=== PATIENT | female | born 1940 | race Caucasian/White ===

== ENCOUNTER 2017-06-11 13:11 | Inpatient (IN) | payer MEDICARE, OTHER ==
--- NOTE | 2017-06-11 13:45 | CT ---
CT OF BRAIN WITHOUT CONTRAST: Comparison: 03-24-15 History: Altered mental status and generalized weakness. Productive cough for two days. Technique: Multiple contagious axial images were obtained in a CT of the brain without contrast. FINDINGS: The brain is normal in morphology and attenuation without focal lesion or confluent areas of infarcti on. There is no evidence of hydrocephalus, intracranial hemorrhage, or extraaxial fluid collection. The calvarium and overlying soft tissues are unremarkable. The visualized paranasal sinuses and masto id air cells are well aerated. IMPRESSION: No evidence of acute intracranial abnormality. POS: [facility]
[2017-06-11 13:47] LABS: Hemoglobin 12.1 g/dL (12.0-16.0); Mean Corpuscular HGB CONC 32.4 g/dL (32.0-36.0); Mean Corpuscular Hemoglobin 31.8 pg (27.0-31.0); Mean Corpuscular Volume 98.3 fl (81.0-99.0); Mean Platelet Volume 8.3 fL (7.4-10.4); Platelet Count 219 thou/uL (130-400); RBC Distribution Width 13.1 % (11.5-14.5); Red Blood Cell (RBC) Count 3.81 mill/uL (4.20-5.40); White Blood Cell (WBC) Count 20.1 thou/uL (4.8-10.8)
--- NOTE | 2017-06-11 14:00 | RAD ---
SINGLE VIEW CHEST: Date: 06/11/17 COMPARISON: 05/29/15. HISTORY: Patient has not been eating much for the past 4 days. Generalized weakness and altered mental status. FINDINGS: Single view of the chest shows normal sized cardiomediastinal silhouette with atherosclerotic calcifi cations in the aorta. Increased interstitial lung markings are present. There are two small areas of air space opacity projecting over the mid portion of the right thorax. These could represent focal in filtrates or masses. IMPRESSION: Opacity projecting over the mid portion of the right thorax may represent infiltrates or masses. Tima elate with white blood coco count. A CT of the chest with contrast may be necessary for further andra luation. POS: [facility]
[2017-06-11 14:04] LABS: CKMB 0.5 ng/mL (0-6.6); Troponin I 0.043 ng/mL (< 0.028)
[2017-06-11 14:07] LABS: ALT (SGPT) 21 U/L (8-55); AST (SGOT) 14 U/L (5-34); Albumin 3.4 g/dL (3.4-4.8); Alkaline Phosphatase 84 U/L (40-150); Anion Gap 18 mmol/L (10-20); BUN (Urea Nitrogen) 40 mg/dL (9.8-20.1); Bilirubin, Total 0.7 mg/dL (0.2-1.2); Calc. Creatinine Clearance 0 mL/min (70-130); Calcium 9.1 mg/dL (7.8-10.44); Carbon Dioxide 22 mmol/L (23-31); Chloride 101 mmol/L (98-107); Estimated GFR-MDRD 21; Globulin 4.1 g/dL (2.4-3.5); Glucose 105 mg/dL (83-110); Lipase 19 U/L (8-78); Potassium 3.6 mmol/L (3.5-5.1); Protein, Total 7.5 g/dL (6.0-8.3); Sodium 137 mmol/L (136-145)
[2017-06-11 14:08] LABS: Band 13 % (5-11); Lymphocytes 6 % (21-51); MDiff Complete? YES; Monocytes 1 % (0-10); Neutrophil 80 % (42-75); Ovalocytes SLIGHT = 2-5 cells (100X) (0-1/hpf); PLT Morphology Comment Appears Adequate; Polychromasia SLIGHT = 2-3 cells (100X) (0-2/hpf)
[2017-06-11] MEDS ORDERED: Azithromycin 500 MG in Sodium Chloride 0.9% 250 ML 250 ML IVPB SCH (15:00)
[2017-06-11 15:03] LABS: Bilirubin Small (Negative); Blood, Urine Large (Negative); Clarity TURBID (Clear); Glucose, Urine (Dipstick) Negative (Negative); Leukocyte Large (Negative); Nitrite Negative (Negative); Protein, Urine (Dipstick) 100 mg/dL (Neg-Trace); Specific Gravity, Urine 1.015 (1.002-1.036); Urobilinogen 0.2 mg/dL (0.2-1.0); pH, Urine 6.5 (5.0-9.0)
[2017-06-11 15:04] LABS: Bacteria/HPF 4+ HPF (None Seen); Squamous Epithelial 0-3 HPF (0-3)
[2017-06-11 15:05] LABS: Pathc Cast-AUWi Flag 4.29 (0-2.49); Yeast-AUWi Flag 221.6 (0-25.0)
[2017-06-11] MEDS ORDERED: Bisacodyl 5 MG TAB PO PRN (15:13)
[2017-06-11 15:14] LABS: Hyaline Casts/LPF NONE SEEN LPF (0-3 Hyaline); Manual Microscopic Reviewed? No Path Casts Seen; RBC/HPF GREATER THAN 50-TNTC HPF (0-3); Yeast-All Forms None Seen HPF (None Seen)
[2017-06-11] MEDS ORDERED: cefTRIAXone\\ROCEPHIN 1 GM in Sodium Chloride 0.9% 100 ML IVPB SCH (15:15)
--- NOTE | 2017-06-11 16:49 | HP ---
PRIMARY CARE PHYSICIAN: Dr. Jagdish Byrnes. CHIEF COMPLAINT: Generalized weakness. HISTORY OF PRESENT ILLNESS: Ms. Hernández is a pleasant 76-year-old lady, who was seen at [facility] on 06/11/2017. She reports that over the last week, she has been generally weak. She also reports cough that is pro ductive of greenish sputum. She does not recall having fevers. She reports that she has been mostly bed bound because of generalized weakness. She denies any nausea, vomiting, or diarrhea. Her son w as sick with flu a couple of weeks ago. She denies any chest pain. She denies any shortness of breath. REVIEW OF SYSTEMS: The following complete review of systems was negative, unless otherwise mentioned in the HPI or below: Constitutional: Weight loss or gain, ability to conduct usual activities. Skin : Rash, itching. Eyes: Double vision, pain. ENT/Mouth: Nose bleeding, neck stiffness, pain, tenderness. Cardiovascular: Palpitations, dyspnea on exertion, orthopnea. Respiratory: Shortness of breath, wheezing, cough, hemoptysis, fever or night sweats. Gastrointestinal: Poor appetite, abdominal pain, heartburn, nausea, vomiting, constipation, or diarrhea. Genitourinary: Urgency, frequency, dysuria, nocturia. Musculoskeletal: Pain, swelling. Neurologic/Psychiatric: Anxiety, depression. Allergy/Immunologic: Skin rash, bleeding tendency. PAST MEDICAL HISTORY: Significant for paroxysmal atrial fibrillation, mild coronary artery disease, chronic kidney disease stage 2, and anxiety. PAST SURGICAL HISTORY: Significant for cardiac catheterization, hysterectomy, left breast lumpectomy , ablation for paroxysmal atrial fibrillation. FAMILY HISTORY: Heart disease in multiple family members. CODE STATUS: I discussed her code status. She is FULL CODE. SOCIAL HISTORY: She denies any tobacco use. She drinks one rum and coke daily. She denies any recr eational drug use. ALLERGIES: No known drug allergies. CURRENT MEDICATIONS: Include atorvastatin 20 mg daily, diltiazem 240 mg daily, Eliquis 5 mg daily. PHYSICAL EXAMINATION: GENERAL: Ms. Hernández is awake and alert, not in acute distress. VITAL SIGNS: Blood pressure is 102/71. Pulse is 134. She is breathing at rate of 19 and saturating 98% on 2 liters of oxygen. She is afebrile. EYES: No scleral icterus. No conjunctival pallor. ENT: Dry mucosal membranes, no oropharyngeal erythema or exudates. NECK: Supple, nontender, normal range of movement, trachea is midline. RESPIRATORY: Accessory muscles of breathing are not active. Chest wall movements are symmetric bila terally. LUNGS: Clear to auscultation, without wheeze, rhonchi or crepitations. CARDIOVASCULAR: S1 and S2 are heard, irregular and tachycardic. Peripheral pulses palpable. No car otid bruit, no pericardial rub. ABDOMEN: Soft, nontender, bowel sounds heard, no hepatomegaly, no splenomegaly. NEUROLOGIC: Cranial nerves II through XII are intact. Deep tendon reflexes are 2+. SKIN: No rashes or subcutaneous nodules. LYMPHATIC: No cervical lymphadenopathy. PSYCHIATRIC: Normal mood, normal affect, patient is oriented to person, place, and time. LABORATORY DATA: Ms. Hernández's labs and investigations were reviewed. I reviewed her electrocardiogram, which shows normal sinus rhythm at 1323 hours. Currently, athletic monitor shows atrial fibrillati on with rapid ventricular response. We also reviewed her chest x-ray, which shows a right upper lobe infiltrate. She also had a CT scan of the brain, noncontrast, which did not show any acute intracra nial abnormality. Laboratory investigation showed leukocytosis with 20,100 white cells, of which 80% are neutrophils and 13% are bands. Hemoglobin is normal, as is the platelet count. Sodium and pota ssium are normal. Carbon dioxide is decreased at 22, lactic acid is elevated at 2.8, blood urea nitr ogen is elevated at 40 and creatinine is elevated at 2.32, last known creatinine 1.48 on 08/26/2016. Troponin I is indeterminate at 0.043. Lipase is normal. Urinalysis is positive for protein, blood, and leukocyte esterase, and bacteria. ASSESSMENT AND PLAN: Ms. Hernández is a pleasant 76-year-old lady, who was seen at [facility] on 06/11/2017. Her problem list includes: 1. Community-acquired pneumonia: Ms. Hernández has evidence of community acquired pneumonia, with a signi ficant leukocytosis and bandemia. She will be admitted to the hospital for further management. I wi ll continue her on ceftriaxone and azithromycin, which has already been started. We will provide bro nchodilators as needed. We will also check influenza screen to rule out influenza infection. 2. Urinary tract infection. Suspected, based on urinalysis. Continue ceftriaxone and follow urine cultures. 3. Atrial fibrillation with rapid ventricular response. At this time, her heart rate is actually im proving after she has been started on intravenous fluids. Continue to monitor. We will not initiate Cardizem drip at this time. 4. Acute on chronic renal failure: Likely prerenal, given her history of not eating well and drinki ng enough fluids for the last few days. Hydrate and recheck her creatinine and electrolytes. 5. Indeterminate troponin: She has ST depressions in the lateral leads. Follow troponin levels. C heck 2D echocardiogram to rule out regional wall motion abnormalities. Many thanks for allowing me to participate in your patient's care. Please feel free to contact me wi th any questions or concerns. LEVEL OF RISK: High. LEVEL OF COMPLEXITY: High.
[2017-06-11 17:07] LABS: Troponin I 0.043 ng/mL (< 0.028)
[2017-06-11 17:33] LABS: Lactic Acid 1.7 mmol/L (0.5-2.2)
[2017-06-11] MEDS: cefTRIAXone\\ROCEPHIN 1 GM, Syringe 0.4 ML in Sterile Water 9.6 ML SLOW IVP SCH (18:36)
[2017-06-11] MEDS: Sodium Chloride 0.9% 1,000 ML IV SCH (18:39)
[2017-06-11] MEDS: Apixaban 5 MG TAB PO SCH (21:04)
[2017-06-11] MEDS: Atorvastatin Calcium 20 MG TAB PO SCH (21:04)
[2017-06-12] MEDS: Sodium Chloride 0.9% 1,000 ML IV SCH ×2 (04:11→15:07)
[2017-06-12 05:41] LABS: Anion Gap 13 mmol/L (10-20); BUN (Urea Nitrogen) 36 mg/dL (9.8-20.1); Calc. Creatinine Clearance 21 mL/min (70-130); Calcium 8.2 mg/dL (7.8-10.44); Carbon Dioxide 22 mmol/L (23-31); Chloride 110 mmol/L (98-107); Estimated GFR-MDRD 29; Glucose 88 mg/dL (83-110); Potassium 3.2 mmol/L (3.5-5.1); Sodium 142 mmol/L (136-145)
[2017-06-12 06:34] LABS: Hemoglobin 9.8 g/dL (12.0-16.0); Mean Corpuscular Hemoglobin 33.4 pg (27.0-31.0); Mean Platelet Volume 8.9 fL (7.4-10.4); Platelet Count 181 thou/uL (130-400); RBC Distribution Width 13.1 % (11.5-14.5); Red Blood Cell (RBC) Count 2.95 mill/uL (4.20-5.40)
[2017-06-12 07:17] LABS: Band 18 % (5-11); Lymphocytes 8 % (21-51); MDiff Complete? YES; Monocytes 3 % (0-10); Neutrophil 71 % (42-75); Polychromasia SLIGHT = 2-3 cells (100X) (0-2/hpf)
[2017-06-12] MEDS: Apixaban 5 MG TAB PO SCH (08:18)
[2017-06-12] MEDS ORDERED: Prevnar 13-Val Conj/PF 0.5 ML SYRINGE IM ONE (09:00)
--- NOTE | 2017-06-12 10:26 | CON ---
DATE OF CONSULTATION: 06/12/2017 This is a 76-year-old female who sees Dr. Byrnes. She is in [facility], the reason for consultation. HISTORY: Apparently she came in yesterday with confusion and mental status changes. CT of the head was done which was unremarkable. This morning she tells me that she lives with her son. She is a fo rmer smoker, quit smoking many years ago. She has a diagnosis of asthma, COPD. She is having a coug h which is nonproductive. Unable to give much additional information except she is feeling poorly. An echocardiogram was just done. According to the son on arrival, the patient had not eaten for several days. PAST MEDICAL HISTORY: Pertinent for cardiac arrhythmia, SVT, atrial fibrillation. She has a history of depression. She apparently has history of drinking alcohol on a regular basis, former smoker. P ast medical history otherwise includes depression, cardiac arrhythmias, COPD, chronic asthma. PAST SURGICAL HISTORY: Previous cath, lumpectomy, hysterectomy. MEDICATIONS: From home includes Cardizem 240, Lipitor 20, Eliquis 5, Zoloft 25, potassium, Protonix, and now on Zithromax, Rocephin. REVIEW OF SYSTEMS: Otherwise, difficult to obtain. PHYSICAL EXAMINATION: GENERAL: She is awake, responsive, somewhat encephalopathic. We will try and get additional informa tion when son arrives. VITAL SIGNS: Blood pressure 104/40, sats 100% on 2 liters, respirations 18, temperature 98. CHEST: Chest revealed bilateral rhonchi and wheezing. CARDIAC: Normal S1-S2. ABDOMEN: Soft. No masses. LABORATORY: White count 14,000, H&H 9 and 28, platelet count 81. Electrolytes are normal. Creatini ne 1.74. Urine shows 50 WBCs. X-ray showed a right upper lung infiltrate. IMPRESSION: 1. Chronic obstructive pulmonary disease/asthma exacerbation. 2. Superimposed pneumonia. 3. Renal failure. 4. Supraventricular tachycardia. 5. Encephalopathy, probably metabolic. PLAN: I agree with present antibiotic coverage. I have added steroids, nebulizer treatments. Azotemia may be prerenal. Continue slow hydration. I will follow.
[2017-06-12] MEDS: Pantoprazole 80 MG, Admixture Fee 1 EACH in Sodium Chloride 0.9% 100 ML IVP SCH ×2 (12:21→21:13)
--- NOTE | 2017-06-12 14:35 | PDOC.PN ---
- Subjective Encounter Start Date: 06/12/17 Encounter Start Time: 09:40 Pt seen for followup re: pneumonia. Reports cough, greenish sputum. No fevers. - Objective Resuscitation Status: Resuscitation Status FULL:Full Resuscitation MAR Reviewed: Yes Vital Signs & Weight: Vital Signs (12 hours) Temp Pulse Resp BP Pulse Ox 06/12/17 13:36 97 06/12/17 13:33 98 19 97 06/12/17 12:00 97.6 F 88 20 113/53 L 98 06/12/17 08:18 93 06/12/17 07:38 98.4 F 93 18 105/56 L 100 06/12/17 07:26 97.8 F 87 20 98 06/12/17 04:00 97.8 F 87 20 127/62 96 Weight Admit Weight 104 lb 6.4 oz Weight 104 lb 12.8 oz I&O: 06/11/17 06/12/17 06/13/17 06:59 06:59 06:59 Intake Total 1200 Output Total 780 Balance 420 Result Diagrams: 06/12/17 03:43 06/12/17 03:43 EKG Reviewed by me: Yes (Tele: keenan modi) Phys Exam - Physical Examination Constitutional: NAD HEENT: PERRLA, moist MMs, sclera anicteric, oral pharynx no lesions Neck: no nodes, no JVD, supple, full ROM Respiratory: no wheezing, no rales, no rhonchi, clear to auscultation bilateral Cardiovascular: no rub, irregular Gastrointestinal: soft, non-tender, no distention, positive bowel sounds Neurological: moves all 4 limbs Psychiatric: normal affect Dx/Plan (1) CAP (community acquired pneumonia) Code(s): J18.9 - PNEUMONIA, UNSPECIFIED ORGANISM Status: Acute Qualifiers: Laterality: right Lung location: upper lobe of lung Qualified Code(s): J18.1 - Lobar pneumonia, unspecified organism (2) UTI (urinary tract infection) Status: Acute (3) SIMON (acute kidney injury) Code(s): N17.9 - ACUTE KIDNEY FAILURE, UNSPECIFIED Status: Acute (4) Sepsis Code(s): A41.9 - SEPSIS, UNSPECIFIED ORGANISM Status: Acute (5) Afib Code(s): I48.91 - UNSPECIFIED ATRIAL FIBRILLATION Status: Chronic (6) Moderate protein-calorie malnutrition Code(s): E44.0 - MODERATE PROTEIN-CALORIE MALNUTRITION Status: Chronic - Plan continue antibiotics, PT/OT, out of bed/ambulate * . Continue IV antibiotics as below. Await urine, blood and respiratory cultures. Influenza screen -ve. Monitor vital signs, titrate antihypertensives as needed. Review of Systems - Review of Systems Constitutional: negative: fever, chills, sweats, weakness, malaise Respiratory: Cough, SOB with Excertion, Sputum. negative: Dry, Shortness of Breath, Hemoptysis, Pleuritic Pain, Wheezing Cardiovascular: negative: chest pain, palpitations, orthopnea, paroxysmal nocturnal dyspnea, edema, light headedness Gastrointestinal: negative: Nausea, Vomiting, Abdominal Pain, Diarrhea, Constipation, Melena, Hematochezia Genitourinary: negative: Dysuria, Frequency, Incontinence, Hematuria, Retention Skin: negative: Rash, Lesions, Francis, Bruising - Medications/Allergies Allergies/Adverse Reactions: Allergies Allergy/AdvReac Type Severity Reaction Status Date / Time No Known Allergies Allergy Verified 05/29/15 16:53 Medications: Current Medications Albuterol/Ipratropium (Duoneb) 3 ml NEB [id number] [facility] Last Admin: 06/12/17 13:33 Dose: 3 ml Atorvastatin Calcium (Lipitor) 20 mg PO QPM [facility] Last Admin: 06/11/17 21:04 Dose: 20 mg Bisacodyl (Dulcolax) 10 mg PO DAILYPRN PRN PRN Reason: Constipation Diltiazem HCl (Cardizem Cd) 240 mg PO DAILY [facility] Last Admin: 06/12/17 08:18 Dose: 240 mg Azithromycin 500 mg/ Sodium (Chloride) 250 mls @ 250 mls/hr IVPB 1500 [facility] Ceftriaxone Sodium 1 gm/ (Syringe 0.4 ml/ Sterile Water) 10 mls @ 120 mls/hr SLOW IVP 1700 [facility] Last Admin: 06/11/17 18:36 Dose: Not Given Pantoprazole Sodium 80 mg/Miscellaneous Medication 1 each/ Sodium Chloride 100 mls @ 10 mls/hr IVP INF [facility] Last Admin: 06/12/17 12:21 Dose: 100 mls Potassium Chloride/Sodium Chloride (Ns 0.9% W/ 40 Meq Kcl) 1,000 mls @ 100 mls/ hr IV .Q10H [facility] Prednisone (Prednisone) 20 mg PO BID-WM NAHEED
--- NOTE | 2017-06-12 14:53 | PQF ---
DATE: 06-12-17 ATTN: DR. JAMES MUSA Please exercise your independent, professional judgment in responding to the clarification form. Clinical indicators are provided on the bottom of this form for your review Please check appropriate box(s): [ X ] Sepsis due to: (Pna, UTI, etc.) Pneumonia [ ] Severe sepsis with acute organ dysfunction of: (Examples: encephalopathy, acute kidney failure, other) [ ] Other diagnosis [ ] Unable to determine In addition, please specify: Present on Admission (POA): [ ] Yes [ ] No [ ] Unable to determine For continuity of documentation, please document condition throughout progress notes and discharge summary. Thank You. CLINICAL INDICATORS - SIGNS / SYMPTOMS / LABS CONSULT NOTE DR. MC 06-12-17: HISTORY APPARENTLY WITH CONFUSION AND MENTAL STATUS CHANGES. ER DIAGNOSIS: PNEUMONIA, SIMON, INDETERMINATE TROPONIN, SEPSIS, WEAKNESS H&P: HAS EVIDENCE OF COMMUNITY ACQUIRED PNEUMONIA, WITH A SIGNIFICANT LEUKOCYTOSIS AND BANDEMIA. ER DOCUMENTATION: PULSE: 123, 134, 110 WBC: 06-11-17: 20.1 18: 14.0 BANDS: 06-11-18: 13 06-12-17: 18 LACTIC ACID: 06-11-17: 2.8 RISK FACTORS: H&P: COMMUNITY ACQUIRED PNEUMONIA, UTI ADVANCED AGE TREATMENTS: (MAR) IVF (MAR) ZITHROMAX, ROCEPHIN (This form is maintained as a part of the permanent medical record) 2014 [employer]. All Rights Reserved [email or web address] Office: [phone] DIANNE
--- NOTE | 2017-06-12 15:16 | PQF ---
Date: 06-12-17 ATTN: DR. JAMES MUSA Please exercise your independent, professional judgment in responding to the clarification form. Clinical indicators are provided on the bottom of this form for your review Please check appropriate box(s): [ X ] Protein Calorie Malnutrition: [ ] Mild [ X ] Moderate [ ] Severe [ ] Cachexia [ ] Other diagnosis [ ] Unable to determine In addition, please specify: Present on Admission (POA): [ ] Yes [ ] No [ ] Unable to determine CLINICAL INDICATORS - SIGNS / SYMPTOMS / LABS BMI of 18.0 ER DIAGNOSIS: PNEUMONIA, SIMON, INDETERMINATE TROPONIN, SEPSIS, WEAKNESS [employer]EEP[employer] CONSULT 06-12-17: Patient states she has been very depressed for the last month or so, really is not able to provide much detailed history. 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 She has no desire to eat and often has been skipping dinner. Breakfast tray was observed at bedside untouched. Discussed importance of nutrition and encouraged PO intake during visit. Per documentation, patient has been mostly bedbound this week. She reports UBW at 135-140 lbs but "couldn't even begin to tell" RD when this was, "she just hasn't cared about that kind of thing." Patient does not drink oral supplements, states she has a rum and coke every night. [employer] CONSULT 06-12-17: depression, decreased appetite, patient report of minimal intake x1 month, 22% weight loss in unknown period of time, breakfast tray untouched RISK FACTORS: Patient states she has been very depressed for the last month or so, really is not able to provide much detailed history. 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 She has no desire to eat and often has been skipping dinner. Breakfast tray was observed at bedside untouched. Discussed importance of nutrition and encouraged PO intake during visit. Per documentation, patient has been mostly bedbound this week. She reports UBW at 135-140 lbs but "couldn't even begin to tell" RD when this was, "she just hasn't cared about that kind of thing." Patient does not drink oral supplements, states she has a rum and coke every night. ER DOCUMENTATION: HAS NOT EATEN IN 4 DAYS, DRINKS EVERY DAY TREATMENT: CLE[employer]KEEP[employer] CONSULT 06-12-17: 1. Continue current Heart Healthy diet 2. Recommend Ensure Enlive TID to promote intake, monitoring renal function closely 3. Consider an appetite stimulant (This form is maintained as a part of the permanent medical record) 2014 [employer]. All Rights Reserved [email or web address] Office: [phone] [facility]
[2017-06-12] MEDS: Azithromycin 500 MG in Sodium Chloride 0.9% 250 ML 250 ML IVPB SCH (16:23)
[2017-06-12] MEDS: NS 0.9% w/ 40 MEQ KCL 1,000 ML IV SCH (16:23)
[2017-06-12] MEDS: predniSONE 20 MG TAB PO SCH (16:25)
[2017-06-12] MEDS: cefTRIAXone\\ROCEPHIN 1 GM, Syringe 0.4 ML in Sterile Water 9.6 ML SLOW IVP SCH (17:43)
[2017-06-12] MEDS: Atorvastatin Calcium 20 MG TAB PO SCH (19:50)
[2017-06-12] MEDS ORDERED: Apixaban 5 MG TAB PO SCH (21:00)
--- NOTE | 2017-06-13 01:38 | CON ---
DATE OF CONSULTATION: 06/12/2017 REFERRING PHYSICIAN: Sreekanth Wilkins M.D. REASON FOR CONSULTATION: Black tarry stool. HISTORY OF PRESENT ILLNESS: Ms. Remedios Hernnádez is a very fragile looking, elderly female hospit alized by Dr. Sreekanth Wilkins because of generalized weakness, poor appetite, altered mental status. She also gives a history of cough with productive greenish sputum. Her chest x-ray revealed pneumonia, and she will have broad-spectrum antibiotic therapy. The patient has history of atrial fibrillation and has had ablation x2. The patient will take Eliquis. Apparently, she had been in and out of paro xysmal atrial fibrillation. The patient has had a bowel movement this morning and as per the nurses, she had a very large black tarry stool. She felt dizzy at that time. Also, she became tachycardic. She had a CBC done. The CBC did drop down from admitting hemoglobin of 12.1 to 9.8. The patient h ad only 1 black tarry stool and subsequently, she had no more stool. The patient denies abdominal pa in, nausea, vomiting. No hematemesis, dysphagia or odynophagia. The patient's family tells me that she has not been eating very little over the last several months. She has poor appetite, does not wa nt to eat anything. There is a history of weight loss of 25-30 pounds over the last few months. The patient has no localizing symptoms of anorexia and weight loss. Her bowel movements are fairly regu lar. She says she has a bowel movement everyday. At times when strains and the stools are hard, he does see mild bleeding in the stool. Otherwise, she has had no bleeding. She had a possible peptic ulcer. She does take Eliquis because of atrial fibrillation. She has no other relevant history. ALLERGIES: None. SOCIAL HISTORY: The patient does not smoke. She usually drinks one drink every day. No history of drug use. MEDICAL ILLNESSES: 1. Paroxysmal atrial fibrillation, status post ablation x2. 2. Mild coronary artery disease. 3. Chronic kidney disease, stage 2. 4. Anxiety. SURGERIES: 1. Past history of cardiac catheterization. 2. Hysterectomy. 3. Left breast lumpectomy. 4. Ablation of heart for atrial fibrillation. FAMILY HISTORY: Multiple family members have heart disease. MEDICATIONS: 1. Atorvastatin 20 once a day. 2. Diltiazem 240 once a day. 3. Eliquis 5 once a day. REVIEW OF SYSTEMS: A 10-point system reviewed. Constitutional: History of poor appetite, generaliz ed weakness, weight loss. No history of fever or chills, no night sweats. Respiratory: History of cough with greenish sputum recently. No history of hemoptysis. Cardiovascular: History of atrial fibrillation with ablation. At present, no chest pain, no palpita tion, no dyspnea, orthopnea, or PND. Gastrointestinal: No abdominal pain, no nausea, vomiting, hist ory of black tarry stool this morning. Genitourinary: No dysuria, hematuria, or frequency of urinat ion. Musculoskeletal/Endocrine/Hematological: Not relevant. Neuropsychiatric: History of anxiety. PHYSICAL EXAMINATION: GENERAL: Reveals a fragile-looking, elderly female who appears comfortable. She is actual ly lying flat and she is not short-winded. VITAL SIGNS: Her pulse in the present time 106, blood pressure is 102/71. HEENT: Conjunctivae clear. NECK: Supple. No adenitis or thyromegaly noted. CARDIAC: First and second heart sounds normal. LUNGS: Clear to auscultation. No wheezing or rales heard. ABDOMEN: Soft to palpate. Abdomen is nontender. There is no organomegaly or masses. EXTREMITIES: Reveal no edema. CENTRAL NERVOUS SYSTEM: Grossly within normal limits. LABORATORY DATA: The admitting lab shows leukocytosis with WBC of 20,100 dropping to 14,000 today, h emoglobin 12.1 dropping to 9.8, hematocrit 37.5 down to 29.8, MCV 101, platelet count is 181,000, kelsey ymorphs 71, bands 18, lymphocytes 8. Serum chemistries: Sodium 142, potassium 3.2, chloride 110, bi carbonate 22, BUN is 36, creatinine is 1.74, glucose is 88. Troponin 0.40. Globulin 4.1, albumin 3. 4, lipase 19. She had a chest x-ray on admission, which revealed right middle lobe infiltrate versus mass. CLINICAL IMPRESSION: 1. A 76-year-old female with pneumonia and also has history of atrial fibrillation. She had an episode of melena stool this morning. She was still taking Eliquis until this morning. The evening dose of Eliquis has been withheld. Based on the information, I believe she mostly has up per gastrointestinal bleeding because of black tarry stools. She has no abdominal pain. No nausea o r vomiting. 2. Right-sided pneumonia. 3. Atrial fibrillation. 4. Coronary artery disease. 5. Anxiety. 6. Status post left breast lumpectomy. RECOMMENDATIONS: 1. Full liquid diet today. 2. We will plan an EGD tomorrow. I could not perform EGD tonight because she was taking the Eliquis until this morning; we will order the EGD until tomorrow. If the EGD fails to show any pathology, haritha archer may have to consider a colonoscopy, but which can wait until she recovers from her pulmonary infilt rates.
[2017-06-13] MEDS: NS 0.9% w/ 40 MEQ KCL 1,000 ML IV SCH ×3 (04:27→20:00)
[2017-06-13 04:45] LABS: #Lymphocytes 0.3 thou/uL (1.20-3.40); #Monocytes 0.1 thou/uL (0.11-0.59); #Neutrophils 6.7 thou/uL (1.40-6.50); %Eosinophils 0.2 % (0.0-10.0); %Lymphocytes 4.3 % (21.0-51.0); %Monocytes 1.5 % (0.0-10.0); %Neutrophils 94.1 % (42.0-75.0); Hemoglobin 8.9 g/dL (12.0-16.0); Mean Corpuscular HGB CONC 31.3 g/dL (32.0-36.0); Mean Corpuscular Hemoglobin 31.6 pg (27.0-31.0); Mean Platelet Volume 8.4 fL (7.4-10.4); Platelet Count 197 thou/uL (130-400); RBC Distribution Width 13.1 % (11.5-14.5); Red Blood Cell (RBC) Count 2.82 mill/uL (4.20-5.40); White Blood Cell (WBC) Count 7.1 thou/uL (4.8-10.8)
[2017-06-13 05:12] LABS: Anion Gap 13 mmol/L (10-20); BUN (Urea Nitrogen) 26 mg/dL (9.8-20.1); Calc. Creatinine Clearance 25 mL/min (70-130); Calcium 8.3 mg/dL (7.8-10.44); Carbon Dioxide 20 mmol/L (23-31); Chloride 115 mmol/L (98-107); Estimated GFR-MDRD 35; Glucose 136 mg/dL (83-110); Potassium 3.9 mmol/L (3.5-5.1); Sodium 144 mmol/L (136-145)
[2017-06-13] MEDS ORDERED: Fentanyl 100 MCG/2 ML VIAL ONE (08:08)
--- NOTE | 2017-06-13 08:47 | PRG ---
DATE OF SERVICE: 06/13/2017 She is awake, alert, responsive. She is better, less short of breath. PHYSICAL EXAMINATION: VITAL SIGNS: Blood pressure 102/59, sats 100% on 3 liters, pulse 104, temperature 97. CHEST: Chest reveals decreased breath sounds, no wheezing. CARDIAC: Normal S1, S2. ABDOMEN: Soft, no masses. LABORATORY DATA: White count 10,000, H&H 8 and 28, platelet count normal. Electrolytes are normal. IMPRESSION: 1. Chronic obstructive pulmonary disease exacerbation. 2. Bronchitis. 3. Pneumonia, aspiration. 4. Renal failure. PLAN: Continue antibiotics, nebulizer treatments, steroids. I will follow.
[2017-06-13] MEDS ORDERED: Ondansetron HCl/PF 4 MG/2 ML Vial IVP PRN (09:26)
[2017-06-13] MEDS ORDERED: Promethazine HCl 25 MG/ML VIAL IM PRN (09:26)
[2017-06-13] MEDS ORDERED: Promethazine HCl 25 MG/ML VIAL SLOW IVP PRN (09:26)
[2017-06-13] MEDS: predniSONE 20 MG TAB PO SCH ×2 (10:49→17:25)
--- NOTE | 2017-06-13 12:10 | OP ---
DATE OF PROCEDURE: 06/13/2017 SURGEON: Franki Umaña M.D. OPERATIVE PROCEDURE: Esophagogastroduodenoscopy. PREOPERATIVE DIAGNOSES: Melena, anemia due to blood loss. POSTOPERATIVE DIAGNOSES: Antral gastritis. Otherwise, the exam was normal. There is no pathology t o explain the melena. PROCEDURE IN DETAIL: The patient was placed on her left lateral position and was given sedation by [facility] Anesthesia Department. A Pentax video gastroscope under direct vision was passed down the orophar ynx, past the gastroesophageal junction, into the stomach and subsequently into the descending duoden um. The esophageal mucosa appeared normal. The GE junction, no pathology seen. Retroflexion failed to show any lesions in the fundus or cardia. The gastric body and gastric antrum shows mucosal eryt fartun and edema indicative of gastritis. The duodenal bulb and descending duodenum, no pathology. Th e stomach was decompressed and the scope removed. RECOMMENDATIONS: 1. 4 gram sodium diet. 2. Follow up H&H. 3. Hold off Eliquis. 4. May need a colonoscopy because of the melena and negative EGD. 5. Abdominal CAT scan because of weight loss, anorexia. It was discussed to the patient's son about the plan of treatment.
--- NOTE | 2017-06-13 13:05 | PDOC.PN ---
- Subjective Encounter Start Date: 06/13/17 Encounter Start Time: 13:03 Pt seen for followup re: pneumonia. Denies chest pain, shortness of breath. Cough+. No fevers - Objective Resuscitation Status: Resuscitation Status FULL:Full Resuscitation Vital Signs & Weight: Vital Signs (12 hours) Temp Pulse Resp BP BP BP Pulse Ox 06/13/17 12:00 98.2 F 105 H 18 120/55 L 93 L 06/13/17 11:14 113 H 16 06/13/17 10:49 104 H 117/65 06/13/17 08:00 97.5 F L 104 H 20 98 06/13/17 07:00 97.5 F L 104 H 20 102/59 L 100 06/13/17 04:00 97.8 F 61 20 131/71 99 Weight Admit Weight 104 lb 6.4 oz Weight 104 lb 12.8 oz I&O: 06/12/17 06/13/17 06/14/17 06:59 06:59 06:59 Intake Total 1200 3324 Output Total 780 1000 Balance 420 2324 Result Diagrams: 06/13/17 04:20 06/13/17 04:20 Dx/Plan (1) CAP (community acquired pneumonia) Code(s): J18.9 - PNEUMONIA, UNSPECIFIED ORGANISM Status: Acute Qualifiers: Laterality: right Lung location: upper lobe of lung Qualified Code(s): J18.1 - Lobar pneumonia, unspecified organism (2) UTI (urinary tract infection) Status: Acute (3) SIMON (acute kidney injury) Code(s): N17.9 - ACUTE KIDNEY FAILURE, UNSPECIFIED Status: Acute (4) Sepsis Code(s): A41.9 - SEPSIS, UNSPECIFIED ORGANISM Status: Acute (5) Afib Code(s): I48.91 - UNSPECIFIED ATRIAL FIBRILLATION Status: Chronic (6) Moderate protein-calorie malnutrition Code(s): E44.0 - MODERATE PROTEIN-CALORIE MALNUTRITION Status: Chronic - Plan * .
--- NOTE | 2017-06-13 13:08 | PDOC.PN ---
- Subjective Encounter Start Date: 06/13/17 Encounter Start Time: 13:06 Pt seen for followup re: pneumonia. Denies chest pain, shortness of breath. Cough+. No fevers. - Objective Resuscitation Status: Resuscitation Status FULL:Full Resuscitation MAR Reviewed: Yes Vital Signs & Weight: Vital Signs (12 hours) Temp Pulse Resp BP BP BP Pulse Ox 06/13/17 12:00 98.2 F 105 H 18 120/55 L 93 L 06/13/17 11:14 113 H 16 06/13/17 10:49 104 H 117/65 06/13/17 08:00 97.5 F L 104 H 20 98 06/13/17 07:00 97.5 F L 104 H 20 102/59 L 100 06/13/17 04:00 97.8 F 61 20 131/71 99 Weight Admit Weight 104 lb 6.4 oz Weight 104 lb 12.8 oz I&O: 06/12/17 06/13/17 06/14/17 06:59 06:59 06:59 Intake Total 1200 3324 Output Total 780 1000 Balance 420 2324 Result Diagrams: 06/13/17 04:20 06/13/17 04:20 EKG Reviewed by me: Yes (Tele: a. ly) Phys Exam - Physical Examination Constitutional: NAD HEENT: PERRLA, moist MMs, sclera anicteric, oral pharynx no lesions Neck: no nodes, no JVD, supple, full ROM Respiratory: no wheezing, no rales, no rhonchi, clear to auscultation bilateral Cardiovascular: no rub, irregular Gastrointestinal: soft, non-tender, no distention, positive bowel sounds Musculoskeletal: pulses present Neurological: moves all 4 limbs Psychiatric: normal affect Skin: no rash Dx/Plan (1) CAP (community acquired pneumonia) Code(s): J18.9 - PNEUMONIA, UNSPECIFIED ORGANISM Status: Acute Qualifiers: Laterality: right Lung location: upper lobe of lung Qualified Code(s): J18.1 - Lobar pneumonia, unspecified organism (2) UTI (urinary tract infection) Status: Acute (3) SIMON (acute kidney injury) Code(s): N17.9 - ACUTE KIDNEY FAILURE, UNSPECIFIED Status: Acute (4) Sepsis Code(s): A41.9 - SEPSIS, UNSPECIFIED ORGANISM Status: Acute (5) Melena Code(s): K92.1 - MELENA Status: Acute (6) Afib Code(s): I48.91 - UNSPECIFIED ATRIAL FIBRILLATION Status: Chronic (7) Moderate protein-calorie malnutrition Code(s): E44.0 - MODERATE PROTEIN-CALORIE MALNUTRITION Status: Chronic - Plan continue antibiotics, DVT proph w/SCDs * . s/p EGD, noted. Plan for colonoscopy tomorrow. CT chest/abdo pelvis witgh contrast to be obtained when creatinine improves. IV hydration. IV antibiotics as below. Eliquis on hold Review of Systems - Review of Systems Constitutional: negative: fever, chills, sweats, weakness, malaise Respiratory: Cough, SOB with Excertion. negative: Dry, Shortness of Breath, Hemoptysis, Pleuritic Pain, Sputum, Wheezing Cardiovascular: negative: chest pain, palpitations, orthopnea, paroxysmal nocturnal dyspnea, edema, light headedness Gastrointestinal: Melena. negative: Nausea, Vomiting, Abdominal Pain, Diarrhea , Constipation, Hematochezia Genitourinary: negative: Dysuria, Frequency, Incontinence, Hematuria, Retention - Medications/Allergies Allergies/Adverse Reactions: Allergies Allergy/AdvReac Type Severity Reaction Status Date / Time No Known Allergies Allergy Verified 05/29/15 16:53 Medications: Current Medications Albuterol/Ipratropium (Duoneb) 3 ml NEB [id number] [facility] Last Admin: 06/13/17 11:14 Dose: 3 ml Atorvastatin Calcium (Lipitor) 20 mg PO QPM [facility] Last Admin: 06/12/17 19:50 Dose: 20 mg Bisacodyl (Dulcolax) 10 mg PO DAILYPRN PRN PRN Reason: Constipation Diltiazem HCl (Cardizem Cd) 240 mg PO DAILY [facility] Last Admin: 06/13/17 10:49 Dose: 240 mg Azithromycin 500 mg/ Sodium (Chloride) 250 mls @ 250 mls/hr IVPB 1500 [facility] Last Admin: 06/12/17 16:23 Dose: 250 mls Ceftriaxone Sodium 1 gm/ (Syringe 0.4 ml/ Sterile Water) 10 mls @ 120 mls/hr SLOW IVP 1700 [facility] Last Admin: 06/12/17 17:43 Dose: 10 mls Pantoprazole Sodium 80 mg/Miscellaneous Medication 1 each/ Sodium Chloride 100 mls @ 10 mls/hr IVP INF [facility] Last Admin: 06/12/17 21:13 Dose: 100 mls Potassium Chloride/Sodium Chloride (Ns 0.9% W/ 40 Meq Kcl) 1,000 mls @ 100 mls/ hr IV .Q10H [facility] Last Admin: 06/13/17 04:27 Dose: 1,000 mls Prednisone (Prednisone) 20 mg PO BID-WM [facility] Last Admin: 06/13/17 10:49 Dose: 20 mg Sodium Chloride (Flush - Normal Saline) 10 ml IVF PRN PRN PRN Reason: Saline Flush
[2017-06-13] MEDS ORDERED: Lidocaine 1% PF 5 ML VIAL ONE (13:19)
[2017-06-13] MEDS ORDERED: PROPOFOL 200 MG/20 ML VIAL ONE (13:19)
[2017-06-13] MEDS: cefTRIAXone\\ROCEPHIN 1 GM, Syringe 0.4 ML in Sterile Water 9.6 ML SLOW IVP SCH (16:07)
[2017-06-13] MEDS: Azithromycin 500 MG in Sodium Chloride 0.9% 250 ML 250 ML IVPB SCH (16:07)
[2017-06-13] MEDS: Pantoprazole 80 MG, Admixture Fee 1 EACH in Sodium Chloride 0.9% 100 ML IVP SCH (21:08)
[2017-06-13] MEDS: Atorvastatin Calcium 20 MG TAB PO SCH (21:10)
[2017-06-14] MEDS: NS 0.9% w/ 40 MEQ KCL 1,000 ML IV SCH ×2 (02:29→14:09)
[2017-06-14 04:25] LABS: #Lymphocytes 0.2 thou/uL (1.20-3.40); #Monocytes 0.2 thou/uL (0.11-0.59); #Neutrophils 5.2 thou/uL (1.40-6.50); %Monocytes 2.7 % (0.0-10.0); %Neutrophils 93.2 % (42.0-75.0); Hemoglobin 7.5 g/dL (12.0-16.0); Mean Corpuscular HGB CONC 32.4 g/dL (32.0-36.0); Mean Platelet Volume 8.5 fL (7.4-10.4); Platelet Count 197 thou/uL (130-400); RBC Distribution Width 13.1 % (11.5-14.5); Red Blood Cell (RBC) Count 2.28 mill/uL (4.20-5.40); White Blood Cell (WBC) Count 5.6 thou/uL (4.8-10.8)
[2017-06-14 04:46] LABS: Anion Gap 11 mmol/L (10-20); BUN (Urea Nitrogen) 19 mg/dL (9.8-20.1); Calc. Creatinine Clearance 29 mL/min (70-130); Calcium 7.9 mg/dL (7.8-10.44); Carbon Dioxide 19 mmol/L (23-31); Chloride 118 mmol/L (98-107); Estimated GFR-MDRD 42; Glucose 142 mg/dL (83-110); Potassium 4.7 mmol/L (3.5-5.1); Sodium 143 mmol/L (136-145)
[2017-06-14] MEDS ORDERED: Lorazepam 2 MG/ML VIAL SLOW IVP PRN (05:14)
[2017-06-14] MEDS: Lorazepam 1 MG TAB PO PRN (05:51)
[2017-06-14] MEDS: Pantoprazole 80 MG, Admixture Fee 1 EACH in Sodium Chloride 0.9% 100 ML IVP SCH (06:50)
[2017-06-14] MEDS: predniSONE 20 MG TAB PO SCH ×2 (08:25→18:00)
[2017-06-14] MEDS: Azithromycin 500 MG in Sodium Chloride 0.9% 250 ML 250 ML IVPB SCH (14:09)
--- NOTE | 2017-06-14 17:39 | PRG ---
DATE OF SERVICE: 06/14/2017 SUBJECTIVE: Ms. Hernández remains in IMU. She is without complaints. She states her breathing is a littl e better than it was yesterday. She denies any abdominal pain. She is on prednisone 20 mg p.o. b.i. d., pantoprazole drip, diltiazem, Rocephin, azithromycin and DuoNebs. OBJECTIVE: VITAL SIGNS: Temperature is 97, pulse 76, respirations 20, O2 sat 100% on 2 liters and blood pressur e 123/77. LUNGS: Clear with some rhonchi. HEART: Has regular rate and rhythm. ABDOMEN: Soft and nontender. EXTREMITIES: Reveal no edema. LABORATORY STUDIES: Hemoglobin is 8, recheck hemoglobin at 3:30, 5:48, and 8:22, white count is 5.2 and platelet count 187,000. Sodium is 143, potassium 4.7, bicarbonate 19, chloride 118, BUN and crea tinine are 19 and 1.26. ASSESSMENT: 1. Reported melena while on Eliquis, status post esophagogastroduodenoscopy that was normal. 2. Right-sided pneumonia. 3. Atrial fibrillation, Eliquis on hold. 4. Coronary artery disease. 5. Anxiety. RECOMMENDATIONS: 1. Stop Protonix drip. Give her Protonix 40 mg once a day. 2. With regard to the patient's weight loss, it is unclear this is depression, chronic disease or po ssibly some GI process. Dr. Umaña was inclined to get a CAT scan of her abdomen and pelvis as so on as her BUN and creatinine improves. So, we will continue hydration at this time and we will see w hat her BUN and creatinine tomorrow and maybe get a CAT scan tomorrow. 3. Also, some thought about getting a colonoscopy; however, her present respiratory status is too fr ail for a colonoscopy at this time. When her pneumonia improves, this may be considered probably as an outpatient. We will continue to follow up Dr. Umaña's abscence.
[2017-06-14] MEDS: cefTRIAXone\\ROCEPHIN 1 GM, Syringe 0.4 ML in Sterile Water 9.6 ML SLOW IVP SCH (18:00)
--- NOTE | 2017-06-14 18:03 | PDOC.PN ---
- Subjective Encounter Start Date: 06/14/17 Encounter Start Time: 09:00 Pt seen for followup re: pneumonia. Feels better. No fevers or chills. No nausea or vomiting. - Objective Resuscitation Status: Resuscitation Status FULL:Full Resuscitation MAR Reviewed: Yes Vital Signs & Weight: Vital Signs (12 hours) Temp Pulse Resp BP BP Pulse Ox 06/14/17 15:27 92/60 06/14/17 15:25 97.7 F 98 19 121/59 L 06/14/17 13:38 100 18 06/14/17 11:07 97.7 F 76 20 123/77 100 06/14/17 08:00 97.4 F L 122 H 20 06/14/17 07:40 122 H 20 06/14/17 07:29 96.8 F L 150 H 20 129/69 98 06/14/17 06:21 145 H 121/78 Weight Admit Weight 104 lb 6.4 oz Weight 104 lb 12.8 oz I&O: 06/13/17 06/14/17 06/15/17 06:59 06:59 06:59 Intake Total 3324 3080 Output Total 1000 720 Balance 2324 2360 Result Diagrams: 06/14/17 08:22 06/14/17 03:39 EKG Reviewed by me: Yes (Tele: [email or web address] modi) Phys Exam - Physical Examination Constitutional: NAD HEENT: moist MMs Neck: supple Respiratory: clear to auscultation bilateral Cardiovascular: irregular Gastrointestinal: soft Musculoskeletal: pulses present Neurological: moves all 4 limbs Psychiatric: normal affect Skin: no rash Dx/Plan (1) CAP (community acquired pneumonia) Code(s): J18.9 - PNEUMONIA, UNSPECIFIED ORGANISM Status: Acute Qualifiers: Laterality: right Lung location: upper lobe of lung Qualified Code(s): J18.1 - Lobar pneumonia, unspecified organism (2) UTI (urinary tract infection) Status: Acute (3) SIMON (acute kidney injury) Code(s): N17.9 - ACUTE KIDNEY FAILURE, UNSPECIFIED Status: Acute (4) Sepsis Code(s): A41.9 - SEPSIS, UNSPECIFIED ORGANISM Status: Acute (5) Melena Code(s): K92.1 - MELENA Status: Acute (6) Afib Code(s): I48.91 - UNSPECIFIED ATRIAL FIBRILLATION Status: Chronic (7) Moderate protein-calorie malnutrition Code(s): E44.0 - MODERATE PROTEIN-CALORIE MALNUTRITION Status: Chronic - Plan continue antibiotics, PT/OT, out of bed/ambulate * . Continue antibiotics as below. Creatinine improving, reassess tomorrow and order CT study if possible. Review of Systems - Review of Systems Constitutional: negative: fever, chills, sweats, weakness, malaise Cardiovascular: negative: chest pain, palpitations, orthopnea, paroxysmal nocturnal dyspnea, edema, light headedness - Medications/Allergies Allergies/Adverse Reactions: Allergies Allergy/AdvReac Type Severity Reaction Status Date / Time No Known Allergies Allergy Verified 05/29/15 16:53 Medications: Current Medications Albuterol/Ipratropium (Duoneb) 3 ml NEB [id number] [facility] Last Admin: 06/14/17 13:38 Dose: 3 ml Atorvastatin Calcium (Lipitor) 20 mg PO QPM [facility] Last Admin: 06/13/17 21:10 Dose: 20 mg Bisacodyl (Dulcolax) 10 mg PO DAILYPRN PRN PRN Reason: Constipation Diltiazem HCl (Cardizem Cd) 240 mg PO DAILY [facility] Last Admin: 06/14/17 06:21 Dose: 240 mg Haloperidol Lactate (Haldol) 2 mg IM Q4H PRN PRN Reason: Agitation Azithromycin 500 mg/ Sodium (Chloride) 250 mls @ 250 mls/hr IVPB 1500 [facility] Last Admin: 06/14/17 14:09 Dose: 250 mls Ceftriaxone Sodium 1 gm/ (Syringe 0.4 ml/ Sterile Water) 10 mls @ 120 mls/hr SLOW IVP 1700 [facility] Last Admin: 06/14/17 18:00 Dose: 10 mls Potassium Chloride/Sodium Chloride (Ns 0.9% W/ 40 Meq Kcl) 1,000 mls @ 100 mls/ hr IV .Q10H [facility] Last Admin: 06/14/17 14:09 Dose: 1,000 mls Lorazepam (Ativan) 1 mg PO Q6H PRN PRN Reason: Anxiety/ AGGITATION Last Admin: 06/14/17 05:51 Dose: 1 mg Pantoprazole Sodium (Protonix) 40 mg IVP DAILY [facility] Prednisone (Prednisone) 20 mg PO BID-WM [facility] Last Admin: 06/14/17 18:00 Dose: 20 mg Sodium Chloride (Flush - Normal Saline) 10 ml IVF PRN PRN PRN Reason: Saline Flush
[2017-06-14] MEDS: Haloperidol Lactate 5 MG/ML VIAL IM PRN (20:43)
[2017-06-14] MEDS: Atorvastatin Calcium 20 MG TAB PO SCH (20:43)
--- NOTE | 2017-06-14 21:24 | PRG ---
DATE OF SERVICE: 06/14/2017 SUBJECTIVE: Ms. Remedios Hernández was evaluated. She was a little bit confused today, but was very coherent when I was in the room. The children were tell me that she is intermittently getting delusional. Her daughter was very concerned that she was not eating enough. I spent a great deal of time in the room with them and it appears that Ms. Hernández has not been eating well for many, many months. She lost her of 57-years several years back and has been in a slowdown hill slide ever since her . She has been telling her children that she was ready to go be with him. She was on antidepressants for a while, but she ran out of this. Her family did not really seemed an d noticed a change in her function when she was on Adverse when she was off it. She says she is breathing fine. Her daughter wanted me to put a feeding tube in her, but I have explained to her that she will just p ull it out if she aspirates while she is pulling it out, that will not be a good thing. She does not want a feeding tube. OBJECTIVE: VITAL SIGNS: She is afebrile, heart rate 98, respiratory rate 19, oximetry is 100% on 2 liters, bloo d pressure 121/59. LUNGS: Distant and clear when I examined earlier today. CARDIOVASCULAR: Regular rhythm. ABDOMEN: Soft. LABORATORY DATA: Hemoglobin stable at 8 grams. Sodium 143, potassium 4.7, chloride 118, bicarb 19, BUN 19, creatinine 1.26. IMPRESSION: 1. Chronic obstructive pulmonary disease exacerbation. 2. Normal EGD done for melena, on Eliquis. 3. Pneumonia. 4. Atrial fibrillation. 5. Coronary artery disease. 6. Reactive depression with poor p.o. intake. She said she will drink Ensure milkshakes. I have en couraged her family to be reasonable about their expectations about what she needs. I have also expl ained to them that she will not starve while she is here. We will continue to keep her adequately hy drated. Her blood loss anemia versus anemia of chronic disease appears to be stable. Gastroenterology is fol lowing. Her renal insufficiency appears to be improving and I suspect this was mainly volume related. I answ ered all of her family's questions to their satisfaction.
[2017-06-15] MEDS: NS 0.9% w/ 40 MEQ KCL 1,000 ML IV SCH (03:05)
[2017-06-15 04:05] LABS: Anion Gap 12 mmol/L (10-20); BUN (Urea Nitrogen) 14 mg/dL (9.8-20.1); Calc. Creatinine Clearance 31 mL/min (70-130); Calcium 8.1 mg/dL (7.8-10.44); Carbon Dioxide 16 mmol/L (23-31); Chloride 119 mmol/L (98-107); Estimated GFR-MDRD 43; Glucose 136 mg/dL (83-110); Potassium 5.4 mmol/L (3.5-5.1); Sodium 142 mmol/L (136-145)
[2017-06-15 04:28] LABS: Hemoglobin 8.1 g/dL (12.0-16.0); Lymphocytes 3 % (21-51); MDiff Complete? YES; Mean Corpuscular HGB CONC 31.5 g/dL (32.0-36.0); Mean Corpuscular Hemoglobin 31.9 pg (27.0-31.0); Mean Platelet Volume 8.6 fL (7.4-10.4); Monocytes 3 % (0-10); Neutrophil 94 % (42-75); Platelet Count 233 thou/uL (130-400); RBC Distribution Width 13.2 % (11.5-14.5); Red Blood Cell (RBC) Count 2.53 mill/uL (4.20-5.40)
[2017-06-15] MEDS: Lorazepam 1 MG TAB PO PRN (04:55)
[2017-06-15] MEDS: Haloperidol Lactate 5 MG/ML VIAL IM PRN (06:41)
[2017-06-15] MEDS: predniSONE 20 MG TAB PO SCH ×2 (08:57→17:01)
[2017-06-15] MEDS: Pantoprazole 40 MG VIAL IVP SCH (08:57)
[2017-06-15 09:14] LABS: Actual Bicarbonate (HCO3a) 15.2 mEq/L (22-26); CO2 Tension 31.5 mmHg (35.0-45.0); O2 Tension (PaO2) 63.2 mmHg (80.0-100.0)
[2017-06-15 09:15] LABS: Base Excess (BEa) -10.2 mEq/L (0 (+/-) 2.5); Hematocrit-ABG 20.9 % (36.0-47.0); Hemoglobin (Hb) 7.6 g/dL (12.0-16.0)
[2017-06-15 09:16] LABS: ALV-art Gradient 98.465 (0-20); Analyzer IN Cardio ER; Calcium, Ionized 1.3 mmol/L (1.12-1.30); Puncture Site L.R.
[2017-06-15] MEDS ORDERED: Sodium Chloride 0.9% 1,000 ML IV SCH (09:30)
--- NOTE | 2017-06-15 09:31 | RAD ---
3SINGLE VIEW OF THE CHEST: COMPARISON: 06/15/17. HISTORY: Pneumonia. FINDINGS: A single view of the chest shows a normal-size cardiomediastinal silhouette. There is a small left p leural effusion with adjacent atelectasis. Right basilar atelectasis is also present. Atherosclerot ic calcifications are seen in the aorta. IMPRESSION: 1. Left pleural effusion. 2. Bibasilar atelectasis. POS: [facility]
[2017-06-15 10:05] LABS: ALT (SGPT) 13 U/L (8-55); AST (SGOT) 16 U/L (5-34); Albumin 2.6 g/dL (3.4-4.8); Alkaline Phosphatase 70 U/L (40-150); Bilirubin, Direct 0.1 mg/dL (0.1-0.3); Bilirubin, Total 0.2 mg/dL (0.2-1.2); Protein, Total 5.5 g/dL (6.0-8.3)
--- NOTE | 2017-06-15 11:04 | PRG ---
DATE OF SERVICE: 06/15/2017 SUBJECTIVE: Ms. Hernández looks much worse this morning. She was more encephalopathic. She is less responsive. She will awaken and make eye contact , although she does not make sentences. OBJECTIVE: VITAL SIGNS: Respiratory rate is in the 30s. She is afebrile. Heart rate 111. Blood pressure 118/63. LUNGS: Remarkable for crackles bilaterally with long expiratory phases and diffuse wheezes. HEART: Regular rhythm. ABDOMEN: Soft. LABORATORY DATA: Hemoglobin 8.1 and platelets 233. Sodium 142, potassium 5.4, chloride 119, bicarbonate 16, BUN 14, creatinine 1.21 and albumin is 3.6. IMPRESSION AND PLAN: Impending respiratory failure. Chest radiograph reviewed by me shows pulmonary edema. She also has a metabolic acidosis brought on by mostly her hyperchloremia and in part by renal insufficiency. Her chronic obstructive pulmonary disease is contributing as well as her weakness and deconditioning. She will be transferred to the Critical Care Unit at this time. I have planned to intubate her. She will be a do not resuscitate patient after she is intubated per my discussion with family. Hopefully within 2 or 3 days, she will be weanable from mechanical ventilation. CRITICAL CARE TIME: 30 minutes excluding procedure. MTDD
[2017-06-15] MEDS ORDERED: Midazolam HCl 2 mg/2 ml Vial ONE (12:46)
[2017-06-15] MEDS ORDERED: Sedation Protocol FS ONE (13:29)
[2017-06-15] MEDS ORDERED: Propofol 1,000 MG/100 ML VIAL IV ONE (13:32)
[2017-06-15] MEDS ORDERED: Fentanyl BOLUS 250 ML IVPB PRN (13:33)
[2017-06-15] MEDS ORDERED: DISCONTINUE PREVIOUS NARCOTIC PAIN MEDICATIONS AND BENZODIAZEPINES FS SCH (13:33)
[2017-06-15] MEDS ORDERED: Fentanyl CADD 250 ML IVPB SCH (13:33)
[2017-06-15] MEDS ORDERED: Midazolam HCl 2 mg/2 ml Vial SLOW IVP SCH (14:00)
[2017-06-15] MEDS: Lorazepam 2 MG/ML VIAL SLOW IVP PRN (14:04)
[2017-06-15] MEDS: Morphine 2 MG/ML SYRINGE SLOW IVP PRN (14:04)
--- NOTE | 2017-06-15 16:21 | PRG ---
DATE OF SERVICE: 06/15/2017 1. Ms. Hernández had altered mental status today, was not breathing well, was felt to be in respiratory jenn lure related to COPD. She was intubated by Pulmonary and Critical Care. We are going to try to get her weaned from the ventilator in a few days. 2. With regard to her weight loss and anorexia, this seems to be related to poor intake and depressi on. Her EGD was essentially normal. There were plans to consider a CT scan and colonoscopy with reg nadine to her weight loss and gastrointestinal blood loss of unclear etiology; however, with the present developments, we would hold off on both. 3. Gastrointestinal bleed: There are no signs of ongoing gastrointestinal bleeding. Hemoglobin sta ble at 8.1, white count 17, platelet count 233. I would continue her PPI therapy. 4. With her being on antibiotics, I will put her on probiotics to help prevent Clostridium difficile .
[2017-06-15] MEDS: Sodium Chloride 0.45% 1,000 ML IV SCH (16:31)
[2017-06-15] MEDS: Azithromycin 500 MG in Sodium Chloride 0.9% 250 ML 250 ML IVPB SCH (16:54)
--- NOTE | 2017-06-15 17:23 | OP ---
PROCEDURE IN DETAIL: Ms. Hernández was in the sitting position. We explained to her what we are planning to do and she agreed. Bite block was placed in her mouth. Throat was sprayed with Hurricaine [place]. Bronchoscope was lubricated and the endotracheal tube was lubricated. Bronchoscope was introduced while she was awake into her posterior pharyngeal space and quickly passed through her cords. This w as followed by 7.5 endotracheal tube, which was secured at 24 cm. Copious clear secretions were enco untered with the consistency of saliva. She was then connected to mechanical ventilation and sedated with Versed 2 mg IV push to be followed by sedation protocol. I met with family and answered all their questions. She tolerated the procedure well. Bronchial washings were suctioned for culture.
--- NOTE | 2017-06-15 17:25 | PDOC.PN ---
- Subjective Encounter Start Date: 06/15/17 Encounter Start Time: 09:20 Pt seen for followup re: acute respiratory failure. Lethargic, denies chest pain or shortness of breath. - Objective Resuscitation Status: Resuscitation Status FULL:Full Resuscitation MAR Reviewed: Yes Vital Signs & Weight: Vital Signs (12 hours) Temp Pulse Resp BP BP Pulse Ox 06/15/17 15:00 98.2 F 06/15/17 14:48 102 H 118/67 06/15/17 12:45 110 H 152/96 H 06/15/17 12:33 97.7 F 110 H 28 H 06/15/17 12:24 110 H 28 H 06/15/17 12:00 97.7 F 06/15/17 08:57 111 H 118/63 06/15/17 08:00 97 F L 111 H 22 H 06/15/17 07:28 111 H 28 H 06/15/17 07:12 97.2 F L 115 H 20 126/54 L 90 L Weight Admit Weight 104 lb 6.4 oz Weight 138 lb 3.677 oz Most Recent Monitor Data Heart Rate from ECG 122 NIBP 139/91 NIBP BP-Mean 98 Respiration from ECG 30 SpO2 100 I&O: 06/14/17 06/15/17 06/16/17 06:59 06:59 06:59 Intake Total 3080 1560 0 Output Total 720 780 230 Balance 2360 780 -230 Result Diagrams: 06/15/17 03:38 06/15/17 03:38 EKG Reviewed by me: Yes (Tele: NSR) Phys Exam - Physical Examination Lethargic HEENT: moist MMs Neck: supple Respiratory: clear to auscultation bilateral Cardiovascular: RRR Gastrointestinal: soft Neurological: moves all 4 limbs Psychiatric: normal affect Skin: no rash Dx/Plan (1) Acute respiratory failure Code(s): J96.00 - ACUTE RESPIRATORY FAILURE, UNSP W HYPOXIA OR HYPERCAPNIA Status: Acute (2) Metabolic acidosis Code(s): E87.2 - ACIDOSIS Status: Acute (3) CAP (community acquired pneumonia) Code(s): J18.9 - PNEUMONIA, UNSPECIFIED ORGANISM Status: Acute Qualifiers: Laterality: right Lung location: upper lobe of lung Qualified Code(s): J18.1 - Lobar pneumonia, unspecified organism (4) UTI (urinary tract infection) Status: Acute (5) SIMON (acute kidney injury) Code(s): N17.9 - ACUTE KIDNEY FAILURE, UNSPECIFIED Status: Acute (6) Sepsis Code(s): A41.9 - SEPSIS, UNSPECIFIED ORGANISM Status: Acute (7) Melena Code(s): K92.1 - MELENA Status: Acute (8) Afib Code(s): I48.91 - UNSPECIFIED ATRIAL FIBRILLATION Status: Chronic (9) Moderate protein-calorie malnutrition Code(s): E44.0 - MODERATE PROTEIN-CALORIE MALNUTRITION Status: Chronic - Plan plan discussed w/ family * . Pt declined today. To be intubated. Continue antibiotics. Hemoglobin stable. Review of Systems - Review of Systems Respiratory: Cough. negative: Dry, Shortness of Breath, Hemoptysis, SOB with Excertion, Pleuritic Pain, Sputum, Wheezing Cardiovascular: negative: chest pain, palpitations, orthopnea, paroxysmal nocturnal dyspnea, edema, light headedness - Medications/Allergies Allergies/Adverse Reactions: Allergies Allergy/AdvReac Type Severity Reaction Status Date / Time No Known Allergies Allergy Verified 05/29/15 16:53 Medications: Current Medications Albuterol/Ipratropium (Duoneb) 3 ml NEB [id number] [facility] Last Admin: 06/15/17 12:24 Dose: 3 ml Atorvastatin Calcium (Lipitor) 20 mg PO QPM [facility] Last Admin: 06/14/17 20:43 Dose: 20 mg Bisacodyl (Dulcolax) 10 mg PO DAILYPRN PRN PRN Reason: Constipation Diltiazem HCl (Cardizem Cd) 240 mg PO DAILY [facility] Last Admin: 06/15/17 08:57 Dose: 240 mg Haloperidol Lactate (Haldol) 2 mg IM Q4H PRN PRN Reason: Agitation Last Admin: 06/15/17 06:41 Dose: 2 mg Azithromycin 500 mg/ Sodium (Chloride) 250 mls @ 250 mls/hr IVPB 1500 [facility] Last Admin: 06/15/17 16:54 Dose: 250 mls Ceftriaxone Sodium 1 gm/ (Syringe 0.4 ml/ Sterile Water) 10 mls @ 120 mls/hr SLOW IVP 1700 [facility] Last Admin: 06/14/17 18:00 Dose: 10 mls Fentanyl (Fentanyl Cadd) 250 mls @ 0 mls/hr IVPB INF [facility]; Titrate PRN Reason: Protocol Stop: 07/15/17 13:33 Fentanyl Citrate (Fentanyl Bolus) 250 mls @ 0 mls/hr IVPB PRN PRN; As Directed PRN Reason: Breakthrough pain Stop: 07/15/17 13:33 Sodium Chloride (1/2 Normal Saline) 1,000 mls @ 75 mls/hr IV .[id number] [facility] Last Admin: 06/15/17 16:31 Dose: 1,000 mls Lorazepam (Ativan) 2 mg SLOW IVP Q2H PRN PRN Reason: Anxiety to achieve Cortes 2-3 Stop: 07/15/17 13:33 Last Admin: 06/15/17 14:04 Dose: 2 mg Morphine Sulfate (Morphine) 2 mg SLOW IVP Q2H PRN PRN Reason: Breakthrough pain Stop: 07/15/17 13:33 Last Admin: 06/15/17 14:04 Dose: 2 mg Discontinue Previous Narcotic Pain Medications And Benzodiazepines 1 each FS .ONE [facility] Stop: 07/15/17 13:33 Pantoprazole Sodium (Protonix) 40 mg IVP DAILY [facility] Last Admin: 06/15/17 08:57 Dose: 40 mg Prednisone (Prednisone) 20 mg PO BID-WM [facility] Last Admin: 06/15/17 17:01 Dose: Not Given Propofol (Diprivan) 1,000 mg IV INF PRN; Protocol PRN Reason: TO ACHIEVE CORTES SCORE 2-3 Stop: 07/15/17 13:33 Saccharomyces Boulardii (Florastor) 250 mg PO DAILY [facility] Sodium Chloride (Flush - Normal Saline) 10 ml IVF PRN PRN PRN Reason: Saline Flush Last Admin: 06/15/17 14:05 Dose: 10 ml
[2017-06-15] MEDS: cefTRIAXone\\ROCEPHIN 1 GM, Syringe 0.4 ML in Sterile Water 9.6 ML SLOW IVP SCH (17:48)
[2017-06-15] MEDS: Atorvastatin Calcium 20 MG TAB PO SCH (21:39)
[2017-06-16] MEDS ORDERED: Digoxin 0.5 MG/2 ML AMP SLOW IVP SCH ×2 (02:15→12:00)
[2017-06-16] MEDS: Diltiazem 125 MG in Sodium Chloride 0.9% 100 ML IVPB SCH ×2 (03:03→23:11)
[2017-06-16] MEDS: Sodium Chloride 0.45% 1,000 ML IV SCH ×2 (05:50→18:30)
[2017-06-16] MEDS: predniSONE 20 MG TAB PO SCH (08:00)
[2017-06-16] MEDS ORDERED: Furosemide 20 MG/2 ML VIAL SLOW IVP SCH (10:00)
[2017-06-16 10:05] LABS: Actual Bicarbonate (HCO3a) 15.3 mEq/L (22-26); Base Excess (BEa) -9.1 mEq/L (0 (+/-) 2.5); CO2 Tension 27.5 mmHg (35.0-45.0); O2 Tension (PaO2) 91.2 mmHg (80.0-100.0); pH, Arterial 7.36 (7.35-7.45)
[2017-06-16 10:06] LABS: ALV-art Gradient 159.625 (0-20); Analyzer IN Cardio OR; Calcium, Ionized 1.3 mmol/L (1.12-1.30); Hemoglobin (Hb) 7.9 g/dL (12.0-16.0); Puncture Site RRA
[2017-06-16] MEDS: Pantoprazole 40 MG VIAL IVP SCH (10:06)
[2017-06-16] MEDS: Saccharomyces boulardii 250 MG CAP PO SCH (10:06)
--- NOTE | 2017-06-16 10:29 | PRG ---
Ms. Hernández this morning was intubated for progressive respiratory failure. She is encephalopathic, intu bated and sedated on Diprivan. PHYSICAL EXAMINATION: VITAL SIGNS: Blood pressure 107/70, respirations 28. I's and O's are 1567 in, 780 out. CHEST: Chest reveals bilateral crackles, rhonchi, no wheezing. CARDIAC: Sinus tachycardia. ABDOMEN: Soft. No lab or x-ray were ordered today. IMPRESSION: 1. Respiratory failure. 2. Gastrointestinal bleed requiring emergency endoscopy. is normal upper EGD. 3. Atrial fibrillation. 4. Congestive heart failure. 5. Pneumonia. 6. Encephalopathy. PLAN: Continue ceftriaxone and azithromycin, nutrition, PT, and supportive care. I will follow. One-half hour critical care time.
[2017-06-16] MEDS: Propofol 1,000 MG/100 ML VIAL IV PRN (12:33)
--- NOTE | 2017-06-16 15:52 | PDOC.PN ---
- Subjective Encounter Start Date: 06/16/17 Encounter Start Time: 11:30 -: non-verbal Pt seen for followup re; atrial fibrillation with rvr. Intubated, unable to complete ROS. - Objective Resuscitation Status: Resuscitation Status FULL:Full Resuscitation Vital Signs & Weight: Vital Signs (12 hours) Temp Pulse Resp BP Pulse Ox 06/16/17 14:45 135 H 109/56 L 06/16/17 14:40 114 H 32 H 99 06/16/17 12:30 83 06/16/17 11:56 116 H 127/76 06/16/17 10:06 124 H 106/70 06/16/17 07:23 114 H 107/77 06/16/17 07:20 124 H 32 H 99 06/16/17 06:00 33 H 06/16/17 04:00 98.6 F 34 H Weight Admit Weight 104 lb 6.4 oz Weight 138 lb 14.259 oz Most Recent Monitor Data Heart Rate from ECG 104 NIBP 109/56 NIBP BP-Mean 75 Respiration from ECG 28 SpO2 99 I&O: 06/15/17 06/16/17 06/17/17 06:59 06:59 06:59 Intake Total 1560 1286.8 Output Total 780 542 10 Balance 780 744.8 -10 Result Diagrams: 06/15/17 03:38 06/15/17 03:38 EKG Reviewed by me: Yes (Tele: keenan modi) Phys Exam - Physical Examination Intubated ETT+ Neck: no nodes Catrachito crackles Cardiovascular: RRR Gastrointestinal: soft No spontaneous limb movements Skin: no rash Dx/Plan (1) Atrial fibrillation with RVR Code(s): I48.91 - UNSPECIFIED ATRIAL FIBRILLATION Status: Acute (2) Acute respiratory failure Code(s): J96.00 - ACUTE RESPIRATORY FAILURE, UNSP W HYPOXIA OR HYPERCAPNIA Status: Acute (3) Metabolic acidosis Code(s): E87.2 - ACIDOSIS Status: Acute (4) CAP (community acquired pneumonia) Code(s): J18.9 - PNEUMONIA, UNSPECIFIED ORGANISM Status: Acute Qualifiers: Laterality: right Lung location: upper lobe of lung Qualified Code(s): J18.1 - Lobar pneumonia, unspecified organism (5) UTI (urinary tract infection) Status: Acute (6) SIMON (acute kidney injury) Code(s): N17.9 - ACUTE KIDNEY FAILURE, UNSPECIFIED Status: Acute (7) Sepsis Code(s): A41.9 - SEPSIS, UNSPECIFIED ORGANISM Status: Acute (8) Melena Code(s): K92.1 - MELENA Status: Acute (9) Afib Code(s): I48.91 - UNSPECIFIED ATRIAL FIBRILLATION Status: Chronic (10) Moderate protein-calorie malnutrition Code(s): E44.0 - MODERATE PROTEIN-CALORIE MALNUTRITION Status: Chronic - Plan plan discussed w/ family, continue antibiotics * . Continue cardizem drip (pt has a h/o atrial fibrillation). Continue antibiotics as below. Check labs to look at potassium level. Review of Systems - Medications/Allergies Allergies/Adverse Reactions: Allergies Allergy/AdvReac Type Severity Reaction Status Date / Time No Known Allergies Allergy Verified 05/29/15 16:53 Medications: Current Medications Albuterol/Ipratropium (Duoneb) 3 ml NEB [id number] [facility] Last Admin: 06/16/17 14:40 Dose: 3 ml Atorvastatin Calcium (Lipitor) 20 mg PO QPM [facility] Last Admin: 06/15/17 21:39 Dose: 20 mg Bisacodyl (Dulcolax) 10 mg PO DAILYPRN PRN PRN Reason: Constipation Diltiazem HCl (Cardizem Cd) 240 mg PO DAILY [facility] Last Admin: 06/16/17 10:06 Dose: Not Given Ceftriaxone Sodium 1 gm/ (Syringe 0.4 ml/ Sterile Water) 10 mls @ 120 mls/hr SLOW IVP 1700 [facility] Last Admin: 06/15/17 17:48 Dose: 10 mls Fentanyl (Fentanyl Cadd) 250 mls @ 0 mls/hr IVPB INF [facility]; Titrate PRN Reason: Protocol Stop: 07/15/17 13:33 Fentanyl Citrate (Fentanyl Bolus) 250 mls @ 0 mls/hr IVPB PRN PRN; As Directed PRN Reason: Breakthrough pain Stop: 07/15/17 13:33 Sodium Chloride (1/2 Normal Saline) 1,000 mls @ 75 mls/hr IV .[id number] [facility] Last Admin: 06/16/17 05:50 Dose: 1,000 mls Diltiazem HCl 125 mg/ Sodium (Chloride) 125 mls @ 0 mls/hr IVPB INF [facility]; Titrate PRN Reason: Protocol Last Admin: 06/16/17 03:03 Dose: 125 mls Levofloxacin 750 mg/ Device 150 mls @ 100 mls/hr IVPB Q2D@0900 [facility] Last Admin: 06/16/17 10:07 Dose: 150 mls Ascorbic Acid 1,500 mg/ Sodium (Chloride) 53 mls @ 100 mls/hr IVPB Q6HR [facility] Stop: 06/20/17 06:32 Last Admin: 06/16/17 13:24 Dose: 53 mls Thiamine HCl 200 mg/ Sodium (Chloride) 52 mls @ 100 mls/hr IVPB Q12HR [facility] Stop: 06/19/17 21:32 Last Admin: 06/16/17 10:07 Dose: 52 mls Lorazepam (Ativan) 2 mg SLOW IVP Q2H PRN PRN Reason: Anxiety to achieve Cortes 2-3 Stop: 07/15/17 13:33 Last Admin: 06/15/17 14:04 Dose: 2 mg Methylprednisolone Sodium Succinate (Solu-Medrol) 40 mg IVP Q6HR [facility] Last Admin: 06/16/17 12:33 Dose: 40 mg Morphine Sulfate (Morphine) 2 mg SLOW IVP Q2H PRN PRN Reason: Breakthrough pain Stop: 07/15/17 13:33 Last Admin: 06/15/17 14:04 Dose: 2 mg Discontinue Previous Narcotic Pain Medications And Benzodiazepines 1 each FS .ONE [facility] Stop: 07/15/17 13:33 Pantoprazole Sodium (Protonix) 40 mg IVP DAILY [facility] Last Admin: 06/16/17 10:06 Dose: 40 mg Propofol (Diprivan) 1,000 mg IV INF PRN; Protocol PRN Reason: TO ACHIEVE CORTES SCORE 2-3 Stop: 07/15/17 13:33 Last Admin: 06/16/17 12:33 Dose: 1,000 mg Saccharomyces Boulardii (Florastor) 250 mg PO DAILY [facility] Last Admin: 06/16/17 10:06 Dose: 250 mg Sodium Chloride (Flush - Normal Saline) 10 ml IVF PRN PRN PRN Reason: Saline Flush Last Admin: 06/15/17 14:05 Dose: 10 ml
[2017-06-16 17:26] LABS: Chloride 117 mmol/L (98-107); Potassium 5.6 mmol/L (3.5-5.1); Sodium 141 mmol/L (136-145)
[2017-06-16 17:44] LABS: Band 5 % (5-11); Hemoglobin 8.8 g/dL (12.0-16.0); Lymphocytes 8 % (21-51); MDiff Complete? YES; Macrocytosis SLIGHT = 6-15 cells (100X) (0-5/hpf); Mean Corpuscular HGB CONC 30.7 g/dL (32.0-36.0); Mean Corpuscular Hemoglobin 31.3 pg (27.0-31.0); Mean Platelet Volume 10.8 fL (7.4-10.4); Metamyelocyte 2 % (0-0); Monocytes 6 % (0-10); Myelocyte 3 % (0-0); Neutrophil 76 % (42-75); PLT Morphology Comment Appears Decreased; Platelet Count 123 thou/uL (130-400); Polychromasia SLIGHT = 2-3 cells (100X) (0-2/hpf); RBC Distribution Width 13.5 % (11.5-14.5); Red Blood Cell (RBC) Count 2.82 mill/uL (4.20-5.40); Vacuoles SLIGHT; White Blood Cell (WBC) Count 11.3 thou/uL (4.8-10.8)
[2017-06-16 18:27] LABS: Calcium 8.4 mg/dL (7.8-10.44)
[2017-06-16 18:35] LABS: Glucose 81 mg/dL (83-110)
[2017-06-16] MEDS: cefTRIAXone\\ROCEPHIN 1 GM, Syringe 0.4 ML in Sterile Water 9.6 ML SLOW IVP SCH (18:36)
[2017-06-16 18:37] LABS: Anion Gap 18 mmol/L (10-20); Carbon Dioxide 12 mmol/L (23-31)
[2017-06-16 18:39] LABS: Calc. Creatinine Clearance 29 mL/min (70-130); Estimated GFR-MDRD 29
[2017-06-16 18:40] LABS: BUN (Urea Nitrogen) 22 mg/dL (9.8-20.1)
[2017-06-16] MEDS: Atorvastatin Calcium 20 MG TAB PO SCH (21:01)
[2017-06-17] MEDS: Propofol 1,000 MG/100 ML VIAL IV PRN (05:01)
[2017-06-17 05:50] LABS: #Eosinphils 0.1 thou/uL (0.0-0.7); #Lymphocytes 0.4 thou/uL (1.20-3.40); #Monocytes 0.2 thou/uL (0.11-0.59); #Neutrophils 8.1 thou/uL (1.40-6.50); %Basophils 0.1 % (0.0-1.0); %Eosinophils 0.9 % (0.0-10.0); %Lymphocytes 4.4 % (21.0-51.0); %Monocytes 1.8 % (0.0-10.0); %Neutrophils 92.8 % (42.0-75.0); Hemoglobin 8.4 g/dL (12.0-16.0); Mean Corpuscular HGB CONC 31.3 g/dL (32.0-36.0); Mean Corpuscular Hemoglobin 31.3 pg (27.0-31.0); Mean Platelet Volume 10.2 fL (7.4-10.4); Platelet Count 155 thou/uL (130-400); RBC Distribution Width 13.5 % (11.5-14.5); Red Blood Cell (RBC) Count 2.69 mill/uL (4.20-5.40); White Blood Cell (WBC) Count 8.7 thou/uL (4.8-10.8)
[2017-06-17 06:06] LABS: Anion Gap 17 mmol/L (10-20); BUN (Urea Nitrogen) 28 mg/dL (9.8-20.1); Calc. Creatinine Clearance 24 mL/min (70-130); Calcium 8.1 mg/dL (7.8-10.44); Carbon Dioxide 14 mmol/L (23-31); Chloride 115 mmol/L (98-107); Estimated GFR-MDRD 24; Glucose 127 mg/dL (83-110); Potassium 4.6 mmol/L (3.5-5.1); Sodium 141 mmol/L (136-145)
[2017-06-17 07:24] LABS: Actual Bicarbonate (HCO3a) 14.5 mEq/L (22-26); CO2 Tension 23.6 mmHg (35.0-45.0); Hemoglobin (Hb) 8.3 g/dL (12.0-16.0); O2 Tension (PaO2) 131.1 mmHg (80.0-100.0); pH, Arterial 7.41 (7.35-7.45)
[2017-06-17 07:25] LABS: Calcium, Ionized 1.2 mmol/L (1.12-1.30); Puncture Site RRA
[2017-06-17] MEDS: Morphine 2 MG/ML SYRINGE SLOW IVP PRN ×3 (08:11→18:07)
[2017-06-17] MEDS: Diltiazem 125 MG in Sodium Chloride 0.9% 100 ML IVPB SCH ×2 (08:12→20:38)
--- NOTE | 2017-06-17 08:32 | PRG ---
DATE OF SERVICE: 06/17/2017 This morning she is intubated on the vent on low dose Diprivan. PHYSICAL EXAMINATION: VITAL SIGNS: Pulse 123, atrial flutter, blood pressure 122/75, pulse ox 98%. Switched her from bilevel to IMV mode, she started once again having paradoxical respiratory movemen ts. CHEST: Chest revealed decreased breath sounds, no wheezing. CARDIAC: Normal S1-S2. No gallops. White count 8000, H&H 8 and 26, platelet count 55, pO2 131, pCO2 29.41 on bilevel, 33/8, 40%, 5, crea tinine is 2, BUN 28. IMPRESSION: 1. Respiratory failure. 2. Chronic obstructive pulmonary disease. 3. Atrial fibrillation/flutter. 4. Lower gastrointestinal bleed, negative. 5. Encephalopathy. PLAN: Try to withhold sedation to see whether we can start weaning her slowly. We started nutrition , PT, and supportive care. One-half hour critical care time.
[2017-06-17] MEDS ORDERED: Pancrelipase DR 12000 1 CAP FS PRN (08:48)
[2017-06-17] MEDS ORDERED: Sodium Bicarbonate Tab 325 MG TAB PER TUBE PRN (08:48)
[2017-06-17] MEDS: Saccharomyces boulardii 250 MG CAP PO SCH (09:07)
[2017-06-17] MEDS: Pantoprazole 40 MG VIAL IVP SCH (09:09)
--- NOTE | 2017-06-17 09:40 | RAD ---
PORTABLE CHEST: History: 76-year-old with history of ventilator dependency. Date: 06-17-17 Comparison: 06-15-17 FINDINGS: AP view chest demonstrates interval intubation of the patient. The endotracheal tube has a distal asp ect in the proximal portion of the right mainstem bronchus at the level of the michel. This should be pulled back approximately 5 cm to be in optimum position. Nasogastric tube is in place. There is a s mall right sided pleural effusion present. Pulmonary vascular congestion is seen. IMPRESSION: Endotracheal tube is too distal and should be pulled back. Findings discussed with Dr. Guthrie at 0807 on 06-17-17. Code CR. POS: [facility]
--- NOTE | 2017-06-17 10:22 | CON ---
DATE OF CONSULTATION: 06/16/2017 REASON FOR CONSULTATION: Atrial fibrillation. REFERRING PROVIDER: Dr. De La Garza. HISTORY OF PRESENT ILLNESS: Ms. Hernández is an unfortunate 76-year-old woman who I have seen and evaluate d in the past. Please see below for past medical history. She recently presented with pneumonia. S he required intubation. She is currently sedated. She developed atrial fibrillation with RVR. She has been placed on IV Cardizem. PAST MEDICAL HISTORY: Hyperlipidemia, tobacco abuse, atrial fibrillation, hyperlipidemia, diastolic dysfunction, hypertension, breast biopsy. HOME MEDICATIONS: Cardizem 240 q.a.m., Coumadin 2.5 daily, Lipitor, Multaq, nitroglycerin, propafeno ne and sertraline. REVIEW OF SYSTEMS: Unobtainable. PHYSICAL EXAMINATION: GENERAL: She is currently intubated and sedated. VITAL SIGNS: Blood pressure 108/63, pulse 150, respirations 20. NEUROLOGIC: The patient is alert and oriented times 3 with no focal neurologic deficits. HEENT: Sclerae without icterus. Mouth has moist mucous membranes with normal pallor. NECK: No JVD. Carotid upstroke brisk. No bruits bilaterally. LUNGS: Clear to auscultation with unlabored respirations. BACK: No scoliosis or kyphosis. CARDIAC: Irregular, irregular. ABDOMEN: Soft, nontender, nondistended. No peritoneal signs present. No hepatosplenomegaly. No ab normal striae. EXTREMITIES: 2+ femoral and 2+ dorsalis pedis pulses. No cyanosis, clubbing, or edema. SKIN: No gross abnormalities. PERTINENT LABORATORY DATA: Hemoglobin 8.8 and creatinine 1.71. IMPRESSION: 1. Atrial fibrillation with rapid ventricular response. 2. Community-acquired pneumonia. 3. Respiratory failure. RECOMMENDATIONS: 1. Continue IV Cardizem. 2. Add p.o. Cardizem through NG tube at 60 mg q.6 h. and try and reduce IV Cardizem. 3. Antibiotic therapy. 4. ICU support.
--- NOTE | 2017-06-17 12:56 | PRG ---
DATE OF SERVICE: 06/17/2017 SUBJECTIVE: Ms. Hernández's status is unchanged. She is little bit more awake today but continues to be i n afib with RVR. OBJECTIVE: VITAL SIGNS: Blood pressure is 118/73, pulse is 149, respirations 20-24. LUNGS: Rales. Rhonchi bilaterally. HEART: Irregularly irregular. ABDOMEN: Soft, nontender, nondistended. EXTREMITIES: No edema. PERTINENT LABORATORY DATA: Creatinine 2.0, which is up from 1.71. Hemoglobin 8.4. IMPRESSION: 1. Atrial fibrillation with rapid ventricular response. 2. Respiratory failure. 3. Community-acquired pneumonia. RECOMMENDATIONS: 1. Add p.o. Cardizem 60 q.i.d. 2. ICU support. 3. Vest support. 4. Antibiotic therapy.
[2017-06-17] MEDS: Sodium Chloride 0.45% 1,000 ML IV SCH (14:19)
[2017-06-17] MEDS ORDERED: Digoxin 0.125 MG TAB PO SCH (16:30)
[2017-06-17] MEDS: cefTRIAXone\\ROCEPHIN 1 GM, Syringe 0.4 ML in Sterile Water 9.6 ML SLOW IVP SCH (16:39)
--- NOTE | 2017-06-17 17:56 | PDOC.PN ---
- Subjective Encounter Start Date: 06/17/17 Encounter Start Time: 09:40 Pt seen for followup re: acute respiratory failure. Pt is still intubated, unable to complete ROS. - Objective Resuscitation Status: Resuscitation Status FULL:Full Resuscitation MAR Reviewed: Yes Vital Signs & Weight: Vital Signs (12 hours) Temp Pulse Resp BP Pulse Ox 06/17/17 16:40 103 H 06/17/17 16:00 98.9 F 15 06/17/17 15:01 100 98/43 L 06/17/17 14:00 20 06/17/17 13:06 104 H 134/62 06/17/17 13:05 105 H 35 H 92 L 06/17/17 12:00 20 06/17/17 11:00 98.7 F 96 116/62 06/17/17 10:00 23 H 06/17/17 09:10 99 100/50 L 06/17/17 08:40 23 H 06/17/17 08:00 98.8 F 99 33 H 98 06/17/17 07:00 98.8 F 06/17/17 06:54 99 100/50 L 06/17/17 06:52 84 20 99 06/17/17 06:00 33 H Weight Admit Weight 104 lb 6.4 oz Weight 138 lb 7.205 oz Most Recent Monitor Data Heart Rate from ECG 81 NIBP 108/48 NIBP BP-Mean 56 Respiration from ECG 15 SpO2 100 I&O: 06/16/17 06/17/17 06/18/17 06:59 06:59 06:59 Intake Total 1286.8 2227.3 343 Output Total 542 1513 340 Balance 744.8 714.3 3 Result Diagrams: 06/17/17 05:10 06/17/17 05:10 EKG Reviewed by me: Yes (Tele: keenan modi ) Phys Exam - Physical Examination Intubated, mechanically ventilated HEENT: moist MMs ETT+ Respiratory: clear to auscultation bilateral Cardiovascular: irregular Gastrointestinal: soft Neurological: moves all 4 limbs Skin: no rash Dx/Plan (1) Acute respiratory failure Code(s): J96.00 - ACUTE RESPIRATORY FAILURE, UNSP W HYPOXIA OR HYPERCAPNIA Status: Acute (2) Atrial fibrillation with RVR Code(s): I48.91 - UNSPECIFIED ATRIAL FIBRILLATION Status: Acute (3) Metabolic acidosis Code(s): E87.2 - ACIDOSIS Status: Acute (4) CAP (community acquired pneumonia) Code(s): J18.9 - PNEUMONIA, UNSPECIFIED ORGANISM Status: Acute Qualifiers: Laterality: right Lung location: upper lobe of lung Qualified Code(s): J18.1 - Lobar pneumonia, unspecified organism (5) SIMON (acute kidney injury) Code(s): N17.9 - ACUTE KIDNEY FAILURE, UNSPECIFIED Status: Acute (6) Sepsis Code(s): A41.9 - SEPSIS, UNSPECIFIED ORGANISM Status: Acute (7) Melena Code(s): K92.1 - MELENA Status: Acute (8) Moderate protein-calorie malnutrition Code(s): E44.0 - MODERATE PROTEIN-CALORIE MALNUTRITION Status: Chronic - Plan continue antibiotics * . Continue IV ceftriaxone. Appreciate cardiology consult. SIMON worsening, monitor creatinine and lytes. Family updated. Review of Systems - Medications/Allergies Allergies/Adverse Reactions: Allergies Allergy/AdvReac Type Severity Reaction Status Date / Time No Known Allergies Allergy Verified 05/29/15 16:53 Medications: Current Medications Albuterol/Ipratropium (Duoneb) 3 ml NEB [id number] [facility] Last Admin: 06/17/17 13:05 Dose: 3 ml Lipase/Protease/Amylase (Divya Browning [id number]) 1 cap FS .PER PROTOCOL PRN PRN Reason: TUBE OCCLUSION PROTOCOL Atorvastatin Calcium (Lipitor) 20 mg PO QPM [facility] Last Admin: 06/16/17 21:01 Dose: 20 mg Bisacodyl (Dulcolax) 10 mg PO DAILYPRN PRN PRN Reason: Constipation Digoxin (Lanoxin) 0.125 mg PO DAILY [facility] Digoxin (Lanoxin) 0.125 mg PO NOW [facility] Stop: 06/17/17 18:30 Last Admin: 06/17/17 16:40 Dose: 0.125 mg Diltiazem HCl (Cardizem) 60 mg PER TUBE Q6HR [facility] Last Admin: 06/17/17 11:22 Dose: 60 mg Ceftriaxone Sodium 1 gm/ (Syringe 0.4 ml/ Sterile Water) 10 mls @ 120 mls/hr SLOW IVP 1700 [facility] Last Admin: 06/17/17 16:39 Dose: 10 mls Fentanyl (Fentanyl Cadd) 250 mls @ 0 mls/hr IVPB INF [facility]; Titrate PRN Reason: Protocol Stop: 07/15/17 13:33 Fentanyl Citrate (Fentanyl Bolus) 250 mls @ 0 mls/hr IVPB PRN PRN; As Directed PRN Reason: Breakthrough pain Stop: 07/15/17 13:33 Sodium Chloride (1/2 Normal Saline) 1,000 mls @ 75 mls/hr IV .[id number] [facility] Last Admin: 06/17/17 14:19 Dose: 1,000 mls Diltiazem HCl 125 mg/ Sodium (Chloride) 125 mls @ 0 mls/hr IVPB INF [facility]; Titrate PRN Reason: Protocol Last Admin: 06/17/17 08:12 Dose: 125 mls Levofloxacin 750 mg/ Device 150 mls @ 100 mls/hr IVPB Q2D@0900 [facility] Last Admin: 06/16/17 10:07 Dose: 150 mls Ascorbic Acid 1,500 mg/ Sodium (Chloride) 53 mls @ 100 mls/hr IVPB Q6HR [facility] Stop: 06/20/17 06:32 Last Admin: 06/17/17 11:22 Dose: 53 mls Thiamine HCl 200 mg/ Sodium (Chloride) 52 mls @ 100 mls/hr IVPB Q12HR [facility] Stop: 06/19/17 21:32 Last Admin: 06/17/17 09:06 Dose: 52 mls Lorazepam (Ativan) 2 mg SLOW IVP Q2H PRN PRN Reason: Anxiety to achieve Cortes 2-3 Stop: 07/15/17 13:33 Last Admin: 06/15/17 14:04 Dose: 2 mg Methylprednisolone Sodium Succinate (Solu-Medrol) 40 mg IVP Q6HR [facility] Last Admin: 06/17/17 11:21 Dose: 40 mg Morphine Sulfate (Morphine) 2 mg SLOW IVP Q2H PRN PRN Reason: Breakthrough pain Stop: 07/15/17 13:33 Last Admin: 06/17/17 13:16 Dose: 2 mg Discontinue Previous Narcotic Pain Medications And Benzodiazepines 1 each FS .ONE [facility] Stop: 07/15/17 13:33 Pantoprazole Sodium (Protonix) 40 mg IVP DAILY [facility] Last Admin: 06/17/17 09:09 Dose: 40 mg Propofol (Diprivan) 1,000 mg IV INF PRN; Protocol PRN Reason: TO ACHIEVE CORTES SCORE 2-3 Stop: 07/15/17 13:33 Last Admin: 06/17/17 05:01 Dose: 1,000 mg Saccharomyces Boulardii (Florastor) 250 mg PO DAILY [facility] Last Admin: 06/17/17 09:07 Dose: 250 mg Sodium Bicarbonate (Bicarbonate, Sodium) 650 mg PER TUBE .PER PROTOCOL PRN PRN Reason: ENTERAL TUBE OCCLUSION Sodium Chloride (Flush - Normal Saline) 10 ml IVF PRN PRN PRN Reason: Saline Flush Last Admin: 06/17/17 09:09 Dose: 10 ml
[2017-06-17] MEDS: Atorvastatin Calcium 20 MG TAB PO SCH (20:25)
--- NOTE | 2017-06-17 23:34 | EKG ---
Test Reason : RHYTHM CHANGE Blood Pressure : / mmHG Vent. Rate : 137 BPM Atrial Rate : 046 BPM P-R Int : 000 ms QRS Dur : 088 ms QT Int : 322 ms P-R-T Axes : 000 -52 120 degrees QTc Int : 486 ms Atrial fibrillation with rapid ventricular response Left axis deviation Low voltage QRS Cannot rule out Anteroseptal infarct , age undetermined Abnormal ECG When compared with ECG of 11-JUN-2017 13:23, (Unconfirmed) Significant changes have occurred Confirmed by Ana FLOR ([id number]) on 06/17/2017 11:34:13 PM Referred By: DIMPLE Confirmed By:Ana FLOR
[2017-06-18] MEDS: Lorazepam 2 MG/ML VIAL SLOW IVP PRN (04:44)
[2017-06-18 05:34] LABS: Anion Gap 18 mmol/L (10-20); BUN (Urea Nitrogen) 37 mg/dL (9.8-20.1); Calc. Creatinine Clearance 22 mL/min (70-130); Calcium 8.3 mg/dL (7.8-10.44); Carbon Dioxide 16 mmol/L (23-31); Chloride 112 mmol/L (98-107); Estimated GFR-MDRD 22; Glucose 159 mg/dL (83-110); Potassium 4.6 mmol/L (3.5-5.1); Sodium 141 mmol/L (136-145)
[2017-06-18] MEDS: Sodium Chloride 0.45% 1,000 ML IV SCH ×4 (05:35→20:36)
[2017-06-18 06:58] LABS: Band 4 % (5-11); Hemoglobin 8.4 g/dL (12.0-16.0); Lymphocytes 2 % (21-51); MDiff Complete? YES; Mean Corpuscular HGB CONC 31.2 g/dL (32.0-36.0); Mean Corpuscular Hemoglobin 31.3 pg (27.0-31.0); Mean Platelet Volume 10.3 fL (7.4-10.4); Metamyelocyte 1 % (0-0); Monocytes 6 % (0-10); Neutrophil 87 % (42-75); Platelet Count 230 thou/uL (130-400); RBC Distribution Width 13.6 % (11.5-14.5); Red Blood Cell (RBC) Count 2.69 mill/uL (4.20-5.40); White Blood Cell (WBC) Count 14.3 thou/uL (4.8-10.8)
[2017-06-18 07:46] LABS: Base Excess (BEa) -7.8 mEq/L (0 (+/-) 2.5); CO2 Tension 31.4 mmHg (35.0-45.0); Calcium, Ionized 1.2 mmol/L (1.12-1.30); Hemoglobin (Hb) 7.5 g/dL (12.0-16.0); O2 Tension (PaO2) 81.4 mmHg (80.0-100.0); Puncture Site RRA; pH, Arterial 7.35 (7.35-7.45)
[2017-06-18] MEDS ORDERED: Amiodarone In Dextrose 200 ML IVPB SCH (08:45)
[2017-06-18] MEDS: Pantoprazole 40 MG VIAL IVP SCH (08:47)
--- NOTE | 2017-06-18 08:47 | RAD ---
SINGLE VIEW OF THE CHEST: Comparison: 06-17-17 History: Ventilated patient with respiratory failure. FINDINGS: Single view of the chest shows a normal sized cardiomediastinal silhouette. The endotracheal tube is still low lying and right at the michel and should be withdrawn approximately 2 cm. Increased interst itial markings are present. The NG tube is unchanged in position. There are small bilateral pleural e ffusions. IMPRESSION: 1. Low lying endotracheal tube. This should be withdrawn approximately 2 cm. 2. Small bilateral pleural effusions. Code T POS: OFF
[2017-06-18] MEDS: Saccharomyces boulardii 250 MG CAP PO SCH (08:48)
--- NOTE | 2017-06-18 08:59 | PRG ---
DATE OF SERVICE: 06/18/2017 SUBJECTIVE: Ms. Hernández is back in atrial fibrillation earlier this morning. She was in sinus rhythm. Her heart rate was in the 1-teens. She is currently on Cardizem at 10 mg per hour. She continues to require vent support. PHYSICAL EXAMINATION: VITAL SIGNS: Blood pressure 127/70, pulse 105, temperature afebrile. LUNGS: Rhonchi and rales bilaterally. CARDIAC: Irregular, irregular. ABDOMEN: Soft, nontender, nondistended. EXTREMITIES: 1+ pitting edema. PERTINENT LABORATORY: Hemoglobin 8.4. White blood cell count 14.3, creatinine 2.2, potassium 4.6. IMPRESSION: 1. Atrial fibrillation with rapid ventricular response. 2. Pneumonia. 3. Respiratory failure. RECOMMENDATIONS: 1. Increase p.o. Cardizem to 80 mg q.6h. 2. Titrate down Cardizem as heart rate allows. 3. Restart amiodarone per protocol. 4. Continue antibiotic therapy and vent support.
[2017-06-18] MEDS ORDERED: Digoxin 0.125 MG TAB PO SCH (09:00)
[2017-06-18] MEDS: Amiodarone HCl 450 MG, Admixture Fee 1 EACH in Dextrose 5% in Water 250 ML IVPB SCH ×2 (09:26→16:40)
--- NOTE | 2017-06-18 11:37 | PRG ---
DATE OF SERVICE: 06/18/2017 SUBJECTIVE: This morning, she is intubated on the vent, not sedated, appears to be lethargic, but ar ousable. OBJECTIVE: VITAL SIGNS: Pulse 105, atrial fibrillation, blood pressure 127/70, respirations 20, sats 98%. NEUROLOGICAL: She moves all 4 extremities, but profoundly weak. I's and O's are 2341 in and 1100 ou t. CHEST: Bilateral crackles. CARDIAC: Normal S1, S2. No gallops. ABDOMEN: Soft. No masses. LABORATORY DATA: White count 14,000, H&H is 8 and 26, platelet count is normal. PO2 is 81, pCO2 31, pH 7.35, on bilevel 15/5, at a rate of 10, creatinine is 2, BUN is 37. IMPRESSION: 1. Respiratory failure. 2. Congestive heart failure. 3. Atrial fibrillation. 4. Chronic obstructive pulmonary disease. 5. Renal failure. PLAN: The patient is clearly not weanable at this stage. She was too weak to be weaned off. Continue with sedation, continue nutrition. We will reassess the situation later on in the day. Discussed with her family, her daughter is at the bedside, that the prognosis is poor. Day #6, on the vent. Encephalopathy has pretty much resolved. Continue vent support. One-half hour critical care time.
--- NOTE | 2017-06-18 13:14 | PDOC.PN ---
- Subjective Encounter Start Date: 06/18/17 Encounter Start Time: 10:20 Pt seen for followup re: acute respiratory failure. Intubated, unable to complete ROS. - Objective Resuscitation Status: Resuscitation Status FULL:Full Resuscitation MAR Reviewed: Yes Vital Signs & Weight: Vital Signs (12 hours) Temp Pulse Resp BP Pulse Ox 06/18/17 13:10 93 123/66 06/18/17 13:08 93 27 H 95 06/18/17 12:00 99.0 F 15 06/18/17 10:57 111 H 127/61 06/18/17 10:00 23 H 06/18/17 08:46 108 H 06/18/17 08:00 20 06/18/17 07:25 105 H 127/70 06/18/17 07:23 103 H 23 H 96 06/18/17 07:21 99.3 F 122 H 23 H 96 06/18/17 07:00 99.3 F 06/18/17 06:00 23 H 06/18/17 04:00 98.0 F 21 H 06/18/17 02:26 107 H 06/18/17 02:00 22 H Weight Admit Weight 104 lb 6.4 oz Weight 143 lb 1.28 oz Most Recent Monitor Data Heart Rate from ECG 105 NIBP 129/78 NIBP BP-Mean 96 Respiration from ECG 35 SpO2 94 I&O: 06/17/17 06/18/17 06/19/17 06:59 06:59 06:59 Intake Total 2227.3 2341.2 240 Output Total 1513 1100 280 Balance 714.3 1241.2 -40 Result Diagrams: 06/18/17 04:57 06/18/17 04:57 EKG Reviewed by me: Yes (Tele: keenan modi) Phys Exam - Physical Examination Intubated ETT Neck: no JVD Respiratory: clear to auscultation bilateral Cardiovascular: irregular Gastrointestinal: soft Lymphatic: no nodes Skin: no rash Dx/Plan (1) Acute respiratory failure Code(s): J96.00 - ACUTE RESPIRATORY FAILURE, UNSP W HYPOXIA OR HYPERCAPNIA Status: Acute (2) Atrial fibrillation with RVR Code(s): I48.91 - UNSPECIFIED ATRIAL FIBRILLATION Status: Acute (3) SIMON (acute kidney injury) Code(s): N17.9 - ACUTE KIDNEY FAILURE, UNSPECIFIED Status: Acute (4) Metabolic acidosis Code(s): E87.2 - ACIDOSIS Status: Acute (5) CAP (community acquired pneumonia) Code(s): J18.9 - PNEUMONIA, UNSPECIFIED ORGANISM Status: Acute Qualifiers: Laterality: right Lung location: upper lobe of lung Qualified Code(s): J18.1 - Lobar pneumonia, unspecified organism (6) Sepsis Code(s): A41.9 - SEPSIS, UNSPECIFIED ORGANISM Status: Acute (7) Melena Code(s): K92.1 - MELENA Status: Acute (8) Moderate protein-calorie malnutrition Code(s): E44.0 - MODERATE PROTEIN-CALORIE MALNUTRITION Status: Chronic - Plan plan discussed w/ family * . Continue IV antibiotics as below. Continue IV fluids, follow creatinine and lytes. Continue digoxin, Cardizem. Review of Systems - Medications/Allergies Allergies/Adverse Reactions: Allergies Allergy/AdvReac Type Severity Reaction Status Date / Time No Known Allergies Allergy Verified 05/29/15 16:53 Medications: Current Medications Albuterol/Ipratropium (Duoneb) 3 ml NEB [id number] COUNTS INCLUDE 234 BEDS AT THE [facility] Last Admin: 06/18/17 13:08 Dose: 3 ml Lipase/Protease/Amylase ([place] [id number]) 1 cap FS .PER PROTOCOL PRN PRN Reason: TUBE OCCLUSION PROTOCOL Atorvastatin Calcium (Lipitor) 20 mg PO QPM COUNTS INCLUDE 234 BEDS AT THE [facility] Last Admin: 06/17/17 20:25 Dose: 20 mg Bisacodyl (Dulcolax) 10 mg PO DAILYPRN PRN PRN Reason: Constipation Diltiazem HCl (Cardizem) 90 mg PER TUBE Q6HR COUNTS INCLUDE 234 BEDS AT THE [facility] Last Admin: 06/18/17 11:54 Dose: 90 mg Ceftriaxone Sodium 1 gm/ (Syringe 0.4 ml/ Sterile Water) 10 mls @ 120 mls/hr SLOW IVP 1700 [facility] Last Admin: 06/17/17 16:39 Dose: 10 mls Fentanyl (Fentanyl Cadd) 250 mls @ 0 mls/hr IVPB INF [facility]; Titrate PRN Reason: Protocol Stop: 07/15/17 13:33 Fentanyl Citrate (Fentanyl Bolus) 250 mls @ 0 mls/hr IVPB PRN PRN; As Directed PRN Reason: Breakthrough pain Stop: 07/15/17 13:33 Sodium Chloride (1/2 Normal Saline) 1,000 mls @ 75 mls/hr IV .[id number] COUNTS INCLUDE 234 BEDS AT THE [facility] Last Admin: 06/18/17 08:43 Dose: 1,000 mls Diltiazem HCl 125 mg/ Sodium (Chloride) 125 mls @ 0 mls/hr IVPB INF COUNTS INCLUDE 234 BEDS AT THE [facility]; Titrate PRN Reason: Protocol Last Admin: 06/17/17 20:38 Dose: 125 mls Levofloxacin 750 mg/ Device 150 mls @ 100 mls/hr IVPB Q2D@0900 COUNTS INCLUDE 234 BEDS AT THE [facility] Last Admin: 06/18/17 08:44 Dose: 150 mls Ascorbic Acid 1,500 mg/ Sodium (Chloride) 53 mls @ 100 mls/hr IVPB Q6HR COUNTS INCLUDE 234 BEDS AT THE [facility] Stop: 06/20/17 06:32 Last Admin: 06/18/17 11:54 Dose: 53 mls Thiamine HCl 200 mg/ Sodium (Chloride) 52 mls @ 100 mls/hr IVPB Q12HR COUNTS INCLUDE 234 BEDS AT THE [facility] Stop: 06/19/17 21:32 Last Admin: 06/18/17 08:44 Dose: 52 mls Amiodarone HCl 450 mg/Miscellaneous Medication 1 each/ Dextrose/Water 259 mls @ 0 mls/hr IVPB INF COUNTS INCLUDE 234 BEDS AT THE [facility]; As Directed PRN Reason: Protocol Last Admin: 06/18/17 09:26 Dose: 259 mls Methylprednisolone Sodium Succinate (Solu-Medrol) 40 mg IVP Q6HR COUNTS INCLUDE 234 BEDS AT THE [facility] Last Admin: 06/18/17 11:55 Dose: 40 mg Morphine Sulfate (Morphine) 2 mg SLOW IVP Q2H PRN PRN Reason: Breakthrough pain Stop: 07/15/17 13:33 Last Admin: 06/17/17 18:07 Dose: 2 mg Pantoprazole Sodium (Protonix) 40 mg IVP DAILY COUNTS INCLUDE 234 BEDS AT [facility] Last Admin: 06/18/17 08:47 Dose: 40 mg Propofol (Diprivan) 1,000 mg IV INF PRN; Protocol PRN Reason: TO ACHIEVE CORTES SCORE 2-3 Stop: 07/15/17 13:33 Last Admin: 06/17/17 05:01 Dose: 1,000 mg Saccharomyces Boulardii (Florastor) 250 mg PO DAILY COUNTS INCLUDE 234 BEDS AT THE [facility] Last Admin: 06/18/17 08:48 Dose: 250 mg Sodium Bicarbonate (Bicarbonate, Sodium) 650 mg PER TUBE .PER PROTOCOL PRN PRN Reason: ENTERAL TUBE OCCLUSION Sodium Chloride (Flush - Normal Saline) 10 ml IVF PRN PRN PRN Reason: Saline Flush Last Admin: 06/18/17 08:47 Dose: 10 ml
[2017-06-18] MEDS ORDERED: Benzocaine 20% Spray 60 ML CAN ONE (15:01)
[2017-06-18] MEDS: cefTRIAXone\\ROCEPHIN 1 GM, Syringe 0.4 ML in Sterile Water 9.6 ML SLOW IVP SCH (16:38)
[2017-06-18] MEDS: Atorvastatin Calcium 20 MG TAB PO SCH (20:39)
[2017-06-19] MEDS ORDERED: Metoclopramide HCl 10 MG TAB PO SCH (00:15)
[2017-06-19 06:06] LABS: Anion Gap 13 mmol/L (10-20); BUN (Urea Nitrogen) 39 mg/dL (9.8-20.1); Calc. Creatinine Clearance 25 mL/min (70-130); Carbon Dioxide 19 mmol/L (23-31); Chloride 111 mmol/L (98-107); Estimated GFR-MDRD 24; Glucose 183 mg/dL (83-110); Potassium 4.2 mmol/L (3.5-5.1); Sodium 139 mmol/L (136-145)
[2017-06-19] MEDS: Metoclopramide HCl 10 MG TAB PO SCH ×4 (06:13→23:15)
[2017-06-19 06:58] LABS: Band 3 % (5-11); Hemoglobin 7.8 g/dL (12.0-16.0); Lymphocytes 5 % (21-51); MDiff Complete? YES; Macrocytosis SLIGHT = 6-15 cells (100X) (0-5/hpf); Mean Corpuscular HGB CONC 32.2 g/dL (32.0-36.0); Mean Corpuscular Volume 99.4 fl (81.0-99.0); Mean Platelet Volume 10.2 fL (7.4-10.4); Metamyelocyte 1 % (0-0); Monocytes 2 % (0-10); Neutrophil 89 % (42-75); PLT Morphology Comment Appears Adequate; Platelet Count 229 thou/uL (130-400); RBC Distribution Width 13.8 % (11.5-14.5); Red Blood Cell (RBC) Count 2.44 mill/uL (4.20-5.40)
[2017-06-19 07:46] LABS: CO2 Tension 35.1 mmHg (35.0-45.0); Hemoglobin (Hb) 7.3 g/dL (12.0-16.0); O2 Tension (PaO2) 92.1 mmHg (80.0-100.0); pH, Arterial 7.35 (7.35-7.45)
[2017-06-19 07:47] LABS: ALV-art Gradient 220.525 (0-20); Calcium, Ionized 1.2 mmol/L (1.12-1.30); Puncture Site LRA
--- NOTE | 2017-06-19 08:00 | PRG ---
DATE OF SERVICE: 06/19/2017 SUBJECTIVE: Ms. Hernández today is more responsive. She nods yes and no. She did not move her hands on c ommand, but nurse states she has been following commands. She also appears to be intermittently in atrial fibrillation. Her heart rate is better controlled wi th heart rate in the 90s. PHYSICAL EXAMINATION: VITAL SIGNS: Blood pressure 120/57, pulse 94, temperature 97.7. LUNGS: Rhonchi and rales bilaterally. CARDIAC: Regular rate and rhythm. ABDOMEN: Soft, nontender, nondistended. EXTREMITIES: No edema. PERTINENT LABORATORY DATA: Include a hemoglobin of 7.8. Creatinine 2.02, which is down from 2.2. IMPRESSION: 1. Community-acquired pneumonia. 2. Atrial fibrillation with rapid ventricular response. RECOMMENDATIONS: 1. Add p.o. amiodarone to IV amiodarone. 2. Continue Cardizem. 3. Try to wean down Cardizem as p.o. Cardizem increases. 4. Vent support and antibiotics.
--- NOTE | 2017-06-19 08:32 | PRG ---
DATE OF SERVICE: 06/19/2017 This morning she is slightly more awake. Last night she got 2 of morphine. PHYSICAL EXAMINATION: VITAL SIGNS: Blood pressure 123/48, sats are 99%, respiratory rate 20, temperature 97. I's & O's mancia ve been 3327 in, 1083 ahead. CHEST: Chest revealed decreased breath sounds, minimal crackles. CARDIAC: Normal S1-S2. No gallops. LABORATORY: White count 16,000, H&H 8 and 24. PO2 is 92, pCO2 35, pH 7.35 on 40% FiO2. Creatinine is 2. Chest x-ray shows adequate endotracheal tube, a small right-sided infiltrate. IMPRESSION: 1. Respiratory failure. 2. Encephalopathy. 3. GI bleed. 4. Baseline dementia. 5. Renal failure. PLAN: Continue amiodarone. Continue steroids and antibiotics. We will try and wean and extubate. I will follow. One-half hour critical care time.
--- NOTE | 2017-06-19 08:40 | RAD ---
CHEST 1 VIEW: HISTORY: Dyspnea. Followup. COMPARISON: 06/18/17. FINDINGS: Cardiac silhouette is magnified and upper limits of normal in size. Pulmonary vasculature is also up per limits of normal with widespread reticulonodular interstitial prominence. Lungs are otherwise hy perinflated. Mediastinum is midline. Endotracheal catheter tip now lies just above the level of the michel. Nasogastric tube descends to the abdomen. desk monitor leads overlie the chest. IMPRESSION: Endotracheal catheter is in good radiographic position. Stable radiographic appearance of the chest. POS: BURAK
[2017-06-19] MEDS: Pantoprazole 40 MG VIAL IVP SCH (09:00)
[2017-06-19] MEDS: Saccharomyces boulardii 250 MG CAP PO SCH (09:00)
[2017-06-19] MEDS: Amiodarone 200 MG TAB PO SCH ×2 (09:03→20:57)
[2017-06-19] MEDS: Amiodarone HCl 450 MG, Admixture Fee 1 EACH in Dextrose 5% in Water 250 ML IVPB SCH (10:28)
--- NOTE | 2017-06-19 15:33 | PDOC.PN ---
- Subjective Encounter Start Date: 06/19/17 Encounter Start Time: 15:30 -: non-verbal Subjective: intubated, more responsive - Objective Resuscitation Status: Resuscitation Status FULL:Full Resuscitation MAR Reviewed: Yes Vital Signs & Weight: Vital Signs (12 hours) Temp Pulse Pulse Pulse Resp BP BP 06/19/17 14:47 84 138/57 L 06/19/17 14:45 82 24 H 06/19/17 14:00 28 H 06/19/17 12:00 98.2 F 30 H 06/19/17 11:16 93 139/72 06/19/17 10:00 121 H 90 30 H 141/70 H 06/19/17 08:00 20 06/19/17 07:28 97.7 F 95 26 H 06/19/17 07:11 94 123/57 L 06/19/17 07:07 132 H 25 H 06/19/17 07:00 98.7 F 06/19/17 06:00 25 H 06/19/17 04:00 98.6 F 26 H BP Pulse Ox Pulse Ox Pulse Ox 06/19/17 14:47 06/19/17 14:45 94 L 06/19/17 14:00 06/19/17 12:00 06/19/17 11:16 06/19/17 10:00 107/68 92 L 92 L 06/19/17 08:00 06/19/17 07:28 96 06/19/17 07:11 06/19/17 07:07 98 06/19/17 07:00 06/19/17 06:00 06/19/17 04:00 Weight Admit Weight 104 lb 6.4 oz Weight 149 lb 14.629 oz Most Recent Monitor Data Heart Rate from ECG 90 NIBP 138/57 NIBP BP-Mean 64 Respiration from ECG 28 SpO2 95 I&O: 06/18/17 06/19/17 06/20/17 06:59 06:59 06:59 Intake Total 2341.2 3327 180 Output Total 1100 1083 470 Balance 1241.2 2244 -290 Result Diagrams: 06/19/17 04:30 06/19/17 04:30 Phys Exam - Physical Examination intubated HEENT: moist MMs Respiratory: no wheezing, no rales, no rhonchi Cardiovascular: RRR, no significant murmur Gastrointestinal: soft, positive bowel sounds Neurological: non-focal Deviation from normal: sedated on vent Dx/Plan (1) Acute respiratory failure Code(s): J96.00 - ACUTE RESPIRATORY FAILURE, UNSP W HYPOXIA OR HYPERCAPNIA Status: Acute (2) CAP (community acquired pneumonia) Code(s): J18.9 - PNEUMONIA, UNSPECIFIED ORGANISM Status: Acute Qualifiers: Laterality: right Lung location: upper lobe of lung Qualified Code(s): J18.1 - Lobar pneumonia, unspecified organism Comment: Rocephin since 06/11/17, Levaquin since 06/16/17 (3) SIMON (acute kidney injury) Code(s): N17.9 - ACUTE KIDNEY FAILURE, UNSPECIFIED Status: Acute (4) Atrial fibrillation with RVR Code(s): I48.91 - UNSPECIFIED ATRIAL FIBRILLATION Status: Acute (5) UTI (urinary tract infection) Status: Acute (6) Moderate protein-calorie malnutrition Code(s): E44.0 - MODERATE PROTEIN-CALORIE MALNUTRITION Status: Chronic (7) CKD (chronic kidney disease) stage 3, GFR 30-59 ml/min Status: Chronic - Plan cont current plan of care, continue antibiotics, respiratory therapy * . - Discharge Day Encounter end time: 16:00
[2017-06-19] MEDS: cefTRIAXone\\ROCEPHIN 1 GM, Syringe 0.4 ML in Sterile Water 9.6 ML SLOW IVP SCH (16:34)
[2017-06-19] MEDS: Atorvastatin Calcium 20 MG TAB PO SCH (20:57)
[2017-06-20] MEDS: Sodium Chloride 0.45% 1,000 ML IV SCH ×2 (01:52→21:14)
[2017-06-20 04:54] LABS: #Lymphocytes 0.3 thou/uL (1.20-3.40); #Monocytes 0.3 thou/uL (0.11-0.59); #Neutrophils 12.6 thou/uL (1.40-6.50); %Eosinophils 0.1 % (0.0-10.0); %Lymphocytes 2.3 % (21.0-51.0); %Monocytes 2.1 % (0.0-10.0); %Neutrophils 95.5 % (42.0-75.0); Hemoglobin 7.3 g/dL (12.0-16.0); Mean Corpuscular Hemoglobin 32.6 pg (27.0-31.0); Mean Corpuscular Volume 98.9 fl (81.0-99.0); Mean Platelet Volume 9.7 fL (7.4-10.4); Platelet Count 167 thou/uL (130-400); RBC Distribution Width 13.9 % (11.5-14.5); Red Blood Cell (RBC) Count 2.23 mill/uL (4.20-5.40); White Blood Cell (WBC) Count 13.2 thou/uL (4.8-10.8)
[2017-06-20 05:05] LABS: Anion Gap 15 mmol/L (10-20); BUN (Urea Nitrogen) 36 mg/dL (9.8-20.1); Calc. Creatinine Clearance 26 mL/min (70-130); Calcium 7.6 mg/dL (7.8-10.44); Carbon Dioxide 19 mmol/L (23-31); Chloride 112 mmol/L (98-107); Estimated GFR-MDRD 24; Glucose 174 mg/dL (83-110); Potassium 3.7 mmol/L (3.5-5.1); Sodium 142 mmol/L (136-145)
[2017-06-20] MEDS: Metoclopramide HCl 10 MG TAB PO SCH (05:22)
[2017-06-20 07:27] LABS: Actual Bicarbonate (HCO3a) 20.1 mEq/L (22-26); Base Excess (BEa) -4.5 mEq/L (0 (+/-) 2.5); CO2 Tension 34.5 mmHg (35.0-45.0); Hemoglobin (Hb) 6.8 g/dL (12.0-16.0); O2 Tension (PaO2) 83.9 mmHg (80.0-100.0); pH, Arterial 7.38 (7.35-7.45)
[2017-06-20 07:28] LABS: ALV-art Gradient 158.175 (0-20); Calcium, Ionized 1.1 mmol/L (1.12-1.30); Puncture Site RRA
[2017-06-20] MEDS ORDERED: DC Sedation Protocol FS ONE (08:15)
[2017-06-20] MEDS: Pantoprazole 40 MG GRANULES PACKET PER TUBE SCH (08:26)
[2017-06-20] MEDS: Saccharomyces boulardii 250 MG CAP PO SCH (08:26)
[2017-06-20] MEDS: Amiodarone 200 MG TAB PO SCH ×2 (08:27→21:13)
--- NOTE | 2017-06-20 14:47 | PRG ---
DATE OF SERVICE: 06/20/2017 SUBJECTIVE: Ms. Remedios Hernández, this morning, she is a little bit more arousable, awake. OBJECTIVE: VITAL SIGNS: Pulse is 85, blood pressure 130/80, sats are 97%, CPAP 30%, respirations 21. I's and O 's are 3327 in, 1083 out. CHEST: Decreased breath sounds, no wheezing. CARDIAC: Normal S1, S2. No gallops. ABDOMEN: Soft. No masses. LABORATORY DATA: White count 13,000, H&H is 7 and 22, platelet count is normal. PO2 was 83, pC02 34 , pH 7.38. Electrolytes are normal. Creatinine is 2. IMPRESSION: Respiratory failure, metabolic encephalopathy, gastrointestinal bleed, renal failure, at rial fibrillation, dementia. PLAN: We are going to try and attempt to extubate her today. Avoid all sedation. Probably needs speech to assess her for a swallow study. Continue antibiotics, nebulizer treatments, steroids. We will follow. One-half hour critical care time.
--- NOTE | 2017-06-20 15:01 | PRG ---
DATE OF SERVICE: 06/20/2017 SUBJECTIVE: Ms. Hernández continues to be intubated. She is back in sinus rhythm. She is on IV amiodaron e therapy. She also has been given p.o. OBJECTIVE: VITAL SIGNS: Blood pressure 120/57, pulse 84, respirations 20. LUNGS: Clear to auscultation. CARDIAC: Regular rate and rhythm. ABDOMEN: Soft, nontender, nondistended. EXTREMITIES: No edema. PERTINENT LABORATORY DATA: Hemoglobin 7.3, creatinine 2.0. IMPRESSION: 1. Community-acquired pneumonia. 2. Atrial fibrillation. RECOMMENDATIONS: 1. Discontinue amiodarone therapy IV after the bag is empty. 2. Continue p.o. amiodarone. 3. Continue ICU support and vent support. 4. Continue antibiotic therapy.
[2017-06-20] MEDS: cefTRIAXone\\ROCEPHIN 1 GM, Syringe 0.4 ML in Sterile Water 9.6 ML SLOW IVP SCH (17:22)
--- NOTE | 2017-06-20 19:00 | PDOC.PN ---
- Subjective Encounter Start Date: 06/20/17 Encounter Start Time: 09:40 Pt seen for followup re: acute respiratory failure. Extubated today. Not speaking, unable to complete ROS. - Objective Resuscitation Status: Resuscitation Status FULL:Full Resuscitation MAR Reviewed: Yes Vital Signs & Weight: Vital Signs (12 hours) Temp Pulse Resp BP Pulse Ox 06/20/17 16:00 97.4 F L 06/20/17 14:06 84 21 H 99 06/20/17 12:00 97.5 F L 06/20/17 10:48 99 06/20/17 08:20 97.8 F 78 20 97 06/20/17 08:19 99 06/20/17 08:00 20 06/20/17 07:13 78 130/52 L 06/20/17 07:09 80 17 97 06/20/17 07:00 97.8 F Weight Admit Weight 104 lb 6.4 oz Weight 152 lb 12.485 oz Most Recent Monitor Data Heart Rate from ECG 81 NIBP 132/50 NIBP BP-Mean 67 Respiration from ECG 19 SpO2 92 I&O: 06/19/17 06/20/17 06/21/17 06:59 06:59 06:59 Intake Total 3327 2850 1985 Output Total 1083 1415 800 Balance 2244 1435 1185 Result Diagrams: 06/20/17 04:02 06/20/17 04:02 EKG Reviewed by me: Yes (Tele: NSR) Phys Exam - Physical Examination HEENT: moist MMs Respiratory: clear to auscultation bilateral Cardiovascular: RRR Gastrointestinal: soft Neurological: moves all 4 limbs Psychiatric: normal affect Dx/Plan (1) Acute respiratory failure Code(s): J96.00 - ACUTE RESPIRATORY FAILURE, UNSP W HYPOXIA OR HYPERCAPNIA Status: Acute (2) SIMON (acute kidney injury) Code(s): N17.9 - ACUTE KIDNEY FAILURE, UNSPECIFIED Status: Acute (3) Metabolic acidosis Code(s): E87.2 - ACIDOSIS Status: Acute (4) CAP (community acquired pneumonia) Code(s): J18.9 - PNEUMONIA, UNSPECIFIED ORGANISM Status: Acute Qualifiers: Laterality: right Lung location: upper lobe of lung Qualified Code(s): J18.1 - Lobar pneumonia, unspecified organism (5) Moderate protein-calorie malnutrition Code(s): E44.0 - MODERATE PROTEIN-CALORIE MALNUTRITION Status: Chronic (6) Atrial fibrillation with RVR Code(s): I48.91 - UNSPECIFIED ATRIAL FIBRILLATION Status: Resolved (7) Melena Code(s): K92.1 - MELENA Status: Resolved (8) Sepsis Code(s): A41.9 - SEPSIS, UNSPECIFIED ORGANISM Status: Resolved - Plan plan discussed w/ family, continue antibiotics, respiratory therapy * . Continue antibiotics as below. Continue amiodarone (pt has converted to sinus rhythm) Review of Systems - Medications/Allergies Allergies/Adverse Reactions: Allergies Allergy/AdvReac Type Severity Reaction Status Date / Time No Known Allergies Allergy Verified 05/29/15 16:53 Medications: Current Medications Albuterol/Ipratropium (Duoneb) 3 ml NEB [id number] [facility] Last Admin: 06/20/17 14:06 Dose: 3 ml Amiodarone HCl (Cordarone) 400 mg PO BID [facility] Last Admin: 06/20/17 08:27 Dose: 400 mg Lipase/Protease/Amylase ([place] [id number]) 1 cap FS .PER PROTOCOL PRN PRN Reason: TUBE OCCLUSION PROTOCOL Atorvastatin Calcium (Lipitor) 20 mg PO QPM [facility] Last Admin: 06/19/17 20:57 Dose: 20 mg Bisacodyl (Dulcolax) 10 mg PO DAILYPRN PRN PRN Reason: Constipation Diltiazem HCl (Cardizem) 90 mg PER TUBE Q6HR [facility] Last Admin: 06/20/17 17:20 Dose: 90 mg Ceftriaxone Sodium 1 gm/ (Syringe 0.4 ml/ Sterile Water) 10 mls @ 120 mls/hr SLOW IVP 1700 [facility] Last Admin: 06/20/17 17:22 Dose: 10 mls Sodium Chloride (1/2 Normal Saline) 1,000 mls @ 75 mls/hr IV .[id number] [facility] Last Admin: 06/20/17 01:52 Dose: 1,000 mls Diltiazem HCl 125 mg/ Sodium (Chloride) 125 mls @ 0 mls/hr IVPB INF [facility]; Titrate PRN Reason: Protocol Last Admin: 06/17/17 20:38 Dose: 125 mls Levofloxacin 750 mg/ Device 150 mls @ 100 mls/hr IVPB Q2D@0900 [facility] Last Admin: 06/20/17 08:27 Dose: 150 mls Amiodarone HCl 450 mg/Miscellaneous Medication 1 each/ Dextrose/Water 259 mls @ 0 mls/hr IVPB INF [facility]; As Directed PRN Reason: Protocol Last Admin: 06/19/17 10:28 Dose: 259 mls Methylprednisolone Sodium Succinate (Solu-Medrol) 40 mg IVP Q6HR [facility] Last Admin: 06/20/17 17:21 Dose: 40 mg Pantoprazole Sodium (Protonix) 40 mg PER TUBE DAILY [facility] Last Admin: 06/20/17 08:26 Dose: 40 mg Saccharomyces Boulardii (Florastor) 250 mg PO DAILY [facility] Last Admin: 06/20/17 08:26 Dose: 250 mg Sodium Bicarbonate (Bicarbonate, Sodium) 650 mg PER TUBE .PER PROTOCOL PRN PRN Reason: ENTERAL TUBE OCCLUSION Sodium Chloride (Flush - Normal Saline) 10 ml IVF PRN PRN PRN Reason: Saline Flush Last Admin: 06/19/17 09:00 Dose: 10 ml
[2017-06-20] MEDS: Atorvastatin Calcium 20 MG TAB PO SCH (21:13)
[2017-06-21 05:09] LABS: Anion Gap 11 mmol/L (10-20); BUN (Urea Nitrogen) 33 mg/dL (9.8-20.1); Calc. Creatinine Clearance 33 mL/min (70-130); Calcium 7.8 mg/dL (7.8-10.44); Carbon Dioxide 22 mmol/L (23-31); Chloride 110 mmol/L (98-107); Estimated GFR-MDRD 30; Glucose 197 mg/dL (83-110); Potassium 3.2 mmol/L (3.5-5.1); Sodium 140 mmol/L (136-145)
[2017-06-21 05:47] LABS: Band 14 % (5-11); Hemoglobin 7.6 g/dL (12.0-16.0); Hypochromia SLIGHT = 6-15 cells (100X) (0-5/hpf); Lymphocytes 2 % (21-51); MDiff Complete? YES; Mean Corpuscular HGB CONC 32.5 g/dL (32.0-36.0); Mean Corpuscular Hemoglobin 32.1 pg (27.0-31.0); Mean Corpuscular Volume 98.8 fl (81.0-99.0); Monocytes 3 % (0-10); Neutrophil 81 % (42-75); Nucleated RBC 1 % (0); PLT Morphology Comment Appears Adequate; Platelet Count 166 thou/uL (130-400); RBC Distribution Width 13.8 % (11.5-14.5); Red Blood Cell (RBC) Count 2.35 mill/uL (4.20-5.40); White Blood Cell (WBC) Count 16.7 thou/uL (4.8-10.8)
[2017-06-21] MEDS: Sodium Chloride 0.45% 1,000 ML IV SCH ×2 (07:02→17:27)
[2017-06-21] MEDS: Amiodarone 200 MG TAB PO SCH ×2 (08:40→20:07)
[2017-06-21] MEDS: Pantoprazole 40 MG GRANULES PACKET PER TUBE SCH (08:40)
[2017-06-21] MEDS: Saccharomyces boulardii 250 MG CAP PO SCH (08:40)
--- NOTE | 2017-06-21 10:36 | PRG ---
DATE OF SERVICE: 06/21/2017 SUBJECTIVE: She is awake, alert, doing well. OBJECTIVE: VITAL SIGNS: Temperature 98.3, pulse 105, blood pressure 126/72. HEENT: Unremarkable. NECK: No JVD. CHEST: Clear. CARDIAC: S1 and S2 regular. ABDOMEN: Soft. EXTREMITIES: Trace edema. LABORATORY DATA: White blood cell count 16, hematocrit 23, platelet count 166. ASSESSMENT: 1. Status post respiratory failure with metabolic encephalopathy. 2. Recent gastrointestinal bleed. 3. Improved renal failure. 4. Atrial fibrillation. 5. Dementia. PLAN: Transfer to the floor. Increase activity. Recheck labs tomorrow.
--- NOTE | 2017-06-21 14:23 | PDOC.PN ---
- Subjective Encounter Start Date: 06/21/17 Encounter Start Time: 11:40 Pt seen for followup re; acute respiratory failure. More alert today, answering questions. - Objective Resuscitation Status: Resuscitation Status FULL:Full Resuscitation MAR Reviewed: Yes Vital Signs & Weight: Vital Signs (12 hours) Temp Pulse Resp Pulse Ox 06/21/17 14:02 100 24 H 93 L 06/21/17 11:59 98.1 F 06/21/17 07:49 93 L 06/21/17 07:47 98 23 H 93 L 06/21/17 07:10 98.3 F 79 19 93 L 06/21/17 04:00 98 F Weight Admit Weight 104 lb 6.4 oz Weight 153 lb 14.122 oz Most Recent Monitor Data Heart Rate from ECG 97 NIBP 145/78 NIBP BP-Mean 95 Respiration from ECG 19 SpO2 90 I&O: 06/20/17 06/21/17 06/22/17 06:59 06:59 06:59 Intake Total 2850 2897 Output Total 1415 1630 465 Balance 1435 1267 -465 Result Diagrams: 06/21/17 03:23 06/21/17 03:23 EKG Reviewed by me: Yes (Tele: NSR) Phys Exam - Physical Examination Constitutional: NAD HEENT: moist MMs Respiratory: clear to auscultation bilateral Cardiovascular: RRR Gastrointestinal: soft Musculoskeletal: edema present Neurological: moves all 4 limbs Psychiatric: normal affect Skin: no rash Dx/Plan (1) Acute respiratory failure Code(s): J96.00 - ACUTE RESPIRATORY FAILURE, UNSP W HYPOXIA OR HYPERCAPNIA Status: Acute (2) SIMON (acute kidney injury) Code(s): N17.9 - ACUTE KIDNEY FAILURE, UNSPECIFIED Status: Acute (3) Metabolic acidosis Code(s): E87.2 - ACIDOSIS Status: Acute (4) CAP (community acquired pneumonia) Code(s): J18.9 - PNEUMONIA, UNSPECIFIED ORGANISM Status: Acute Qualifiers: Laterality: right Lung location: upper lobe of lung Qualified Code(s): J18.1 - Lobar pneumonia, unspecified organism (5) Moderate protein-calorie malnutrition Code(s): E44.0 - MODERATE PROTEIN-CALORIE MALNUTRITION Status: Chronic (6) Atrial fibrillation with RVR Code(s): I48.91 - UNSPECIFIED ATRIAL FIBRILLATION Status: Resolved (7) Melena Code(s): K92.1 - MELENA Status: Resolved (8) Sepsis Code(s): A41.9 - SEPSIS, UNSPECIFIED ORGANISM Status: Resolved - Plan plan discussed w/ family, continue antibiotics, PT/OT, out of bed/ambulate * . Creatinine improving. Likely transfer to medical floor. Ambulate patient. Review of Systems - Review of Systems Respiratory: negative: Cough, Dry, Shortness of Breath, Hemoptysis, SOB with Excertion, Pleuritic Pain, Sputum, Wheezing Cardiovascular: negative: chest pain, palpitations, orthopnea, paroxysmal nocturnal dyspnea, edema, light headedness - Medications/Allergies Allergies/Adverse Reactions: Allergies Allergy/AdvReac Type Severity Reaction Status Date / Time No Known Allergies Allergy Verified 05/29/15 16:53 Medications: Current Medications Albuterol/Ipratropium (Duoneb) 3 ml NEB [id number] [facility] Last Admin: 06/21/17 14:02 Dose: 3 ml Amiodarone HCl (Cordarone) 400 mg PO BID [facility] Last Admin: 06/21/17 08:40 Dose: 400 mg Lipase/Protease/Amylase ([place] [id number]) 1 cap FS .PER PROTOCOL PRN PRN Reason: TUBE OCCLUSION PROTOCOL Atorvastatin Calcium (Lipitor) 20 mg PO QPM [facility] Last Admin: 06/20/17 21:13 Dose: 20 mg Bisacodyl (Dulcolax) 10 mg PO DAILYPRN PRN PRN Reason: Constipation Diltiazem HCl (Cardizem) 90 mg PER TUBE Q6HR [facility] Last Admin: 06/21/17 11:48 Dose: 90 mg Ceftriaxone Sodium 1 gm/ (Syringe 0.4 ml/ Sterile Water) 10 mls @ 120 mls/hr SLOW IVP 1700 [facility] Last Admin: 06/20/17 17:22 Dose: 10 mls Sodium Chloride (1/2 Normal Saline) 1,000 mls @ 75 mls/hr IV .[id number] [facility] Last Admin: 06/21/17 07:02 Dose: Not Given Levofloxacin 750 mg/ Device 150 mls @ 100 mls/hr IVPB Q2D@0900 [facility] Last Admin: 06/20/17 08:27 Dose: 150 mls Methylprednisolone Sodium Succinate (Solu-Medrol) 20 mg IVP Q6HR [facility] Last Admin: 06/21/17 11:48 Dose: 20 mg Pantoprazole Sodium (Protonix) 40 mg PER TUBE DAILY [facility] Last Admin: 06/21/17 08:40 Dose: 40 mg Saccharomyces Boulardii (Florastor) 250 mg PO DAILY [facility] Last Admin: 06/21/17 08:40 Dose: 250 mg Sodium Bicarbonate (Bicarbonate, Sodium) 650 mg PER TUBE .PER PROTOCOL PRN PRN Reason: ENTERAL TUBE OCCLUSION Sodium Chloride (Flush - Normal Saline) 10 ml IVF PRN PRN PRN Reason: Saline Flush Last Admin: 06/19/17 09:00 Dose: 10 ml
[2017-06-21] MEDS: cefTRIAXone\\ROCEPHIN 1 GM, Syringe 0.4 ML in Sterile Water 9.6 ML SLOW IVP SCH (17:07)
[2017-06-21] MEDS: Atorvastatin Calcium 20 MG TAB PO SCH (20:07)
--- NOTE | 2017-06-21 21:51 | EKG ---
Test Reason : Blood Pressure : / mmHG Vent. Rate : 099 BPM Atrial Rate : 100 BPM P-R Int : 064 ms QRS Dur : 086 ms QT Int : 530 ms P-R-T Axes : 000 008 082 degrees QTc Int : 680 ms Sinus rhythm with short [place] Abnormal ECG Confirmed by LAUREN ESCUDERO ([id number]), design editor DOREEN MONTEZ ([id number]) on 06/21/2017 9:50:12 PM Referred By: Confirmed By:LAUREN ESCUDERO
--- NOTE | 2017-06-21 22:06 | PDOC.CTH ---
<JaneDiana - Last Filed: 06/21/17 22:04> Cardiology Progress Note - Subjective The pt seen and examined. She denied any Cardiac complaints. However, she is mildly confused at this time - Objective Vital Signs Temp Pulse Resp BP BP Pulse Ox 06/21/17 21:28 97.8 F 80 18 137/60 93 L 06/21/17 20:03 97.8 F 80 18 93 L 06/21/17 19:13 83 29 H 93 L 06/21/17 17:40 82 21 H 135/64 95 06/21/17 14:30 98.3 F 83 23 H 92 L 06/21/17 14:02 100 24 H 93 L 06/21/17 11:59 98.1 F Admit Weight 104 lb 6.4 oz Weight 153 lb 14.122 oz 06/20/17 06/21/17 06/22/17 06:59 06:59 06:59 Intake Total 2850 2897 1300 Output Total 1415 1630 1565 Balance 1435 1267 -265 - Physical Examination General/Neuro: other: (confused to place, situation, and time) Neck: no JVD present Lungs: other: (diminished at bases) Heart: RRR Abdomen: soft Extremities: other: (No edema) - Telemetry Telemetry Rhythm: SR 80s - Labs Result Diagrams: 06/21/17 03:23 06/21/17 03:23 Troponin/CKMB CK-MB (CK-2) 0.5 ng/mL (0-6.6) 06/11/17 13:28 Troponin I 0.040 ng/mL (< 0.028) H 06/11/17 19:17 - Assessment/Plan 1. Afib with RVR - remains in SR with Amiodarone 400mg BID; No OAC due to recent GI bleed 2. Acute Resp. failure with metabolic encephalopathy - improving; managed by manager credit collections 3. SIMON - improving 4. PNA - stable; managed by PCP and manager credit collections 5. Dementia MAR reviewed Review of Systems - Review of Systems Constitutional: reports: no symptoms reported, see HPI EENTM: reports: no symptoms reported, see HPI Respiratory: reports: no symptoms reported, see HPI Cardiac (ROS): reports: no symptoms reported, see HPI ABD/GI: reports: no symptoms reported, see HPI : reports: no symptoms reported, see HPI <Helena Blanchard - Last Filed: 06/22/17 01:17> Cardiology Progress Note - Objective Vital Signs Temp Pulse Resp BP BP Pulse Ox 06/21/17 23:44 82 26 H 93 L 06/21/17 21:28 97.8 F 80 18 137/60 93 L 06/21/17 20:03 97.8 F 80 18 93 L 06/21/17 19:13 83 29 H 93 L 06/21/17 17:40 82 21 H 135/64 95 06/21/17 14:30 98.3 F 83 23 H 92 L 06/21/17 14:02 100 24 H 93 L Admit Weight 104 lb 6.4 oz Weight 153 lb 14.122 oz 06/20/17 06/21/17 06/22/17 06:59 06:59 06:59 Intake Total 2850 2897 1300 Output Total 1415 1630 1565 Balance 1435 1267 -265 - Labs Result Diagrams: 06/21/17 03:23 06/21/17 03:23 Troponin/CKMB CK-MB (CK-2) 0.5 ng/mL (0-6.6) 06/11/17 13:28 Troponin I 0.040 ng/mL (< 0.028) H 06/11/17 19:17 - Assessment/Plan The pt. was seen and eval. by me. I agree with the A/P by the [employer].
[2017-06-22 04:33] LABS: Band 6 % (5-11); Hemoglobin 7.9 g/dL (12.0-16.0); Lymphocytes 1 % (21-51); MDiff Complete? YES; Mean Corpuscular HGB CONC 33.2 g/dL (32.0-36.0); Mean Corpuscular Hemoglobin 32.5 pg (27.0-31.0); Mean Corpuscular Volume 97.9 fl (81.0-99.0); Monocytes 2 % (0-10); Neutrophil 91 % (42-75); PLT Morphology Comment Appears Adequate; Platelet Count 199 thou/uL (130-400); RBC Distribution Width 14.3 % (11.5-14.5); Red Blood Cell (RBC) Count 2.44 mill/uL (4.20-5.40); White Blood Cell (WBC) Count 18.6 thou/uL (4.8-10.8)
[2017-06-22 04:34] LABS: Anion Gap 12 mmol/L (10-20); BUN (Urea Nitrogen) 27 mg/dL (9.8-20.1); Calc. Creatinine Clearance 35 mL/min (70-130); Calcium 7.9 mg/dL (7.8-10.44); Carbon Dioxide 23 mmol/L (23-31); Chloride 109 mmol/L (98-107); Estimated GFR-MDRD 33; Glucose 179 mg/dL (83-110); Sodium 141 mmol/L (136-145)
[2017-06-22 04:42] LABS: Potassium 2.9 mmol/L (3.5-5.1)
[2017-06-22] MEDS ORDERED: Enoxaparin Sodium 80 MG/0.8 ML SYRINGE SC SCH (05:00)
--- NOTE | 2017-06-22 08:40 | PRG ---
DATE OF SERVICE: 06/22/2017 SUBJECTIVE: The patient states that she wants to go home. She had a good night. PHYSICAL EXAMINATION: VITAL SIGNS: Temperature 97.5, pulse 76, respirations 23, O2 sat 94% on 3 liters, blood pressure 139 /62. HEENT: Unremarkable. NECK: No JVD. LUNGS: Clear without wheezing. CARDIAC: S1 and S2 regular. ABDOMEN: Soft and nontender. EXTREMITIES: No edema. LABORATORY DATA: White blood cell count 18.6, hemoglobin 7.9, hematocrit 23.9, platelet count 199. Sodium 141, potassium 2.9, chloride 109, CO2 23, BUN 27, creatinine 1.5, glucose 179. ASSESSMENT: 1. Status post respiratory failure with metabolic encephalopathy - this has improved. 2. Recent gastrointestinal bleed. 3. Improved renal failure. 4. Atrial fibrillation. 5. Dementia. PLAN: She is awaiting assignment of a telemetry bed. I have reviewed her orders. She needs to have her potassium replaced.
[2017-06-22] MEDS: Potassium Chloride 20 MEQ TAB PO SCH ×2 (09:47→17:13)
[2017-06-22] MEDS: Amiodarone 200 MG TAB PO SCH ×2 (09:47→20:37)
[2017-06-22] MEDS: Saccharomyces boulardii 250 MG CAP PO SCH (09:47)
[2017-06-22] MEDS: Pantoprazole 40 MG GRANULES PACKET PER TUBE SCH (09:48)
[2017-06-22] MEDS: Sodium Chloride 0.45% 1,000 ML IV SCH (11:34)
--- NOTE | 2017-06-22 14:26 | PDOC.PN ---
- Subjective Encounter Start Date: 06/22/17 Encounter Start Time: 10:20 Pt seen for followup re; acute respiratory failure. Says she feels better. Confused, says she is going to be picked up by her son to go to [place] later today. - Objective Resuscitation Status: Resuscitation Status FULL:Full Resuscitation MAR Reviewed: Yes Vital Signs & Weight: Vital Signs (12 hours) Temp Pulse Resp BP BP Pulse Ox 06/22/17 13:26 76 20 99 06/22/17 12:16 74 19 129/47 L 100 06/22/17 08:00 97.5 F L 76 23 H 06/22/17 07:27 97.5 F L 76 23 H 139/62 94 L 06/22/17 06:51 96 06/22/17 06:46 77 24 H 96 06/22/17 06:15 80 16 132/77 93 L Weight Admit Weight 104 lb 6.4 oz Weight 155 lb 9.6 oz Most Recent Monitor Data Heart Rate from ECG 82 NIBP 99/57 NIBP BP-Mean 70 Respiration from ECG 21 SpO2 95 I&O: 06/21/17 06/22/17 06/23/17 06:59 06:59 06:59 Intake Total 2897 2420 Output Total 1630 1885 Balance 1267 535 Result Diagrams: 06/22/17 03:40 06/22/17 03:40 EKG Reviewed by me: Yes (Tele: NSR) Phys Exam - Physical Examination Constitutional: NAD HEENT: moist MMs Neck: supple Respiratory: clear to auscultation bilateral Cardiovascular: RRR Gastrointestinal: soft Neurological: moves all 4 limbs Psychiatric: normal affect Deviation from normal: Oriented to person only Dx/Plan (1) Acute respiratory failure Code(s): J96.00 - ACUTE RESPIRATORY FAILURE, UNSP W HYPOXIA OR HYPERCAPNIA Status: Acute (2) Hypokalemia Code(s): E87.6 - HYPOKALEMIA Status: Acute (3) SIMON (acute kidney injury) Code(s): N17.9 - ACUTE KIDNEY FAILURE, UNSPECIFIED Status: Acute (4) CAP (community acquired pneumonia) Code(s): J18.9 - PNEUMONIA, UNSPECIFIED ORGANISM Status: Acute Qualifiers: Laterality: right Lung location: upper lobe of lung Qualified Code(s): J18.1 - Lobar pneumonia, unspecified organism (5) Moderate protein-calorie malnutrition Code(s): E44.0 - MODERATE PROTEIN-CALORIE MALNUTRITION Status: Chronic (6) Atrial fibrillation with RVR Code(s): I48.91 - UNSPECIFIED ATRIAL FIBRILLATION Status: Resolved (7) Melena Code(s): K92.1 - MELENA Status: Resolved (8) Sepsis Code(s): A41.9 - SEPSIS, UNSPECIFIED ORGANISM Status: Resolved (9) Metabolic acidosis Code(s): E87.2 - ACIDOSIS Status: Resolved - Plan continue antibiotics, PT/OT, out of bed/ambulate * . Continue antibiotics. Potassium being replaced. Creatinine improving. Review of Systems - Review of Systems Respiratory: negative: Cough, Dry, Shortness of Breath, Hemoptysis, SOB with Excertion, Pleuritic Pain, Sputum, Wheezing Cardiovascular: negative: chest pain, palpitations, orthopnea, paroxysmal nocturnal dyspnea, edema, light headedness - Medications/Allergies Allergies/Adverse Reactions: Allergies Allergy/AdvReac Type Severity Reaction Status Date / Time No Known Allergies Allergy Verified 05/29/15 16:53 Medications: Current Medications Albuterol/Ipratropium (Duoneb) 3 ml NEB [id number] [facility] Last Admin: 06/22/17 13:26 Dose: 3 ml Amiodarone HCl (Cordarone) 400 mg PO BID [facility] Last Admin: 06/22/17 09:47 Dose: 400 mg Lipase/Protease/Amylase ([place] [id number]) 1 cap FS .PER PROTOCOL PRN PRN Reason: TUBE OCCLUSION PROTOCOL Atorvastatin Calcium (Lipitor) 20 mg PO QPM [facility] Last Admin: 06/21/17 20:07 Dose: 20 mg Bisacodyl (Dulcolax) 10 mg PO DAILYPRN PRN PRN Reason: Constipation Diltiazem HCl (Cardizem) 90 mg PER TUBE Q6HR [facility] Last Admin: 06/22/17 13:54 Dose: 90 mg Sodium Chloride (1/2 Normal Saline) 1,000 mls @ 75 mls/hr IV .[id number] [facility] Last Admin: 06/22/17 11:34 Dose: 1,000 mls Levofloxacin 750 mg/ Device 150 mls @ 100 mls/hr IVPB Q2D@0900 [facility] Last Admin: 06/22/17 09:48 Dose: 150 mls Methylprednisolone Sodium Succinate (Solu-Medrol) 20 mg IVP Q6HR [facility] Last Admin: 06/22/17 13:54 Dose: 20 mg Pantoprazole Sodium (Protonix) 40 mg PER TUBE DAILY [facility] Last Admin: 06/22/17 09:48 Dose: 40 mg Potassium Chloride (K-Dur) 40 meq PO BID[facility] Stop: 06/22/17 17:01 Last Admin: 06/22/17 09:47 Dose: 40 meq Saccharomyces Boulardii (Florastor) 250 mg PO DAILY [facility] Last Admin: 06/22/17 09:47 Dose: 250 mg Sodium Bicarbonate (Bicarbonate, Sodium) 650 mg PER TUBE .PER PROTOCOL PRN PRN Reason: ENTERAL TUBE OCCLUSION Sodium Chloride (Flush - Normal Saline) 10 ml IVF PRN PRN PRN Reason: Saline Flush Last Admin: 06/19/17 09:00 Dose: 10 ml
--- NOTE | 2017-06-22 16:57 | PDOC.CTH ---
Cardiology Progress Note - Subjective Pt. seen and eval. Some improvement from yesterday. No complaints. Some cough.No new events. - Objective Vital Signs Temp Pulse Resp BP BP Pulse Ox 06/22/17 13:26 76 20 99 06/22/17 12:16 74 19 129/47 L 100 06/22/17 08:00 97.5 F L 76 23 H 06/22/17 07:27 97.5 F L 76 23 H 139/62 94 L 06/22/17 06:51 96 06/22/17 06:46 77 24 H 96 06/22/17 06:15 80 16 132/77 93 L Admit Weight 104 lb 6.4 oz Weight 155 lb 9.6 oz 06/21/17 06/22/17 06/23/17 06:59 06:59 06:59 Intake Total 2897 2420 Output Total 1630 1885 Balance 1267 535 - Physical Examination Lungs: other: (bilateral rales.) Heart: RRR Abdomen: soft - Labs Result Diagrams: 06/22/17 03:40 06/22/17 03:40 Troponin/CKMB CK-MB (CK-2) 0.5 ng/mL (0-6.6) 06/11/17 13:28 Troponin I 0.040 ng/mL (< 0.028) H 06/11/17 19:17 - Assessment/Plan 1. Afib with RVR - remains in SR with Amiodarone 400mg BID; No OAC due to recent GI bleed 2. Acute Resp. failure with metabolic encephalopathy - improving; managed by teacher theater arts 3. SIMON - improving 4. PNA - stable; managed by PCP and teacher theater arts 5. Dementia 6. Hypokalemia., being replaced. 7. Anemia.Stable. MAR reviewed
[2017-06-22] MEDS: Atorvastatin Calcium 20 MG TAB PO SCH (20:37)
[2017-06-23] MEDS: Sodium Chloride 0.45% 1,000 ML IV SCH (00:02)
[2017-06-23 05:21] LABS: Anion Gap 10 mmol/L (10-20); BUN (Urea Nitrogen) 27 mg/dL (9.8-20.1); Calc. Creatinine Clearance 37 mL/min (70-130); Calcium 7.8 mg/dL (7.8-10.44); Carbon Dioxide 22 mmol/L (23-31); Chloride 110 mmol/L (98-107); Estimated GFR-MDRD 34; Glucose 162 mg/dL (83-110); Potassium 3.8 mmol/L (3.5-5.1); Sodium 138 mmol/L (136-145)
--- NOTE | 2017-06-23 08:45 | PRG ---
DATE OF SERVICE: 06/23/2017 Ms. Hernández has improved. Over the weekend she has been extubated. She is now on telemetry monitoring. There is some mild confusion noted. PHYSICAL EXAMINATION: VITAL SIGNS: Blood pressure 137/64, pulse 76, temperature 97.3. LUNGS: Rhonchi and rales bilaterally. HEART: Regular rate and rhythm. ABDOMEN: Soft, nontender, nondistended. EXTREMITIES: No edema. IMPRESSION: 1. Pneumonia. 2. Atrial fibrillation with rapid ventricular response. RECOMMENDATIONS: 1. Continue amiodarone at 400 mg 1 p.o. b.i.d. Will decrease to 400 mg 1 p.o. q.a.m. x1 day, then c ontinue for 1 month, then likely stop and/or change to Multaq. 2. Rehab inpatient/versus outpatient.
[2017-06-23] MEDS: Saccharomyces boulardii 250 MG CAP PO SCH (09:16)
[2017-06-23] MEDS: Amiodarone 200 MG TAB PO SCH ×2 (09:16→20:53)
[2017-06-23] MEDS: Pantoprazole 40 MG GRANULES PACKET PER TUBE SCH (09:16)
--- NOTE | 2017-06-23 10:06 | PRG ---
DATE OF SERVICE: 06/23/2017 Encephalopathy, much improved. She is less confused, less agitated. Apparently she had her breakfas t. Her daughter is not at the bedside this morning. PT has been evaluating her. PHYSICAL EXAMINATION: VITAL SIGNS: Blood pressure was 144/67, sats 92 on 3 liter, respirations 20, temperature 97. I's an d O's 1064 in, 1025 out. CHEST: Chest reveals bilateral rhonchi. CARDIAC: Normal S1, S2. Creatinine 1.5, BUN 27. IMPRESSION: 1. Respiratory failure. 2. Dementia. 3. Alcohol abuse. 4. Gastrointestinal bleed. 5. Atrial fibrillation. 6. Azotemia. PLAN: Minimize sedation. Switch her over to oral medication. Eventually placement.
[2017-06-23] MEDS ORDERED: Acetaminophen 325 MG TAB PO PRN (10:41)
--- NOTE | 2017-06-23 15:04 | PDOC.PN ---
- Subjective Encounter Start Date: 06/23/17 Encounter Start Time: 07:00 Pt seen for followup re: acute respiratory failure. Says she feels better. No chest pain. - Objective Resuscitation Status: Resuscitation Status FULL:Full Resuscitation MAR Reviewed: Yes Vital Signs & Weight: Vital Signs (12 hours) Temp Pulse Resp BP Pulse Ox 06/23/17 14:06 78 20 94 L 06/23/17 11:48 97.2 F L 74 22 H 141/64 H 97 06/23/17 08:31 97.6 F 84 18 144/67 H 99 06/23/17 07:50 98.3 F 76 20 06/23/17 07:08 76 20 06/23/17 06:03 97.3 F L 77 29 H 137/64 95 Weight Admit Weight 104 lb 6.4 oz Weight 148 lb 1.6 oz Most Recent Monitor Data Heart Rate from ECG 82 NIBP 99/57 NIBP BP-Mean 70 Respiration from ECG 21 SpO2 95 I&O: 06/22/17 06/23/17 06/24/17 06:59 06:59 06:59 Intake Total 2420 1064 584 Output Total 1885 1025 Balance 535 39 584 Result Diagrams: 06/22/17 03:40 06/23/17 04:48 EKG Reviewed by me: Yes (Tele: NSR) Phys Exam - Physical Examination Constitutional: NAD HEENT: moist MMs Neck: supple Respiratory: clear to auscultation bilateral Cardiovascular: RRR Gastrointestinal: soft Musculoskeletal: no edema Neurological: moves all 4 limbs Psychiatric: normal affect Deviation from normal: Oriented to person and place only Skin: no rash Dx/Plan (1) Acute respiratory failure Code(s): J96.00 - ACUTE RESPIRATORY FAILURE, UNSP W HYPOXIA OR HYPERCAPNIA Status: Acute (2) SIMON (acute kidney injury) Code(s): N17.9 - ACUTE KIDNEY FAILURE, UNSPECIFIED Status: Acute (3) CAP (community acquired pneumonia) Code(s): J18.9 - PNEUMONIA, UNSPECIFIED ORGANISM Status: Acute Qualifiers: Laterality: right Lung location: upper lobe of lung Qualified Code(s): J18.1 - Lobar pneumonia, unspecified organism (4) Moderate protein-calorie malnutrition Code(s): E44.0 - MODERATE PROTEIN-CALORIE MALNUTRITION Status: Chronic (5) Atrial fibrillation with RVR Code(s): I48.91 - UNSPECIFIED ATRIAL FIBRILLATION Status: Resolved (6) Hypokalemia Code(s): E87.6 - HYPOKALEMIA Status: Resolved - Plan plan discussed w/ family, continue antibiotics, PT/OT, out of bed/ambulate * . Continue cefdinir. Mobilize patient. Hypokalemia resolved, creatinine improving. Review of Systems - Review of Systems Respiratory: Cough, Dry. negative: Shortness of Breath, Pleuritic Pain, Sputum , Wheezing Cardiovascular: negative: chest pain, palpitations, orthopnea, paroxysmal nocturnal dyspnea, edema, light headedness - Medications/Allergies Allergies/Adverse Reactions: Allergies Allergy/AdvReac Type Severity Reaction Status Date / Time No Known Allergies Allergy Verified 05/29/15 16:53 Medications: Current Medications Acetaminophen (Tylenol) 650 mg PO Q6H PRN PRN Reason: Headache/Fever or Pain Albuterol/Ipratropium (Duoneb) 3 ml NEB [id number] [facility] Last Admin: 06/23/17 14:06 Dose: 3 ml Amiodarone HCl (Cordarone) 400 mg PO BID [facility] Last Admin: 06/23/17 09:16 Dose: 400 mg Lipase/Protease/Amylase ([place] [id number]) 1 cap FS .PER PROTOCOL PRN PRN Reason: TUBE OCCLUSION PROTOCOL Atorvastatin Calcium (Lipitor) 20 mg PO QPM [facility] Last Admin: 06/22/17 20:37 Dose: 20 mg Bisacodyl (Dulcolax) 10 mg PO DAILYPRN PRN PRN Reason: Constipation Cefdinir (Omnicef) 300 mg PO BID [facility] Stop: 06/26/17 21:01 Diltiazem HCl (Cardizem) 90 mg PER TUBE Q6HR [facility] Last Admin: 06/23/17 13:38 Dose: 90 mg Pantoprazole Sodium (Protonix) 40 mg PER TUBE DAILY [facility] Last Admin: 06/23/17 09:16 Dose: 40 mg Prednisone (Prednisone) 20 mg PO QAM[facility] Saccharomyces Boulardii (Florastor) 250 mg PO DAILY [facility] Last Admin: 06/23/17 09:16 Dose: 250 mg Sodium Bicarbonate (Bicarbonate, Sodium) 650 mg PER TUBE .PER PROTOCOL PRN PRN Reason: ENTERAL TUBE OCCLUSION Sodium Chloride (Flush - Normal Saline) 10 ml IVF PRN PRN PRN Reason: Saline Flush Last Admin: 06/19/17 09:00 Dose: 10 ml
[2017-06-23] MEDS: Atorvastatin Calcium 20 MG TAB PO SCH (20:53)
[2017-06-23] MEDS: Cefdinir 300 MG CAP PO SCH (20:53)
--- NOTE | 2017-06-24 08:49 | PRG ---
DATE OF SERVICE: 06/24/2017 Ms. Hernández appears to be improving. Her mentation is improved. She has no current complaints. PHYSICAL EXAMINATION: VITAL SIGNS: Blood pressure 141/63, pulse 74, temperature 97.5. LUNGS: Clear to auscultation. HEART: Regular rate and rhythm. ABDOMEN: Soft, nontender, nondistended. EXTREMITIES: No edema. IMPRESSION: 1. Atrial fibrillation. 2. Pneumonia. RECOMMENDATIONS: 1. Decrease amiodarone to 400 mg subcu q.a.m. 2. Change short acting calcium channel maryam at 60 mg q.6h. to longacting Cardizem 240 q.a.m. 3. Continue anticoagulation therapy given her previous history of paroxysmal atrial fibrillation.
[2017-06-24] MEDS: predniSONE 20 MG TAB PO SCH (09:36)
[2017-06-24] MEDS: Pantoprazole 40 MG GRANULES PACKET PER TUBE SCH (09:36)
[2017-06-24] MEDS: Saccharomyces boulardii 250 MG CAP PO SCH (09:36)
[2017-06-24] MEDS: Cefdinir 300 MG CAP PO SCH ×2 (09:36→20:59)
[2017-06-24] MEDS: Amiodarone 200 MG TAB PO SCH (09:45)
[2017-06-24] MEDS: Apixaban 5 MG TAB PO SCH ×2 (09:46→20:59)
--- NOTE | 2017-06-24 13:55 | PRG ---
DATE OF SERVICE: 06/24/2017 SUBJECTIVE: Remedios Hernández is a 76-year-old female, who is much more awake, responsive, and still weak. OBJECTIVE: VITAL SIGNS: Blood pressure 130/59, respiratory 18, pulse 72, O2 sat 98% on room air. NEUROLOGIC: She is much more appropriate. CHEST: Decreased breath sounds, no wheezing. CARDIAC: Normal S1, S2, no gallops. ABDOMEN: No masses. IMPRESSION: 1. Respiratory failure. 2. Encephalopathy. 3. Severe deconditioning. PLAN: Continue aggressive PT, eventually placement.
--- NOTE | 2017-06-24 16:00 | PDOC.PN ---
- Subjective Encounter Start Date: 06/24/17 Encounter Start Time: 07:00 Pt seen for followup re: physical deconditioning. Denies chest pain or shortness of breath. Confused, says she is looking for her dad in the hospital. - Objective Resuscitation Status: Resuscitation Status FULL:Full Resuscitation MAR Reviewed: Yes Vital Signs & Weight: Vital Signs (12 hours) Temp Pulse Resp BP Pulse Ox 06/24/17 14:12 75 20 06/24/17 11:48 97.6 F 76 20 136/63 93 L 06/24/17 09:45 73 06/24/17 08:00 97.6 F 76 20 06/24/17 07:49 73 20 91 L 06/24/17 07:45 97.5 F L 74 20 141/63 H 91 L Weight Admit Weight 104 lb 6.4 oz Weight 154 lb 9.6 oz Most Recent Monitor Data Heart Rate from ECG 82 NIBP 99/57 NIBP BP-Mean 70 Respiration from ECG 21 SpO2 95 I&O: 06/23/17 06/24/17 06/25/17 06:59 06:59 06:59 Intake Total 1064 1084 240 Output Total 1025 600 Balance 39 484 240 Result Diagrams: 06/22/17 03:40 06/23/17 04:48 EKG Reviewed by me: Yes (Tele: NSR) Phys Exam - Physical Examination Constitutional: NAD HEENT: moist MMs Neck: supple Respiratory: clear to auscultation bilateral Cardiovascular: RRR Gastrointestinal: soft Neurological: moves all 4 limbs Deviation from normal: Oriented to person only, confused Skin: no rash Dx/Plan (1) Physical deconditioning Code(s): R53.81 - OTHER MALAISE Status: Acute (2) Acute respiratory failure Code(s): J96.00 - ACUTE RESPIRATORY FAILURE, UNSP W HYPOXIA OR HYPERCAPNIA Status: Acute (3) SIMON (acute kidney injury) Code(s): N17.9 - ACUTE KIDNEY FAILURE, UNSPECIFIED Status: Acute (4) CAP (community acquired pneumonia) Code(s): J18.9 - PNEUMONIA, UNSPECIFIED ORGANISM Status: Acute Qualifiers: Laterality: right Lung location: upper lobe of lung Qualified Code(s): J18.1 - Lobar pneumonia, unspecified organism (5) Moderate protein-calorie malnutrition Code(s): E44.0 - MODERATE PROTEIN-CALORIE MALNUTRITION Status: Chronic (6) Atrial fibrillation with RVR Code(s): I48.91 - UNSPECIFIED ATRIAL FIBRILLATION Status: Resolved (7) Hypokalemia Code(s): E87.6 - HYPOKALEMIA Status: Resolved - Plan plan discussed w/ family, continue antibiotics, PT/OT, out of bed/ambulate * . Needs discharge planning. Review of Systems - Review of Systems Respiratory: negative: Cough, Dry, Shortness of Breath, Hemoptysis, SOB with Excertion, Pleuritic Pain, Sputum, Wheezing Cardiovascular: negative: chest pain, palpitations, orthopnea, paroxysmal nocturnal dyspnea, edema, light headedness - Medications/Allergies Allergies/Adverse Reactions: Allergies Allergy/AdvReac Type Severity Reaction Status Date / Time No Known Allergies Allergy Verified 05/29/15 16:53 Medications: Current Medications Acetaminophen (Tylenol) 650 mg PO Q6H PRN PRN Reason: Headache/Fever or Pain Last Admin: 06/24/17 12:09 Dose: 650 mg Albuterol/Ipratropium (Duoneb) 3 ml NEB [id number] [facility] Last Admin: 06/24/17 14:12 Dose: 3 ml Amiodarone HCl (Cordarone) 400 mg PO QAM [facility] Last Admin: 06/24/17 09:45 Dose: 400 mg Lipase/Protease/Amylase ([place] [id number]) 1 cap FS .PER PROTOCOL PRN PRN Reason: TUBE OCCLUSION PROTOCOL Apixaban (Eliquis) 2.5 mg PO BID [facility] Last Admin: 06/24/17 09:46 Dose: 2.5 mg Atorvastatin Calcium (Lipitor) 20 mg PO QPM [facility] Last Admin: 06/23/17 20:53 Dose: 20 mg Bisacodyl (Dulcolax) 10 mg PO DAILYPRN PRN PRN Reason: Constipation Cefdinir (Omnicef) 300 mg PO BID [facility] Stop: 06/26/17 21:01 Last Admin: 06/24/17 09:36 Dose: 300 mg Diltiazem HCl (Cardizem Cd) 240 mg PO DAILY [facility] Last Admin: 06/24/17 09:45 Dose: 240 mg Pantoprazole Sodium (Protonix) 40 mg PER TUBE DAILY [facility] Last Admin: 06/24/17 09:36 Dose: 40 mg Prednisone (Prednisone) 20 mg PO QAM-[facility] Last Admin: 06/24/17 09:36 Dose: 20 mg Saccharomyces Boulardii (Florastor) 250 mg PO DAILY [facility] Last Admin: 06/24/17 09:36 Dose: 250 mg Sodium Bicarbonate (Bicarbonate, Sodium) 650 mg PER TUBE .PER PROTOCOL PRN PRN Reason: ENTERAL TUBE OCCLUSION Sodium Chloride (Flush - Normal Saline) 10 ml IVF PRN PRN PRN Reason: Saline Flush Last Admin: 06/19/17 09:00 Dose: 10 ml
[2017-06-24] MEDS: Atorvastatin Calcium 20 MG TAB PO SCH (20:59)
[2017-06-25] MEDS: Pantoprazole 40 MG GRANULES PACKET PER TUBE SCH (09:46)
[2017-06-25] MEDS: predniSONE 20 MG TAB PO SCH (09:47)
[2017-06-25] MEDS: Saccharomyces boulardii 250 MG CAP PO SCH (09:47)
[2017-06-25] MEDS: Apixaban 5 MG TAB PO SCH (09:47)
[2017-06-25] MEDS: Amiodarone 200 MG TAB PO SCH (09:47)
[2017-06-25] MEDS: Cefdinir 300 MG CAP PO SCH ×2 (09:47→20:33)
[2017-06-25 13:43] VITALS: BMI 26.4
--- NOTE | 2017-06-25 14:28 | PRG ---
DATE OF SERVICE: 06/25/2017 SUBJECTIVE: This morning, she is awake and responsive, still appears to be somewhat encephalopathic. Denies any pain. She is weak. OBJECTIVE: VITAL SIGNS: Blood pressure is 130/80, pulse 80, respiratory rate 18, sats are 93%. CHEST: Decreased breath sounds, no wheezing. CARDIAC: Normal S1 and S2. ABDOMEN: Soft, no masses. IMPRESSION: 1. Encephalopathy. 2. Respiratory failure. 3. Severe deconditioning. PLAN: Continue aggressive PT. She is switched over to oral medication.
--- NOTE | 2017-06-25 15:35 | PDOC.PN ---
- Subjective Encounter Start Date: 06/25/17 Encounter Start Time: 15:34 Pt seen for followup re: physical deconditioning. No complaints today. - Objective Resuscitation Status: Resuscitation Status FULL:Full Resuscitation MAR Reviewed: Yes Vital Signs & Weight: Vital Signs (12 hours) Temp Pulse Pulse Pulse Resp BP BP 06/25/17 14:28 72 72 140/62 149/68 H 06/25/17 12:25 06/25/17 12:00 06/25/17 11:56 98.0 F 79 16 06/25/17 10:53 80 80 131/64 06/25/17 09:47 79 06/25/17 08:25 97.3 F L 79 20 06/25/17 08:00 97.3 F L 79 20 06/25/17 07:25 77 16 06/25/17 04:00 97.3 F L 73 20 BP BP Pulse Ox Pulse Ox Pulse Ox 06/25/17 14:28 96 95 06/25/17 12:25 135/62 06/25/17 12:00 96 06/25/17 11:56 176/79 H 96 06/25/17 10:53 96 95 06/25/17 09:47 06/25/17 08:25 139/63 96 06/25/17 08:00 96 06/25/17 07:25 99 06/25/17 04:00 146/70 H 93 L Weight Admit Weight 104 lb 6.4 oz Weight 154 lb Most Recent Monitor Data Heart Rate from ECG 82 NIBP 99/57 NIBP BP-Mean 70 Respiration from ECG 21 SpO2 95 I&O: 06/24/17 06/25/17 06/26/17 06:59 06:59 06:59 Intake Total 1084 640 Output Total 600 325 Balance 484 315 Result Diagrams: 06/22/17 03:40 06/23/17 04:48 EKG Reviewed by me: Yes (Tele: NSR) Phys Exam - Physical Examination Constitutional: NAD HEENT: moist MMs Neck: supple Respiratory: clear to auscultation bilateral Cardiovascular: RRR Gastrointestinal: soft Neurological: moves all 4 limbs Psychiatric: normal affect Dx/Plan (1) Physical deconditioning Code(s): R53.81 - OTHER MALAISE Status: Acute (2) Hematuria Code(s): R31.9 - HEMATURIA, UNSPECIFIED Status: Acute (3) Acute respiratory failure Code(s): J96.00 - ACUTE RESPIRATORY FAILURE, UNSP W HYPOXIA OR HYPERCAPNIA Status: Acute (4) SIMON (acute kidney injury) Code(s): N17.9 - ACUTE KIDNEY FAILURE, UNSPECIFIED Status: Acute (5) CAP (community acquired pneumonia) Code(s): J18.9 - PNEUMONIA, UNSPECIFIED ORGANISM Status: Acute Qualifiers: Laterality: right Lung location: upper lobe of lung Qualified Code(s): J18.1 - Lobar pneumonia, unspecified organism (6) Moderate protein-calorie malnutrition Code(s): E44.0 - MODERATE PROTEIN-CALORIE MALNUTRITION Status: Chronic (7) Atrial fibrillation with RVR Code(s): I48.91 - UNSPECIFIED ATRIAL FIBRILLATION Status: Resolved (8) Hypokalemia Code(s): E87.6 - HYPOKALEMIA Status: Resolved - Plan PT/OT, out of bed/ambulate * . Discontinue anticoagulation. Ambulate patient.Likely dc to SNU 24-48 h. Review of Systems - Review of Systems Constitutional: weakness Respiratory: negative: Cough, Dry, Shortness of Breath, Hemoptysis, SOB with Excertion, Pleuritic Pain, Sputum, Wheezing Cardiovascular: negative: chest pain, palpitations, orthopnea, paroxysmal nocturnal dyspnea, edema, light headedness - Medications/Allergies Allergies/Adverse Reactions: Allergies Allergy/AdvReac Type Severity Reaction Status Date / Time No Known Allergies Allergy Verified 05/29/15 16:53 Medications: Current Medications Acetaminophen (Tylenol) 650 mg PO Q6H PRN PRN Reason: Headache/Fever or Pain Last Admin: 06/24/17 12:09 Dose: 650 mg Albuterol/Ipratropium (Duoneb) 3 ml NEB [id number] [facility] Last Admin: 06/25/17 14:58 Dose: Not Given Amiodarone HCl (Cordarone) 400 mg PO QAM [facility] Last Admin: 06/25/17 09:47 Dose: 400 mg Lipase/Protease/Amylase ([place] [id number]) 1 cap FS .PER PROTOCOL PRN PRN Reason: TUBE OCCLUSION PROTOCOL Atorvastatin Calcium (Lipitor) 20 mg PO QPM [facility] Last Admin: 06/24/17 20:59 Dose: 20 mg Bisacodyl (Dulcolax) 10 mg PO DAILYPRN PRN PRN Reason: Constipation Cefdinir (Omnicef) 300 mg PO BID [facility] Stop: 06/26/17 21:01 Last Admin: 06/25/17 09:47 Dose: 300 mg Diltiazem HCl (Cardizem Cd) 240 mg PO DAILY [facility] Last Admin: 06/25/17 09:47 Dose: 240 mg Pantoprazole Sodium (Protonix) 40 mg PER TUBE DAILY [facility] Last Admin: 06/25/17 09:46 Dose: 40 mg Prednisone (Prednisone) 20 mg PO QA-[facility] Last Admin: 06/25/17 09:47 Dose: 20 mg Saccharomyces Boulardii (Florastor) 250 mg PO DAILY [facility] Last Admin: 06/25/17 09:47 Dose: 250 mg Sodium Bicarbonate (Bicarbonate, Sodium) 650 mg PER TUBE .PER PROTOCOL PRN PRN Reason: ENTERAL TUBE OCCLUSION Sodium Chloride (Flush - Normal Saline) 10 ml IVF PRN PRN PRN Reason: Saline Flush Last Admin: 06/19/17 09:00 Dose: 10 ml
[2017-06-25 19:03] LABS: #Eosinphils 0.1 thou/uL (0.0-0.7); #Lymphocytes 0.3 thou/uL (1.20-3.40); #Monocytes 0.8 thou/uL (0.11-0.59); #Neutrophils 14.4 thou/uL (1.40-6.50); %Basophils 0.1 % (0.0-1.0); %Eosinophils 0.4 % (0.0-10.0); %Monocytes 5.1 % (0.0-10.0); %Neutrophils 92.3 % (42.0-75.0); Anisocytosis SLIGHT = 6-15 cells (100X) (0-5/hpf); Hemoglobin 8.1 g/dL (12.0-16.0); MDiff Complete? YES; Mean Corpuscular HGB CONC 32.7 g/dL (32.0-36.0); Mean Corpuscular Hemoglobin 32.4 pg (27.0-31.0); Mean Corpuscular Volume 99.1 fl (81.0-99.0); Mean Platelet Volume 10.6 fL (7.4-10.4); PLT Morphology Comment Appears Decreased; Platelet Count 110 thou/uL (130-400); RBC Distribution Width 14.4 % (11.5-14.5); Red Blood Cell (RBC) Count 2.51 mill/uL (4.20-5.40); White Blood Cell (WBC) Count 15.6 thou/uL (4.8-10.8)
[2017-06-25] MEDS: Atorvastatin Calcium 20 MG TAB PO SCH (20:33)
--- NOTE | 2017-06-25 21:36 | PRG ---
DATE OF SERVICE: 06/25/2017 SUBJECTIVE: Ms. Hernández's status is stable. No current complaints. I did start Eliquis yesterday. She has blood-tinged urine. has been discontinued. Hemoglobin has been marginal. OBJECTIVE: VITAL SIGNS: Blood pressure 131/60, pulse 85, temperature 97. LUNGS: Clear to auscultation. HEART: Regular rate and rhythm. ABDOMEN: Soft, nontender, nondistended. EXTREMITIES: No edema. IMPRESSION: 1. Pneumonia. 2. Atrial fibrillation. 3. Anemia. 4. Hematuria. RECOMMENDATIONS: 1. Stop Eliquis. 2. Check CBC. 3. Continue to hold anticoagulation therapy for now. She has received a total of 2 doses. Continue amiodarone therapy for 1 month.
[2017-06-26 05:59] LABS: Platelet Count 107 thou/uL (130-400)
[2017-06-26] MEDS: Cefdinir 300 MG CAP PO SCH (08:27)
[2017-06-26] MEDS: predniSONE 20 MG TAB PO SCH (08:27)
[2017-06-26] MEDS: Pantoprazole 40 MG GRANULES PACKET PER TUBE SCH (08:28)
[2017-06-26] MEDS: Saccharomyces boulardii 250 MG CAP PO SCH (08:28)
[2017-06-26] MEDS: Amiodarone 200 MG TAB PO SCH (08:28)
--- NOTE | 2017-06-26 10:44 | PRG ---
DATE OF SERVICE: 06/26/2017 This morning she is still encephalopathic better, less short of breath. PHYSICAL EXAMINATION: VITAL SIGNS: Sats are 94% on 2 liters, respirations 22, temperature 97, blood pressure 156/68. CHEST: Chest reveals decreased breath sounds, no wheezing. CARDIAC: Normal S1, S2. ABDOMEN: Soft, no masses. H&H 8 and 24, creatinine 1.59. BUN 32. GFR is decreased. IMPRESSION: 1. Encephalopathy. 2. Renal failure. 3. Azotemia. 4. Baseline dementia. 5. Pneumonia. 6. Urinary tract infection. PLAN: Continue PT and supportive care, eventually placement.
[2017-06-26 15:49] VITALS: BP 128/61; TEMP 97.7
--- NOTE | 2017-06-26 16:42 | PDOC.PN ---
- Subjective Encounter Start Date: 06/26/17 Encounter Start Time: 16:38 Pt seen for followup re: physical deconditioning. Denies any complaints. - Objective Resuscitation Status: Resuscitation Status FULL:Full Resuscitation MAR Reviewed: Yes Vital Signs & Weight: Vital Signs (12 hours) Temp Pulse Resp BP BP Pulse Ox 06/26/17 15:12 97.7 F 67 22 H 128/61 95 06/26/17 13:28 56 L 16 92 L 06/26/17 11:54 97.3 F L 69 22 H 156/68 H 94 L 06/26/17 08:28 75 06/26/17 08:00 97.2 F L 75 22 H 06/26/17 07:49 97.2 F L 75 22 H 156/68 H 94 L 06/26/17 07:36 72 16 93 L Weight Admit Weight 104 lb 6.4 oz Weight 149 lb 14.4 oz Most Recent Monitor Data Heart Rate from ECG 82 NIBP 99/57 NIBP BP-Mean 70 Respiration from ECG 21 SpO2 95 I&O: 06/25/17 06/26/17 06/27/17 06:59 06:59 06:59 Intake Total 640 500 250 Output Total 325 1325 10 Balance 315 -825 240 Result Diagrams: 06/26/17 05:22 06/26/17 05:22 Phys Exam - Physical Examination Constitutional: NAD HEENT: moist MMs Neck: supple Respiratory: clear to auscultation bilateral Cardiovascular: RRR Gastrointestinal: soft Neurological: moves all 4 limbs Psychiatric: normal affect Dx/Plan (1) Physical deconditioning Code(s): R53.81 - OTHER MALAISE Status: Acute (2) Hematuria Code(s): R31.9 - HEMATURIA, UNSPECIFIED Status: Acute (3) Acute respiratory failure Code(s): J96.00 - ACUTE RESPIRATORY FAILURE, UNSP W HYPOXIA OR HYPERCAPNIA Status: Resolved (4) SIMON (acute kidney injury) Code(s): N17.9 - ACUTE KIDNEY FAILURE, UNSPECIFIED Status: Resolved (5) CAP (community acquired pneumonia) Code(s): J18.9 - PNEUMONIA, UNSPECIFIED ORGANISM Status: Resolved Qualifiers: Laterality: right Lung location: upper lobe of lung Qualified Code(s): J18.1 - Lobar pneumonia, unspecified organism (6) Moderate protein-calorie malnutrition Code(s): E44.0 - MODERATE PROTEIN-CALORIE MALNUTRITION Status: Chronic (7) Atrial fibrillation with RVR Code(s): I48.91 - UNSPECIFIED ATRIAL FIBRILLATION Status: Resolved (8) Hypokalemia Code(s): E87.6 - HYPOKALEMIA Status: Resolved - Plan continue antibiotics, PT/OT, out of bed/ambulate * . Pt awaiting Rehab bed vs SNU bed. Likely discharge later today. Review of Systems - Review of Systems Respiratory: negative: Cough, Dry, Shortness of Breath, Hemoptysis, SOB with Excertion, Pleuritic Pain, Sputum, Wheezing - Medications/Allergies Allergies/Adverse Reactions: Allergies Allergy/AdvReac Type Severity Reaction Status Date / Time No Known Allergies Allergy Verified 05/29/15 16:53 Medications: Current Medications Acetaminophen (Tylenol) 650 mg PO Q6H PRN PRN Reason: Headache/Fever or Pain Last Admin: 06/24/17 12:09 Dose: 650 mg Albuterol/Ipratropium (Duoneb) 3 ml NEB [id number] [facility] Last Admin: 06/26/17 13:28 Dose: 3 ml Amiodarone HCl (Cordarone) 400 mg PO QAM [facility] Last Admin: 06/26/17 08:28 Dose: 400 mg Lipase/Protease/Amylase ([place] [id number]) 1 cap FS .PER PROTOCOL PRN PRN Reason: TUBE OCCLUSION PROTOCOL Atorvastatin Calcium (Lipitor) 20 mg PO QPM [facility] Last Admin: 06/25/17 20:33 Dose: 20 mg Bisacodyl (Dulcolax) 10 mg PO DAILYPRN PRN PRN Reason: Constipation Cefdinir (Omnicef) 300 mg PO BID [facility] Stop: 06/26/17 21:01 Last Admin: 06/26/17 08:27 Dose: 300 mg Diltiazem HCl (Cardizem Cd) 240 mg PO DAILY [facility] Last Admin: 06/26/17 08:28 Dose: 240 mg Pantoprazole Sodium (Protonix) 40 mg PER TUBE DAILY [facility] Last Admin: 06/26/17 08:28 Dose: 40 mg Prednisone (Prednisone) 20 mg PO QAM-WM [facility] Last Admin: 06/26/17 08:27 Dose: 20 mg Saccharomyces Boulardii (Florastor) 250 mg PO DAILY [facility] Last Admin: 06/26/17 08:28 Dose: 250 mg Sodium Bicarbonate (Bicarbonate, Sodium) 650 mg PER TUBE .PER PROTOCOL PRN PRN Reason: ENTERAL TUBE OCCLUSION Sodium Chloride (Flush - Normal Saline) 10 ml IVF PRN PRN PRN Reason: Saline Flush Last Admin: 06/19/17 09:00 Dose: 10 ml
--- NOTE | 2017-06-26 16:51 | PRG ---
DATE OF SERVICE: 06/26/2017 SUBJECTIVE: Ms. Hernández appears stable. She had her Eliquis discontinued yesterday due to hematuria. H emoglobin is stable at 8.0. She has no current complaints. OBJECTIVE: VITAL SIGNS: Blood pressure 128/61, pulse 67 and temperature 97.7. LUNGS: Clear to auscultation. HEART: Regular rate and rhythm. ABDOMEN: Soft, nontender and nondistended. EXTREMITIES: No edema. IMPRESSION: 1. Pneumonia. 2. Atrial fibrillation. RECOMMENDATIONS: At this point, we will continue amiodarone therapy for 1 month, then discontinue. We will hold off on anticoagulation therapy due to anemia in addition to hematuria. She will need to be transferred to rehabilitation. Otherwise, from my standpoint, I have no further recommendations. Please reconsult if needed.
--- NOTE | 2017-06-27 01:10 | DIS ---
DATE OF ADMISSION: 06/11/2017 DATE OF DISCHARGE: 06/26/2017 PRIMARY CARE PHYSICIAN: Jagdish Byrnes M.D. DISCHARGE DIAGNOSES: 1. Sepsis. 2. Pneumonia. 3. Moderate protein calorie malnutrition. 4. Atrial fibrillation with rapid ventricular response. 5. Physical deconditioning. 6. Hematuria. 7. Melena. CONDITION OF PATIENT AT THE TIME OF DISCHARGE: Stable. I assessed Ms. Hernández on the day of discharge. Please refer to my daily progress note for further information regarding this [id number] encounter . CONSULTATIONS DURING THIS HOSPITALIZATION: Pulmonology, Dr. Guthrie; Gastroenterology, Dr. Umaña; C ardiology, Dr. Melendez. PROCEDURES DURING THIS HOSPITALIZATION: 1. On 06/13/2017, EGD, which showed antral gastritis. 2. On 06/16/2017, endotracheal intubation. 3. Extubation on 06/20/2017. DISCHARGE MEDICATIONS: Amiodarone 400 mg daily, Lipitor 20 mg every evening, cefdinir 300 mg 2 times a day for 7 days, Cardizem-CD 240 mg daily, DuoNebs p.r.n., prednisone taper. HOSPITAL COURSE: Ms. Hernández is a pleasant 76-year-old lady, who was admitted to [facility] on 06/11/2017 for community-acquired pneumonia, urinary tract infection, acute on chronic renal failure, atrial fibrillation with rapid ventricular response. She was seen by pulmonology serv ice. She was treated with antibiotics. She also had an episode of melena and was seen by gastroente rologist. She had EGD on 06/13/2017, but no source of bleeding was found. Her Eliquis was discontin ued at that time. She had stable hemoglobin. She was also seen by the Cardiology Service for atrial fibrillation with rapid ventricular response. She was treated with intravenous Cardizem initially a nd subsequently, Cardizem was changed to oral. She had respiratory decompensation on 06/15/2017. After discussion between Pulmonology Service and h er family, she was intubated and mechanically ventilated. She was subsequently extubated and transfe rred to the medical floor. She became physically deconditioned, and was seen by therapy services. S he is being discharged to [facility] for further management. On the day of discharge, she has a hemoglobin of 8.0. Her creatinine improved to 1.59 on 06/26/2017, down from 2.32 on 06/11/2017. She had hypokalemia during this hospitalization, which resolved with potassium supplementation. Her Eliquis was resumed towards the end of the hospital stay. However, she developed hematuria. Car diology service recommended discontinuing the Eliquis at this time. She will be followed up by the C ardiology Service as outpatient. They also recommended that she be on amiodarone for one month. Blood cultures were negative during this hospitalization. Respiratory culture also did not grow any pathogens. Influenza screen was negative during this hospitalization. Many thanks for allowing me to participate in your patient's care. Please feel free to contact me if any questions or concerns. DISCHARGE DESTINATION: [facility]. TOTAL AMOUNT OF TIME SPENT COORDINATING THIS DISCHARGE: 38 minutes.
== END 2017-06-26 21:16 | DRG 870 ==
LOC: ERS 13:11 → IMCU/EMU 15:04 → CCU 06-15 11:57 → 2SW 06-22 19:28
PROVIDERS: ADMIT Internal Medicine; ATTEND Internal Medicine
PROC: 0DJ08ZZ Inspection of Upper Intestinal Tract, Via Natural or Artificial Opening Endoscopic (ICD-10-PCS; 2017-06-13)
PROC: 0BH17EZ Insertion of Endotracheal Airway into Trachea, Via Natural or Artificial Opening (ICD-10-PCS; principal; 2017-06-15)
PROC: 5A1955Z Respiratory Ventilation, Greater than 96 Consecutive Hours (ICD-10-PCS; 2017-06-15)
DX: A41.9 Sepsis, unspecified organism (principal); J96.01 Acute respiratory failure with hypoxia; G93.41 Metabolic encephalopathy; N17.9 Acute kidney failure, unspecified; J18.1 Lobar pneumonia, unspecified organism; E44.0 Moderate protein-calorie malnutrition; J44.0 Chronic obstructive pulmonary disease with (acute) lower respiratory infection; E87.2 Acidosis; E87.8 Other disorders of electrolyte and fluid balance, not elsewhere classified; I47.1 Supraventricular tachycardia; N39.0 Urinary tract infection, site not specified; K92.1 Melena; J44.1 Chronic obstructive pulmonary disease with (acute) exacerbation; D50.0 Iron deficiency anemia secondary to blood loss (chronic); F10.10 Alcohol abuse, uncomplicated; R65.20 Severe sepsis without septic shock; I48.0 Paroxysmal atrial fibrillation; F03.90 Unspecified dementia, unspecified severity, without behavioral disturbance, psychotic disturbance, mood disturbance, and anxiety; Z74.01 Bed confinement status; I25.10 Atherosclerotic heart disease of native coronary artery without angina pectoris; F41.9 Anxiety disorder, unspecified; Z79.01 Long term (current) use of anticoagulants; K29.70 Gastritis, unspecified, without bleeding; R31.9 Hematuria, unspecified; T45.515A Adverse effect of anticoagulants, initial encounter; F32.9 Major depressive disorder, single episode, unspecified; Z66 Do not resuscitate; Z68.25 Body mass index [BMI] 25.0-25.9, adult; E87.6 Hypokalemia; E78.5 Hyperlipidemia, unspecified; I12.9 Hypertensive chronic kidney disease with stage 1 through stage 4 chronic kidney disease, or unspecified chronic kidney disease; N18.2 Chronic kidney disease, stage 2 (mild); Z87.891 Personal history of nicotine dependence
CPT/HCPCS: 36415; 51701; 70450; 71045; 80048; 80053; 80076; 80162; 81003; 81015; 82140; 82274; 82553; 82565; 82805; 83605; 83690; 83880; 84484; 85007; 85014; 85018; 85025; 85027; 85049; 87040; 87070; 87205; 87804; 93005; 93010; 93306; 94002; 94003; 94640; 96361; 96365; 96375; A4216; A4353; C9113; G8978-GP-CN; G8979-GP-CK; G8987-GO-CM; G8988-GO-CL; J0282; J0456; J0696; J1160; J1650; J1940; J1956; J2001; J2060; J2250; J2270; J2704; J2920; J3010; J3411; J7050; J7070; J7506; J7620

== ENCOUNTER 2017-06-30 17:43 | Inpatient (IN) | payer MEDICARE, OTHER ==
[~2017-06-30 17:43] MED LIST: ISOVUE-370 76%-LOCM 1 ML ONE
[2017-06-30] MEDS ORDERED: Albuterol Sulfate 2.5 mg/3 ml Neb ONE (18:13)
[2017-06-30] MEDS ORDERED: Magnesium Sulfate 2 GM/100 ML BAG ONE (18:14)
[2017-06-30] MEDS ORDERED: Dexamethasone 10 MG/ML VIAL ONE (18:16)
[2017-06-30 18:39] LABS: Hemoglobin 6.9 g/dL (12.0-16.0); Mean Corpuscular HGB CONC 32.2 g/dL (32.0-36.0); Mean Corpuscular Hemoglobin 32.4 pg (27.0-31.0); RBC Distribution Width 14.6 % (11.5-14.5); Red Blood Cell (RBC) Count 2.12 mill/uL (4.20-5.40); White Blood Cell (WBC) Count 15.3 thou/uL (4.8-10.8)
[2017-06-30 18:40] LABS: Actual Bicarbonate (HCO3a) 25.6 mEq/L (22-26); Base Excess (BEa) 1.6 mEq/L (0 (+/-) 2.5); CO2 Tension 36.9 mmHg (35.0-45.0); Hematocrit-ABG 18.5 % (36.0-47.0); Hemoglobin (Hb) 6.3 g/dL (12.0-16.0); O2 Tension (PaO2) 125.1 mmHg (80.0-100.0); pH, Arterial 7.46 (7.35-7.45)
[2017-06-30 18:41] LABS: ALV-art Gradient 27.015 (0-20); Analyzer IN Cardio ER; Calcium, Ionized 1.1 mmol/L (1.12-1.30); Puncture Site RRA
[2017-06-30 18:45] LABS: PTT 24.7 SEC (22.9-36.1); Prothrombin Time 13.3 SEC (12.0-14.7)
[2017-06-30 18:46] LABS: D-Dimer Test 2.16 *mcg/mL (0.27-0.43)
[2017-06-30 18:57] LABS: #Eosinphils 0.1 thou/uL (0.0-0.7); #Lymphocytes 0.4 thou/uL (1.20-3.40); #Monocytes 0.5 thou/uL (0.11-0.59); #Neutrophils 14.4 thou/uL (1.40-6.50); %Basophils 0.1 % (0.0-1.0); %Eosinophils 0.4 % (0.0-10.0); %Lymphocytes 2.5 % (21.0-51.0); %Monocytes 3.1 % (0.0-10.0); %Neutrophils 93.9 % (42.0-75.0); Platelet Count 65 thou/uL (130-400)
[2017-06-30 18:58] LABS: ALT (SGPT) 49 U/L (8-55); AST (SGOT) 34 U/L (5-34); Albumin 2.5 g/dL (3.4-4.8); Alkaline Phosphatase 94 U/L (40-150); Anion Gap 11 mmol/L (10-20); BUN (Urea Nitrogen) 37 mg/dL (9.8-20.1); Bilirubin, Total 0.4 mg/dL (0.2-1.2); CK (CPK) 158 U/L (29-168); Calc. Creatinine Clearance 0 mL/min (70-130); Calcium 7.8 mg/dL (7.8-10.44); Carbon Dioxide 27 mmol/L (23-31); Chloride 108 mmol/L (98-107); Estimated GFR-MDRD 32; Globulin 2.2 g/dL (2.4-3.5); Glucose 229 mg/dL (83-110); Lipase 249 U/L (8-78); Potassium 4.3 mmol/L (3.5-5.1); Protein, Total 4.7 g/dL (6.0-8.3); Sodium 142 mmol/L (136-145)
[2017-06-30 19:01] LABS: CKMB 4.9 ng/mL (0-6.6); Troponin I 0.061 ng/mL (< 0.028)
[2017-06-30 19:41] LABS: Bilirubin Negative (Negative); Blood, Urine Large (Negative); Clarity CLOUDY (Clear); Glucose, Urine (Dipstick) Negative (Negative); Leukocyte Large (Negative); Nitrite Negative (Negative); Protein, Urine (Dipstick) 30 mg/dL (Neg-Trace); Specific Gravity, Urine 1.018 (1.002-1.036); Urobilinogen 0.2 mg/dL (0.2-1.0)
[2017-06-30 19:42] LABS: Squamous Epithelial None Seen HPF (0-3)
[2017-06-30 19:49] LABS: Yeast-AUWi Flag 1518.5 (0-25.0)
[2017-06-30 19:50] LABS: Pathc Cast-AUWi Flag 4.66 (0-2.49)
--- NOTE | 2017-06-30 19:57 | RAD ---
PORTABLE CHEST: History: Sepsis. Comparison: 06-30-17 at 8:37 a.m. FINDINGS: There is cardiomegaly with vascular congestion. There is diffuse interstitial and hazy alveolar infil trates bilaterally. Confluent alveolar infiltrates are seen in both upper lung son. There are bila teral effusions. Findings suggest congestion with diffuse edema with areas of alveolar edema. Superim posed inflammatory infiltrate cannot be excluded. POS: [facility]
[2017-06-30 19:58] LABS: Bacteria/HPF 1+ HPF (None Seen); Hyaline Casts/LPF NONE SEEN LPF (0-3 Hyaline); Manual Microscopic Reviewed? No Path Casts Seen; RBC/HPF GREATER THAN 50-TNTC HPF (0-3); Yeast-All Forms 2+ HPF (None Seen)
[2017-06-30] MEDS ORDERED: Furosemide 40 MG/4 ML VIAL ONE (20:36)
--- NOTE | 2017-06-30 21:48 | CT ---
CT PULMONARY ANGIO CHEST WITH CONTRAST: Technique: Multiple axial tomograms were obtained through the chest following pulmonary angio protoco l with multiplanar reconstruction and 3D post processing. History: Sepsis. Shortness of breath. Current diagnosis, pneumonia. FINDINGS: Moderate sized bilateral pleural effusions. Bibasilar atelectasis. Alveolar opacification involving b oth upper lobes consistent with alveolar infiltrate. Pulmonary arteries are well opacified. There is no evidence of pulmonary embolus. There is evidence o f vascular congestion. IMPRESSION: 1. No evidence of pulmonary embolus. 2. Moderate bilateral pleural effusions with bibasilar atelectasis due to the large effusions. Upper lobe alveolar infiltrates and/or edema. POS: [facility]
[2017-06-30 22:23] LABS: Troponin I 0.058 ng/mL (< 0.028)
[2017-06-30 22:34] LABS: Lactic Acid 3.5 mmol/L (0.5-2.2)
[2017-06-30] MEDS ORDERED: Guaifenesin DM 100-10/5 ML UDCUP PO PRN (23:01)
[2017-06-30] MEDS ORDERED: Acetaminophen 325 MG TAB PO PRN (23:01)
[2017-07-01 01:01] LABS: Troponin I 0.074 ng/mL (< 0.028)
--- NOTE | 2017-07-01 03:18 | HP ---
REASON FOR ADMISSION: Acute respiratory failure with hypoxia, CHF exacerbation , symptomatic anemia, demand ischemia, possible pneumonia, urinary tract infection. HISTORY OF PRESENT ILLNESS: The patient was sent from rehab after she developed shortness of breath. Her saturations were in the 60s when EMS arrived at rehabilitation. She was placed on oxygen and was transferred here. She was discharged on the 1st of this month to rehabilitation. She still cannot ambulate by herself. She can feed herself since the time of discharge. The patient has had chest x-ray done, which showed florid pulmonary edema with possible pneumonia. She was given 40 mg of IV Lasix and has diuresed nearly 800 mL of urine. The patient is not oriented and majority of this history is obtained by my talking to patient's daughter, Ms. Gray, ER records, and prior medical records. PAST MEDICAL AND SURGICAL HISTORY: History of CHF, prolonged hospitalization here with respiratory failure and being intubated, extubated; chronic atrial fibrillation; malnutrition; antral gastritis; prior history of cardiac ablation done in 2014; anxiety disorder, likely underlying dementia; hysterectomy; left breast lumpectomy; mild coronary artery disease. PERSONAL HISTORY: The patient has been recently hospitalized for almost a month and was discharged to rehabilitation and has not had a chance to smoke, drink, or abuse alcohol. Prior to this, the patient was drinking rum and coke daily. She quit smoking in 1989. She is currently in [facility]. FAMILY HISTORY: There is heart disease in multiple family members. The patient's mom when she was 7 years old. Father in his 70s. CURRENT MEDICATIONS: The patient was discharged on amiodarone 400 mg p.o. q.a.m., Lipitor 20 mg p.o. q.p.m., Omnicef 300 mg p.o. twice daily, Cardizem-CD 240 mg daily, DuoNebs 4 times daily p.r.n., prednisone tapering dose starting at 20 mg. ALLERGIES: No known drug allergies. I have discussed code status with her daughter who is also power of ip attorney, Ms. Gray and patient is a FULL CODE. REVIEW OF SYSTEMS: Cannot be obtained as patient is lethargic and not oriented. PHYSICAL EXAMINATION: GENERAL: The patient is a 76-year-old female who is currently not in any acute distress. VITAL SIGNS: Blood pressure 104/40, pulse 86 per minute, respiratory rate 26 per minute, temperature 97.7 degrees Fahrenheit, saturating 96% on 3 liters nasal cannula. NECK: Supple, no elevated JVD. HEENT: Eyes: Extraocular muscles intact. Pupils reacting to light. Oral cavity: Mucous membranes are dry. No exudates or congestion. CARDIOVASCULAR SYSTEM: S1, S2 heard. Irregular rhythm. RESPIRATORY: Air entry 1+ bilateral. Scattered rales plus bilateral. ABDOMEN: Soft, bowel sounds heard. No tenderness, rigidity or guarding. EXTREMITIES: No peripheral edema or calf tenderness. VASCULAR SYSTEM: Peripheral pulses 1+ bilateral. No ischemic ulcerations or gangrene. CENTRAL NERVOUS SYSTEM: No gross focal deficits seen. The patient is not oriented, but is seen moving all 4 extremities. PSYCHIATRIC SYSTEM: Cannot be assessed as patient is not oriented. LABORATORY DATA AND X-RAY FINDINGS: White count of 15, H and H 6.9 and 21, platelet count of 65, MCV is 101 with 93% neutrophils. PT, INR, PTT within normal limits. Blood gas done in the ER shows a pH of 7.46, pCO2 of 36, pO2 of 125, BUN 37, creatinine 1.57, serum bicarbonate is 27. Lactic acid 3.1, glucose is 229. BNP 447, albumin is 2.5, troponin I 0.05, lipase is 249. UA shows large leukocyte esterase with greater than 50 wbc's and 1+ bacteria. CT angio chest done shows no evidence of PE. There are moderate bilateral pleural effusions, upper lobe alveolar infiltrates/edema seen. CLINICAL IMPRESSION AND PLAN: The patient will be admitted to [facility]. She is currently receiving 1 unit of packed cells. The patient has diuresed nearly 800 mL after receiving a dose of Lasix and we will continue her on 40 mg IV q.12 hours. She is currently comfortable on BiPAP and we will continue the same until she diureses well. She will be on DuoNebs q.6 hourly p.r.n., Levaquin 500 mg IV daily. We will continue her aspirin, amiodarone, Lipitor, and Cardizem-CD as before. We will also continue on her oral prednisone as before. Dr. Guthrie, her service counselor and Dr. Melendez, her wallpaper remover steam will be consulted. We will obtain PT, OT, and speech evaluations as well to rule out aspiration. The patient is 76 years old and has had prolonged hospitalization recently. I have discussed code status with her daughter, Ms. Gray and she wants her mom to be a full code for now. Please note I have seen and examined patient on 06/30/2017. DIANNE
[2017-07-01 05:29] LABS: #Lymphocytes 0.2 thou/uL (1.20-3.40); #Monocytes 0.1 thou/uL (0.11-0.59); #Neutrophils 13.7 thou/uL (1.40-6.50); %Eosinophils 0.3 % (0.0-10.0); %Lymphocytes 1.6 % (21.0-51.0); %Monocytes 0.9 % (0.0-10.0); %Neutrophils 97.1 % (42.0-75.0); Hemoglobin 7.9 g/dL (12.0-16.0); Mean Corpuscular HGB CONC 32.6 g/dL (32.0-36.0); Mean Corpuscular Hemoglobin 31.5 pg (27.0-31.0); Mean Corpuscular Volume 96.6 fl (81.0-99.0); Platelet Count 58 thou/uL (130-400); RBC Distribution Width 15.1 % (11.5-14.5); White Blood Cell (WBC) Count 14.1 thou/uL (4.8-10.8)
[2017-07-01 05:52] LABS: Anion Gap 12 mmol/L (10-20); BUN (Urea Nitrogen) 39 mg/dL (9.8-20.1); Calc. Creatinine Clearance 33 mL/min (70-130); Calcium 7.9 mg/dL (7.8-10.44); Carbon Dioxide 29 mmol/L (23-31); Chloride 105 mmol/L (98-107); Estimated GFR-MDRD 33; Glucose 138 mg/dL (83-110); Potassium 4.6 mmol/L (3.5-5.1); Sodium 141 mmol/L (136-145)
[2017-07-01] MEDS: Furosemide 40 MG/4 ML VIAL SLOW IVP SCH ×2 (06:17→14:45)
[2017-07-01] MEDS: predniSONE 20 MG TAB PO SCH (08:40)
[2017-07-01] MEDS: Amiodarone 200 MG TAB PO SCH (08:40)
[2017-07-01] MEDS: Docusate 100 MG CAP PO SCH ×2 (08:41→20:27)
[2017-07-01] MEDS ORDERED: Heparin 5,000 UNITS/ML VIAL SC SCH (09:00)
[2017-07-01] MEDS ORDERED: Prevnar 13-Val Conj/PF 0.5 ML SYRINGE IM ONE (09:00)
[2017-07-01] MEDS ORDERED: FLU VACC TS2017-18 (>65YR) 0.5 ML SYRINGE IM ONE (09:00)
--- NOTE | 2017-07-01 09:20 | CON ---
DATE OF CONSULTATION: 07/01/2017 She was readmitted to the hospital again. This is a 80-year-old female who is well-known to us. She just left the hospital. According to the daughter she was doing well at the rehab and she developed shortness of breath, sats were in the 60s. This morning daughter is at the bedside who states that, she in fact is feeding on her own. There is not any coughing or wheezing. X-ray shows bilateral infiltrates. CAT scan shows right pleural effusion, right greater than left. Her last echo showed that she had a diastolic dysfunction. She was admitted for respiratory failure, atrial fibrillation, malnutrition to which she has had some improvement. She clearly is demented. PAST MEDICAL HISTORY: I extensively reviewed old medical records. Her recent medical records is per tinent for diastolic dysfunction, atrial fibrillation, had recent flu, marked weakness, dementia, res piratory failure requiring intubation. PAST SURGICAL HISTORY: Included cath, lumpectomy, hysterectomy. SOCIAL HISTORY: No tobacco abuse. FAMILY HISTORY: Unremarkable. CURRENT MEDICATIONS: Prednisone, DuoNeb, Cardizem CD 240, Omnicef, Lipitor, amiodarone 400. ALLERGIES: None. REVIEW OF SYSTEMS: Otherwise extensive 10 point negative. PHYSICAL EXAMINATION: GENERAL: She is awake and responsive. VITAL SIGNS: Blood pressure 120/58, sats 96% on 2 liters, pulse 97. CHEST: Chest revealed decreased breath sounds bilaterally. CARDIAC: Normal S1, S2. ABDOMEN: Soft, no masses. LABORATORY: White count 14,000, H&H 7 and 24, platelet count is 58, thrombocytopenic which is appare ntly chronic. Creatinine is 1.52. I reviewed the report on the x-rays at length. I spoke to the family, reviewed old medical records. Influenza titer is negative. IMPRESSION: 1. Respiratory failure. 2. Bilateral pleural effusion, right greater than left. 3. Renal failure. 4. Thrombocytopenia. 5. Dementia. 6. Atrial fibrillation. PLAN: Slow diuresis. Will consider tapping the chest. Continue nutrition and PT. This is a consultation note, 70 minute, which represents direct patient care.
[2017-07-01 10:07] LABS: Fluid, Triglycerides Less than 11 mg/dL (Not Available); Pleural Fluid, Amylase 33 U/L (Not Available); Pleural Fluid, Glucose 183 mg/dL; Pleural Fluid, LDH 118 U/L (Not Available); Pleural Fluid, Protein Less than 1.0 g/dL
--- NOTE | 2017-07-01 10:23 | OP ---
DATE OF PROCEDURE: 07/01/2017 PROCEDURE: Thoracentesis. INDICATIONS: Large right pleural effusion. SURGEON: Dr. Lul Guthrie PROCEDURE IN DETAIL: After informed consent from the daughter the patient sat up in bed, the right p osterior thorax was cleaned with chlorhexidine. 1% Xylocaine infiltrated in the right ninth intercos maria guadalupe space and the pleural cavity was entered and 20 mL of pale yellow fluid was removed. Thereafter, using an 8 Bulgarian catheter, a total of 650 mL was removed without difficulty. Pleural effusion was clearly a transudate. It will be sent for appropriate studies including cultures.
--- NOTE | 2017-07-01 10:53 | PDOC.PN ---
- Subjective Encounter Start Date: 07/01/17 Encounter Start Time: 07:30 -: old records requested/rev pt is comfortable, son bedside, less dyspnea, s/p thoracentesis Patient seen and examined. No new complaints. No overnight events - Objective Resuscitation Status: Resuscitation Status FULL:Full Resuscitation MAR Reviewed: Yes Vital Signs & Weight: Vital Signs (12 hours) Temp Pulse Resp BP BP BP Pulse Ox 07/01/17 08:41 78 104/51 L 07/01/17 07:42 97.6 F 78 18 121/58 L 96 07/01/17 04:00 97.7 F 78 20 126/53 L 99 07/01/17 00:00 100 Weight Weight 144 lb I&O: 06/30/17 07/01/17 07/02/17 06:59 06:59 06:59 Intake Total 240 Output Total 1775 Balance -1535 Result Diagrams: 07/01/17 04:49 07/01/17 04:49 Radiology Reviewed by me: Yes (chest xray, CT chest) EKG Reviewed by me: Yes (afib) Phys Exam - Physical Examination Constitutional: NAD HEENT: PERRLA, moist MMs, sclera anicteric Neck: no JVD, supple Respiratory: no wheezing, no rhonchi reduced air entry at base, rales at base Cardiovascular: irregular SM+ Gastrointestinal: soft, non-tender, no distention, positive bowel sounds Musculoskeletal: no edema, pulses present Neurological: non-focal Lymphatic: no nodes Psychiatric: normal affect Skin: no rash, normal turgor Dx/Plan (1) Acute on chronic diastolic (congestive) heart failure Code(s): I50.33 - ACUTE ON CHRONIC DIASTOLIC (CONGESTIVE) HEART FAILURE Status : Acute Comment: continue gentle diuresis (2) Acute respiratory failure with hypoxia Code(s): J96.01 - ACUTE RESPIRATORY FAILURE WITH HYPOXIA Status: Acute Comment: monitor oxygen level and wean off O2 as needed (3) Demand ischemia Code(s): I24.8 - OTHER FORMS OF ACUTE ISCHEMIC HEART DISEASE Status: Acute (4) Lactic acidosis Code(s): E87.2 - ACIDOSIS Status: Acute (5) Pneumonia Code(s): J18.9 - PNEUMONIA, UNSPECIFIED ORGANISM Status: Acute Comment: continue empiric levaquin (6) Symptomatic anemia Code(s): D64.9 - ANEMIA, UNSPECIFIED Status: Acute Comment: 1 unit PRBC given (7) Thrombocytopenia Code(s): D69.6 - THROMBOCYTOPENIA, UNSPECIFIED Status: Acute (8) UTI (urinary tract infection) Status: Acute Comment: On levaquin, follow culture (9) Atrial fibrillation Code(s): I48.91 - UNSPECIFIED ATRIAL FIBRILLATION Status: Chronic Comment: rate controlled, not a candidate for chronic anticoagulation (10) CKD (chronic kidney disease) stage 3, GFR 30-59 ml/min Status: Chronic (11) Dyslipidemia Code(s): E78.5 - HYPERLIPIDEMIA, UNSPECIFIED Status: Chronic (12) Hypoalbuminemia due to protein-calorie malnutrition Code(s): E46 - UNSPECIFIED PROTEIN-CALORIE MALNUTRITION Status: Chronic (13) Moderate protein-calorie malnutrition Code(s): E44.0 - MODERATE PROTEIN-CALORIE MALNUTRITION Status: Chronic (14) Physical deconditioning Code(s): R53.81 - OTHER MALAISE Status: Chronic - Plan cont current plan of care, plan discussed w/ family, continue antibiotics, PT/OT , social security benefits interviewer * continue diuresis * s/p thoracentesis * continue levaquin * will monitor today and then transfer to tele * expecting dc to rehab in 48 -72 hours * medication reviewed as below * symptomatic treatment. Review of Systems - Review of Systems Constitutional: negative: fever, chills, sweats, weakness, malaise, other Respiratory: Cough, Shortness of Breath, SOB with Excertion. negative: Dry, Hemoptysis, Pleuritic Pain, Sputum, Wheezing Cardiovascular: negative: chest pain, palpitations, orthopnea, paroxysmal nocturnal dyspnea, edema, light headedness, other Gastrointestinal: negative: Nausea, Vomiting, Abdominal Pain, Diarrhea, Constipation, Melena, Hematochezia, Other Genitourinary: negative: Dysuria, Frequency, Incontinence, Hematuria, Retention , Other Musculoskeletal: negative: Neck Pain, Shoulder Pain, Arm Pain, Back Pain, Hand Pain, Leg Pain, Foot Pain, Other Skin: negative: Rash, Lesions, Francis, Bruising, Other - Medications/Allergies Allergies/Adverse Reactions: Allergies Allergy/AdvReac Type Severity Reaction Status Date / Time No Known Allergies Allergy Verified 07/01/17 03:54 Medications: Current Medications Acetaminophen (Tylenol) 650 mg PO Q4H PRN PRN Reason: Headache/Fever or Pain Amiodarone HCl (Cordarone) 400 mg PO QAM [facility] Last Admin: 07/01/17 08:40 Dose: 400 mg Aspirin (Aspirin Chewable) 81 mg PO DAILY [facility] Last Admin: 07/01/17 08:40 Dose: 81 mg Atorvastatin Calcium (Lipitor) 20 mg PO QPM [facility] Diltiazem HCl (Cardizem Cd) 240 mg PO DAILY [facility] Last Admin: 07/01/17 08:41 Dose: 240 mg Docusate Sodium (Colace) 100 mg PO BID [facility] Last Admin: 07/01/17 08:41 Dose: 100 mg Furosemide (Lasix) 40 mg SLOW IVP 0600,1400 [facility] Last Admin: 07/01/17 06:17 Dose: 40 mg Guaifenesin/Dextromethorphan (Robitussin Dm) 15 ml PO Q4H PRN PRN Reason: Cough Heparin Sodium (Porcine) (Heparin Lock Flush 100 Units/Ml) 1,000 units IVF ONE [facility] Stop: 07/01/17 11:00 Levofloxacin 500 mg/ Device 100 mls @ 100 mls/hr IVPB 2100 [facility] Prednisone (Prednisone) 20 mg PO QA-[facility] Stop: 07/05/17 08:01 Last Admin: 07/01/17 08:40 Dose: 20 mg Prednisone (Prednisone) 15 mg PO QA-[facility] Stop: 07/10/17 08:01 Prednisone (Prednisone) 10 mg PO QA-[facility] Stop: 07/15/17 08:01 Prednisone (Prednisone) 5 mg PO [facility] Stop: 07/20/17 08:01 Sodium Chloride (Flush - Normal Saline) 10 ml IVF Q12HR [facility] Last Admin: 07/01/17 08:42 Dose: 10 ml Sodium Chloride (Flush - Normal Saline) 10 ml IVF PRN PRN PRN Reason: Saline Flush
[2017-07-01 11:21] LABS: BF Color Colorless; BF RBC Count - Manual 133 /cumm; BF WBC/Nonhematics Ct. - Manua 100 /cumm; Body Fluid Source THORACENTESIS FLD; Clarity Clear (Clear); RBC Background Count 0.001; Tube # EDTA; WBC Background Count 0.01
[2017-07-01 13:02] LABS: BF Segmented Neutrophils 9 %; Lymphocytes 10 %
[2017-07-01] MEDS: Lorazepam 0.5 MG TAB PO PRN (15:06)
[2017-07-01] MEDS: Atorvastatin Calcium 20 MG TAB PO SCH (20:27)
[2017-07-02] MEDS: Furosemide 40 MG/4 ML VIAL SLOW IVP SCH (05:40)
[2017-07-02] MEDS: predniSONE 20 MG TAB PO SCH (08:28)
[2017-07-02] MEDS: Lorazepam 0.5 MG TAB PO PRN (08:28)
--- NOTE | 2017-07-02 08:55 | RAD ---
PA AND LATERAL CHEST RADIOGRAPH: Date: 07-02-17 History: CHF. Comparison: 06-30-17 FINDINGS: There is bilateral increased interstitial opacities with associated alveolar opacities in the right u pper lobe. There are pleural and parenchymal changes at the left lung base likely related to left ple ural effusion and atelectasis, also seen on the prior exam. The right pleural effusion is also again seen, but is smaller in size than on the left. Cardiac silhouette is magnified by projection but does appear mildly enlarged. Vascular calcifications are seen in the thoracic aorta. IMPRESSION: 1. Bilateral interstitial opacities with associated alveolar opacities in the right upper lobe. Findi ngs may be related to asymmetric pulmonary edema or infectious process. 2. Bilateral pleural effusions. 3. Mild cardiomegaly. POS: [facility]
--- NOTE | 2017-07-02 09:10 | PQF ---
DATE: 07-01-17 ATTN: DR. KEMI ROUSSEAU Please exercise your independent, professional judgment in responding to the clarification form. Clinical indicators are provided on the bottom of this form for your review Please check appropriate box(es): [ ] Sepsis due to: (Pna, UTI, etc.) [ x ] Severe sepsis with acute organ dysfunction of: acute respiratory failure__ (Examples: respiratory failure, acute kidney failure, other) [ ] Other diagnosis [ ] Unable to determine In addition, please specify: Present on Admission (POA): [ x ] Yes [ ] No [ ] Unable to determine For continuity of documentation, please document condition throughout progress notes and discharge summary. Thank You. CLINICAL INDICATORS - SIGNS / SYMPTOMS / LABS ER DOCUMENTATION: AMS, SOB, DYSPNEA ER DIAGNOSIS: SEPSIS, CHF, INDETERMINATE TROPONIN, MODERATE BILATERAL PLEURAL EFFUSION, PNEUMONIA, UTI LACTIC ACID: 06-30-17: 3.1, 3.5 WBC: 06-30-17: 15.3, 07-01-17: 14.1 Hyperglycemia in absence of diabetes mellitus: 06-30-17: 229 07-01-17: 138 RISK FACTORS: PN 07-01-17: LACTIC ACIDOSIS, PNEUMONIA , UTI, ADVANCE AGE TREATMENTS: (MAR ) LEVAQUIN, VANCOMYCIN ( ER) SERIES OF LABS (This form is maintained as a part of the permanent medical record) 2014 [employer]. All Rights Reserved [employer]
[2017-07-02] MEDS: Amiodarone 200 MG TAB PO SCH (09:26)
[2017-07-02] MEDS: Docusate 100 MG CAP PO SCH ×2 (09:27→21:34)
[2017-07-02] MEDS ORDERED: Milk Of Magnesia 30 ML UDCUP PO PRN (09:29)
[2017-07-02] MEDS ORDERED: Ondansetron HCl/PF 4 MG/2 ML Vial IVP PRN (09:29)
[2017-07-02] MEDS ORDERED: Mag-Al 1200 mg/1200 mg/30 ML UDCUP PO PRN (09:29)
[2017-07-02] MEDS ORDERED: Artificial Tears 18 DROP/0.9 ML EA EYE PRN (09:29)
[2017-07-02] MEDS ORDERED: Chloraseptic Spray 180 ml Bottle PO PRN (09:29)
[2017-07-02] MEDS ORDERED: Eucerin (Mineral Oil/Petrolatum,White) 30 gm Jar TOP PRN (09:29)
[2017-07-02] MEDS ORDERED: Sodium Chloride 0.65% Nasal 44 ML BOT EA NARE PRN (09:29)
[2017-07-02] MEDS ORDERED: Diabetic Tussin 200 MG/10 ML UDCUP PO PRN (09:29)
[2017-07-02] MEDS ORDERED: hydrALAZINE 20 MG/ML VIAL SLOW IVP PRN (09:29)
[2017-07-02] MEDS ORDERED: Ondansetron ODT 4 MG TAB PO PRN (09:29)
--- NOTE | 2017-07-02 09:41 | PRG ---
DATE OF SERVICE: 07/02/2017 She is awake, alert, responsive, less short of breath. PHYSICAL EXAMINATION: VITAL SIGNS: Sats are 91-92 on 3 liters, temperature 97, blood pressure 106/72. CHEST: Chest revealed decreased breath sounds, no wheezing. CARDIAC: Normal S1, S2. IMPRESSION: 1. Large pleural effusion, transudate. 2. Severe deconditioning. 3. Respiratory failure. 4. Dementia. PLAN: She is getting Lasix which I would continue. . We will consider switching her over to oral antibiotics, PT, supportive care. We will transfer her out of the ICU. We will follow.
--- NOTE | 2017-07-02 10:35 | CON ---
DATE OF CONSULTATION: 07/01/2017 REASON FOR CONSULTATION: Shortness of breath and pleural effusion. REFERRING PROVIDER: Dr. Griffiths. HISTORY OF PRESENT ILLNESS: Ms. Hernández is a pleasant 76-year-old woman who recently was seen and evalua abdoulaye after having pneumonia. She had a brief episode of atrial fibrillation and converted to sinus rh [facility]. She has been in sinus rhythm on p.o. amiodarone. She was discharged to rehab. She then states she had increased shortness of breath and oxygen demand. She was then transferred ba to [place] for further recommendations. She was found to have a large pleural effusion. The ef fusion was felt to be transudate. PAST MEDICAL HISTORY: Hyperlipidemia, tobacco abuse, atrial fibrillation, hypertension, diastolic dy sfunction. MEDICATIONS: Coumadin, Lipitor, Multaq, Cardizem, nitroglycerin, propafenone, sertraline. REVIEW OF SYSTEMS: A 10-point review of system is reviewed and is above, otherwise negative. PHYSICAL EXAMINATION: GENERAL: Patient is a pleasant female who is in no acute distress. The patient appears her stated a ge. VITAL SIGNS: Blood pressure 104/41, pulse 60, temperature 98.3. NEUROLOGIC: The patient is alert and oriented times 3 with no focal neurologic deficits. HEENT: Sclerae without icterus. Mouth has moist mucous membranes with normal pallor. NECK: No JVD. Carotid upstroke brisk. No bruits bilaterally. LUNGS: Clear to auscultation with unlabored respirations. BACK: No scoliosis or kyphosis. CARDIAC: Regular rate and rhythm with normal S1 and S2. No S3 or S4 noted. No significant rubs, mu rmurs, thrills, or gallops noted throughout the precordium. PMI is not displaced. There is no pamela ternal heave. ABDOMEN: Soft, nontender, nondistended. No peritoneal signs present. No hepatosplenomegaly. No ab normal striae. EXTREMITIES: 2+ femoral and 2+ dorsalis pedis pulses. No cyanosis, clubbing, or edema. SKIN: No gross abnormalities. PERTINENT LABORATORY DATA: Initial hemoglobin of 6.9, creatinine 1.52, BUN 39. IMPRESSION: 1. Pleural effusion. 2. Shortness of breath. 3. Recent pneumonia. 4. Atrial fibrillation. 5. Anemia. RECOMMENDATIONS: Her symptoms can certainly be due to underlying diastolic dysfunction. She did hav e an echo performed in late May with a normal EF. Anticoagulation therapy has been deferred due to anemia. At this time, we will treat this symptomatically. We will continue to assess after recen t thoracentesis. No proven medication benefit with any of the classes for diastolic dysfunction outs erasmo of potentially spironolactone. Her BNP is not very impressive.
--- NOTE | 2017-07-02 10:51 | PDOC.PN ---
- Subjective Encounter Start Date: 07/02/17 Encounter Start Time: 07:40 Patient seen and examined. No new complaints. No overnight events this morning pt is doing overall ok, but weak, no fever - Objective Resuscitation Status: Resuscitation Status FULL:Full Resuscitation MAR Reviewed: Yes Vital Signs & Weight: Vital Signs (12 hours) Temp Pulse Resp BP BP Pulse Ox 07/02/17 09:26 68 115/48 L 07/02/17 08:46 97.9 F 68 18 92 L 07/02/17 04:20 97.5 F L 71 18 106/72 91 L 07/02/17 00:10 97.6 F 71 18 131/48 L 97 Weight Weight 148 lb I&O: 07/01/17 07/02/17 07/03/17 06:59 06:59 06:59 Intake Total 240 270 Output Total 1775 1625 1000 Balance -1535 -1355 -1000 Result Diagrams: 07/01/17 04:49 07/01/17 04:49 Radiology Reviewed by me: Yes (chest xray) EKG Reviewed by me: Yes (nsr) Phys Exam - Physical Examination Constitutional: NAD HEENT: PERRLA, moist MMs, sclera anicteric Neck: no JVD, supple Respiratory: no wheezing, no rhonchi reduced air entry at base Cardiovascular: RRR, no rub Gastrointestinal: soft, non-tender, no distention, positive bowel sounds rivera+ Musculoskeletal: no edema, pulses present Neurological: moves all 4 limbs Lymphatic: no nodes Psychiatric: normal affect Skin: no rash, normal turgor Dx/Plan (1) Acute on chronic diastolic (congestive) heart failure Code(s): I50.33 - ACUTE ON CHRONIC DIASTOLIC (CONGESTIVE) HEART FAILURE Status : Acute Comment: continue gentle diuresis (2) Acute respiratory failure with hypoxia Code(s): J96.01 - ACUTE RESPIRATORY FAILURE WITH HYPOXIA Status: Acute Comment: monitor oxygen level and wean off O2 as needed (3) Demand ischemia Code(s): I24.8 - OTHER FORMS OF ACUTE ISCHEMIC HEART DISEASE Status: Acute (4) Lactic acidosis Code(s): E87.2 - ACIDOSIS Status: Resolved (5) Pneumonia Code(s): J18.9 - PNEUMONIA, UNSPECIFIED ORGANISM Status: Acute Comment: continue empiric levaquin (6) Symptomatic anemia Code(s): D64.9 - ANEMIA, UNSPECIFIED Status: Acute Comment: 1 unit PRBC given (7) Thrombocytopenia Code(s): D69.6 - THROMBOCYTOPENIA, UNSPECIFIED Status: Acute (8) UTI (urinary tract infection) Status: Acute Comment: On levaquin, follow culture (9) Atrial fibrillation Code(s): I48.91 - UNSPECIFIED ATRIAL FIBRILLATION Status: Chronic Comment: rate controlled, not a candidate for chronic anticoagulation (10) CKD (chronic kidney disease) stage 3, GFR 30-59 ml/min Status: Chronic (11) Dyslipidemia Code(s): E78.5 - HYPERLIPIDEMIA, UNSPECIFIED Status: Chronic (12) Hypoalbuminemia due to protein-calorie malnutrition Code(s): E46 - UNSPECIFIED PROTEIN-CALORIE MALNUTRITION Status: Chronic (13) Moderate protein-calorie malnutrition Code(s): E44.0 - MODERATE PROTEIN-CALORIE MALNUTRITION Status: Chronic (14) Physical deconditioning Code(s): R53.81 - OTHER MALAISE Status: Chronic (15) Sepsis with acute organ dysfunction Code(s): A41.9 - SEPSIS, UNSPECIFIED ORGANISM; R65.20 - SEVERE SEPSIS WITHOUT SEPTIC SHOCK Status: Acute - Plan cont current plan of care, plan discussed w/ family, continue antibiotics, 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 Review of Systems - Review of Systems Constitutional: weakness. negative: fever, chills, sweats, malaise, other ENT: negative: Ear Pain, Ear Discharge, Nose Pain, Nose Discharge, Nose Congestion, Mouth Pain, Mouth Swelling, Throat Pain, Throat Swelling, Other Respiratory: Cough, Shortness of Breath, SOB with Excertion. negative: Dry, Hemoptysis, Pleuritic Pain, Sputum, Wheezing Cardiovascular: negative: chest pain, palpitations, orthopnea, paroxysmal nocturnal dyspnea, edema, light headedness, other Gastrointestinal: negative: Nausea, Vomiting, Abdominal Pain, Diarrhea, Constipation, Melena, Hematochezia, Other Genitourinary: negative: Dysuria, Frequency, Incontinence, Hematuria, Retention , Other Musculoskeletal: negative: Neck Pain, Shoulder Pain, Arm Pain, Back Pain, Hand Pain, Leg Pain, Foot Pain, Other - Medications/Allergies Allergies/Adverse Reactions: Allergies Allergy/AdvReac Type Severity Reaction Status Date / Time No Known Allergies Allergy Verified 07/01/17 03:54 Medications: Current Medications Acetaminophen (Tylenol) 650 mg PO Q4H PRN PRN Reason: Headache/Fever or Pain Al Hydroxide/Mg Hydroxide (Maalox) 15 ml PO Q4H PRN PRN Reason: Heartburn or Indigestion Amiodarone HCl (Cordarone) 400 mg PO QAM [facility] Last Admin: 07/02/17 09:26 Dose: 400 mg Artificial Tears (Tears Naturale) 0 drop EA EYE PRN PRN PRN Reason: Dry Eyes Aspirin (Aspirin Chewable) 81 mg PO DAILY [facility] Last Admin: 07/02/17 09:27 Dose: 81 mg Atorvastatin Calcium (Lipitor) 20 mg PO QPM [facility] Last Admin: 07/01/17 20:27 Dose: 20 mg Diltiazem HCl (Cardizem Cd) 240 mg PO DAILY [facility] Last Admin: 07/02/17 09:26 Dose: 240 mg Docusate Sodium (Colace) 100 mg PO BID [facility] Last Admin: 07/02/17 09:27 Dose: 100 mg Famotidine (Pepcid) 20 mg PO BID [facility] Furosemide (Lasix) 20 mg PO 0900,1400 [facility] Guaifenesin (Robitussin Sf) 200 mg PO Q4H PRN PRN Reason: Cough Guaifenesin/Dextromethorphan (Robitussin Dm) 15 ml PO Q4H PRN PRN Reason: Cough Hydralazine HCl (Apresoline) 10 mg SLOW IVP Q4H PRN PRN Reason: Systolic BP > 180 Levofloxacin (Levaquin) 250 mg PO 0600 [facility] Last Admin: 07/02/17 05:41 Dose: 250 mg Lorazepam (Ativan) 0.5 mg PO Q6H PRN PRN Reason: Anxiety Last Admin: 07/02/17 08:28 Dose: 0.5 mg Magnesium Hydroxide (Milk Of Magnesium) 30 ml PO DAILYPRN PRN PRN Reason: Constipation Mineral Oil/White Petrolatum (Eucerin Cream) 0 gm TOP BIDPRN PRN PRN Reason: Dry Skin Ondansetron HCl (Zofran Odt) 4 mg PO Q6H PRN PRN Reason: Nausea/Vomiting Ondansetron HCl (Zofran) 4 mg IVP Q6H PRN PRN Reason: Nausea/Vomiting Phenol (Chloraseptic [place] 180 Ml Bot) 0 ml PO PRN PRN PRN Reason: Sore Throat Prednisone (Prednisone) 20 mg PO QAM-WM [facility] Stop: 07/05/17 08:01 Last Admin: 07/02/17 08:28 Dose: 20 mg Prednisone (Prednisone) 15 mg PO QAM-WM [facility] Stop: 07/10/17 08:01 Prednisone (Prednisone) 10 mg PO QAM-WM [facility] Stop: 07/15/17 08:01 Prednisone (Prednisone) 5 mg PO QAM-WM [facility] Stop: 07/20/17 08:01 Sodium Chloride (Flush - Normal Saline) 10 ml IVF Q12HR [facility] Last Admin: 07/02/17 10:26 Dose: 10 ml Sodium Chloride (Flush - Normal Saline) 10 ml IVF PRN PRN PRN Reason: Saline Flush Last Admin: 07/01/17 14:47 Dose: 10 ml Sodium Chloride (Burr Nasal [place] 0.65%) 0 ml EA NARE QIDPRN PRN PRN Reason: Nasal Congestion
[2017-07-02 11:06] LABS: #Lymphocytes 0.6 thou/uL (1.20-3.40); #Monocytes 0.4 thou/uL (0.11-0.59); #Neutrophils 18.2 thou/uL (1.40-6.50); %Eosinophils 0.1 % (0.0-10.0); %Lymphocytes 2.9 % (21.0-51.0); %Monocytes 2.2 % (0.0-10.0); %Neutrophils 94.8 % (42.0-75.0); Hemoglobin 8.7 g/dL (12.0-16.0); Mean Corpuscular HGB CONC 32.7 g/dL (32.0-36.0); Mean Corpuscular Hemoglobin 31.9 pg (27.0-31.0); Mean Corpuscular Volume 97.6 fl (81.0-99.0); Platelet Count 65 thou/uL (130-400); RBC Distribution Width 15.5 % (11.5-14.5); Red Blood Cell (RBC) Count 2.74 mill/uL (4.20-5.40); White Blood Cell (WBC) Count 19.2 thou/uL (4.8-10.8)
[2017-07-02 11:18] LABS: Lactic Acid 2.5 mmol/L (0.5-2.2)
[2017-07-02 11:22] LABS: Anion Gap 14 mmol/L (10-20); BUN (Urea Nitrogen) 34 mg/dL (9.8-20.1); Calc. Creatinine Clearance 32 mL/min (70-130); Calcium 8.1 mg/dL (7.8-10.44); Carbon Dioxide 31 mmol/L (23-31); Chloride 101 mmol/L (98-107); Estimated GFR-MDRD 31; Glucose 85 mg/dL (83-110); Potassium 3.7 mmol/L (3.5-5.1); Sodium 142 mmol/L (136-145)
[2017-07-02] MEDS: Furosemide 20 MG TAB PO SCH (14:58)
[2017-07-02] MEDS: Famotidine 20 MG TAB PO SCH (21:34)
[2017-07-02] MEDS: Atorvastatin Calcium 20 MG TAB PO SCH (21:34)
[2017-07-03 07:57] LABS: #Lymphocytes 0.4 thou/uL (1.20-3.40); #Monocytes 0.3 thou/uL (0.11-0.59); #Neutrophils 11.3 thou/uL (1.40-6.50); %Eosinophils 0.2 % (0.0-10.0); %Lymphocytes 3.7 % (21.0-51.0); %Monocytes 2.4 % (0.0-10.0); %Neutrophils 93.7 % (42.0-75.0); Hemoglobin 7.8 g/dL (12.0-16.0); Mean Corpuscular HGB CONC 32.8 g/dL (32.0-36.0); Mean Corpuscular Hemoglobin 32.3 pg (27.0-31.0); Mean Corpuscular Volume 98.6 fl (81.0-99.0); Mean Platelet Volume 11.7 fL (7.4-10.4); Platelet Count 49 thou/uL (130-400); RBC Distribution Width 15.2 % (11.5-14.5); Red Blood Cell (RBC) Count 2.42 mill/uL (4.20-5.40)
[2017-07-03 08:11] LABS: Lactic Acid 0.8 mmol/L (0.5-2.2)
[2017-07-03 08:20] LABS: ALT (SGPT) 36 U/L (8-55); AST (SGOT) 32 U/L (5-34); Albumin 2.3 g/dL (3.4-4.8); Alkaline Phosphatase 85 U/L (40-150); Anion Gap 12 mmol/L (10-20); BUN (Urea Nitrogen) 33 mg/dL (9.8-20.1); Bilirubin, Total 0.8 mg/dL (0.2-1.2); Calc. Creatinine Clearance 30 mL/min (70-130); Calcium 7.9 mg/dL (7.8-10.44); Carbon Dioxide 36 mmol/L (23-31); Chloride 101 mmol/L (98-107); Estimated GFR-MDRD 32; Globulin 2.1 g/dL (2.4-3.5); Glucose 88 mg/dL (83-110); Potassium 3.4 mmol/L (3.5-5.1); Protein, Total 4.4 g/dL (6.0-8.3); Sodium 146 mmol/L (136-145)
--- NOTE | 2017-07-03 08:24 | PRG ---
DATE OF SERVICE: 07/03/2017 Ms. Hernández is feeling much better today. She states she has less shortness of breath. She is more awak e and alert and more lucid today than she has been in the past. PHYSICAL EXAMINATION: VITAL SIGNS: Blood pressure 108/56, pulse 65, temperature 97.6. LUNGS: Clear to auscultation. CARDIAC: Regular rate and rhythm. ABDOMEN: Soft, nontender, nondistended. EXTREMITIES: No edema. PERTINENT LABORATORY DATA: Hemoglobin 7.8. Creatinine 1.62. IMPRESSION: 1. Acute on chronic diastolic heart failure. 2. Atrial fibrillation. 3. Recent pneumonia. 4. Pleural effusion. RECOMMENDATIONS: Pleural effusion likely multifactorial. Certainly diastolic dysfunction can play a part. There is no guideline driven medication to help improve diastolic function. At this point, w ill decrease amiodarone to 200 mg q.a.m. Will also continue with atorvastatin, aspirin and Cardizem for rate control. She is on prednisone which has increased her white blood cell count. Will avoid A CE inhibitor therapy and ARB due to renal insufficiency. We will avoid anticoagulation therapy due t o persistent anemia which is being addressed by the primary team. Otherwise, I have no further recom mendations.
[2017-07-03] MEDS: Furosemide 20 MG TAB PO SCH ×2 (10:10→15:17)
[2017-07-03] MEDS: Docusate 100 MG CAP PO SCH ×2 (10:13→20:04)
[2017-07-03] MEDS: predniSONE 20 MG TAB PO SCH (10:13)
[2017-07-03] MEDS: Amiodarone 200 MG TAB PO SCH (10:13)
[2017-07-03] MEDS ORDERED: Potassium Chloride 20 MEQ TAB PO SCH (10:30)
--- NOTE | 2017-07-03 10:40 | PDOC.PN ---
- Subjective Encounter Start Date: 07/03/17 Encounter Start Time: 09:00 pt has very poor po intake, no bleeding from any site, vitals stable, no fever, son bedside - Objective Resuscitation Status: Resuscitation Status FULL:Full Resuscitation MAR Reviewed: Yes Vital Signs & Weight: Vital Signs (12 hours) Temp Pulse Resp BP Pulse Ox 07/03/17 10:10 70 07/03/17 07:54 97.6 F 65 20 108/56 L 98 07/03/17 03:31 97.6 F 66 21 H 99/49 L 94 L 07/03/17 03:21 97.6 F 07/02/17 23:35 97.5 F L 65 20 109/59 L 93 L 07/02/17 23:25 96.6 F L 68 19 93 L 07/02/17 23:00 98.4 F 65 20 118/57 L 96 Weight Weight 135 lb I&O: 07/02/17 07/03/17 07/04/17 06:59 06:59 06:59 Intake Total 270 200 Output Total 1625 1325 Balance -1355 -1125 Result Diagrams: 07/03/17 07:41 07/03/17 07:41 EKG Reviewed by me: Yes Phys Exam - Physical Examination Constitutional: NAD HEENT: PERRLA, moist MMs, sclera anicteric Neck: no JVD, supple Respiratory: no wheezing, no rales, no rhonchi Cardiovascular: RRR, no significant murmur, no rub Gastrointestinal: soft, non-tender, no distention, positive bowel sounds Musculoskeletal: no edema, pulses present Neurological: non-focal, normal sensation Lymphatic: no nodes Psychiatric: normal affect Skin: no rash, normal turgor Dx/Plan (1) Acute on chronic diastolic (congestive) heart failure Code(s): I50.33 - ACUTE ON CHRONIC DIASTOLIC (CONGESTIVE) HEART FAILURE Status : Acute Comment: continue gentle diuresis (2) Acute respiratory failure with hypoxia Code(s): J96.01 - ACUTE RESPIRATORY FAILURE WITH HYPOXIA Status: Acute Comment: monitor oxygen level and wean off O2 as needed (3) Demand ischemia Code(s): I24.8 - OTHER FORMS OF ACUTE ISCHEMIC HEART DISEASE Status: Acute (4) Lactic acidosis Code(s): E87.2 - ACIDOSIS Status: Resolved (5) Pneumonia Code(s): J18.9 - PNEUMONIA, UNSPECIFIED ORGANISM Status: Acute Comment: continue empiric levaquin (6) Symptomatic anemia Code(s): D64.9 - ANEMIA, UNSPECIFIED Status: Acute Comment: 1 unit PRBC given (7) Thrombocytopenia Code(s): D69.6 - THROMBOCYTOPENIA, UNSPECIFIED Status: Acute (8) UTI (urinary tract infection) Status: Acute Comment: On levaquin, follow culture (9) Atrial fibrillation Code(s): I48.91 - UNSPECIFIED ATRIAL FIBRILLATION Status: Chronic Comment: rate controlled, not a candidate for chronic anticoagulation (10) CKD (chronic kidney disease) stage 3, GFR 30-59 ml/min Status: Chronic (11) Dyslipidemia Code(s): E78.5 - HYPERLIPIDEMIA, UNSPECIFIED Status: Chronic (12) Hypoalbuminemia due to protein-calorie malnutrition Code(s): E46 - UNSPECIFIED PROTEIN-CALORIE MALNUTRITION Status: Chronic (13) Moderate protein-calorie malnutrition Code(s): E44.0 - MODERATE PROTEIN-CALORIE MALNUTRITION Status: Chronic (14) Physical deconditioning Code(s): R53.81 - OTHER MALAISE Status: Chronic (15) Sepsis with acute organ dysfunction Code(s): A41.9 - SEPSIS, UNSPECIFIED ORGANISM; R65.20 - SEVERE SEPSIS WITHOUT SEPTIC SHOCK Status: Acute - Plan cont current plan of care, plan discussed w/ family, continue antibiotics, PT/OT , social security 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 negative: fever, chills, sweats, other Respiratory: Shortness of Breath, SOB with Excertion. negative: Cough, Dry, Hemoptysis, Pleuritic Pain, Sputum, Wheezing Cardiovascular: negative: chest pain, palpitations, orthopnea, paroxysmal nocturnal dyspnea, edema, light headedness, other Gastrointestinal: negative: Nausea, Vomiting, Abdominal Pain, Diarrhea, Constipation, Melena, Hematochezia, Other Genitourinary: negative: Dysuria, Frequency, Incontinence, Hematuria, Retention , Other Musculoskeletal: negative: Neck Pain, Shoulder Pain, Arm Pain, Back Pain, Hand Pain, Leg Pain, Foot Pain, Other Skin: negative: Rash, Lesions, Francis, Bruising, Other - Medications/Allergies Allergies/Adverse Reactions: Allergies Allergy/AdvReac Type Severity Reaction Status Date / Time No Known Allergies Allergy Verified 07/01/17 03:54 Medications: Current Medications Acetaminophen (Tylenol) 650 mg PO Q4H PRN PRN Reason: Headache/Fever or Pain Al Hydroxide/Mg Hydroxide (Maalox) 15 ml PO Q4H PRN PRN Reason: Heartburn or Indigestion Amiodarone HCl (Cordarone) 200 mg PO QAM [facility] Last Admin: 07/03/17 10:13 Dose: 200 mg Artificial Tears (Tears Naturale) 0 drop EA EYE PRN PRN PRN Reason: Dry Eyes Aspirin (Aspirin Chewable) 81 mg PO DAILY [facility] Last Admin: 07/02/17 09:27 Dose: 81 mg Atorvastatin Calcium (Lipitor) 20 mg PO QPM [facility] Last Admin: 07/02/17 21:34 Dose: 20 mg Diltiazem HCl (Cardizem Cd) 240 mg PO DAILY [facility] Last Admin: 07/03/17 10:10 Dose: 240 mg Docusate Sodium (Colace) 100 mg PO BID [facility] Last Admin: 07/03/17 10:13 Dose: 100 mg Furosemide (Lasix) 20 mg PO 0900,1400 [facility] Last Admin: 07/03/17 10:10 Dose: 20 mg Guaifenesin (Robitussin Sf) 200 mg PO Q4H PRN PRN Reason: Cough Guaifenesin/Dextromethorphan (Robitussin Dm) 15 ml PO Q4H PRN PRN Reason: Cough Hydralazine HCl (Apresoline) 10 mg SLOW IVP Q4H PRN PRN Reason: Systolic BP > 180 Lorazepam (Ativan) 0.5 mg PO Q6H PRN PRN Reason: Anxiety Last Admin: 07/02/17 08:28 Dose: 0.5 mg Magnesium Hydroxide (Milk Of Magnesium) 30 ml PO DAILYPRN PRN PRN Reason: Constipation Mineral Oil/White Petrolatum (Eucerin Cream) 0 gm TOP BIDPRN PRN PRN Reason: Dry Skin Ondansetron HCl (Zofran Odt) 4 mg PO Q6H PRN PRN Reason: Nausea/Vomiting Ondansetron HCl (Zofran) 4 mg IVP Q6H PRN PRN Reason: Nausea/Vomiting Pantoprazole Sodium (Protonix) 40 mg PO DAILY [facility] Phenol (Chloraseptic [place] 180 Ml Bot) 0 ml PO PRN PRN PRN Reason: Sore Throat Potassium Chloride (K-Dur) 40 meq PO NOW [facility] Stop: 07/03/17 12:00 Prednisone (Prednisone) 20 mg PO QAM-WM [facility] Stop: 07/05/17 08:01 Last Admin: 07/03/17 10:13 Dose: 20 mg Prednisone (Prednisone) 15 mg PO QAM-WM [facility] Stop: 07/10/17 08:01 Prednisone (Prednisone) 10 mg PO QAM-WM [facility] Stop: 07/15/17 08:01 Prednisone (Prednisone) 5 mg PO QAM-WM [facility] Stop: 07/20/17 08:01 Sodium Chloride (Flush - Normal Saline) 10 ml IVF Q12HR [facility] Last Admin: 07/03/17 10:13 Dose: 10 ml Sodium Chloride (Flush - Normal Saline) 10 ml IVF PRN PRN PRN Reason: Saline Flush Last Admin: 07/01/17 14:47 Dose: 10 ml Sodium Chloride ([place] Nasal [place] 0.65%) 0 ml EA NARE QIDPRN PRN PRN Reason: Nasal Congestion
--- NOTE | 2017-07-03 11:49 | PRG ---
DATE OF SERVICE: 07/03/2017 SUBJECTIVE: Ms. Remedios Hernández is seen today. She is weak. Awaiting speech to assess her swallow study. OBJECTIVE: VITAL SIGNS: Sats are 98% on 2 liters, respirations 20, temperature 97.6, blood pressure 108/56. CHEST: Decreased breath sounds, no wheezing. CARDIAC: Normal S1, S2. No gallops. ABDOMEN: Soft. No masses. LABORATORY DATA: White count 12,000, H&H is 7 and 23, platelet count is still low at 49, creatinine 1.57. ASSESSMENT: 1. Pleural effusion and infiltrates, diastolic dysfunction with a transudate. 2. No evidence of any pneumonia. 3. Severe deconditioning. 4. Dysphagia. 5. Dementia. PLAN: Trying to discontinue the medications that could cause thrombocytopenia. She antibiotics. PT and supportive care. We will follow.
[2017-07-03] MEDS: Famotidine 20 MG TAB PO SCH (18:07)
[2017-07-03] MEDS: Atorvastatin Calcium 20 MG TAB PO SCH (20:04)
[2017-07-03 22:12] LABS: Heparin-Induced Ab (HITA) Negative (.)
[2017-07-04] MEDS: Lorazepam 0.5 MG TAB PO PRN (01:17)
[2017-07-04 07:56] LABS: #Lymphocytes 0.5 thou/uL (1.20-3.40); #Monocytes 0.2 thou/uL (0.11-0.59); #Neutrophils 10.7 thou/uL (1.40-6.50); %Basophils 0.1 % (0.0-1.0); %Eosinophils 0.3 % (0.0-10.0); %Lymphocytes 4.2 % (21.0-51.0); %Monocytes 1.5 % (0.0-10.0); Hemoglobin 8.4 g/dL (12.0-16.0); Mean Corpuscular HGB CONC 31.9 g/dL (32.0-36.0); Mean Corpuscular Hemoglobin 31.7 pg (27.0-31.0); Mean Corpuscular Volume 99.4 fl (81.0-99.0); Mean Platelet Volume 11.4 fL (7.4-10.4); Platelet Count 41 thou/uL (130-400); RBC Distribution Width 15.3 % (11.5-14.5); Red Blood Cell (RBC) Count 2.64 mill/uL (4.20-5.40); White Blood Cell (WBC) Count 11.4 thou/uL (4.8-10.8)
--- NOTE | 2017-07-04 08:16 | PRG ---
DATE OF SERVICE: 07/03/2017 SUBJECTIVE: Ms. Hernández seems to be doing better. Her son states she had a good evening. No chest pain or pressure. No shortness of breath noted. PHYSICAL EXAMINATION: VITAL SIGNS: Blood pressure 118/56, pulse 94, temperature afebrile. LUNGS: Clear to auscultation. HEART: Regular rate and rhythm. ABDOMEN: Soft, nontender, and nondistended. EXTREMITIES: No edema. PERTINENT LABORATORY DATA: Hemoglobin 8.4. IMPRESSION: 1. Acute on chronic diastolic heart failure. 2. Pleural effusion. 3. Recent pneumonia. 4. Atrial fibrillation. 5. Anemia. RECOMMENDATIONS: Discussed with the son on not recommending anticoagulation given her hemoglobin. Giovani archer agrees. Will continue current treatment as prescribed. She has lost 9 pounds from admission. Wou ld continue amiodarone at 200 mg p.o. q.a.m. in addition to aspirin and atorvastatin. Would recommen d rehabilitation. Otherwise, I have no further recommendations from my standpoint. It would be okay to transfer to medical floor if she is anticipating same through the weekend.
[2017-07-04 08:19] LABS: Anion Gap 13 mmol/L (10-20); BUN (Urea Nitrogen) 37 mg/dL (9.8-20.1); Calc. Creatinine Clearance 30 mL/min (70-130); Calcium 8.1 mg/dL (7.8-10.44); Carbon Dioxide 34 mmol/L (23-31); Chloride 102 mmol/L (98-107); Estimated GFR-MDRD 32; Glucose 103 mg/dL (83-110); Potassium 3.8 mmol/L (3.5-5.1); Sodium 145 mmol/L (136-145)
--- NOTE | 2017-07-04 09:14 | PDOC.PN ---
- Subjective Encounter Start Date: 07/04/17 Encounter Start Time: 07:40 this morning pt is very weak, no fever, has more cough, did not eat much, subjectively she does not feel good Patient seen and examined. No overnight events - Objective Resuscitation Status: Resuscitation Status FULL:Full Resuscitation MAR Reviewed: Yes Vital Signs & Weight: Vital Signs (12 hours) Temp Pulse Resp BP Pulse Ox 07/04/17 08:41 97 F L 69 20 126/61 93 L 07/04/17 03:58 97.9 F 72 20 118/56 L 94 L 07/04/17 01:23 94 L 07/03/17 23:16 97.6 F 68 19 101/53 L 96 Weight Weight 134 lb I&O: 07/03/17 07/04/17 07/05/17 06:59 06:59 06:59 Intake Total 200 540 340 Output Total 1325 600 850 Balance -1125 -60 -510 Result Diagrams: 07/04/17 07:44 07/04/17 07:44 EKG Reviewed by me: Yes (nsr) Phys Exam - Physical Examination Constitutional: NAD weak, ill appearing HEENT: PERRLA, moist MMs, sclera anicteric Neck: no JVD, supple bilateral coarse breath sound Cardiovascular: RRR, no significant murmur, no rub Gastrointestinal: soft, non-tender, no distention, positive bowel sounds Musculoskeletal: no edema, pulses present Neurological: moves all 4 limbs Lymphatic: no nodes Psychiatric: normal affect Skin: no rash, normal turgor Dx/Plan (1) Acute on chronic diastolic (congestive) heart failure Code(s): I50.33 - ACUTE ON CHRONIC DIASTOLIC (CONGESTIVE) HEART FAILURE Status : Acute Comment: continue gentle diuresis (2) Acute respiratory failure with hypoxia Code(s): J96.01 - ACUTE RESPIRATORY FAILURE WITH HYPOXIA Status: Acute Comment: monitor oxygen level and wean off O2 as needed (3) Demand ischemia Code(s): I24.8 - OTHER FORMS OF ACUTE ISCHEMIC HEART DISEASE Status: Acute (4) Lactic acidosis Code(s): E87.2 - ACIDOSIS Status: Resolved (5) Pneumonia Code(s): J18.9 - PNEUMONIA, UNSPECIFIED ORGANISM Status: Acute Comment: continue empiric levaquin (6) Symptomatic anemia Code(s): D64.9 - ANEMIA, UNSPECIFIED Status: Acute Comment: 1 unit PRBC given (7) Thrombocytopenia Code(s): D69.6 - THROMBOCYTOPENIA, UNSPECIFIED Status: Acute (8) UTI (urinary tract infection) Status: Acute Comment: On levaquin, follow culture (9) Atrial fibrillation Code(s): I48.91 - UNSPECIFIED ATRIAL FIBRILLATION Status: Chronic Comment: rate controlled, not a candidate for chronic anticoagulation (10) CKD (chronic kidney disease) stage 3, GFR 30-59 ml/min Status: Chronic (11) Dyslipidemia Code(s): E78.5 - HYPERLIPIDEMIA, UNSPECIFIED Status: Chronic (12) Hypoalbuminemia due to protein-calorie malnutrition Code(s): E46 - UNSPECIFIED PROTEIN-CALORIE MALNUTRITION Status: Chronic (13) Moderate protein-calorie malnutrition Code(s): E44.0 - MODERATE PROTEIN-CALORIE MALNUTRITION Status: Chronic (14) Physical deconditioning Code(s): R53.81 - OTHER MALAISE Status: Chronic (15) Sepsis with acute organ dysfunction Code(s): A41.9 - SEPSIS, UNSPECIFIED ORGANISM; R65.20 - SEVERE SEPSIS WITHOUT SEPTIC SHOCK Status: Acute - Plan cont current plan of care, plan discussed w/ family, continue antibiotics, PT/OT , social sciences instructor, respiratory therapy * she is at risk for readmission * will monitor in hospital * will consider repeating chest xray * repeat labs CBC today * medication reviewed as below * symptomatic treatment. Review of Systems - Review of Systems Constitutional: weakness, malaise. negative: fever, chills, sweats, other Respiratory: Cough, Shortness of Breath, SOB with Excertion. negative: Dry, Hemoptysis, Pleuritic Pain, Sputum, Wheezing Cardiovascular: negative: chest pain, palpitations, orthopnea, paroxysmal nocturnal dyspnea, edema, light headedness, other Gastrointestinal: negative: Nausea, Vomiting, Abdominal Pain, Diarrhea, Constipation, Melena, Hematochezia, Other Genitourinary: negative: Dysuria, Frequency, Incontinence, Hematuria, Retention , Other Musculoskeletal: negative: Neck Pain, Shoulder Pain, Arm Pain, Back Pain, Hand Pain, Leg Pain, Foot Pain, Other - Medications/Allergies Allergies/Adverse Reactions: Allergies Allergy/AdvReac Type Severity Reaction Status Date / Time No Known Allergies Allergy Verified 07/01/17 03:54 Medications: Current Medications Acetaminophen (Tylenol) 650 mg PO Q4H PRN PRN Reason: Headache/Fever or Pain Al Hydroxide/Mg Hydroxide (Maalox) 15 ml PO Q4H PRN PRN Reason: Heartburn or Indigestion Amiodarone HCl (Cordarone) 200 mg PO QAM [facility] Last Admin: 07/03/17 10:13 Dose: 200 mg Artificial Tears (Tears Naturale) 0 drop EA EYE PRN PRN PRN Reason: Dry Eyes Aspirin (Aspirin Chewable) 81 mg PO DAILY [facility] Last Admin: 07/03/17 11:00 Dose: Not Given Atorvastatin Calcium (Lipitor) 20 mg PO QPM [facility] Last Admin: 07/03/17 20:04 Dose: 20 mg Diltiazem HCl (Cardizem Cd) 240 mg PO DAILY [facility] Last Admin: 07/03/17 10:10 Dose: 240 mg Docusate Sodium (Colace) 100 mg PO BID [facility] Last Admin: 07/03/17 20:04 Dose: 100 mg Furosemide (Lasix) 20 mg PO 0900,1400 [facility] Last Admin: 07/03/17 15:17 Dose: 20 mg Guaifenesin (Robitussin Sf) 200 mg PO Q4H PRN PRN Reason: Cough Guaifenesin/Dextromethorphan (Robitussin Dm) 15 ml PO Q4H PRN PRN Reason: Cough Hydralazine HCl (Apresoline) 10 mg SLOW IVP Q4H PRN PRN Reason: Systolic BP > 180 Lorazepam (Ativan) 0.5 mg PO Q6H PRN PRN Reason: Anxiety Last Admin: 07/04/17 01:17 Dose: 0.5 mg Magnesium Hydroxide (Milk Of Magnesium) 30 ml PO DAILYPRN PRN PRN Reason: Constipation Mineral Oil/White Petrolatum (Eucerin Cream) 0 gm TOP BIDPRN PRN PRN Reason: Dry Skin Ondansetron HCl (Zofran Odt) 4 mg PO Q6H PRN PRN Reason: Nausea/Vomiting Ondansetron HCl (Zofran) 4 mg IVP Q6H PRN PRN Reason: Nausea/Vomiting Pantoprazole Sodium (Protonix) 40 mg PO DAILY [facility] Phenol (Chloraseptic [place] 180 Ml Bot) 0 ml PO PRN PRN PRN Reason: Sore Throat Prednisone (Prednisone) 20 mg PO QA[facility] Stop: 07/05/17 08:01 Last Admin: 07/03/17 10:13 Dose: 20 mg Prednisone (Prednisone) 15 mg PO QAM-WM [facility] Stop: 07/10/17 08:01 Prednisone (Prednisone) 10 mg PO QAM-WM [facility] Stop: 07/15/17 08:01 Prednisone (Prednisone) 5 mg PO QAM-WM [facility] Stop: 07/20/17 08:01 Sodium Chloride (Flush - Normal Saline) 10 ml IVF Q12HR [facility] Last Admin: 07/03/17 20:04 Dose: 10 ml Sodium Chloride (Flush - Normal Saline) 10 ml IVF PRN PRN PRN Reason: Saline Flush Last Admin: 07/01/17 14:47 Dose: 10 ml Sodium Chloride ([place] Nasal [place] 0.65%) 0 ml EA NARE QIDPRN PRN PRN Reason: Nasal Congestion
[2017-07-04] MEDS: Amiodarone 200 MG TAB PO SCH (09:59)
[2017-07-04] MEDS: Docusate 100 MG CAP PO SCH ×2 (09:59→21:07)
[2017-07-04] MEDS: predniSONE 20 MG TAB PO SCH (09:59)
[2017-07-04] MEDS: Furosemide 20 MG TAB PO SCH ×2 (09:59→14:58)
--- NOTE | 2017-07-04 10:05 | PRG ---
DATE OF SERVICE: 07/04/2017 This morning she still appears to be lethargic, but arousable. PHYSICAL EXAMINATION: VITAL SIGNS: Sats are 93% on 2 liters, temperature is 97, blood pressure 120/61, respirations 20. CHEST: Chest reveals bilateral rhonchi. CARDIAC: Normal S1, S2, no gallops. ABDOMEN: Soft. Platelet count remains low at 41. H&H is 8 and 26. IMPRESSION: 1. Severe thrombocytopenia. 2. Respiratory failure. 3. Dementia. 4. Renal failure. PLAN: I stopped all of the antibiotics. Continue supportive care and cardiac care. Prognosis remains guarded. She is a full code. I will follow.
[2017-07-04] MEDS: Atorvastatin Calcium 20 MG TAB PO SCH (21:07)
[2017-07-05] MEDS: Docusate 100 MG CAP PO SCH ×2 (09:24→20:48)
[2017-07-05] MEDS: Amiodarone 200 MG TAB PO SCH (09:24)
[2017-07-05] MEDS: Furosemide 20 MG TAB PO SCH ×2 (09:24→14:01)
[2017-07-05] MEDS: predniSONE 20 MG TAB PO SCH (09:24)
--- NOTE | 2017-07-05 09:47 | RAD ---
PORTABLE AP CHEST: Date: 07/05/17 HISTORY: CHF. COMPARISON: 06/30/17. FINDINGS: There has been interval increase in interstitial and alveolar opacities throughout the right lung, gr eater in the right upper lung zone. Interstitial opacities in the left upper lung zone and perihilar region do appear improved with improvement in left pleural effusion. Right pleural effusion does pers ist. The cardiac silhouette is magnified by projection, but stable in size. No other interval change. IMPRESSION: 1. Increased interstitial and alveolar opacities bilaterally, greater on the right, and findings hav e increased on the right compared to the prior study. The interstitial opacities on the left have imp roved. Findings may be related to infectious or inflammatory process. Continued follow-up is recommen ded. 2. Bilateral pleural effusions, but the pleural effusion on the right has improved. POS: [facility]
[2017-07-05] MEDS ORDERED: Megestrol Acetate 800 MG/20 ML UDCUP PO SCH (13:15)
--- NOTE | 2017-07-05 14:33 | PRG ---
DATE OF SERVICE: 07/05/2017 SUBJECTIVE: Ms. Hernández supposed to be short of breath. OBJECTIVE: VITAL SIGNS: 93% sats on 2 liters, temperature 97, blood pressure 126/58. CHEST: Decreased breath sounds, no wheezing. CARDIAC: Normal S1, S2. No gallops. ABDOMEN: Soft, no masses. IMAGING: She had a chest x-ray taken today following the thoracentesis, which shows that she still h as rather impressive right-sided extensive interstitial infiltrate. ASSESSMENT: Respiratory failure, supraventricular tachycardia, severe deconditioning, and dementia. I am concerned about the extensiveness of her right-sided infiltrate. The question is whether this is all diastolic dysfunction. Congestive heart failure. I will increase the dose of prednisone, continue antibiotics, supportive c are. We will follow.
--- NOTE | 2017-07-05 18:51 | PDOC.PN ---
- Subjective Encounter Start Date: 07/05/17 Encounter Start Time: 12:00 Patient seen and examined. No new complaints. No overnight events - Objective Resuscitation Status: Resuscitation Status FULL:Full Resuscitation MAR Reviewed: Yes Vital Signs & Weight: Vital Signs (12 hours) Temp Pulse Resp BP Pulse Ox 07/05/17 12:00 96.7 F L 71 18 122/58 L 92 L 07/05/17 08:00 97.4 F L 77 19 126/58 L 93 L Weight Weight 132 lb 1.6 oz I&O: 07/04/17 07/05/17 07/06/17 06:59 06:59 06:59 Intake Total 540 1580 Output Total 600 2850 Balance -60 -1270 Result Diagrams: 07/04/17 07:44 07/04/17 07:44 Radiology Reviewed by me: Yes (CXR - worsening) EKG Reviewed by me: Yes (Tele SR) Phys Exam - Physical Examination Constitutional: NAD (Ill appearing. Feels gen weak) Respiratory: no wheezing, no rhonchi Cardiovascular: RRR, no rub Gastrointestinal: soft, non-tender, positive bowel sounds Musculoskeletal: edema present Neurological: moves all 4 limbs Psychiatric: A&O x 3 Dx/Plan - Plan plan discussed w/ family, DVT proph w/SCDs IMPRESSION: 1. Acute hypoxic Resp failure - s/p NIPPV 2. Pleural effusion s/p thoracentesis 3. Anemia s/p 1 unit PRBC/Thrombocytopenia 4. Afib - Anticoag dced last admission 5. Acute on Chronic diastolic heart failure 6. Elevated troponins due to demand ischemia/CKD3/Hypokalemia/ Moderate Protein Calorie Malnutrition/ Depression/ Mild CAD/ Physical deconditioning/Lactic acidosis 7. Recent hospitalization for resp failure/pneumonia/afib - Please see dc summary 2/ PLAN: * Add Doxycycline * Change Prednisone to 20 mg daily * Add Low dose Zoloft HS * DC Robert in AM * Add Vitamins * Change diet to regular due to poor appetite * Check folic acid/Vit B12 in AM * Pulm following * Accepted by Rehab - not stable for dc * AM labs * Megace started by Pulmonary Review of Systems - Review of Systems Constitutional: negative: fever, chills, sweats, weakness, malaise Gastrointestinal: negative: Nausea, Vomiting, Abdominal Pain, Diarrhea, Constipation, Melena, Hematochezia - Medications/Allergies Allergies/Adverse Reactions: Allergies Allergy/AdvReac Type Severity Reaction Status Date / Time No Known Allergies Allergy Verified 07/01/17 03:54 Medications: Current Medications Acetaminophen (Tylenol) 650 mg PO Q4H PRN PRN Reason: Headache/Fever or Pain Al Hydroxide/Mg Hydroxide (Maalox) 15 ml PO Q4H PRN PRN Reason: Heartburn or Indigestion Albuterol/Ipratropium (Duoneb) 3 ml NEB [id number] [facility] Albuterol/Ipratropium (Duoneb) 3 ml NEB Q2H PRN PRN Reason: SOB &/or Wheezing Amiodarone HCl (Cordarone) 200 mg PO QAM [facility] Last Admin: 07/05/17 09:24 Dose: 200 mg Artificial Tears (Tears Naturale) 0 drop EA EYE PRN PRN PRN Reason: Dry Eyes Aspirin (Ecotrin) 81 mg PO DAILY [facility] Atorvastatin Calcium (Lipitor) 20 mg PO QPM [facility] Last Admin: 07/04/17 21:07 Dose: Not Given Calcium/Vitamin D (Caltrate 600 + Vit D) 1 tab PO BID[facility] Cefdinir (Omnicef) 300 mg PO DAILY [facility] Cyanocobalamin (Vitamin B-12) 1,000 mcg PO DAILY [facility] Diltiazem HCl (Cardizem Cd) 240 mg PO DAILY [facility] Last Admin: 07/05/17 09:24 Dose: 240 mg Docusate Sodium (Colace) 100 mg PO BID [facility] Last Admin: 07/05/17 09:24 Dose: 100 mg Doxycycline Hyclate (Vibramycin) 100 mg PO BID [facility] Folic Acid (Folvite) 1 mg PO DAILY [facility] Folic Acid (Folvite) 1 mg PO DAILY [facility] Furosemide (Lasix) 20 mg PO 0900,1400 [facility] Last Admin: 07/05/17 14:01 Dose: 20 mg Guaifenesin (Robitussin Sf) 200 mg PO Q4H PRN PRN Reason: Cough Guaifenesin (Mucinex) 600 mg PO Q12HR [facility] Guaifenesin/Dextromethorphan (Robitussin Dm) 15 ml PO Q4H PRN PRN Reason: Cough Hydralazine HCl (Apresoline) 10 mg SLOW IVP Q4H PRN PRN Reason: Systolic BP > 180 Lorazepam (Ativan) 0.5 mg PO Q6H PRN PRN Reason: Anxiety Last Admin: 07/04/17 01:17 Dose: 0.5 mg Magnesium Hydroxide (Milk Of Magnesium) 30 ml PO DAILYPRN PRN PRN Reason: Constipation Megestrol Acetate (Megace) 800 mg PO DAILY [facility] Mineral Oil/White Petrolatum (Eucerin Cream) 0 gm TOP BIDPRN PRN PRN Reason: Dry Skin Multivitamins (Theragran) 1 tab PO DAILY [facility] Multivitamins (Theragran) 1 tab PO DAILY [facility] Ondansetron HCl (Zofran Odt) 4 mg PO Q6H PRN PRN Reason: Nausea/Vomiting Ondansetron HCl (Zofran) 4 mg IVP Q6H PRN PRN Reason: Nausea/Vomiting Pantoprazole Sodium (Protonix) 40 mg PO DAILY [facility] Last Admin: 07/05/17 09:24 Dose: 40 mg Phenol (Chloraseptic [place] 180 Ml Bot) 0 ml PO PRN PRN PRN Reason: Sore Throat Prednisone (Prednisone) 20 mg PO QAM-[facility] Sertraline HCl (Zoloft) 25 mg PO HS [facility] Sodium Chloride (Flush - Normal Saline) 10 ml IVF Q12HR [facility] Last Admin: 07/05/17 09:25 Dose: 10 ml Sodium Chloride (Flush - Normal Saline) 10 ml IVF PRN PRN PRN Reason: Saline Flush Last Admin: 07/01/17 14:47 Dose: 10 ml Sodium Chloride ([place] Nasal [place] 0.65%) 0 ml EA NARE QIDPRN PRN PRN Reason: Nasal Congestion Thiamine HCl (Thiamine) 100 mg PO DAILY [facility]
[2017-07-05] MEDS: guaiFENesin ER 600 MG TAB PO SCH (20:48)
[2017-07-05] MEDS: Doxycycline 100 MG CAP PO SCH (20:48)
[2017-07-05] MEDS: Atorvastatin Calcium 20 MG TAB PO SCH (20:48)
[2017-07-06 05:39] LABS: Hemoglobin 7.5 g/dL (12.0-16.0); Platelet Count 40 thou/uL (130-400)
[2017-07-06 05:51] LABS: Albumin 2.3 g/dL (3.4-4.8); Anion Gap 10 mmol/L (10-20); BUN (Urea Nitrogen) 37 mg/dL (9.8-20.1); Calc. Creatinine Clearance 25 mL/min (70-130); Calcium 7.9 mg/dL (7.8-10.44); Carbon Dioxide 37 mmol/L (23-31); Chloride 97 mmol/L (98-107); Estimated GFR-MDRD 27; Glucose 97 mg/dL (83-110); Magnesium 1.6 mg/dL (1.6-2.6); Phosphorus 4.5 mg/dL (2.3-4.7); Potassium 3.8 mmol/L (3.5-5.1); Sodium 140 mmol/L (136-145)
[2017-07-06 06:24] LABS: Folate (Folic Acid) 2.8 ng/mL (7.0-31.4)
[2017-07-06] MEDS ORDERED: predniSONE 5 MG TAB PO SCH (08:00)
[2017-07-06] MEDS: Megestrol Acetate 800 MG/20 ML UDCUP PO SCH (08:19)
[2017-07-06] MEDS: Amiodarone 200 MG TAB PO SCH (08:19)
[2017-07-06] MEDS: Cefdinir 300 MG CAP PO SCH (08:20)
[2017-07-06] MEDS: Doxycycline 100 MG CAP PO SCH ×2 (08:20→20:31)
[2017-07-06] MEDS: Furosemide 20 MG TAB PO SCH (08:20)
[2017-07-06] MEDS: Docusate 100 MG CAP PO SCH ×2 (08:20→20:32)
[2017-07-06] MEDS: Cyanocobalamin (Vitamin B-12) 1,000 MCG TAB PO SCH (08:20)
[2017-07-06] MEDS: predniSONE 20 MG TAB PO SCH (08:21)
[2017-07-06] MEDS: Calcium Carbonate + Vit D 1 TAB PO SCH ×2 (08:21→16:47)
[2017-07-06] MEDS: guaiFENesin ER 600 MG TAB PO SCH ×2 (08:21→20:31)
[2017-07-06] MEDS: Multivit, Therapeutic 1 TAB PO SCH (08:22)
[2017-07-06] MEDS ORDERED: Aspirin 81 mg Enteric Coated Tablet PO SCH (09:00)
[2017-07-06] MEDS ORDERED: Folic Acid 1 MG TAB PO SCH ×2 (09:00)
[2017-07-06] MEDS ORDERED: Multivit, Therapeutic 1 TAB PO SCH (09:00)
[2017-07-06] MEDS ORDERED: Magnesium 2 GM/NS 0.9% 100 ML 2 GM in Premix Bag 1 BAG IVPB SCH (13:30)
--- NOTE | 2017-07-06 15:14 | PRG ---
DATE OF SERVICE: 07/06/2017 SUBJECTIVE: This morning, she is somewhat better. OBJECTIVE: VITAL SIGNS: Sats are 98% on 3 liters, respirations 16, temperature 97, blood pressure 119/56. Is a nd Os 1480 in and 2840out. CHEST: Reveals bilateral crackles. CARDIAC: Normal S1, S2. ABDOMEN: Soft, no masses. LABORATORY DATA: White count 10,000, H&H is 7 and 24, platelet count low 40, creatinine 1.8, BUN 37. IMPRESSION: Congestive heart failure, deconditioning, encephalopathy, dementia, possibly superimpose d pneumonia. PLAN: Continue antibiotics, nebulizer treatments, supportive care, steroids. We will follow.
[2017-07-06] MEDS: Atorvastatin Calcium 20 MG TAB PO SCH (20:31)
--- NOTE | 2017-07-06 22:13 | PDOC.PN ---
- Subjective Encounter Start Date: 07/06/17 Encounter Start Time: 12:00 Patient seen and examined. Feels gen weak. No overnight events - Objective Resuscitation Status: Resuscitation Status FULL:Full Resuscitation MAR Reviewed: Yes Vital Signs & Weight: Vital Signs (12 hours) Temp Pulse Resp BP BP Pulse Ox 07/06/17 19:47 97.7 F 75 20 119/58 L 95 07/06/17 19:39 72 14 93 L 07/06/17 19:05 97.7 F 75 20 95 07/06/17 16:00 97.8 F 72 18 97/50 L 93 L 07/06/17 12:00 97.1 F L 77 19 116/53 L 94 L Weight Weight 132 lb 12.8 oz I&O: 07/05/17 07/06/17 07/07/17 06:59 06:59 06:59 Intake Total 1580 860 Output Total 2850 200 200 Balance -1270 -200 660 Result Diagrams: 07/08/17 05:16 07/08/17 05:16 EKG Reviewed by me: Yes (Tele SR) Phys Exam - Physical Examination Constitutional: NAD Respiratory: no wheezing Scat rales/rhonchi - fabienne at bases Cardiovascular: RRR, no rub Gastrointestinal: soft, non-tender, positive bowel sounds Musculoskeletal: no edema Neurological: moves all 4 limbs Dx/Plan - Plan DVT proph w/SCDs (no Lovenox due to low plts) IMPRESSION: 1. Acute hypoxic Resp failure - s/p NIPPV 2. Pleural effusion s/p thoracentesis 3. Anemia s/p 1 unit PRBC/Thrombocytopenia 4. Afib - Anticoag dced last admission 5. Acute on Chronic diastolic heart failure 6. Elevated troponins due to demand ischemia/CKD3/Hypokalemia/ Moderate Protein Calorie Malnutrition/ Depression/ Mild CAD/ Physical deconditioning/Lactic acidosis 7. Recent hospitalization for resp failure/pneumonia/afib - Please see dc summary 2/1 PLAN: * Cont Atbx/Steroids * Pulm following * Accepted by Rehab - not stable for dc * AM lab * Cont therapy * Monitor platelets * Transfer to medical per Cardiology recom. Review of Systems - Review of Systems Respiratory: negative: Cough, Dry, Shortness of Breath, Hemoptysis, SOB with Excertion, Pleuritic Pain, Sputum, Wheezing Cardiovascular: negative: chest pain, palpitations, orthopnea, paroxysmal nocturnal dyspnea, edema, light headedness, other - Medications/Allergies Allergies/Adverse Reactions: Allergies Allergy/AdvReac Type Severity Reaction Status Date / Time No Known Allergies Allergy Verified 07/01/17 03:54 Medications: Current Medications Acetaminophen (Tylenol) 650 mg PO Q4H PRN PRN Reason: Headache/Fever or Pain Al Hydroxide/Mg Hydroxide (Maalox) 15 ml PO Q4H PRN PRN Reason: Heartburn or Indigestion Albuterol/Ipratropium (Duoneb) 3 ml NEB [id number] [facility] Last Admin: 07/06/17 19:39 Dose: 3 ml Albuterol/Ipratropium (Duoneb) 3 ml NEB Q2H PRN PRN Reason: SOB &/or Wheezing Amiodarone HCl (Cordarone) 200 mg PO QAM [facility] Last Admin: 07/06/17 08:19 Dose: 200 mg Artificial Tears (Tears Naturale) 0 drop EA EYE PRN PRN PRN Reason: Dry Eyes Aspirin (Ecotrin) 81 mg PO DAILY [facility] Last Admin: 07/06/17 08:21 Dose: 81 mg Atorvastatin Calcium (Lipitor) 20 mg PO QPM [facility] Last Admin: 07/06/17 20:31 Dose: 20 mg Calcium/Vitamin D (Caltrate 600 + Vit D) 1 tab PO BID-[facility] Last Admin: 07/06/17 16:47 Dose: 1 tab Cefdinir (Omnicef) 300 mg PO DAILY [facility] Last Admin: 07/06/17 08:20 Dose: 300 mg Cyanocobalamin (Vitamin B-12) 1,000 mcg PO DAILY [facility] Last Admin: 07/06/17 08:20 Dose: 1,000 mcg Diltiazem HCl (Cardizem Cd) 240 mg PO DAILY [facility] Last Admin: 07/06/17 08:21 Dose: 240 mg Docusate Sodium (Colace) 100 mg PO BID [facility] Last Admin: 07/06/17 20:32 Dose: Not Given Doxycycline Hyclate (Vibramycin) 100 mg PO BID [facility] Last Admin: 07/06/17 20:31 Dose: 100 mg Folic Acid (Folvite) 1 mg PO DAILY [facility] Last Admin: 07/06/17 08:20 Dose: 1 mg Folic Acid (Folvite) 1 mg PO DAILY [facility] Last Admin: 07/06/17 08:20 Dose: Not Given Furosemide (Lasix) 20 mg PO DAILY [facility] Guaifenesin (Robitussin Sf) 200 mg PO Q4H PRN PRN Reason: Cough Guaifenesin (Mucinex) 600 mg PO Q12HR [facility] Last Admin: 07/06/17 20:31 Dose: 600 mg Guaifenesin/Dextromethorphan (Robitussin Dm) 15 ml PO Q4H PRN PRN Reason: Cough Hydralazine HCl (Apresoline) 10 mg SLOW IVP Q4H PRN PRN Reason: Systolic BP > 180 Magnesium Hydroxide (Milk Of Magnesium) 30 ml PO DAILYPRN PRN PRN Reason: Constipation Megestrol Acetate (Megace) 800 mg PO DAILY [facility] Last Admin: 07/06/17 08:19 Dose: 800 mg Mineral Oil/White Petrolatum (Eucerin Cream) 0 gm TOP BIDPRN PRN PRN Reason: Dry Skin Multivitamins (Theragran) 1 tab PO DAILY [facility] Last Admin: 07/06/17 08:20 Dose: 1 tab Multivitamins (Theragran) 1 tab PO DAILY [facility] Last Admin: 07/06/17 08:22 Dose: Not Given Ondansetron HCl (Zofran Odt) 4 mg PO Q6H PRN PRN Reason: Nausea/Vomiting Ondansetron HCl (Zofran) 4 mg IVP Q6H PRN PRN Reason: Nausea/Vomiting Pantoprazole Sodium (Protonix) 40 mg PO DAILY [facility] Last Admin: 07/06/17 08:21 Dose: 40 mg Phenol (Chloraseptic Wing 180 Ml Bot) 0 ml PO PRN PRN PRN Reason: Sore Throat Prednisone (Prednisone) 20 mg PO QA-[facility] Last Admin: 07/06/17 08:21 Dose: 20 mg Saccharomyces Boulardii (Florastor) 250 mg PO DAILY [facility] Sertraline HCl (Zoloft) 25 mg PO HS [facility] Last Admin: 07/06/17 20:31 Dose: 25 mg Sodium Chloride (Flush - Normal Saline) 10 ml IVF Q12HR [facility] Last Admin: 07/06/17 20:32 Dose: 10 ml Sodium Chloride (Flush - Normal Saline) 10 ml IVF PRN PRN PRN Reason: Saline Flush Last Admin: 07/01/17 14:47 Dose: 10 ml Sodium Chloride ([place] Nasal Wing 0.65%) 0 ml EA NARE QIDPRN PRN PRN Reason: Nasal Congestion Thiamine HCl (Thiamine) 100 mg PO DAILY [facility] Last Admin: 07/06/17 08:22 Dose: 100 mg
[2017-07-07 05:26] LABS: Hemoglobin 7.5 g/dL (12.0-16.0); Platelet Count 23 thou/uL (130-400)
[2017-07-07 05:40] LABS: Anion Gap 12 mmol/L (10-20); BUN (Urea Nitrogen) 37 mg/dL (9.8-20.1); Calc. Creatinine Clearance 29 mL/min (70-130); Calcium 8.2 mg/dL (7.8-10.44); Carbon Dioxide 33 mmol/L (23-31); Chloride 100 mmol/L (98-107); Estimated GFR-MDRD 31; Glucose 97 mg/dL (83-110); Iron 39 ug/dL (50-170); Iron Binding Capacity, Total 199 mcg/dL (265-497); Potassium 3.7 mmol/L (3.5-5.1); Sodium 141 mmol/L (136-145)
[2017-07-07 06:39] LABS: Reticulocyte Count 3.5 % (0.5-1.5)
[2017-07-07 07:24] LABS: Band 2 % (5-11); Bite Cells SLIGHT = 2-5 cells (100X) (0-1/hpf); Eosinophils 2 % (0-10); Hemoglobin 7.5 g/dL (12.0-16.0); Lymphocytes 6 % (21-51); MDiff Complete? YES; Mean Corpuscular HGB CONC 32.6 g/dL (32.0-36.0); Mean Corpuscular Hemoglobin 32.1 pg (27.0-31.0); Mean Corpuscular Volume 98.7 fl (81.0-99.0); Mean Platelet Volume 12.9 fL (7.4-10.4); Monocytes 2 % (0-10); Neutrophil 87 % (42-75); PLT Morphology Comment Appears Decreased; Platelet Count 41 thou/uL (130-400); Polychromasia SLIGHT = 2-3 cells (100X) (0-2/hpf); Red Blood Cell (RBC) Count 2.34 mill/uL (4.20-5.40)
--- NOTE | 2017-07-07 07:42 | RAD ---
CHEST 1 VIEW: Date: 07/07/17 HISTORY: Pneumonia. Follow-up. COMPARISON: 07/05/17. FINDINGS: Cardiac silhouette is magnified. Pulmonary vasculature is upper limits of normal. Widespread patchy a ir space disease involving each lobe is similar in appearance to the previous exam. Mediastinum is mi dline with aortic calcification. No evidence of pneumothorax. bus driver/monitor leads overlie the chest . IMPRESSION: Dense bilateral infiltrates and other findings are stable. POS: [facility]
[2017-07-07] MEDS: predniSONE 20 MG TAB PO SCH (09:54)
[2017-07-07] MEDS: Furosemide 20 MG TAB PO SCH (09:54)
[2017-07-07] MEDS: Folic Acid 1 MG TAB PO SCH ×2 (09:54→21:23)
[2017-07-07] MEDS: Amiodarone 200 MG TAB PO SCH (09:54)
[2017-07-07] MEDS: Saccharomyces boulardii 250 MG CAP PO SCH (09:54)
[2017-07-07] MEDS: Doxycycline 100 MG CAP PO SCH ×2 (09:54→21:23)
[2017-07-07] MEDS: guaiFENesin ER 600 MG TAB PO SCH ×2 (09:54→21:23)
[2017-07-07] MEDS: Calcium Carbonate + Vit D 1 TAB PO SCH ×2 (09:54→16:58)
[2017-07-07] MEDS: Docusate 100 MG CAP PO SCH ×2 (09:55→21:23)
[2017-07-07] MEDS: Cefdinir 300 MG CAP PO SCH (09:55)
[2017-07-07] MEDS: Cyanocobalamin (Vitamin B-12) 1,000 MCG TAB PO SCH (09:55)
[2017-07-07] MEDS: Megestrol Acetate 800 MG/20 ML UDCUP PO SCH (09:55)
[2017-07-07] MEDS: Multivit, Therapeutic 1 TAB PO SCH (09:59)
--- NOTE | 2017-07-07 10:01 | PRG ---
DATE OF SERVICE: 07/07/2017 Remedios Hernández is lying in bed. She has refused to eat breakfast. PHYSICAL EXAMINATION: VITAL SIGNS: Sats 92 on 2 liters, respirations 18, temperature 97, blood pressure is 120/56. CHEST: Chest reveals decreased breath sounds without any wheezing. CARDIAC: Normal S1, S2. Platelet count has decreased to 23,000, H&H is 7 and 25. White count 9000, creatinine 1.64. IMPRESSION: 1. Severe thrombocytopenia, etiology unclear. 2. Congestive heart failure. 3. Supraventricular tachycardia. 4. Extensive right-sided interstitial lung disease. PLAN: Continue present antibiotics, steroids, nebulizer treatments. Input from Hematology regarding thrombocytopenia. I will follow.
--- NOTE | 2017-07-07 11:18 | CON ---
DATE OF CONSULTATION: 07/07/2017 REASON FOR CONSULTATION: Thrombocytopenia. HISTORY OF PRESENT ILLNESS: Ms. Hernández is a 76-year-old female who was admitted from the [facility] for shortness of breath. She was diagnosed with community-acquired pneumonia. She had a prolonged hospitalization in this facility prior to going to rehabilitation. At that time, she was b eing worked up for multiple cardiac issues including atrial fibrillation with RVR, congestive heart f ailure and respiratory failure. She has been on amiodarone for several weeks as well as Lasix and ce phalosporins for pneumonia. During her last hospitalization, her platelet count was 199,000. On s admission, her platelets were 65,000 and have dropped to 23,000. The patient has had no bleeding t his hospitalization. She did have hematuria and questionable melena. In May, she had an EGD [facility] showed antral gastritis. Colonoscopy was not performed secondary to her poor medical condition. Patient is currently sitting in a chair. She is able to answer questions, but she is oriented to per son only. She states she feels poorly overall, but cannot specifically state a complaint. She does deny any blood in her stool or urine. She has not been on anticoagulation for atrial fibrillation si may due to melanoma and hematuria. PAST MEDICAL HISTORY: 1. Congestive heart failure. 2. Prolonged hospitalization with respiratory failure. 3. Chronic atrial fibrillation. 4. Possible dementia. 5. Coronary artery disease. 6. Antral gastritis. PAST SURGICAL HISTORY: 1. Cardiac ablation. 2. Left breast lumpectomy. FAMILY HISTORY: Heart disease. SOCIAL HISTORY: Lives with her son and currently has been hospitalized for almost a month. She is a daily drinker prior to her May admission. ALLERGIES: No known drug allergies. CURRENT MEDICATIONS: 1. Amiodarone 200 mg daily. 2. Ecotrin 81 mg daily. 3. Lipitor 20 mg daily. 4. Caltrate daily. 5. Omnicef 300 mg daily. 6. B12 daily. 7. Cardizem 240 mg daily. 8. Vibramycin 100 mg b.i.d. 9. Folic acid daily. 10. Lasix 20 mg daily. 11. Mucinex daily. 12. Megace 800 mg daily. 13. Theragran multivitamin daily. 14. Protonix 40 mg daily. 15. Prednisone 20 mg daily. 16. Zoloft 25 mg daily. 17. Thiamine daily. REVIEW OF SYSTEMS: A 10 point review of systems is negative except for noted in HPI. PHYSICAL EXAMINATION: VITAL SIGNS: Temperature is 97.2, pulse is 85, respiratory rate 18, BP is 120/56. She is 93% on 2 l iters. GENERAL: Well-developed and well-nourished female in no acute distress. HEENT: Normocephalic, atraumatic. Pupils are equal and reactive to light. NECK: Supple. CARDIOVASCULAR: Regular rate and rhythm. LUNGS: Have crackles on the right upper lobe anterior. ABDOMEN: Soft, nontender, bowel sounds are positive. EXTREMITIES: No clubbing, cyanosis or edema. SKIN: No rash. HEMATOLOGIC: There is no petechia or purpura. NEUROLOGIC: Nonfocal. PSYCHIATRIC: The patient is alert and oriented x1. PERTINENT LABORATORY DATA AND X-RAYS: Current WBCs are 9.0, hemoglobin 7.5, hematocrit 23.1, platele t count is 41,000, 87% neutrophils, 2% bands, 6% lymphocytes, retic count is 3.5. Sodium is 141, pot assium 3.7, chloride 100, CO2 is 33, BUN is 37, creatinine 1.64, and calcium is 8.2. Iron is 39, TIB C is 199. Ferritin is 347, total bilirubin is 0.8, AST is 32, ALT is 36, alkaline phosphatase is 85. Serum total protein is 4.2, albumin 2.3, globulin 2.1. B12 was 663, folate is 2.8. Urine showed 1 + bacteria with large blood and leukocyte esterase. Chest x-ray shows bilateral infiltrates. ASSESSMENT AND PLAN: 1. Thrombocytopenia, likely drug induced. 2. Leukocytosis on steroids, improved. 3. Chronic anemia, multifactorial, likely secondary to chronic disease, history of bleeding and prol onged hospitalization. 4. Atrial fibrillation on amiodarone. 5. Community-acquired pneumonia on cephalosporins. 6. Congestive heart failure, on Lasix. DISCUSSION: The patient's low platelet count is likely secondary to combination of amiodarone, Lasix , and cephalosporin. I would limit the Lasix and change amiodarone and cephalosporin if possible. W e will continue to monitor her CBC and transfuse for hemoglobin less than 7. There is no evidence of iron deficiency nor primary bone marrow disorder. The patient is responding appropriately to her pl atelet count and her peripheral smear is pending, but likely will be unremarkable. We will provide s upportive care and check a daily CBC. Case was discussed with Dr. Forbes. Thank you for the consult.
[2017-07-07] MEDS: Atorvastatin Calcium 20 MG TAB PO SCH (21:23)
--- NOTE | 2017-07-07 21:47 | PDOC.PN ---
- Subjective Encounter Start Date: 07/07/17 Encounter Start Time: 09:00 Patient seen and examined. No new complaints. No overnight events - Objective Resuscitation Status: Resuscitation Status FULL:Full Resuscitation MAR Reviewed: Yes Vital Signs & Weight: Vital Signs (12 hours) Temp Pulse Pulse Pulse Resp BP BP 07/07/17 19:25 98.8 F 81 20 07/07/17 18:58 73 14 07/07/17 16:00 97.1 F L 74 18 07/07/17 14:08 72 16 07/07/17 12:00 97.4 F L 79 18 07/07/17 11:23 79 89 103/51 L 99/49 L 07/07/17 09:54 85 BP BP Pulse Ox Pulse Ox Pulse Ox 07/07/17 19:25 117/68 92 L 07/07/17 18:58 92 L 07/07/17 16:00 114/56 L 95 07/07/17 14:08 93 L 07/07/17 12:00 99/49 L 93 L 07/07/17 11:23 95 93 L 07/07/17 09:54 Weight Admit Weight 144 lb Weight 133 lb 8 oz I&O: 07/06/17 07/07/17 07/08/17 06:59 06:59 06:59 Intake Total 1110 400 Output Total 200 200 575 Balance -200 910 -175 Result Diagrams: 07/07/17 04:38 07/07/17 04:38 EKG Reviewed by me: Yes (Tele SR) Phys Exam - Physical Examination Constitutional: NAD Respiratory: no wheezing Coase BS B/L with scat rales Cardiovascular: RRR, no rub Gastrointestinal: soft, non-tender, positive bowel sounds Musculoskeletal: edema present Neurological: moves all 4 limbs Dx/Plan - Plan DVT proph w/SCDs IMPRESSION: 1. Acute hypoxic Resp failure - s/p NIPPV - on Atbx 2. Pleural effusion s/p thoracentesis - transudate 3. Anemia s/p 1 unit PRBC/Thrombocytopenia - prob drug induced 4. Afib - Anticoag dced last admission, on Amiodarone/Cardizem - Cardio following 5. Acute on Chronic diastolic heart failure 6. Elevated troponins due to demand ischemia/CKD3/Hypokalemia/ Moderate Protein Calorie Malnutrition/ Depression/ Mild CAD/ Physical deconditioning/Lactic acidosis 7. Recent hospitalization for resp failure/pneumonia/afib - Please see dc summary 06/26 PLAN: * Hold Lasix due to poor appetite * Consult Hematology due to low platelets (23 * Replace Folic acid * Cont Atbx/Steroids * Pulm following * Accepted by Rehab - not stable for dc * AM lab * Cont therapy Laboratory Tests 07/06/17 05:08 Folate 2.80 L Review of Systems - Review of Systems Respiratory: SOB with Excertion. negative: Cough, Dry, Shortness of Breath, Hemoptysis, Pleuritic Pain, Sputum, Wheezing Gastrointestinal: negative: Nausea, Vomiting, Abdominal Pain, Diarrhea, Constipation, Melena, Hematochezia - Medications/Allergies Allergies/Adverse Reactions: Allergies Allergy/AdvReac Type Severity Reaction Status Date / Time No Known Allergies Allergy Verified 07/01/17 03:54 Medications: Current Medications Acetaminophen (Tylenol) 650 mg PO Q4H PRN PRN Reason: Headache/Fever or Pain Al Hydroxide/Mg Hydroxide (Maalox) 15 ml PO Q4H PRN PRN Reason: Heartburn or Indigestion Albuterol/Ipratropium (Duoneb) 3 ml NEB [id number] [facility] Last Admin: 07/07/17 18:58 Dose: 3 ml Albuterol/Ipratropium (Duoneb) 3 ml NEB Q2H PRN PRN Reason: SOB &/or Wheezing Amiodarone HCl (Cordarone) 200 mg PO QAM [facility] Last Admin: 07/07/17 09:54 Dose: 200 mg Artificial Tears (Tears Naturale) 0 drop EA EYE PRN PRN PRN Reason: Dry Eyes Aspirin (Ecotrin) 81 mg PO DAILY [facility] Last Admin: 07/06/17 08:21 Dose: 81 mg Atorvastatin Calcium (Lipitor) 20 mg PO QPM [facility] Last Admin: 07/07/17 21:23 Dose: 20 mg Calcium/Vitamin D (Caltrate 600 + Vit D) 1 tab PO BID-[facility] Last Admin: 07/07/17 16:58 Dose: 1 tab Cefdinir (Omnicef) 300 mg PO DAILY [facility] Last Admin: 07/07/17 09:55 Dose: 300 mg Cyanocobalamin (Vitamin B-12) 1,000 mcg PO DAILY [facility] Last Admin: 07/07/17 09:55 Dose: 1,000 mcg Diltiazem HCl (Cardizem Cd) 240 mg PO DAILY [facility] Last Admin: 07/07/17 09:54 Dose: 240 mg Docusate Sodium (Colace) 100 mg PO BID [facility] Last Admin: 07/07/17 21:23 Dose: Not Given Doxycycline Hyclate (Vibramycin) 100 mg PO BID [facility] Last Admin: 07/07/17 21:23 Dose: 100 mg Famotidine (Pepcid) 20 mg PO BID [facility] Folic Acid (Folvite) 1 mg PO BID [facility] Last Admin: 07/07/17 21:23 Dose: 1 mg Furosemide (Lasix) 20 mg PO DAILY [facility] Last Admin: 07/07/17 09:54 Dose: 20 mg Guaifenesin (Robitussin Sf) 200 mg PO Q4H PRN PRN Reason: Cough Guaifenesin (Mucinex) 600 mg PO Q12HR [facility] Last Admin: 07/07/17 21:23 Dose: 600 mg Guaifenesin/Dextromethorphan (Robitussin Dm) 15 ml PO Q4H PRN PRN Reason: Cough Hydralazine HCl (Apresoline) 10 mg SLOW IVP Q4H PRN PRN Reason: Systolic BP > 180 Magnesium Hydroxide (Milk Of Magnesium) 30 ml PO DAILYPRN PRN PRN Reason: Constipation Megestrol Acetate (Megace) 800 mg PO DAILY [facility] Last Admin: 07/07/17 09:55 Dose: 800 mg Mineral Oil/White Petrolatum (Eucerin Cream) 0 gm TOP BIDPRN PRN PRN Reason: Dry Skin Multivitamins (Theragran) 1 tab PO DAILY [facility] Last Admin: 07/07/17 09:59 Dose: 1 tab Ondansetron HCl (Zofran Odt) 4 mg PO Q6H PRN PRN Reason: Nausea/Vomiting Ondansetron HCl (Zofran) 4 mg IVP Q6H PRN PRN Reason: Nausea/Vomiting Phenol (Chloraseptic [place] 180 Ml Bot) 0 ml PO PRN PRN PRN Reason: Sore Throat Prednisone (Prednisone) 20 mg PO QAM-[facility] Last Admin: 07/07/17 09:54 Dose: 20 mg Saccharomyces Boulardii (Florastor) 250 mg PO DAILY [facility] Last Admin: 07/07/17 09:54 Dose: 250 mg Sertraline HCl (Zoloft) 25 mg PO HS [facility] Last Admin: 07/07/17 21:23 Dose: 25 mg Sodium Chloride (Flush - Normal Saline) 10 ml IVF Q12HR [facility] Last Admin: 07/07/17 21:24 Dose: 10 ml Sodium Chloride (Flush - Normal Saline) 10 ml IVF PRN PRN PRN Reason: Saline Flush Last Admin: 07/01/17 14:47 Dose: 10 ml Sodium Chloride ([place] Nasal Fifty Six 0.65%) 0 ml EA NARE QIDPRN PRN PRN Reason: Nasal Congestion Thiamine HCl (Thiamine) 100 mg PO DAILY [facility] Last Admin: 07/07/17 09:54 Dose: 100 mg
[2017-07-08 05:38] LABS: INR-International Normal Ratio 1.1; PTT 26.4 SEC (22.9-36.1)
[2017-07-08 05:44] LABS: Anion Gap 8 mmol/L (10-20); BUN (Urea Nitrogen) 36 mg/dL (9.8-20.1); Calc. Creatinine Clearance 30 mL/min (70-130); Carbon Dioxide 35 mmol/L (23-31); Chloride 104 mmol/L (98-107); Estimated GFR-MDRD 30; Glucose 94 mg/dL (83-110); Potassium 4.1 mmol/L (3.5-5.1); Sodium 143 mmol/L (136-145)
[2017-07-08 06:25] LABS: Anisocytosis SLIGHT = 6-15 cells (100X) (0-5/hpf); Band 3 % (5-11); Hemoglobin 6.4 g/dL (12.0-16.0); Lymphocytes 7 % (21-51); MDiff Complete? YES; Macrocytosis SLIGHT = 6-15 cells (100X) (0-5/hpf); Mean Corpuscular HGB CONC 32.3 g/dL (32.0-36.0); Mean Corpuscular Hemoglobin 32.2 pg (27.0-31.0); Mean Corpuscular Volume 99.6 fl (81.0-99.0); Mean Platelet Volume 11.7 fL (7.4-10.4); Monocytes 5 % (0-10); Neutrophil 85 % (42-75); PLT Morphology Comment Appears Decreased; Platelet Count 37 thou/uL (130-400); RBC Distribution Width 14.9 % (11.5-14.5)
--- NOTE | 2017-07-08 08:00 | RAD ---
PORTABLE CHEST ONE VIEW: Date: 07-08-17 Time: 7:07 a.m. History: Pneumonia. FINDINGS/IMPRESSION: No significant interval change is seen since the previous day's exam. POS: [facility]
[2017-07-08] MEDS: Saccharomyces boulardii 250 MG CAP PO SCH (08:45)
[2017-07-08] MEDS: Cefdinir 300 MG CAP PO SCH (08:46)
[2017-07-08] MEDS: Calcium Carbonate + Vit D 1 TAB PO SCH ×2 (08:46→17:48)
[2017-07-08] MEDS: Docusate 100 MG CAP PO SCH ×2 (08:46→21:28)
[2017-07-08] MEDS: Famotidine 20 MG TAB PO SCH ×2 (08:46→21:27)
[2017-07-08] MEDS: guaiFENesin ER 600 MG TAB PO SCH ×2 (08:46→21:26)
[2017-07-08] MEDS: Folic Acid 1 MG TAB PO SCH ×2 (08:46→21:26)
[2017-07-08] MEDS: Multivit, Therapeutic 1 TAB PO SCH (08:46)
[2017-07-08] MEDS: Cyanocobalamin (Vitamin B-12) 1,000 MCG TAB PO SCH (08:46)
[2017-07-08] MEDS: Doxycycline 100 MG CAP PO SCH ×2 (08:46→21:26)
[2017-07-08] MEDS: Megestrol Acetate 800 MG/20 ML UDCUP PO SCH (08:51)
--- NOTE | 2017-07-08 10:52 | PRG ---
DATE OF SERVICE: 07/08/2017 SUBJECTIVE: This morning, she is awake, responsive, still somewhat demented, confused. OBJECTIVE: VITAL SIGNS: Sats are 94% on 3 liters, respirations 20, temperature 98, blood pressure 104/52. CHEST: Reveals extensive crackles. CARDIAC: Normal S1, S2. No gallops. ABDOMEN: Soft, no masses. LABORATORY DATA AND IMAGING: White count is 6000, H & H is 6 and 19, platelet count is 37. Electrol ytes are normal. Creatinine 1.6, bicarbonate 35. X-ray shows worsening bilateral extensive intersti tial lung disease. IMPRESSION: Interstitial lung disease, congestive heart failure versus drug induced severe thrombocy topenia. PLAN: I am concerned about the worsening diffuse infiltrates. I doubt this is pneumonia, worsening renal failure despite diuretics. Discuss with Cardiology whether they need to stop the amiodarone. Trial medications. Long-term prognosis is grave. I increased her prednisone to 40 a day.
[2017-07-08] MEDS: predniSONE 20 MG TAB PO SCH ×3 (14:17→21:27)
--- NOTE | 2017-07-08 20:05 | PDOC.PN ---
- Subjective Encounter Start Date: 07/08/17 Encounter Start Time: 14:00 Patient seen and examined. Feels gen weak. No overnight events - Objective Resuscitation Status: Resuscitation Status FULL:Full Resuscitation MAR Reviewed: Yes Vital Signs & Weight: Vital Signs (12 hours) Temp Pulse Pulse Resp BP BP Pulse Ox 07/08/17 18:51 86 22 H 94 L 07/08/17 16:00 97.9 F 86 20 120/68 94 L 07/08/17 14:55 97.4 F L 88 20 111/56 L 07/08/17 14:00 77 20 90 L 07/08/17 11:44 97.6 F 85 12 104/55 L 90 L 07/08/17 08:46 76 07/08/17 08:19 98.2 F 76 20 104/53 L 94 L Weight Admit Weight 144 lb Weight 139 lb 8 oz I&O: 07/07/17 07/08/17 07/09/17 06:59 06:59 06:59 Intake Total 1110 810 640 Output Total 200 577 Balance 910 233 640 Result Diagrams: 07/08/17 05:16 07/08/17 05:16 Radiology Reviewed by me: Yes (CXR - same) Phys Exam - Physical Examination Constitutional: NAD Respiratory: no wheezing Coarse BS B/L Cardiovascular: RRR, no rub Gastrointestinal: soft, non-tender, positive bowel sounds Musculoskeletal: no edema Neurological: moves all 4 limbs Dx/Plan - Plan plan discussed w/ family (son), DVT proph w/SCDs IMPRESSION: 1. Acute hypoxic Resp failure - s/p NIPPV - on Atbx 2. Pleural effusion s/p thoracentesis - transudate 3. Anemia s/p 1 unit PRBC/Thrombocytopenia - prob drug induced 4. Afib - Anticoag dced last admission, on Amiodarone/Cardizem - Cardio following 5. Acute on Chronic diastolic heart failure 6. Elevated troponins due to demand ischemia/CKD3/Hypokalemia/ Moderate Protein Calorie Malnutrition/ Depression/ Mild CAD/ Physical deconditioning/Lactic acidosis 7. Recent hospitalization for resp failure/pneumonia/afib - Please see dc summary 2/ PLAN: * Consult GI due to Anemia * Transfuse another unit PRBC * Hematology/Pulm following * Amiodarone dced by Pulm * Cont Atbx/Steroids * Accepted by Rehab - not stable for dc * AM lab * Cont therapy * Steroid dose increased * Poor appetite - initiate nutrition supp protocol * Palliative care following Review of Systems - Review of Systems Cardiovascular: negative: chest pain, palpitations, orthopnea, paroxysmal nocturnal dyspnea, edema, light headedness Gastrointestinal: negative: Nausea, Vomiting, Abdominal Pain, Diarrhea, Constipation, Melena, Hematochezia - Medications/Allergies Allergies/Adverse Reactions: Allergies Allergy/AdvReac Type Severity Reaction Status Date / Time No Known Allergies Allergy Verified 07/01/17 03:54 Medications: Current Medications Acetaminophen (Tylenol) 650 mg PO Q4H PRN PRN Reason: Headache/Fever or Pain Al Hydroxide/Mg Hydroxide (Maalox) 15 ml PO Q4H PRN PRN Reason: Heartburn or Indigestion Albuterol/Ipratropium (Duoneb) 3 ml NEB [id number] [facility] Last Admin: 07/08/17 18:51 Dose: 3 ml Albuterol/Ipratropium (Duoneb) 3 ml NEB Q2H PRN PRN Reason: SOB &/or Wheezing Artificial Tears (Tears Naturale) 0 drop EA EYE PRN PRN PRN Reason: Dry Eyes Aspirin (Ecotrin) 81 mg PO DAILY [facility] Last Admin: 07/06/17 08:21 Dose: 81 mg Atorvastatin Calcium (Lipitor) 20 mg PO QPM [facility] Last Admin: 07/07/17 21:23 Dose: 20 mg Calcium/Vitamin D (Caltrate 600 + Vit D) 1 tab PO BID-[facility] Last Admin: 07/08/17 17:48 Dose: 1 tab Cefdinir (Omnicef) 300 mg PO DAILY [facility] Last Admin: 07/08/17 08:46 Dose: 300 mg Cyanocobalamin (Vitamin B-12) 1,000 mcg PO DAILY [facility] Last Admin: 07/08/17 08:46 Dose: 1,000 mcg Diltiazem HCl (Cardizem Cd) 120 mg PO BID [facility] Docusate Sodium (Colace) 100 mg PO BID [facility] Last Admin: 07/08/17 08:46 Dose: 100 mg Doxycycline Hyclate (Vibramycin) 100 mg PO BID [facility] Last Admin: 07/08/17 08:46 Dose: 100 mg Famotidine (Pepcid) 20 mg PO BID [facility] Last Admin: 07/08/17 08:46 Dose: 20 mg Folic Acid (Folvite) 1 mg PO BID [facility] Last Admin: 07/08/17 08:46 Dose: 1 mg Furosemide (Lasix) 20 mg PO DAILY [facility] Last Admin: 07/07/17 09:54 Dose: 20 mg Guaifenesin (Robitussin Sf) 200 mg PO Q4H PRN PRN Reason: Cough Guaifenesin (Mucinex) 600 mg PO Q12HR [facility] Last Admin: 07/08/17 08:46 Dose: 600 mg Guaifenesin/Dextromethorphan (Robitussin Dm) 15 ml PO Q4H PRN PRN Reason: Cough Hydralazine HCl (Apresoline) 10 mg SLOW IVP Q4H PRN PRN Reason: Systolic BP > 180 Magnesium Hydroxide (Milk Of Magnesium) 30 ml PO DAILYPRN PRN PRN Reason: Constipation Megestrol Acetate (Megace) 800 mg PO DAILY [facility] Last Admin: 07/08/17 08:51 Dose: 800 mg Mineral Oil/White Petrolatum (Eucerin Cream) 0 gm TOP BIDPRN PRN PRN Reason: Dry Skin Multivitamins (Theragran) 1 tab PO DAILY [facility] Last Admin: 07/08/17 08:46 Dose: 1 tab Ondansetron HCl (Zofran Odt) 4 mg PO Q6H PRN PRN Reason: Nausea/Vomiting Ondansetron HCl (Zofran) 4 mg IVP Q6H PRN PRN Reason: Nausea/Vomiting Phenol (Chloraseptic [place] 180 Ml Bot) 0 ml PO PRN PRN PRN Reason: Sore Throat Prednisone (Prednisone) 20 mg PO BID [facility] Last Admin: 07/08/17 14:17 Dose: 20 mg Saccharomyces Boulardii (Florastor) 250 mg PO DAILY [facility] Last Admin: 07/08/17 08:45 Dose: 250 mg Sodium Chloride (Flush - Normal Saline) 10 ml IVF Q12HR [facility] Last Admin: 07/08/17 14:16 Dose: 10 ml Sodium Chloride (Flush - Normal Saline) 10 ml IVF PRN PRN PRN Reason: Saline Flush Last Admin: 07/01/17 14:47 Dose: 10 ml Sodium Chloride ([place] Nasal [place] 0.65%) 0 ml EA NARE QIDPRN PRN PRN Reason: Nasal Congestion Thiamine HCl (Thiamine) 100 mg PO DAILY [facility] Last Admin: 07/08/17 08:46 Dose: 100 mg
[2017-07-08] MEDS: Atorvastatin Calcium 20 MG TAB PO SCH (21:27)
[2017-07-09 05:01] LABS: #Lymphocytes 0.3 thou/uL (1.20-3.40); #Monocytes 0.1 thou/uL (0.11-0.59); #Neutrophils 4.9 thou/uL (1.40-6.50); %Basophils 0.2 % (0.0-1.0); %Eosinophils 0.4 % (0.0-10.0); %Monocytes 2.6 % (0.0-10.0); %Neutrophils 91.8 % (42.0-75.0); Hemoglobin 8.3 g/dL (12.0-16.0); Mean Corpuscular Volume 96.8 fl (81.0-99.0); Mean Platelet Volume 11.3 fL (7.4-10.4); Platelet Count 54 thou/uL (130-400); RBC Distribution Width 15.3 % (11.5-14.5); Red Blood Cell (RBC) Count 2.61 mill/uL (4.20-5.40); White Blood Cell (WBC) Count 5.4 thou/uL (4.8-10.8)
[2017-07-09 05:22] LABS: Anion Gap 14 mmol/L (10-20); BUN (Urea Nitrogen) 34 mg/dL (9.8-20.1); CRP (Inflammatory) 7.71 mg/dL (= or < 0.5); Calc. Creatinine Clearance 33 mL/min (70-130); Calcium 8.1 mg/dL (7.8-10.44); Carbon Dioxide 27 mmol/L (23-31); Chloride 104 mmol/L (98-107); Estimated GFR-MDRD 34; Glucose 119 mg/dL (83-110); Potassium 4.2 mmol/L (3.5-5.1); Sodium 141 mmol/L (136-145)
[2017-07-09] MEDS: Megestrol Acetate 800 MG/20 ML UDCUP PO SCH ×2 (08:07→08:08)
[2017-07-09] MEDS: Saccharomyces boulardii 250 MG CAP PO SCH ×2 (08:07→08:09)
[2017-07-09] MEDS: Famotidine 20 MG TAB PO SCH ×2 (08:09→21:25)
[2017-07-09] MEDS: Calcium Carbonate + Vit D 1 TAB PO SCH ×2 (08:10→16:56)
[2017-07-09] MEDS: Multivit, Therapeutic 1 TAB PO SCH (08:10)
[2017-07-09] MEDS: Folic Acid 1 MG TAB PO SCH ×2 (08:10→21:25)
[2017-07-09] MEDS: Furosemide 20 MG TAB PO SCH (08:10)
[2017-07-09] MEDS: Cyanocobalamin (Vitamin B-12) 1,000 MCG TAB PO SCH (08:10)
[2017-07-09] MEDS: guaiFENesin ER 600 MG TAB PO SCH ×2 (08:11→21:25)
[2017-07-09] MEDS: predniSONE 20 MG TAB PO SCH ×2 (08:11→21:25)
[2017-07-09] MEDS: Docusate 100 MG CAP PO SCH ×2 (08:12→21:25)
--- NOTE | 2017-07-09 08:28 | PRG ---
DATE OF SERVICE: 07/09/2017 She is awake, alert, responsive. PHYSICAL EXAMINATION: VITAL SIGNS: Sats are 90 on 2 liters, respirations 20, temperature 98, blood pressure 120/64. GENERAL: Awake, responsive, weak. CHEST: Chest reveals bilateral crackles. CARDIAC: Normal S1, S2. No gallops. Creatinine is 1.5. White count 5000, H&H 8 and 25, platelet count is 54, slowly improving. IMPRESSION: 1. Diffuse pulmonary infiltrates, question amiodarone toxicity. 2. Thrombocytopenia, possibly amiodarone. PLAN: Amiodarone is discontinued. She is to increase activity. Continue steroids, empiric antibiot ics. I will follow.
[2017-07-09] MEDS: Doxycycline 100 MG CAP PO SCH ×2 (08:52→21:25)
[2017-07-09] MEDS: Cefdinir 300 MG CAP PO SCH (12:08)
--- NOTE | 2017-07-09 13:17 | CT ---
CT CHEST NONCONTRAST: Date: 07/09/17 HISTORY: Dyspnea. Pleural effusions. COMPARISON: 06/30/17. FINDINGS: Moderate amount of right pleural fluid is similar in appearance to the prior study. Left pleural flui d has decreased slightly. In addition to bronchiectasis and interstitial fibrosis of each lung, alveolar opacity of the upper l obes has increased slightly. There is bibasilar atelectasis. No evidence of pneumothorax. Lack of contrast limits evaluation of the mediastinum. No bulky adenopathy is apparent. There is calc ification of the arterial structures. IMPRESSION: 1. Moderate right and small left pleural effusions. Left pleural effusion is less than on the previo us study. Right is stable. 2. Slight interval increase in alveolar edema. 3. Chronic interstitial fibrosis. 4. Atherosclerosis. POS: [facility]
--- NOTE | 2017-07-09 17:07 | PDOC.PN ---
- Subjective Encounter Start Date: 07/09/17 Encounter Start Time: 09:45 Subjective: pt up in bed no complains - Objective Resuscitation Status: Resuscitation Status FULL:Full Resuscitation Vital Signs & Weight: Vital Signs (12 hours) Temp Pulse Resp BP Pulse Ox 07/09/17 14:21 87 20 97 07/09/17 08:11 87 07/09/17 08:00 97.8 F 87 18 95 07/09/17 07:52 90 L 07/09/17 07:50 85 20 90 L 07/09/17 07:35 98.6 F 86 20 110/60 96 Weight Admit Weight 144 lb Weight 135 lb 3.2 oz I&O: 07/08/17 07/09/17 07/10/17 06:59 06:59 06:59 Intake Total 810 640 240 Output Total 577 Balance 233 640 240 Result Diagrams: 07/09/17 04:17 07/09/17 04:17 Phys Exam - Physical Examination HEENT: PERRLA Neck: no nodes Respiratory: no rhonchi Cardiovascular: RRR, no significant murmur Gastrointestinal: soft, non-tender Musculoskeletal: no edema Neurological: non-focal Psychiatric: normal affect Dx/Plan (1) Acute respiratory failure with hypoxia Code(s): J96.01 - ACUTE RESPIRATORY FAILURE WITH HYPOXIA Status: Acute Plan: did order a ct chest for a better view of pt's lungs. chronic fibrosis noted on ct with pleural effusion. pt's amiodarone has been discontinued. pulmonary to follow. Comment: monitor oxygen level and wean off O2 as needed (2) Thrombocytopenia Code(s): D69.6 - THROMBOCYTOPENIA, UNSPECIFIED Status: Acute Plan: stable continue to monitor. abx changed (3) Moderate protein-calorie malnutrition Code(s): E44.0 - MODERATE PROTEIN-CALORIE MALNUTRITION Status: Chronic Plan: will get nutrition involved and add supplements - Plan * .
[2017-07-09] MEDS: Atorvastatin Calcium 20 MG TAB PO SCH (21:25)
--- NOTE | 2017-07-10 06:20 | CON ---
DATE OF CONSULTATION: 07/09/2017 REFERRING PHYSICIAN: Dr. Eric Payne, [facility]. HISTORY OF PRESENT ILLNESS: Ms. Remedios Hernández is a very pleasant 76-year-old female hospitaliz ed with weight loss, anorexia and also melena. The patient had EGD done a month ago, which was negat mic for any gastritis. The patient was due for colonoscopy, but in the meantime, she developed pneum onia, respiratory failure, cardiac arrhythmia. She for several days. The colonoscopy was post poned indefinitely because of her multiple problems. The patient had been seen by Pulmonary, Stiven sherman because of respiratory failure, thrombocytopenia. The patient was found to have drop in blood co unt recently. She was ranging from 7.5 to 8.4. Her stool guaiac is negative. No history of hematoc hezia or melena. The patient still remains short of breath and she is very fragile. She is being se en by Hematology because of thrombocytopenia, which was felt to be drug induced. Her platelet count is ranging around 25,000. However, she has no petechiae or ecchymotic areas. I have asked to see th e patient by Dr. Eric Payne because of the recent drop in blood count, but no evidence of any overt GI bleeding. ALLERGIES: None. MEDICAL ILLNESSES: 1. Congestive heart failure. 2. Pneumonia, respiratory failure on ventilator for few days in the ICU last month. 3. Chronic atrial fibrillation. 4. Mild dementia. 5. Coronary artery disease. 6. Antral gastritis. SURGERIES 1. Status post cardiac ablation. 2. . MEDICATIONS: List reviewed, which include: 1. Amiodarone. 2. Ecotrin. 3. Lipitor. 4. Caltrate. 5. Omnicef. 6. B12. 7. Cardizem. 8. Vibramycin. She is also on Megace, Mucinex, folic acid, Theragran. Other medicines include Zoloft, thiamine, pre dnisone, and Protonix. PHYSICAL EXAMINATION: GENERAL: Reveals a very fragile looking, elderly, white female, appears in mild respiratory distress . She is awake, alert, and communicative. VITAL SIGNS: She is afebrile. Her pulse is 85, blood pressure is 120/60. HEENT: Conjunctivae clear. CARDIOVASCULAR SYSTEM: First and second heart sounds normal. LUNGS: Clear to auscultation. ABDOMEN: Soft to palpate. No organomegaly. No tenderness. No masses. CLINICAL IMPRESSION: 1. Anemia, which has been persistent, but without any overt gastrointestinal bleeding. An EGD was d one, which was negative. Although, a colonoscopy was planned a month ago, it could not be done becau se of the respiratory failure, pneumonia. 2. Thrombocytopenia, mostly drug induced, being seen by Hematology. Overall, recommendation I belie ve she is not a candidate for any invasive procedures at this time. Because of respiratory symptoms and also because of thrombocytopenia, I will defer any endoscopic studies for the time being. I see no reason to repeat EGD at the present time. Colonoscopy can be done, but I think she is too weak an d too fragile to take a bowel prep. I did speak to [place], her daughter, and explained about the infor mation. The family is agreeable to treat conservatively. RECOMMENDATIONS: 1. Follow up H and H. 2. Transfuse p.r.n. 3. If the patient ever gets strong enough to undergo studies, we will plan at that time. In the allison ntime, continue supportive care.
[2017-07-10] MEDS: Megestrol Acetate 800 MG/20 ML UDCUP PO SCH (09:46)
[2017-07-10] MEDS: Saccharomyces boulardii 250 MG CAP PO SCH (09:47)
[2017-07-10] MEDS: Calcium Carbonate + Vit D 1 TAB PO SCH ×2 (09:47→17:31)
[2017-07-10] MEDS: Multivit, Therapeutic 1 TAB PO SCH (09:48)
[2017-07-10] MEDS: Cefdinir 300 MG CAP PO SCH (09:48)
[2017-07-10] MEDS: predniSONE 20 MG TAB PO SCH ×2 (09:48→20:55)
[2017-07-10] MEDS: Famotidine 20 MG TAB PO SCH ×2 (09:48→20:55)
[2017-07-10] MEDS: Furosemide 20 MG TAB PO SCH (09:48)
[2017-07-10] MEDS: Cyanocobalamin (Vitamin B-12) 1,000 MCG TAB PO SCH (09:48)
[2017-07-10] MEDS: Folic Acid 1 MG TAB PO SCH ×2 (09:48→20:55)
[2017-07-10] MEDS: Docusate 100 MG CAP PO SCH ×2 (09:49→20:55)
[2017-07-10] MEDS: Doxycycline 100 MG CAP PO SCH ×2 (09:51→20:54)
[2017-07-10] MEDS: guaiFENesin ER 600 MG TAB PO SCH ×2 (09:52→20:56)
[2017-07-10 09:53] LABS: Hemoglobin 8.4 g/dL (12.0-16.0)
[2017-07-10 10:06] LABS: Iron 28 ug/dL (50-170); Iron Binding Capacity, Total 208 mcg/dL (265-497)
--- NOTE | 2017-07-10 11:07 | PRG ---
DATE OF SERVICE: 07/10/2017 This morning she appears to be slightly more arousable. PHYSICAL EXAMINATION: VITAL SIGNS: Sats are 90%, temperature 97, pulse 80, blood pressure 113/63. CHEST: Chest revealed minimal crackles. CARDIAC: Normal S1, S2. No gallops. H&H 8 and 25. IMPRESSION: 1. Diffuse pulmonary infiltrates. 2. Diastolic dysfunction. 3. Possibly amiodarone toxicity. 4. Severe thrombocytopenia, improving. PLAN: Continue steroids. Continue antibiotics, diuretics. I will follow.
[2017-07-10 12:12] VITALS: BMI 23.0
--- NOTE | 2017-07-10 16:19 | PDOC.PN ---
- Subjective Encounter Start Date: 07/10/17 Encounter Start Time: 11:00 Subjective: pt up in chair feels tired - Objective Resuscitation Status: Resuscitation Status FULL:Full Resuscitation Vital Signs & Weight: Vital Signs (12 hours) Temp Pulse Resp BP BP Pulse Ox 07/10/17 13:50 79 16 96 07/10/17 09:46 88 113/61 07/10/17 08:00 97.5 F L 88 22 H 99 07/10/17 07:21 97.5 F L 88 22 H 113/61 99 07/10/17 07:10 84 16 95 Weight Admit Weight 144 lb Weight 135 lb I&O: 07/09/17 07/10/17 07/11/17 06:59 06:59 06:59 Intake Total 640 980 680 Output Total 3 Balance 640 977 680 Result Diagrams: 07/10/17 09:31 07/09/17 04:17 Phys Exam - Physical Examination pt appear cachetic HEENT: PERRLA Neck: no nodes Respiratory: wheezing present Cardiovascular: RRR, no significant murmur Gastrointestinal: soft, non-tender Musculoskeletal: no edema Neurological: non-focal Dx/Plan (1) Acute respiratory failure with hypoxia Code(s): J96.01 - ACUTE RESPIRATORY FAILURE WITH HYPOXIA Status: Acute Plan: ct chest appears chronic fibrosis. pt on steroids. Comment: monitor oxygen level and wean off O2 as needed will also continue iv abx. apperciate pulmonary help (2) Thrombocytopenia Code(s): D69.6 - THROMBOCYTOPENIA, UNSPECIFIED Status: Acute Plan: will check cbc in am (3) Moderate protein-calorie malnutrition Code(s): E44.0 - MODERATE PROTEIN-CALORIE MALNUTRITION Status: Chronic Plan: ensure added. palliative consulted. will try to call pt's son about pt's overall condition (4) Symptomatic anemia Code(s): D64.9 - ANEMIA, UNSPECIFIED Status: Acute Plan: pt seen by gi, no plans for egd or colonoscopy given pt's fragile condition Comment: 1 unit PRBC given - Plan * .
[2017-07-10] MEDS: Atorvastatin Calcium 20 MG TAB PO SCH (20:55)
[2017-07-11 04:47] LABS: #Lymphocytes 0.2 thou/uL (1.20-3.40); #Monocytes 0.2 thou/uL (0.11-0.59); #Neutrophils 4.9 thou/uL (1.40-6.50); %Eosinophils 0.3 % (0.0-10.0); %Lymphocytes 4.3 % (21.0-51.0); %Monocytes 3.7 % (0.0-10.0); %Neutrophils 91.7 % (42.0-75.0); Hemoglobin 8.3 g/dL (12.0-16.0); Mean Corpuscular HGB CONC 33.1 g/dL (32.0-36.0); Mean Corpuscular Hemoglobin 32.8 pg (27.0-31.0); Platelet Count 95 thou/uL (130-400); Red Blood Cell (RBC) Count 2.53 mill/uL (4.20-5.40); White Blood Cell (WBC) Count 5.4 thou/uL (4.8-10.8)
[2017-07-11 05:00] LABS: Band 4 % (5-11); Lymphocytes 3 % (21-51); MDiff Complete? YES; Mean Corpuscular HGB CONC 32.5 g/dL (32.0-36.0); Mean Corpuscular Hemoglobin 32.1 pg (27.0-31.0); Mean Corpuscular Volume 98.7 fl (81.0-99.0); Mean Platelet Volume 9.8 fL (7.4-10.4); Metamyelocyte 1 % (0-0); Monocytes 3 % (0-10); Myelocyte 4 % (0-0); Neutrophil 85 % (42-75); PLT Morphology Comment Appears Decreased; Platelet Count 93 thou/uL (130-400); RBC Distribution Width 15.2 % (11.5-14.5); Red Blood Cell (RBC) Count 2.48 mill/uL (4.20-5.40); White Blood Cell (WBC) Count 5.4 thou/uL (4.8-10.8)
[2017-07-11 05:02] LABS: Anion Gap 12 mmol/L (10-20); BUN (Urea Nitrogen) 42 mg/dL (9.8-20.1); Calc. Creatinine Clearance 31 mL/min (70-130); Carbon Dioxide 28 mmol/L (23-31); Chloride 105 mmol/L (98-107); Estimated GFR-MDRD 33; Glucose 130 mg/dL (83-110); Potassium 4.4 mmol/L (3.5-5.1); Sodium 141 mmol/L (136-145)
[2017-07-11] MEDS ORDERED: predniSONE 20 MG TAB PO SCH (08:00)
--- NOTE | 2017-07-11 08:05 | RAD ---
ONE VIEW CHEST: COMPARISON: 07/08/17. HISTORY: Pneumonia. FINDINGS/IMPRESSION: Slightly improved aeration of the lung parenchyma. There still is evidence of diffuse interstitial a nd alveolar opacification. Continued surveillance is recommended. POS: [facility]
[2017-07-11] MEDS: Calcium Carbonate + Vit D 1 TAB PO SCH ×2 (09:09→17:56)
[2017-07-11] MEDS: Docusate 100 MG CAP PO SCH ×2 (09:09→20:52)
[2017-07-11] MEDS: Doxycycline 100 MG CAP PO SCH ×2 (09:09→20:53)
[2017-07-11] MEDS: Famotidine 20 MG TAB PO SCH (09:09)
[2017-07-11] MEDS: Saccharomyces boulardii 250 MG CAP PO SCH (09:09)
[2017-07-11] MEDS: Furosemide 20 MG TAB PO SCH (09:10)
[2017-07-11] MEDS: Cyanocobalamin (Vitamin B-12) 1,000 MCG TAB PO SCH (09:10)
[2017-07-11] MEDS: Folic Acid 1 MG TAB PO SCH ×2 (09:10→20:52)
[2017-07-11] MEDS: predniSONE 20 MG TAB PO SCH ×2 (09:10→20:52)
[2017-07-11] MEDS: Multivit, Therapeutic 1 TAB PO SCH (09:10)
--- NOTE | 2017-07-11 09:10 | PRG ---
DATE OF SERVICE: 07/11/2017 This morning to my surprise, she is much better. She is much more awake and responsive. PHYSICAL EXAMINATION: VITAL SIGNS: Blood pressure 114/62, O2 sat 100% on room air, respiration 20, temperature 98. CHEST: Chest revealed bilateral crackles. CARDIAC: Normal S1-S2. No gallops. ABDOMEN: Soft. No masses. LABORATORY: White count 5000, platelet count is improved to 95. H&H 8 and 25. Electrolytes are nor mal. Creatinine 1.5. IMPRESSION: 1. End-stage lung disease, possibly amiodarone toxicity. 2. Thrombocytopenia, much improved. X-ray today still shows rather impressive right-sided interstitial alveolar infiltrate. PLAN: Continue steroids. Continue nebulizer treatments, continue PT. Avoid amiodarone. Mainly sup portive care. She can probably transfer back to the rehab in the next day or two if she remains stab le. I would taper prednisone over 2 weeks minimum. Antibiotics for another week. Low dose Lasix.
[2017-07-11] MEDS: guaiFENesin ER 600 MG TAB PO SCH ×2 (09:11→20:52)
[2017-07-11] MEDS: Megestrol Acetate 800 MG/20 ML UDCUP PO SCH (09:11)
--- NOTE | 2017-07-11 13:57 | PDOC.PN ---
- Subjective Encounter Start Date: 07/11/17 Encounter Start Time: 10:00 Subjective: pt up in bed feels tired. - Objective Resuscitation Status: Resuscitation Status FULL:Full Resuscitation Vital Signs & Weight: Vital Signs (12 hours) Temp Pulse Resp BP BP BP Pulse Ox 07/11/17 13:35 80 16 94 L 07/11/17 10:23 07/11/17 09:10 87 114/62 07/11/17 08:00 98.5 F 87 20 114/62 95 07/11/17 07:43 98.5 F 87 20 114/62 95 07/11/17 07:18 88 16 93 L 07/11/17 04:45 92 L 07/11/17 04:20 97.8 F 87 18 119/57 L 91 L Pulse Ox Pulse Ox 07/11/17 13:35 07/11/17 10:23 95 94 L 07/11/17 09:10 07/11/17 08:00 07/11/17 07:43 07/11/17 07:18 07/11/17 04:45 07/11/17 04:20 Weight Admit Weight 144 lb Weight 135 lb 6.28 oz I&O: 07/10/17 07/11/17 07/12/17 06:59 06:59 06:59 Intake Total 980 1630 240 Output Total 3 Balance 977 1630 240 Result Diagrams: 07/11/17 04:29 07/11/17 04:29 Phys Exam - Physical Examination pt appears cachetic HEENT: PERRLA Neck: no nodes Respiratory: no wheezing, no rhonchi Cardiovascular: RRR, no significant murmur Gastrointestinal: soft, non-tender Musculoskeletal: no edema, pulses present Neurological: non-focal, normal sensation Psychiatric: normal affect Dx/Plan (1) Acute respiratory failure with hypoxia Code(s): J96.01 - ACUTE RESPIRATORY FAILURE WITH HYPOXIA Status: Acute Plan: on steroids on abx amiodarone discontinued cxr mild improvement Comment: most likley multifactoral CHF systolic compensated, chronic interstital fibros, anemia. will monitor oxygen level and wean off O2 as needed will also continue iv abx. apperciate pulmonary help (2) Thrombocytopenia Code(s): D69.6 - THROMBOCYTOPENIA, UNSPECIFIED Status: Acute Plan: stable continue to monitor (3) Moderate protein-calorie malnutrition Code(s): E44.0 - MODERATE PROTEIN-CALORIE MALNUTRITION Status: Chronic Plan: pt has been eating with family and has been drinking ensure (4) Symptomatic anemia Code(s): D64.9 - ANEMIA, UNSPECIFIED Status: Acute Comment: 1 unit PRBC given - Plan * .
[2017-07-11] MEDS: Atorvastatin Calcium 20 MG TAB PO SCH (20:52)
[2017-07-12 05:24] LABS: #Basophils 0.1 thou/uL (0.0-0.2); #Lymphocytes 0.2 thou/uL (1.20-3.40); #Monocytes 0.3 thou/uL (0.11-0.59); %Eosinophils 0.3 % (0.0-10.0); %Lymphocytes 3.4 % (21.0-51.0); %Monocytes 5.6 % (0.0-10.0); %Neutrophils 89.7 % (42.0-75.0); Hemoglobin 7.7 g/dL (12.0-16.0); Mean Corpuscular HGB CONC 32.5 g/dL (32.0-36.0); Mean Corpuscular Hemoglobin 32.1 pg (27.0-31.0); Mean Platelet Volume 9.3 fL (7.4-10.4); Platelet Count 110 thou/uL (130-400); RBC Distribution Width 15.4 % (11.5-14.5); Red Blood Cell (RBC) Count 2.39 mill/uL (4.20-5.40); White Blood Cell (WBC) Count 5.5 thou/uL (4.8-10.8)
[2017-07-12] MEDS: Doxycycline 100 MG CAP PO SCH ×2 (08:04→20:43)
[2017-07-12] MEDS: Calcium Carbonate + Vit D 1 TAB PO SCH ×3 (08:04→18:29)
[2017-07-12] MEDS: Megestrol Acetate 800 MG/20 ML UDCUP PO SCH (08:04)
[2017-07-12] MEDS: predniSONE 20 MG TAB PO SCH ×3 (08:05→20:43)
[2017-07-12] MEDS: Multivit, Therapeutic 1 TAB PO SCH (08:05)
[2017-07-12] MEDS: Docusate 100 MG CAP PO SCH ×2 (08:05→20:42)
[2017-07-12] MEDS: guaiFENesin ER 600 MG TAB PO SCH ×2 (08:05→20:43)
[2017-07-12] MEDS: Cyanocobalamin (Vitamin B-12) 1,000 MCG TAB PO SCH (08:05)
[2017-07-12] MEDS: Folic Acid 1 MG TAB PO SCH ×3 (08:05→20:43)
[2017-07-12] MEDS: Famotidine 20 MG TAB PO SCH (08:06)
[2017-07-12] MEDS: Furosemide 20 MG TAB PO SCH (08:06)
[2017-07-12] MEDS ORDERED: Sodium Ferric Gluconate 125 MG in Sodium Chloride 0.9% 100 ML IVPB SCH (08:45)
[2017-07-12] MEDS: Saccharomyces boulardii 250 MG CAP PO SCH (09:18)
--- NOTE | 2017-07-12 16:39 | PDOC.PN ---
- Subjective Encounter Start Date: 07/12/17 Encounter Start Time: 09:45 Subjective: pt up in bed no complains - Objective Resuscitation Status: Resuscitation Status FULL:Full Resuscitation Vital Signs & Weight: Vital Signs (12 hours) Temp Pulse Resp BP BP Pulse Ox 07/12/17 13:32 80 16 07/12/17 11:51 98.5 F 85 16 116/67 95 07/12/17 08:04 92 108/61 07/12/17 08:00 98.5 F 85 16 108/61 91 L 07/12/17 06:51 92 16 94 L 07/12/17 06:13 97.9 F 92 20 112/56 L 94 L Weight Admit Weight 144 lb Weight 127 lb 12.8 oz I&O: 07/11/17 07/12/17 07/13/17 06:59 06:59 06:59 Intake Total 1630 445 Balance 1630 445 Result Diagrams: 07/12/17 04:50 07/11/17 04:29 Phys Exam - Physical Examination appears cachetic Neck: no nodes Respiratory: no wheezing, no rales Cardiovascular: RRR, no significant murmur Gastrointestinal: soft, non-tender Musculoskeletal: no edema Psychiatric: normal affect Dx/Plan (1) Acute respiratory failure with hypoxia Code(s): J96.01 - ACUTE RESPIRATORY FAILURE WITH HYPOXIA Status: Acute Plan: pt is on oxygen at 1-2L, gets sob on ambulation. continue po steroids and abx. ct scan looks like fibrosis, amiodarone discontinued. Comment: most likley multifactoral CHF systolic compensated, chronic interstital fibros, anemia. will monitor oxygen level and wean off O2 as needed will also continue iv abx. apperciate pulmonary help. discussed in details about code status with pt and daughter, however pt and daughter for now only want to address current medical issues. (2) Thrombocytopenia Code(s): D69.6 - THROMBOCYTOPENIA, UNSPECIFIED Status: Acute Plan: improving slowly (3) Moderate protein-calorie malnutrition Code(s): E44.0 - MODERATE PROTEIN-CALORIE MALNUTRITION Status: Chronic Plan: pt is eating, encouraged to get up more and sit in chair. (4) Symptomatic anemia Code(s): D64.9 - ANEMIA, UNSPECIFIED Status: Acute Plan: pt's stool was positve for blood. gi did see pt no procedure. will give 2untis of blood pt's hh is 7.7 stable Comment: 1 unit PRBC given - Plan * .
[2017-07-12] MEDS ORDERED: Furosemide 20 MG/2 ML VIAL SLOW IVP SCH ×2 (16:45→19:00)
--- NOTE | 2017-07-12 18:25 | PRG ---
DATE OF SERVICE: 07/12/2017 SUBJECTIVE: Ms. Hernández is clinically doing well. She tends to want to stay in bed a lot. OBJECTIVE: VITAL SIGNS: She is afebrile, heart rate 85, respiratory rate 16, oximetry is 95 on 2 liters, and bl ood pressure 116/67. LUNGS: Remarkable for fine crackles at her bases. HEART: Regular rhythm. ABDOMEN: Soft. LABORATORY DATA: White count 5.5, hemoglobin 7.7, platelets 110. Transfusion was ordered today. Sodium 141, potassium 4.4, chloride 105, bicarbonate 28, BUN 42, and creatinine 1.53. IMPRESSION: 1. ? amiodarone hypersensitivity 2. Thrombocytopenia? drug induced. 3. Deconditioning. PLAN: Eventual rehab placement. We will continue with prednisone. I would not start tapering predn isone early.
[2017-07-12] MEDS: Atorvastatin Calcium 20 MG TAB PO SCH (20:42)
[2017-07-13 05:46] LABS: Band 3 % (5-11); Hemoglobin 9.2 g/dL (12.0-16.0); Lymphocytes 2 % (21-51); MDiff Complete? YES; Mean Corpuscular HGB CONC 33.6 g/dL (32.0-36.0); Mean Corpuscular Hemoglobin 32.7 pg (27.0-31.0); Mean Corpuscular Volume 97.4 fl (81.0-99.0); Mean Platelet Volume 9.4 fL (7.4-10.4); Metamyelocyte 1 % (0-0); Monocytes 5 % (0-10); Myelocyte 2 % (0-0); Neutrophil 87 % (42-75); Platelet Count 138 thou/uL (130-400); RBC Distribution Width 14.9 % (11.5-14.5); Red Blood Cell (RBC) Count 2.82 mill/uL (4.20-5.40); White Blood Cell (WBC) Count 7.9 thou/uL (4.8-10.8)
[2017-07-13 07:05] LABS: Anion Gap 14 mmol/L (10-20); BUN (Urea Nitrogen) 40 mg/dL (9.8-20.1); Calc. Creatinine Clearance 29 mL/min (70-130); Calcium 8.3 mg/dL (7.8-10.44); Carbon Dioxide 29 mmol/L (23-31); Chloride 103 mmol/L (98-107); Estimated GFR-MDRD 33; Glucose 102 mg/dL (83-110); Potassium 3.8 mmol/L (3.5-5.1); Sodium 142 mmol/L (136-145)
[2017-07-13] MEDS: Furosemide 20 MG TAB PO SCH (08:49)
[2017-07-13] MEDS: Megestrol Acetate 800 MG/20 ML UDCUP PO SCH (08:49)
[2017-07-13] MEDS: Saccharomyces boulardii 250 MG CAP PO SCH (08:49)
[2017-07-13] MEDS: Multivit, Therapeutic 1 TAB PO SCH (08:49)
[2017-07-13] MEDS: Ferrous Gluconate 324 MG TAB PO SCH (08:49)
[2017-07-13] MEDS: predniSONE 20 MG TAB PO SCH ×2 (08:50→20:51)
[2017-07-13] MEDS: Docusate 100 MG CAP PO SCH ×2 (08:50→20:51)
[2017-07-13] MEDS: guaiFENesin ER 600 MG TAB PO SCH ×2 (08:50→20:51)
[2017-07-13] MEDS: Calcium Carbonate + Vit D 1 TAB PO SCH ×2 (08:50→16:54)
[2017-07-13] MEDS: Folic Acid 1 MG TAB PO SCH ×2 (08:50→20:51)
[2017-07-13] MEDS: Doxycycline 100 MG CAP PO SCH ×2 (08:51→20:53)
[2017-07-13] MEDS: Cyanocobalamin (Vitamin B-12) 1,000 MCG TAB PO SCH (08:51)
[2017-07-13] MEDS: Famotidine 20 MG TAB PO SCH (08:52)
--- NOTE | 2017-07-13 10:39 | PDOC.PN ---
- Subjective Encounter Start Date: 07/13/17 Encounter Start Time: 10:38 Subjective: pt up in bed no complains - Objective Resuscitation Status: Resuscitation Status FULL:Full Resuscitation Vital Signs & Weight: Vital Signs (12 hours) Temp Pulse Pulse Resp BP BP BP 07/13/17 08:50 88 124/70 07/13/17 07:40 98.2 F 88 18 124/70 07/13/17 06:45 87 16 07/12/17 23:05 98.1 F 87 87 18 137/71 Pulse Ox 07/13/17 08:50 07/13/17 07:40 92 L 07/13/17 06:45 07/12/17 23:05 98 Weight Admit Weight 144 lb Weight 125 lb 3.2 oz I&O: 07/12/17 07/13/17 07/14/17 06:59 06:59 06:59 Intake Total 445 1710 Balance 445 1710 Result Diagrams: 07/13/17 04:17 07/13/17 04:17 Phys Exam - Physical Examination HEENT: PERRLA Neck: no nodes Respiratory: no wheezing, no rales Cardiovascular: RRR, no significant murmur Gastrointestinal: soft, non-tender Neurological: non-focal, normal sensation Dx/Plan (1) Acute respiratory failure with hypoxia Code(s): J96.01 - ACUTE RESPIRATORY FAILURE WITH HYPOXIA Status: Acute Plan: stable, multifactoral ( anemia, fluid overload, pneumonia and fibrosis of lung ? amiodarone) continue to monitor. pt's family did not want pt to be discharged yesterday. will discharge on Friday per family request. continue abx for now. pt off amiodarone, pt on steroids and abx. She will follow up with pcp and pulmonary as outpatient. Comment: most likley multifactoral CHF systolic compensated, chronic interstital fibros, anemia. will monitor oxygen level and wean off O2 as needed will also continue iv abx. apperciate pulmonary help. discussed in details about code status with pt and daughter, however pt and daughter for now only want to address current medical issues. (2) Thrombocytopenia Code(s): D69.6 - THROMBOCYTOPENIA, UNSPECIFIED Status: Acute Plan: stable continue to monitor. pt not on any DVT ppx due to anemia and low platelets has scd on pt encouraged to ambulate and up in chair. (3) Moderate protein-calorie malnutrition Code(s): E44.0 - MODERATE PROTEIN-CALORIE MALNUTRITION Status: Chronic Plan: pt is eating well (4) Symptomatic anemia Code(s): D64.9 - ANEMIA, UNSPECIFIED Status: Acute Plan: pt received 2 untis of blood. s/p lasix iv. post blood hh is 9.2 pt did have stool for occult blood which was positive. Comment: 1 unit PRBC given (5) Acute on chronic diastolic (congestive) heart failure Code(s): I50.33 - ACUTE ON CHRONIC DIASTOLIC (CONGESTIVE) HEART FAILURE Status : Acute Plan: stable continue to monitor. Comment: continue gentle diuresis - Plan * .
[2017-07-13] MEDS: Sodium Ferric Gluconate 125 MG, Admixture Fee 1 EACH in Sodium Chloride 0.9% 100 ML IVPB SCH (11:41)
--- NOTE | 2017-07-13 17:51 | PRG ---
DATE OF SERVICE: 07/13/2017 SUBJECTIVE: Remedios Hernández is actually up at the bedside chair, sitting comfortably. She is in no distre ss. OBJECTIVE: VITAL SIGNS: Blood pressure 124/70, heart rate 88, she is afebrile, respiratory rate 16. She is on 2 liters. She does have crackles bilaterally on chest exam. HEART: Regular rhythm. ABDOMEN: Soft. LABORATORY DATA: White count 7.9, hemoglobin 9.2, platelets 138. She received a unit of blood yeste rday. Electrolytes are normal. BUN is 40, creatinine is 1.52. IMPRESSION: 1. ? amiodarone hypersensitivity, on steroids. 2. Thrombocytopenia. 31. Anemia, status post transfusion. PLAN: Continue current care with eventual placement in rehabilitation.
[2017-07-13] MEDS: Atorvastatin Calcium 20 MG TAB PO SCH (20:51)
[2017-07-14 05:06] LABS: Band 11 % (5-11); Hemoglobin 9.8 g/dL (12.0-16.0); Lymphocytes 12 % (21-51); MDiff Complete? YES; Mean Corpuscular HGB CONC 33.4 g/dL (32.0-36.0); Mean Corpuscular Hemoglobin 32.9 pg (27.0-31.0); Mean Corpuscular Volume 98.6 fl (81.0-99.0); Mean Platelet Volume 8.9 fL (7.4-10.4); Monocytes 10 % (0-10); Neutrophil 67 % (42-75); Platelet Count 158 thou/uL (130-400); Red Blood Cell (RBC) Count 2.99 mill/uL (4.20-5.40); White Blood Cell (WBC) Count 9.5 thou/uL (4.8-10.8)
[2017-07-14] MEDS: Saccharomyces boulardii 250 MG CAP PO SCH (09:12)
[2017-07-14] MEDS: Megestrol Acetate 800 MG/20 ML UDCUP PO SCH (09:12)
[2017-07-14] MEDS: Multivit, Therapeutic 1 TAB PO SCH (09:13)
[2017-07-14] MEDS: Cyanocobalamin (Vitamin B-12) 1,000 MCG TAB PO SCH (09:13)
[2017-07-14] MEDS: guaiFENesin ER 600 MG TAB PO SCH (09:13)
[2017-07-14] MEDS: Ferrous Gluconate 324 MG TAB PO SCH (09:13)
[2017-07-14] MEDS: Calcium Carbonate + Vit D 1 TAB PO SCH ×2 (09:13→17:11)
[2017-07-14] MEDS: Famotidine 20 MG TAB PO SCH (09:14)
[2017-07-14] MEDS: Folic Acid 1 MG TAB PO SCH (09:15)
[2017-07-14] MEDS: predniSONE 20 MG TAB PO SCH (09:15)
[2017-07-14] MEDS: Docusate 100 MG CAP PO SCH (09:15)
[2017-07-14] MEDS: Doxycycline 100 MG CAP PO SCH (09:18)
[2017-07-14] MEDS: Furosemide 20 MG TAB PO SCH (09:19)
[2017-07-14] MEDS: Sodium Ferric Gluconate 125 MG, Admixture Fee 1 EACH in Sodium Chloride 0.9% 100 ML IVPB SCH (10:55)
--- NOTE | 2017-07-14 15:12 | PRG ---
DATE OF SERVICE: 07/14/2017 SUBJECTIVE: Remedios Hernández appears to be much improved. OBJECTIVE: VITAL SIGNS: Sats are on 2 L, respirations 19, pulse 80, blood pressure 130/80. GENERAL: Awake, alert, responsive. She is eating. CHEST: Reveals decreased breath sounds, no wheezing. CARDIAC: Normal S1, S2. ABDOMEN: Soft, no masses. LABORATORY DATA: Platelet count has returned to normal. H&H 9 and 28, white count 9000. IMPRESSION: 1. Status post thrombocytopenia, resolved, probably secondary to amiodarone toxicity. 2. History of lung disease, much improved. 3. Anemia. 4. Supraventricular tachycardia. PLAN: She is to avoid amiodarone, taper steroids over 2 weeks. Discontinue antibiotics for several days. Transfer back to the rehabilitation.
[2017-07-14 17:05] VITALS: BP 114/65; TEMP 97.8
--- NOTE | 2017-07-14 18:37 | PDOC.PN ---
- Subjective Encounter Start Date: 07/14/17 Encounter Start Time: 09:45 Subjective: pt up in bed no complains - Objective Resuscitation Status: Resuscitation Status FULL:Full Resuscitation Vital Signs & Weight: Vital Signs (12 hours) Temp Pulse Resp BP BP BP Pulse Ox 07/14/17 17:04 97.8 F 83 16 114/65 93 L 07/14/17 11:25 98.5 F 80 18 120/67 96 07/14/17 09:13 84 112/59 L 07/14/17 08:00 97.3 F L 84 16 07/14/17 06:52 80 16 95 Weight Admit Weight 144 lb Weight 129 lb I&O: 07/13/17 07/14/17 07/15/17 06:59 06:59 06:59 Intake Total 1710 1890 480 Output Total 500 Balance 1710 1390 480 Result Diagrams: 07/14/17 04:21 07/13/17 04:17 Phys Exam - Physical Examination HEENT: PERRLA Neck: no nodes, no JVD Respiratory: no wheezing, no rales Cardiovascular: RRR, no significant murmur Gastrointestinal: soft, non-tender Musculoskeletal: no edema, pulses present Dx/Plan (1) Acute respiratory failure with hypoxia Code(s): J96.01 - ACUTE RESPIRATORY FAILURE WITH HYPOXIA Status: Acute Plan: improving. continue abx and steroids. pt to be discharged to snf Comment: most likley multifactoral CHF systolic compensated, chronic interstital fibros, anemia. will monitor oxygen level and wean off O2 as needed will also continue iv abx. apperciate pulmonary help. discussed in details about code status with pt and daughter, however pt and daughter for now only want to address current medical issues. (2) Thrombocytopenia Code(s): D69.6 - THROMBOCYTOPENIA, UNSPECIFIED Status: Acute Plan: stable continue to monitor (3) Moderate protein-calorie malnutrition Code(s): E44.0 - MODERATE PROTEIN-CALORIE MALNUTRITION Status: Chronic (4) Symptomatic anemia Code(s): D64.9 - ANEMIA, UNSPECIFIED Status: Acute Plan: pt's post hh is 9.0 Comment: 1 unit PRBC given (5) Acute on chronic diastolic (congestive) heart failure Code(s): I50.33 - ACUTE ON CHRONIC DIASTOLIC (CONGESTIVE) HEART FAILURE Status : Acute Comment: continue gentle diuresis - Plan * .
[2017-07-15] MEDS ORDERED: predniSONE 20 MG TAB PO SCH (08:00)
--- NOTE | 2017-07-15 20:43 | DIS ---
DATE OF ADMISSION: 07/01/2017 DATE OF DISCHARGE: 07/14/2017 HOSPITAL COURSE: The patient is a very pleasant 77-year-old female with a significant past medical h istory of CHF exacerbation with hypoxia with UTI with anemia, who was discharged from the hospital on 06/26/2017 for sepsis, pneumonia, atrial fibrillation with RVR; however, the patient at that time wa s intubated on 06/16/2017 and extubated on 06/20/2017. The patient then was sent to rehab facility; however, came back on the with acute hypoxic respiratory failure. The patient was found to have saturations in the 60s, so she was transferred to our hospital for further evaluation. The patient u nderwent an x-ray which indicated pulmonary edema, possible pneumonia. She was also given Lasix, was diuresed, also was put on BiPAP, and was also put on antibiotics. Cardiology and Pulmonology were c onsulted. The patient was found to have a large right-sided pleural effusion and underwent a thorace ntesis on the , 650 mL of fluid was removed. The patient's cytology indicated very atypical cells . The patient continued to improve slowly throughout the hospital stay. The patient for this hospit al stay was found to have significant thrombocytopenia and anemia in which GI and Hematology were con sulted. The patient does have a history of diastolic dysfunction and has a normal EF. The patient w as seen by Cardiology for shortness of breath and atrial fibrillation RVR. Based on patient's chest x-ray, possibility of amiodarone toxicity was thought. At this time, the patient was taken off the a miodarone and was put on steroids with antibiotics. The patient's thrombocytopenia continued to impr ove without any intervention which was attributed most likely due to a couple of antibiotics worsenin g the thrombocytopenia and her underlying pneumonia. The patient did have a positive guaiac stool an d was seen by GI for possible colonoscopy or finding the reason of her anemia. However, she had an E GD done prior to her discharge in June which indicated gastritis, but given her frail condition a nd her respiratory instability, GI decided not to make patient undergo a colonoscopy until the patien t's respiratory symptoms were stable. GI recommended doing a colonoscopy once the patient is much mo re stable. The patient did get 1 unit of blood for anemia. The patient medically continued to impro ve. She was seen by Pulmonology that recommended another additional week of antibiotics and also slo w tapering of her steroids. The patient's code status was discussed with the patient and patient's f radha; however, at that time, they did not want to make any decisions in regards to code status and w anted to continue everything medically that will be possible with goals of taking patient home once s he recovers. The patient towards the end of her hospital stay, was able to eat more and had a good a ppetite since she was also very malnourished. The patient was discharged to a rehab facility and was stable. DISCHARGE DIAGNOSES: 1. Acute hypoxic respiratory failure, pneumonia. 2. Malnutrition. 3. Thrombocytopenia. 4. Anemia. 5. Atrial fibrillation and rapid ventricular response, not on any anticoagulation given her anemia a nd thrombocytopenia. 6. Right pleural effusion status post thoracentesis. The patient had a CT chest on the which i ndicated moderate right and small left pleural effusion, left pleural effusion less than the previous study. She also had a thoracentesis on . 7. Chronic interstitial fibrosis, slight alveolar edema.
[2017-07-16] MEDS ORDERED: predniSONE 5 MG TAB PO SCH (08:00)
== END 2017-07-14 17:15 | DRG 871 ==
LOC: ERS 17:43 → IMCU/EMU 20:12 → 2NO 07-02 23:20 → T4-B 07-07 18:52 → T4-A 07-08 22:31
PROVIDERS: ADMIT Family Medicine; ATTEND Family Medicine
PROC: 30233N1 Transfusion of Nonautologous Red Blood Cells into Peripheral Vein, Percutaneous Approach (ICD-10-PCS; principal; 2017-06-30)
PROC: 0W993ZX Drainage of Right Pleural Cavity, Percutaneous Approach, Diagnostic (ICD-10-PCS; 2017-07-01)
DX: A41.9 Sepsis, unspecified organism (principal); J96.01 Acute respiratory failure with hypoxia; I50.33 Acute on chronic diastolic (congestive) heart failure; G93.41 Metabolic encephalopathy; J84.9 Interstitial pulmonary disease, unspecified; E44.0 Moderate protein-calorie malnutrition; J18.9 Pneumonia, unspecified organism; J91.8 Pleural effusion in other conditions classified elsewhere; D69.59 Other secondary thrombocytopenia; E87.2 Acidosis; I13.0 Hypertensive heart and chronic kidney disease with heart failure and stage 1 through stage 4 chronic kidney disease, or unspecified chronic kidney disease; I24.8 Other forms of acute ischemic heart disease; N39.0 Urinary tract infection, site not specified; I47.1 Supraventricular tachycardia; R65.20 Severe sepsis without septic shock; N18.3 Chronic kidney disease, stage 3 (moderate); I48.2 Chronic atrial fibrillation; D64.9 Anemia, unspecified; Z87.891 Personal history of nicotine dependence; T46.2X5A Adverse effect of other antidysrhythmic drugs, initial encounter; F03.90 Unspecified dementia, unspecified severity, without behavioral disturbance, psychotic disturbance, mood disturbance, and anxiety; E78.5 Hyperlipidemia, unspecified; E87.6 Hypokalemia; I25.10 Atherosclerotic heart disease of native coronary artery without angina pectoris; Z68.22 Body mass index [BMI] 22.0-22.9, adult
CPT/HCPCS: 32554; 36415; 36430; 51702; 71045; 71046; 71250; 71275; 80048; 80053; 80069; 82150; 82274; 82542; 82553; 82607; 82728; 82746; 82805; 82945; 83540; 83550; 83605; 83615; 83690; 83735; 83880; 84157; 84478; 84484; 85007; 85014; 85018; 85025; 85027; 85046; 85049; 85060; 85379; 85610; 85730; 86140; 86850; 86900; 86901; 87070; 87086; 87116; 87205; 87206; 88112; 88305; 89051; 90471; 90670; 90682; 93005; 93306; 93798; 94640; 94644; 94660; 96365; 96368; 96375; A4216; G0008; G0009; G8978-GP-CL; G8978-GP-CN; G8979-GP-CJ; G8979-GP-CK; G8987-GO-CM; G8988-GO-CK; G8996-GN-CI; G8996-GN-CK; G8997-GN-CI; J1100; J1940; J1956; J2916; J3370; J3475; J7050; J7506; J7611; J7620; P9016; Q2036

== ENCOUNTER 2017-11-24 12:28 | Day surgery (SDC) | payer MEDICARE, OTHER ==
[2017-11-21 09:58] VITALS: BMI 24.1
[2017-11-24] MEDS ORDERED: PROPOFOL 200 MG/20 ML VIAL ONE (14:52)
--- NOTE | 2017-11-24 23:38 | OP ---
DATE OF PROCEDURE: 11/24/2017 PREPROCEDURE DIAGNOSES: 1. History of anemia with heme positive stool in the hospital in May. 2. Severe chronic obstructive pulmonary disease in May, she had EGD, which was normal with Dr. Amena hernandez, but could not have a colonoscopy secondary to respiratory failure. 3. Anemia with indices suggestive of anemia of chronic disease with elevated MCV, normal B12 and fol ate, elevated ferritin and low iron and low TIBC. PROCEDURES: Colonoscopy with polypectomy. POSTPROCEDURE DIAGNOSES: 1. Three polyps in the ascending and transverse colon, ranging in size from 3-5 mm, was removed by h ot snare polypectomy. 2. At 50 cm, there was a 2.5 cm pedunculated polyp, was removed by snare polypectomy and post-polype ctomy bleeding ensued from the stalk which was clipped for hemostasis. There was also a 1 cm polyp i n 15 cm from the anorectal verge and was removed by snare polypectomy with good hemostasis. RECOMMENDATIONS: 1. Await histopathology. 2. Follow up in the office in 2 weeks for pathology results. 3. Consider ultrasound of the liver and spleen with macrocytosis and thrombocytopenia to rule out un derlying portal hypertension. If anemia persists, consider evaluation with Hematology. 4. In regard to the question of anticoagulation, the patient should not have any anticoagulants for at least 14 days after significant polyp removal. ANESTHESIA: TIVA. PROCEDURE IN DETAIL: After the patient was informed of the risks, benefits, and possible complicatio ns of endoscopy including perforation, bleeding, reactions to medication and aspiration, informed con sent was obtained. The patient was brought to the endoscopy suite where she was sedated in gradual f ashion. Once she was comfortable, rectal exam was performed. Endoscope was advanced in the anal can al through the colon to the cecum which was identified by the ileocecal valve and appendiceal orifice . The scope was then slowly removed. There was good visualization of the mucosa. There were 2 poly ps in the ascending colon, 3-5 mm in size, removed by cold snare polypectomy. They were sessile. Th ere was good hemostasis noted. There was a polyp at the proximal and transverse colon, removed by sn are polypectomy with good hemostasis. There were 2 polyps in the sigmoid one at 50 cm and one at 15 cm, the one at 50 was 2.5 cm in size, removed by snare polypectomy with subsequent bleeding, which re quired Hemoclip placement, which controlled the bleeding and there was also 1 cm polyp at 15 centimet ers, which was removed by snare polypectomy. This one was ulcerated and the surface was removed and submitted to pathology as well. Retroflexed views in the rectum were normal. The scope was removed. The patient tolerated the procedure well with no complications.
== END 2017-11-24 15:46 | disposition home or self-care (01) ==
LOC: SDC 12:28
PROVIDERS: ATTEND Internal Medicine Gastroenterology
PROC: 0DBK8ZX Excision of Ascending Colon, Via Natural or Artificial Opening Endoscopic, Diagnostic (ICD-10-PCS; principal; 2017-11-24)
PROC: 0DBL8ZX Excision of Transverse Colon, Via Natural or Artificial Opening Endoscopic, Diagnostic (ICD-10-PCS; 2017-11-24)
PROC: 0DBN8ZX Excision of Sigmoid Colon, Via Natural or Artificial Opening Endoscopic, Diagnostic (ICD-10-PCS; 2017-11-24)
DX: K92.2 Gastrointestinal hemorrhage, unspecified (principal); D12.2 Benign neoplasm of ascending colon; D12.3 Benign neoplasm of transverse colon; D12.5 Benign neoplasm of sigmoid colon; J44.9 Chronic obstructive pulmonary disease, unspecified; D50.0 Iron deficiency anemia secondary to blood loss (chronic); E78.00 Pure hypercholesterolemia, unspecified; I48.91 Unspecified atrial fibrillation; I10 Essential (primary) hypertension; Z87.891 Personal history of nicotine dependence; Z79.82 Long term (current) use of aspirin; Z79.899 Other long term (current) drug therapy; Z95.5 Presence of coronary angioplasty implant and graft; Z98.890 Other specified postprocedural states
CPT/HCPCS: 88305; 88321; 88341; 88342; J2704

== ENCOUNTER 2017-12-19 10:51 | Outpatient (CLI) | payer MEDICARE, OTHER ==
--- NOTE | 2017-12-19 14:58 | ULT ---
ULTRASOUND ABDOMEN COMPLETE: DATE: 12-19-17 HISTORY: 77-year-old female with anemia, blood loss: D50.0, thrombocytopenia: D69.6 FINDINGS: Free fluid: None Liver: Normal size and echogenicity. Gallbladder: Mildly distended. Normal mural thickness. No evidence of gallstones, sludge, or perichol ecystic fluid. No sonographic Castro's sign. Common duct: 7 mm, within normal limits for age. Spleen: 10 x 9 x 3 cm Pancreas: Nonspecific sonographic appearance. Kidneys: No hydronephrosis. Shadowing hyperechoic focus at midpole of right, suspicious for calculus. Tiny 1 cm exophytic cyst arising from left midpole cortex. Abdominal aorta: No proximal aneurysm. Mid and distal portions not visualized. Inferior vena cava: Limited visualization. IMPRESSION: 1. No splenomegaly. 2. Probable nephrolithiasis: suspected right renal calculus. ELSY Beckwith POS: [facility]
== END 2017-12-19 10:52 | disposition home or self-care (01) ==
LOC: ULT 10:51
PROVIDERS: ATTEND Internal Medicine Gastroenterology
DX: D50.0 Iron deficiency anemia secondary to blood loss (chronic) (principal); D69.6 Thrombocytopenia, unspecified; Z86.010 Personal history of colon polyps; D51.8 Other vitamin B12 deficiency anemias; D63.8 Anemia in other chronic diseases classified elsewhere
CPT/HCPCS: 36415; 76700; 80053; 82248; 82607; 82728; 82746; 83615; 84100; 84165; 84550; 85046

== ENCOUNTER 2018-02-02 11:37 | Emergency (ER) | payer MEDICARE, OTHER ==
[2018-02-02 13:03] LABS: Bilirubin Negative (Negative); Blood, Urine Large (Negative); Clarity TURBID (Clear); Glucose, Urine (Dipstick) Negative (Negative); Leukocyte Large (Negative); Nitrite Negative (Negative); Protein, Urine (Dipstick) 30 mg/dL (Neg-Trace); Specific Gravity, Urine 1.017 (1.002-1.036); Urobilinogen 0.2 mg/dL (0.2-1.0)
[2018-02-02 13:07] LABS: Bacteria/HPF 2+ HPF (None Seen); RBC/HPF GREATER THAN 50-TNTC HPF (0-3); Squamous Epithelial 0-3 HPF (0-3)
[2018-02-02] MEDS ORDERED: HYDROcodone/Acetaminophen 5/325 mg Tablet ONE (13:09)
[2018-02-02 13:11] LABS: Pathc Cast-AUWi Flag 3.64 (0-2.49); Yeast-AUWi Flag 59.9 (0-25.0)
[2018-02-02 13:22] LABS: Hyaline Casts/LPF 0-3 HYALINE CAST LPF (0-3 Hyaline)
--- NOTE | 2018-02-02 13:22 | RAD ---
3 VIEWS SACRUM: Date: 02/02/18 HISTORY: Pain. COMPARISON: None. FINDINGS: Sacral ala are preserved. No obvious fractures. Visualized bony pelvis is intact. IMPRESSION: Unremarkable 3 views sacrum. POS: [facility]
[2018-02-02 13:23] LABS: Other Casts/LPF None Seen LPF (0-3 Hyaline); Yeast-All Forms None Seen HPF (None Seen)
--- NOTE | 2018-02-02 14:10 | RAD ---
3 VIEWS LUMBAR SPINE: Date: 02/02/18 COMPARISON: 07/15/17. HISTORY: Low back pain. FINDINGS: Redemonstration of five lumbar-type vertebral bodies. Stable vertebral body height. No acute fracture s. Stable end plate changes. No spondylolisthesis. No spondylolysis. Stable staghorn calculus project ing over the right intrarenal collecting system. Atherosclerosis of the aorta is again identified. IMPRESSION: No significant interval change. POS: [facility]
== END 2018-02-02 15:05 | disposition home or self-care (01) ==
LOC: ERS 11:37
DX: M54.5 Low back pain (principal); N39.0 Urinary tract infection, site not specified; I10 Essential (primary) hypertension; I48.91 Unspecified atrial fibrillation; F41.9 Anxiety disorder, unspecified; F32.9 Major depressive disorder, single episode, unspecified
CPT/HCPCS: 72100; 72220; 81003; 81015; 87077; 87086; 87186

== ENCOUNTER 2018-03-04 14:57 | Inpatient (IN) | payer MEDICARE, OTHER ==
--- NOTE | 2018-03-04 15:58 | RAD ---
SINGLE VIEW OF THE CHEST: 03/04/18 COMPARISON: 07/02/17. HISTORY: Lightheadedness and weakness. FINDINGS: Single view of the chest shows a normal sized cardiomediastinal silhouette with atherosclerotic calci fications in the aorta. There is no evidence of consolidation, mass, or pleural effusion. Atelectasis is seen in the left lung base. IMPRESSION: Left basilar atelectasis. POS: [facility]
[2018-03-04 16:06] LABS: Hemoglobin 4.9 g/dL (12.0-16.0); Mean Corpuscular HGB CONC 31.2 g/dL (32.0-36.0); Mean Corpuscular Hemoglobin 33.4 pg (27.0-31.0); Mean Platelet Volume 7.3 fL (7.4-10.4); Platelet Count 491 thou/uL (130-400); Red Blood Cell (RBC) Count 1.46 mill/uL (4.20-5.40); White Blood Cell (WBC) Count 14.8 thou/uL (4.8-10.8)
[2018-03-04 16:14] LABS: ALT (SGPT) Less than 7 U/L (8-55); AST (SGOT) 13 U/L (5-34); Alkaline Phosphatase 98 U/L (40-150); Anion Gap 15 mmol/L (10-20); BUN (Urea Nitrogen) 39 mg/dL (9.8-20.1); Bilirubin, Total 0.3 mg/dL (0.2-1.2); CK (CPK) 24 U/L (29-168); Calc. Creatinine Clearance 0 mL/min (70-130); Calcium 8.1 mg/dL (7.8-10.44); Carbon Dioxide 21 mmol/L (23-31); Chloride 108 mmol/L (98-107); Estimated GFR-MDRD 18; Globulin 2.9 g/dL (2.4-3.5); Glucose 160 mg/dL (83-110); Protein, Total 5.9 g/dL (6.0-8.3); Sodium 140 mmol/L (136-145)
[2018-03-04 16:25] LABS: CKMB 1.8 ng/mL (0-6.6); Troponin I Less than 0.010 ng/mL (< 0.028)
[2018-03-04 16:26] LABS: Anisocytosis SLIGHT = 6-15 cells (100X) (0-5/hpf); Band 9 % (5-11); Lymphocytes 14 % (21-51); MDiff Complete? YES; Macrocytosis SLIGHT = 6-15 cells (100X) (0-5/hpf); Metamyelocyte 2 % (0-0); Monocytes 5 % (0-10); Neutrophil 69 % (42-75); PLT Morphology Comment Appears Increased; Polychromasia SLIGHT = 2-3 cells (100X) (0-2/hpf); Reactive Lymphocytes 1 % (0-10)
[2018-03-04] MEDS ORDERED: Pantoprazole 40 MG VIAL ONE (16:28)
[2018-03-04 17:18] LABS: Bilirubin Negative (Negative); Blood, Urine Moderate (Negative); Clarity TURBID (Clear); Glucose, Urine (Dipstick) Negative (Negative); Leukocyte Large (Negative); Nitrite Negative (Negative); Protein, Urine (Dipstick) Trace mg/dL (Neg-Trace); Specific Gravity, Urine 1.009 (1.002-1.036); Urobilinogen 0.2 mg/dL (0.2-1.0); pH, Urine 6.5 (5.0-9.0)
[2018-03-04 17:21] LABS: Bacteria/HPF 3+ HPF (None Seen); Hyaline Casts/LPF 4-6 HYALINE CAST LPF (0-3 Hyaline); Pathc Cast-AUWi Flag 1.16 (0-2.49)
[2018-03-04 17:46] LABS: INR-International Normal Ratio 2.4; PTT 31.4 SEC (22.9-36.1); Prothrombin Time 26.1 SEC (12.0-14.7)
[2018-03-04] MEDS ORDERED: Acetaminophen 650 MG Suppository PR PRN (17:47)
[2018-03-04] MEDS ORDERED: Ondansetron HCl/PF 4 MG/2 ML Vial IVP PRN ×2 (17:47→22:35)
[2018-03-04] MEDS ORDERED: Acetaminophen 325 MG TAB PO PRN ×2 (17:47→22:35)
--- NOTE | 2018-03-04 18:12 | PDOC.FPRHP ---
- History of Present Illness Chief Complaint: weakness - Allergies/Adverse Reactions Allergies Allergy/AdvReac Type Severity Reaction Status Date / Time No Known Allergies Allergy Verified 11/21/17 09:42 - Home Medications Medication Instructions Recorded Confirmed Type Diltiazem HCl [Cardizem CD] 240 mg PO DAILY 08/19/13 11/21/17 History Aspirin [Ecotrin Low Strength] 81 mg PO DAILY tab 07/14/17 11/21/17 Rx Famotidine [Pepcid] 20 mg PO 0900 tab 07/14/17 11/21/17 Rx Ferrous Gluconate [Fergon] 324 mg PO QAM-WM tab 07/14/17 11/21/17 Rx Folic Acid [Folvite] 1 mg PO BID tab 07/14/17 11/21/17 Rx Furosemide [Lasix] 20 mg PO DAILY tab 07/14/17 11/21/17 Rx Atorvastatin Calcium [Lipitor] 1 tab PO HS 11/21/17 11/21/17 History Budesonide-Formoterol [Symbicort 2 inh PO BID 11/21/17 11/21/17 History 160-4.5] Cholecalciferol (Vitamin D3) 1 tab PO DAILY 11/21/17 11/21/17 History [Vitamin D3] Donepezil HCl [Aricept] 1 tab PO HS 11/21/17 11/21/17 History Megestrol Acetate [Megace] 40 mg PO DAILY 11/21/17 11/21/17 History - History PMHx: PSHx: FHx: Social: - Vital signs BP: [] HR: [] RR: [] Tmax: [] Pox: []% on [] Wt: [] FMR H&P: Results - Labs Result Diagrams: 03/04/18 15:45 03/04/18 15:45 Lab results: WBC 14.8 thou/uL (4.8-10.8) H 03/04/18 15:45 Hgb 4.9 g/dL (12.0-16.0) L* 03/04/18 15:45 Hct 15.6 % (36.0-47.0) L 03/04/18 15:45 MCV 107.0 fL (78.0-98.0) H 03/04/18 15:45 Plt Count 491 thou/uL (130-400) H 03/04/18 15:45 Band Neuts % (Manual) 9 % (5-11) 03/04/18 15:45 Sodium 140 mmol/L (136-145) 03/04/18 15:45 Potassium 4.0 mmol/L (3.5-5.1) 03/04/18 15:45 Chloride 108 mmol/L (98-107) H 03/04/18 15:45 Carbon Dioxide 21 mmol/L (23-31) L 03/04/18 15:45 BUN 39 mg/dL (9.8-20.1) H 03/04/18 15:45 Creatinine 2.56 mg/dL (0.6-1.1) H 03/04/18 15:45 Glucose 160 mg/dL (83-110) H 03/04/18 15:45 Calcium 8.1 mg/dL (7.8-10.44) 03/04/18 15:45 Total Bilirubin 0.3 mg/dL (0.2-1.2) 03/04/18 15:45 AST 13 U/L (5-34) 03/04/18 15:45 ALT Less than 7 U/L (8-55) L 03/04/18 15:45 Alkaline Phosphatase 98 U/L (40-150) 03/04/18 15:45 Creatine Kinase 24 U/L (29-168) L 03/04/18 15:45 CK-MB (CK-2) 1.8 ng/mL (0-6.6) 03/04/18 15:45 B-Natriuretic Peptide 132.2 pg/mL (0-100) H 03/04/18 15:45 Serum Total Protein 5.9 g/dL (6.0-8.3) L 03/04/18 15:45 Albumin 3.0 g/dL (3.4-4.8) L 03/04/18 15:45 Urine Ketones Negative mg/dL (Negative) 03/04/18 17:05 Urine Blood Moderate (Negative) H 03/04/18 17:05 Urine Nitrite Negative (Negative) 03/04/18 17:05 Ur Leukocyte Esterase Large (Negative) H 03/04/18 17:05 Urine RBC 7-10 HPF (0-3) H 03/04/18 17:05 Urine WBC Greater Than 50-TNTC HPF (0-3) H 03/04/18 17:05 Ur Squamous Epith Cells 4-6 HPF (0-3) H 03/04/18 17:05 Urine Bacteria 3+ HPF (None Seen) H 03/04/18 17:05 FMR H&P: Upper Level - Plan Date/Time: 03/04/18 1807 I, [], have evaluated this patient and agree with findings/plan as outlined by machine learning intern resident. Pertinent changes/additions are listed here.
--- NOTE | 2018-03-04 18:22 | PDOC.EVN ---
Event Note - Event Note Event Note: Talked with Dr Lizandro Mary at 18:10 who upon further discussion with patient was revealed as her PCP. He will take over care this evening and is aware she is going to the [facility].
[2018-03-04 19:36] VITALS: BMI 25.3
[2018-03-04] MEDS: Mometasone/Formoterol 120 PUFF INHALER INH SCH (19:59)
[2018-03-04] MEDS ORDERED: Pantoprazole 40 MG VIAL IVP SCH ×2 (20:00→21:00)
[2018-03-04 20:30] LABS: Hemoglobin 6.7 g/dL (12.0-16.0)
[2018-03-04] MEDS: Pantoprazole 80 MG in Sodium Chloride 0.9% 100 ML IVPB SCH (20:46)
[2018-03-04] MEDS ORDERED: Sodium Chloride 0.9% 1,000 ML IV SCH (22:30)
--- NOTE | 2018-03-05 00:57 | CON ---
DATE OF CONSULTATION: 03/04/2018. CHIEF COMPLAINT: Weakness. HISTORY OF PRESENT ILLNESS: Ms. Hernández is a 77-year-old woman who presented to the emergency room with weakness. Her son tried to help her to the bathroom today and she had an episode of loss of continen ce. She had a near syncopal episode. She has been looking pale. She has had some shortness of lópez th since she has had pneumonia earlier in the year. She has no abdominal pain. She has a bowel move ment once every couple of days. She is not able to contribute a whole lot to her history which is mo stly given by her daughter at the bedside currently. She is not aware of any black stools prior to t his. PAST MEDICAL HISTORY: Atrial fibrillation, hypertension. There appears to be some degree of dementi a; however, apparently she has also had some altered mental status along with the anemia. On present ation to the ER, she was found to have hemoglobin of 4.9 down from 10.8 on 01/27/2018. Her INR is 2. 4 on Eliquis twice daily, taking 5 mg 2 times daily, last dose was this morning. She has some underl bennie chronic kidney disease. Current creatinine is 2.56 up from 2.09 in January, congestive heart failure and pneumonia. PAST SURGICAL HISTORY: Cardiac ablation, lumpectomy. She had colonoscopy by Dr. Zazueta on 8. She had 3 polyps in the ascending and transverse colon and a large 2.5 cm pedunculated polyp dale sadie at 50 cm which should be in the descending colon. She also had a 1 cm polyp at 15 cm near the re ctosigmoid. 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 She had upper endoscopy in 05/[address] Umaña, which showed antral g astritis, but was otherwise normal. FAMILY HISTORY: Negative for GI malignancy. SOCIAL HISTORY: She is a former smoker. She did have a few drinks of alcohol per week in the past. No drugs. ALLERGIES: No known drug allergies. MEDICATIONS: Prior to admission, atorvastatin, Eliquis 5 mg twice daily, diltiazem, ferrous gluconat e, donepezil, vitamin D3, famotidine, Uloric, furosemide, vitamin C, folic acid. REVIEW OF SYSTEMS: Negative x10 systems reviewed except as stated in history of present illness. PHYSICAL EXAMINATION: VITAL SIGNS: Temperature 97.4, pulse 95, blood pressure 112/59. GENERAL: She is in no acute distress, alert and oriented. HEENT: Eyes have no scleral icterus. Oropharynx is clear, without lesions. NECK: No cervical or supraclavicular lymphadenopathy. LUNGS: Clear to auscultation bilaterally. HEART: Regular rate and rhythm without murmur. ABDOMEN: Soft, nontender, nondistended. Bowel sounds are present. EXTREMITIES: No lower extremity edema. RECTAL: Reveals black stool in the rectal vault. LABORATORY DATA: White blood cell count 14.8, hemoglobin 4.9 down from 10.8 just on 01/27/2018, plat elets 491. INR 2.6. IMPRESSION: 1. Gastrointestinal bleed, presenting with melena and severe anemia. 2. Anemia of acute blood loss. 3. History of multiple colon polyps removed in November. EGD back in May showed antral gastritis. 4. Congestive heart failure and atrial fibrillation. 5. Eliquis toxicity. Her INR is significantly elevated and this is in the setting of chronic kidney disease. She may need to be on an alternative blood thinner or a lower dose of the Eliquis. RECOMMENDATIONS: 1. Proton pump inhibitor. 2. Eliquis has been held. Her last dose was this morning. 3. We will plan EGD in a couple of days. The Eliquis will take longer to clear with acute on chroni c renal insufficiency. She will possibly be ready for endoscopy on Friday. If she has more signific ant overt bleeding, then this can be done more urgently.
--- NOTE | 2018-03-05 01:54 | HP ---
DATE OF ADMISSION: 03/04/2018 CHIEF COMPLAINT ON ADMISSION: Symptomatic anemia with GI bleed, acute on chronic renal insufficiency. HISTORY OF PRESENT ILLNESS: Patient is a 77-year-old female who was in her usual state of health until developing weakness over the last several days. She was noted to be weak when she was up to have her breakfast and presyncopal. This was around 10 in the morning, at which point, EMS was contacted to transport her. She denied any chest pain or shortness of breath. There was no loss of consciousness or abdominal pain. In fact, they gave her 500 mL of fluid on the way to the ER and she felt somewhat better. On arrival to the ER, she had recently been hospitalized for a urinary tract infection. In the emergency room, hemoglobin and hematocrit were obtained, which showed hemoglobin of 4.9, hematocrit of 15.6. She was typed and crossed and transfusions begun, also noted her BUN 39, creatinine 2.56, glucose running slightly elevated from 160 to 199, but she had just eaten. BNP was 132. Urinalysis showed too numerous to count wbc's, large leukocyte esterase with moderate blood in the urine as well. While in the emergency room, rectal exam revealed black tarry stool, also hemoccult positive. The patient is being placed in the hospital for transfusion and adjustment of medication since she does take Eliquis for atrial fibrillation. It may be necessary to change her medication earlier in the year. She was noted to have a GI bleed and an EGD was done which returned just with some antral gastritis, mild and a colonoscopy performed later that year, came back with several polyps, but no malignant findings earlier in the year. During that hospitalization, she has had respiratory failure for COPD, requiring short-term intubation. PAST MEDICAL HISTORY: As mentioned above, hospitalized several times this year for respiratory failure and outpatient failure to treat urinary tract infection during her hospitalizations. She was noted to have GI bleed and procedures were performed to investigate that. 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 She is also noted to have some malnutrition, cardiac ablation, anxiety disorder, hypertension, and SVT. PAST SURGICAL HISTORY: Included hysterectomy, the aforementioned cardiac ablation, left breast lumpectomy, recent EGD and colonoscopy. PSYCHIATRIC HISTORY: Anxiety and depression and dementia. SOCIAL HISTORY: She has been known to drink Rum and Coke every day until she came into the hospital this year, she is a former smoker, quitting in 1989. ALLERGIES: No known drug allergies. CURRENT MEDICATIONS: Include folic acid 1 mg p.o. daily, atorvastatin 20 mg at bedtime, Eliquis 5 mg b.i.d., diltiazem 240 mg p.o. daily, ferrous sulfate 324 mg daily, Aricept 5 mg at bedtime, vitamin D3 5000 units daily, Pepcid 20 mg daily, Uloric 40 mg daily, Lasix 20 mg q.a.m., and vitamin C 500 mg daily. REVIEW OF SYSTEMS: The patient has dementia, so her reliability is questionable. She has been reported general malaise. HEENT: Did not mention any sores in her mouth, ears, nose, or throat, or drainage or pain. Chest: Without complaints of shortness of breath or cough. Cardiovascular: No reports of palpitations or chest pain. Gastrointestinal: No reports of nausea , vomiting, or diarrhea. Genitourinary: I asked if there was blood noted in her urine or stool, she did not see any. Musculoskeletal: No complaints of pain in her muscles or joints. SKIN: Without any rashes or lesions. Neurologic: She states that she has been dizzy and weak, but denies mental status changes. PHYSICAL EXAMINATION: VITAL SIGNS: At the time of admission, blood pressure 115/50, pulse 104, respirations 23, temperature 97.6. Pain scale at 0, and O2 sat at 97% on room air. GENERAL: This is an elderly female, alert, responsive with no complaints of pain. HEENT: Normocephalic and atraumatic. Pupils with diminished reactivity to light at 1-2 mm each with arcus senilis bilaterally. TMs, nares, and pharynx are clear. Conjunctiva and sclera clear, nonicteric. CHEST: With generally diminished breath sounds, but no acute findings. HEART: Regular rate and rhythm. ABDOMEN: Soft without appreciable organomegaly, nontender. GENITOURINARY: Deferred. EXTREMITIES: Without clubbing, cyanosis, or edema. There is symmetrical wasting in all extremities. No tenderness. SKIN: Without acute rashes or lesions. NEUROLOGIC: Mental status clears at baseline with poverty of speech and mild confusion. Sensory exam is grossly intact. Unable to test gait and cerebellar function at this time. LABORATORY AND X-RAY FINDINGS: The lab work on admission, WBC 14.8, hemoglobin as previously mentioned 4.9, hematocrit 15.6 with platelets at 491,000. Sodium at 140, potassium 4.0, chloride 108, CO2 of 21, BUN 39, creatinine 2.56 with a GFR of 18, glucose 160. Liver functions unremarkable. Cardiac enzymes negative. BNP slightly elevated at 132. Urinalysis shows wbc's too numerous to count, moderate blood with large leukocyte esterase. Her PT is 26.1, INR 22.4 with aPTT at 31.4. ASSESSMENT: 1. Symptomatic anemia due to gastrointestinal bleed and hematuria - patient is on Eliquis. The patient has had recent EGD and colonoscopy and it is presumed that this is probably an arteriovenous malformation bleeding due to her blood thinner. 2. Urinary tract infection. 3. Dementia. 4. History of atrial fibrillation. 5. Hypertension. 6. Coronary artery disease. PLAN: Fluid resuscitation and blood transfusion, serial reevaluation, culture the urine and treat as directed. We will have to reassess even if anticoagulation will be an option with this patient, since she has been found to have GI bleed even earlier this year with just antral gastritis. MTDD
[2018-03-05 04:21] LABS: Band 5 % (5-11); Eosinophils 2 % (0-10); Hemoglobin 7.7 g/dL (12.0-16.0); Lymphocytes 28 % (21-51); MDiff Complete? YES; Mean Corpuscular HGB CONC 33.7 g/dL (32.0-36.0); Mean Corpuscular Hemoglobin 32.5 pg (27.0-31.0); Mean Corpuscular Volume 96.5 fL (78.0-98.0); Mean Platelet Volume 7.1 fL (7.4-10.4); Monocytes 7 % (0-10); Myelocyte 1 % (0-0); Neutrophil 56 % (42-75); Nucleated RBC 1 % (0); PLT Morphology Comment Appears Adequate; Platelet Count 364 thou/uL (130-400); Polychromasia MODERATE = 3-4 cells (100X) (0-2/hpf); RBC Distribution Width 16.6 % (11.5-14.5); Reactive Lymphocytes 1 % (0-10); Red Blood Cell (RBC) Count 2.35 mill/uL (4.20-5.40); White Blood Cell (WBC) Count 13.3 thou/uL (4.8-10.8)
[2018-03-05] MEDS: cefTRIAXone\\ROCEPHIN 1 GM in Sodium Chloride 0.9% 100 ML IVPB SCH (05:25)
[2018-03-05 05:31] LABS: ALT (SGPT) Less than 7 U/L (8-55); AST (SGOT) 16 U/L (5-34); Albumin 2.7 g/dL (3.4-4.8); Alkaline Phosphatase 94 U/L (40-150); Anion Gap 11 mmol/L (10-20); BUN (Urea Nitrogen) 36 mg/dL (9.8-20.1); Calc. Creatinine Clearance 22 mL/min (70-130); Calcium 7.8 mg/dL (7.8-10.44); Carbon Dioxide 23 mmol/L (23-31); Chloride 111 mmol/L (98-107); Estimated GFR-MDRD 21; Globulin 2.7 g/dL (2.4-3.5); Glucose 97 mg/dL (83-110); Potassium 3.6 mmol/L (3.5-5.1); Protein, Total 5.4 g/dL (6.0-8.3); Sodium 141 mmol/L (136-145)
[2018-03-05] MEDS: Pantoprazole 80 MG in Sodium Chloride 0.9% 100 ML IVPB SCH ×2 (07:30→14:54)
[2018-03-05] MEDS: Mometasone/Formoterol 120 PUFF INHALER INH SCH ×2 (07:44→19:12)
[2018-03-05] MEDS ORDERED: Pantoprazole 40 MG VIAL IVP SCH (09:00)
[2018-03-05] MEDS ORDERED: Prevnar 13-Val Conj/PF 0.5 ML SYRINGE IM ONE (09:00)
[2018-03-05] MEDS: Folic Acid 1 MG TAB PO SCH (09:28)
[2018-03-05] MEDS: Ferrous Gluconate 324 MG TAB PO SCH ×2 (09:28→17:24)
[2018-03-05] MEDS: Furosemide 20 MG TAB PO SCH (09:28)
[2018-03-05] MEDS: Febuxostat 40 MG TAB PO SCH (09:28)
[2018-03-05] MEDS: Haloperidol Lactate 5 MG/ML VIAL SLOW IVP PRN ×2 (16:02→22:03)
[2018-03-05] MEDS: Atorvastatin Calcium 20 MG TAB PO SCH (20:55)
[2018-03-05] MEDS: Donepezil HCl 5 MG TAB PO SCH (20:55)
--- NOTE | 2018-03-05 21:11 | PRG ---
DATE OF SERVICE: 03/05/2018 SUBJECTIVE: Ms. Hernández had two black bowel movements today. She has no abdominal pain. She is tolerat ing a solid diet, but not eating much. OBJECTIVE: GENERAL: She is awake and alert. No acute distress. VITAL SIGNS: Pulse is 107, blood pressure 135/65, temperature 98.2. LUNGS: Clear to auscultation bilaterally. CARDIOVASCULAR: Heart S1, S2, without murmur. ABDOMEN: Soft, nontender, nondistended. Bowel sounds are present. EXTREMITIES: No lower extremity edema. LABORATORY DATA: Hemoglobin is 7.7 after 2 units red blood cell transfusion. IMPRESSION: 1. Anemia of acute gastrointestinal blood loss. 2. Toxicity from Eliquis. Her INR was elevated at 2.4 last night. Given the acute on chronic renal insufficiency, it may take longer to clear this medication. [facility] and give additional time for this medicine to metabolize. 3. Atrial fibrillation and hypertension cardiomyopathy. 4. Acute on chronic kidney disease. 5. She did have endoscopy just this past June that showed gastritis without a significant bleedi ng source. She had GI bleed, then on alternative anticoagulant at that time. Colonoscopy in 11/2017 had multiple polyps removed, one of them being large; however, her bleeding source now does not appe ar to be from the colon. RECOMMENDATIONS: 1. Continue regular diet for now. 2. We will tentatively plan for upper endoscopy on 03/07/2018. 3. Proton pump inhibitor drip.
--- NOTE | 2018-03-05 22:11 | CON ---
DATE OF CONSULTATION: 03/05/2018 HISTORY OF PRESENT ILLNESS: Remedios Hernández is a 77-year-old female. She was admitted yesterday afternoon after presenting with complaints of weakness and near syncope as well as looking pale. She lives with her son who apparently brought her to the emergency department. She was found to be severely anemic. She has been transfused and now is becoming progressively more agitated, wanting to go home. All she wanted to talk about was her son. The fact that he left with her pickup truck and had not been back yet and had been gone for 3 hours. PAST MEDICAL HISTORY: 1. Remarkable for atrial fibrillation. 2. Hypertension. 3. History of anticoagulation. 4. History of chronic kidney disease. 5. History of an ablation procedure for atrial fibrillation. 6. History of a lumpectomy. 7. History of polypectomy. 8. History of gastritis. FAMILY HISTORY: Negative for lung disease in early age. SOCIAL HISTORY: She is a former smoker, rarely drinks, but it is unclear how much. ALLERGIES: None. MEDICATIONS: Prior to admission, she was on atorvastatin, Eliquis, Cardizem, iron, donepezil, vitamin D3, famotidine, Uloric, furosemide, vitamin C and folate. REVIEW OF SYSTEMS: Ten points system completed, not obtainable because of her agitation. PHYSICAL EXAMINATION: GENERAL: She is in no distress. She was cooperative but kept asking where her son was. She thought she was in [place]. She did not know the name of the building. VITAL SIGNS: She is afebrile, heart rate is 95, respiratory rate between 16 and 25 today. Oximetry is 95-100 on room air, blood pressure is 120/65. HEENT: Pupils are equal. Sclerae anicteric. NECK: Supple. LUNGS: Clear. HEART: Regular rhythm, no S3. ABDOMEN: Soft and nontender. EXTREMITIES: Without clubbing, cyanosis, or edema. LABORATORY DATA: White count 13.3, hemoglobin 7.7, platelets 364 as it was at 3 :30 this morning. Sodium 141, potassium 3.6, chloride 111, bicarbonate 23, BUN 36, creatinine 2.23. Albumin was 3 on presentation. Urinalysis was only remarkable for trace protein, but too numerous to count white cells. Mean corpuscular volume on her initial CBC prior to transfusion was 107. Anemia with an elevated mean corpuscular volume. I would worry about B12 and folate if these have not been checked in the past. She had iron studies in January that were consistent with iron deficiency, but a normal ferritin. She has had a serum protein electrophoresis and it did not show an M spike. She did have a B12 that was actually elevated in November and a Folate that was actually elevated in November as well. We wonder about perhaps some early myelodysplasia. IMPRESSION: 1. Anemia? blood loss versus a combination of causes. 2. Encephalopathy? decompensation of underlying dementia. PLAN: Continue with transfusions and monitoring of hemoglobin and hematocrit. She has been anticoagulated. She would not give her intramuscular injections, but low doses of IV Haldol may help with her encephalopathy. This is a 50-minute consult with greater than 50% of the time was spent on the unit coordinating care. DIANNE
[2018-03-06] MEDS: Mometasone/Formoterol 120 PUFF INHALER INH SCH ×2 (06:15→19:11)
--- NOTE | 2018-03-06 11:04 | PRG ---
DATE OF SERVICE: 03/06/2018 Ms. Hernández has no new complaints. Her daughter is at the bedside. She is more cooperative today with h er daughter been there. PHYSICAL EXAMINATION: VITAL SIGNS: I am told her vital signs are stable (computer is not working). LUNGS: Lungs are clear. HEART: Regular rhythm. ABDOMEN: Abdomen is soft. Her hemoglobin dropped more this morning, so she is being transfused. I believe she is tentatively o n the schedule for endoscopy tomorrow. She will not keep a monitor on so she can move out to a medical bed. She is not having any rhythm di sturbances anyway. She just needs to have vital signs done fairly frequently at least every 4 hours and the nurses need to look in on her every hour. She probably will need a sitter.
[2018-03-06] MEDS: cefTRIAXone\\ROCEPHIN 1 GM in Sodium Chloride 0.9% 100 ML IVPB SCH (11:25)
[2018-03-06] MEDS: Ferrous Gluconate 324 MG TAB PO SCH (11:25)
[2018-03-06] MEDS: Febuxostat 40 MG TAB PO SCH (11:26)
[2018-03-06] MEDS: Folic Acid 1 MG TAB PO SCH (11:27)
[2018-03-06] MEDS: Furosemide 20 MG TAB PO SCH (11:27)
[2018-03-06] MEDS: Pantoprazole 80 MG in Sodium Chloride 0.9% 100 ML IVPB SCH (12:05)
[2018-03-06 12:40] LABS: INR-International Normal Ratio 1.3; PTT 30.1 SEC (22.9-36.1); Prothrombin Time 16.4 SEC (12.0-14.7)
[2018-03-06 12:44] LABS: Anion Gap 10 mmol/L (10-20); BUN (Urea Nitrogen) 29 mg/dL (9.8-20.1); Calc. Creatinine Clearance 23 mL/min (70-130); Calcium 7.8 mg/dL (7.8-10.44); Carbon Dioxide 22 mmol/L (23-31); Chloride 112 mmol/L (98-107); Estimated GFR-MDRD 23; Glucose 82 mg/dL (83-110); Potassium 3.4 mmol/L (3.5-5.1); Sodium 141 mmol/L (136-145)
[2018-03-06 12:57] LABS: #Basophils 0.1 thou/uL (0.0-0.2); #Eosinphils 0.7 thou/uL (0.0-0.7); #Lymphocytes 2.1 thou/uL (1.20-3.40); #Monocytes 0.9 thou/uL (0.11-0.59); #Neutrophils 5.7 thou/uL (1.40-6.50); %Basophils 0.6 % (0.0-1.0); %Eosinophils 6.9 % (0.0-10.0); %Lymphocytes 22.6 % (21.0-51.0); %Monocytes 9.3 % (0.0-10.0); %Neutrophils 60.6 % (42.0-75.0); Hemoglobin 6.7 g/dL (12.0-16.0); Mean Corpuscular HGB CONC 32.9 g/dL (32.0-36.0); Mean Corpuscular Hemoglobin 32.8 pg (27.0-31.0); Mean Corpuscular Volume 99.5 fL (78.0-98.0); Mean Platelet Volume 7.3 fL (7.4-10.4); Platelet Count 348 thou/uL (130-400); RBC Distribution Width 18.7 % (11.5-14.5); Red Blood Cell (RBC) Count 2.04 mill/uL (4.20-5.40); White Blood Cell (WBC) Count 9.5 thou/uL (4.8-10.8)
--- NOTE | 2018-03-06 13:01 | PQF ---
MONIKA ISRAEL MICHAEL E MD [id number] [facility] [id number] CLINICAL DOCUMENTATION IMPROVEMENT CLARIFICATION FORM: ICD-10 Updated PLEASE DO AN ADDENDUM TO THE PROGRESS NOTE WITH ANY DOCUMENTATION UPDATES OR ADDITIONS AND CARRY THROUGH TO DC SUMMARY. THANK YOU. DATE: 03-06-18 ATTN: DR. JAVAN LUCAS Please exercise your independent, professional judgment in responding to the clarification form. Clinical indicators are provided on the bottom of this form for your review Please check appropriate box(s): [ ] Encephalopathy: Type: [ ] Acute [ ] Subacute [ ] Chronic Etiology: [ ] Metabolic [ ] Unspecified [ ] in the setting of underlying dementia [ ] Other (please specify) [ ] Transient Alteration of Awareness [ x ] Other diagnosis __dementia [ ] Unable to determine In addition, please specify: Present on Admission (POA): [ x ] Yes [ ] No [ ] Unable to determine For continuity of documentation, please document condition throughout progress notes and discharge summary. Thank You. CLINICAL INDICATORS - SIGNS / SYMPTOMS / LABS H&P: HAS SOME AMS W/ ANEMIA; CHF 10-11 (GREGORY) ENCEPHALOPATHY ? DECOMPENSATION OF UNDERLYING DEMENTIA ;LOW DOSES OF IV HALDOL MAY HELP W/ HER ENCEPHALOPATHY RISK FACTORS H&P: RECENT HOSPITALIZATION W/ UTI SYMPTOMATIC ANEMIA W/ GI BLEED MILD DEMENTIA TREATMENTS: CPOE: 10 2 UNITS PRBC MAR: ROCEPHIN IV 03-05 HALDOL IV 03-05 THANK YOU, SHERRI (This form is maintained as a part of the permanent medical record) 2014 [employer]. All Rights Reserved Sherri Ruiz, RN, BS [email or web address]
--- NOTE | 2018-03-06 13:09 | PQF ---
MONIKA ISRAEL MICHAEL E MD [id number] [facility]- B12 [id number] CLINICAL DOCUMENTATION IMPROVEMENT CLARIFICATION FORM: ICD-10 Updated PLEASE DO AN ADDENDUM TO THE PROGRESS NOTE WITH ANY DOCUMENTATION UPDATES OR ADDITIONS AND CARRY THROUGH TO DC SUMMARY. THANK YOU. DATE: 03-06-18 ATTN: DR. JAVAN LUCAS Please exercise your independent, professional judgment in responding to the clarification form. Clinical indicators are provided on the bottom of this form for your review Please check appropriate box(s): HEART FAILURE: A. TYPE: [ ] Systolic / HFrEF [ x] Diastolic / HFpEF [ ] Combined Systolic / Diastolic B. ACUITY [ ] Acute [ ] Acute on Chronic [ x ] Chronic [ ] Other diagnosis [ ] Unable to determine For continuity of documentation, please document condition throughout progress notes and discharge summary. Thank You. CLINICAL INDICATORS - SIGNS / SYMPTOMS / LABS H&P: HX CHF LABS: 10- BNP 132.2 10-10 CXR: NO PLEURAL EFFUSION; ATELECTASIS SEEN IN LEFT LUNG BASE RISKS: H&P: PMH CHF ; CAD; HTN; TREATMENTS: MAR: LASIX PO 10- THANK YOU, SHERRI (This form is maintained as a part of the permanent medical record) 2015 [employer]. All Rights Reserved Sherri Ruiz RN, BS [email or web address] Cell [facility]
--- NOTE | 2018-03-06 18:27 | PRG ---
DATE OF SERVICE: 03/06/2018 SUBJECTIVE: Ms. Hernández had two black stools today. She has had no abdominal pain. She is tolerating a solid diet. OBJECTIVE: VITAL SIGNS: Temperature 98.2, pulse 79, blood pressure 99/51. GENERAL: She is in no acute distress, awake and alert. LUNGS: Clear to auscultation bilaterally. HEART: Regular rate and rhythm without murmur. ABDOMEN: Soft, nontender, nondistended. Bowel sounds are present. EXTREMITIES: No lower extremity edema. IMPRESSION: 1. Gastrointestinal bleed suggestive of upper gastrointestinal bleed with melena. She has been on i charity which may contribute to black stools along with chronic bleeding. 2. Anemia of acute blood loss. Her hemoglobin has drifted down today to 6.7. Given her coronary di sease and ongoing decrease in her hemoglobin indicating possible slow ongoing oozing, I will give her 2 units transfusion today hemoglobin above 8 prior to anesthesia. 3. Coagulopathy secondary to Eliquis toxicity. 4. Acute on chronic renal insufficiency. RECOMMENDATIONS: 1. We will switch to b.i.d. proton pump inhibitor from the proton pump inhibitor drip hence I think that if she is having ongoing bleeding at slow. More likely, she should passing old blood. 2. Transfuse. 3. EGD tomorrow. Of note, she did have endoscopy back in May that only showed gastritis. She h ad colonoscopy this past summer with significant polyps removed; however, there is no evidence of a c olonic bleeding at this point. More likely, her bleeding is related to the coagulopathy than signifi cant bleeding source in the gastrointestinal tract. 4. Dr. Vanessa will cover the weekend.
[2018-03-06] MEDS ORDERED: Thiamine HCl 200 MG/2 ML VIAL IM SCH (19:00)
[2018-03-06] MEDS ORDERED: Lorazepam 2 MG/ML VIAL SLOW IVP PRN (19:02)
[2018-03-06] MEDS ORDERED: chlordiazePOXIDE HCl 25 MG CAP PO SCH (19:15)
[2018-03-06] MEDS ORDERED: Folic Acid 1 MG TAB PO SCH (19:15)
[2018-03-06] MEDS ORDERED: Furosemide 20 MG/2 ML VIAL SLOW IVP SCH (20:00)
[2018-03-06] MEDS: Atorvastatin Calcium 20 MG TAB PO SCH (21:25)
[2018-03-06] MEDS: Donepezil HCl 5 MG TAB PO SCH (21:26)
[2018-03-06] MEDS: Pantoprazole 40 MG VIAL IVP SCH (21:29)
[2018-03-07] MEDS: cefTRIAXone\\ROCEPHIN 1 GM in Sodium Chloride 0.9% 100 ML IVPB SCH (06:42)
[2018-03-07] MEDS: Mometasone/Formoterol 120 PUFF INHALER INH SCH ×2 (07:26→18:13)
[2018-03-07] MEDS: Pantoprazole 40 MG VIAL IVP SCH ×2 (08:49→20:35)
[2018-03-07] MEDS ORDERED: chlordiazePOXIDE HCl 25 MG CAP PO SCH (09:00)
[2018-03-07 10:45] LABS: Hemoglobin 10.7 g/dL (12.0-16.0)
[2018-03-07] MEDS ORDERED: PROPOFOL 200 MG/20 ML VIAL ONE (11:33)
[2018-03-07] MEDS ORDERED: Ketamine 50 MG/ML VIAL ONE (12:07)
--- NOTE | 2018-03-07 13:26 | OP ---
DATE OF PROCEDURE: 03/07/2018 PROCEDURE: Esophagogastroduodenoscopy with biopsy. INDICATION FOR PROCEDURE: Melena, possible upper gastrointestinal bleeding. DESCRIPTION OF PROCEDURE: After the risks and benefits of the procedure were explained to the patien t's surrogate including risk of bleeding, infection, perforation, reactions to anesthesia, aspiration and/or pain, informed consent was obtained. The patient was then taken to the endoscopy suite where deep sedation was administered via propofol and anesthesia support. Once adequate sedation was achi eved, the standard gastroscope was introduced into the mouth with intubation of the esophagus, stomac h and the proximal small intestine with the findings listed below. The patient tolerated the procedu re well with no immediate perioperative complications and was subsequently transferred to PACU in sat isfactory condition. FINDINGS: ESOPHAGUS: Normal appearing mucosa was seen in the proximal and mid esophagus. Within the distal es ophagus at 33 cm past the incisors, a nonobstructive fibrous ring was noted without any evidence of e rosions, ulcerations, or active/recent bleeding. This ring was not intervened upon given the lack of dysphagia type symptoms at the current time. The diaphragmatic pinch was seen at 37 cm while the GE junction was well seen at 34 cm denoting a 3 cm hiatal hernia. There was also mild tortuosity withi n the distal esophagus, but there was no evidence of erosions, ulcerations, mass lesions or active/re cent bleeding. STOMACH: Diffuse mucosal erythema was seen throughout the entire stomach that was moderate in severi ty. With the passage of the scope along the gastric mucosa, it was also very friable with areas show ing oozing of blood after manipulated by the scope. This was intensified in the distal gastric body and gastric antrum with linear patches of mucosal erythema extending into the antrum. Multiple rando m biopsies were taken from the entire stomach for evaluation and placed in a specimen jar. Otherwise , there was no evidence of erosions, ulcerations, mass lesions or active/recent bleeding. DUODENUM: Normal appearing mucosa was seen in both the duodenal bulb and second portion of the duode num. A small duodenal diverticulum was noted within the second portion of the duodenum without an ul ceration within the diverticulum itself. There was no evidence of erosions, ulcerations, mass lesion s or active/recent bleeding. IMPRESSION: 1. Mild tortuosity of the distal esophagus. 2. Nonobstructive fibrous ring seen at 33 cm past the incisors not intervened upon during this exami nation due to lack of dysphagia symptoms. 3. A 3 cm hiatal hernia. 4. Diffuse nonspecific gastropathy seen throughout the entire stomach status post biopsies (this is a more likely explanation for the patient's recent upper GI bleeding considering the friability of th e mucosa). RECOMMENDATIONS: 1. We would continue to trend H&H and transfuse as necessary to maintain an H&H of 7. 2. Continue to monitor clinically for signs of active gastrointestinal bleeding. 3. We would continue pantoprazole 40 mg b.i.d. indefinitely until seen in the GI clinic. 4. We will follow up on the biopsy results with further care dictated from the pathology. 5. We would avoid any NSAIDs as that could potentially cause gastric irritation. 6. Please hold any anticoagulation for the next 48-72 hours prior to reinitiation. We will continue to follow. Please call with any questions.
[2018-03-07] MEDS: Furosemide 20 MG TAB PO SCH (14:56)
[2018-03-07] MEDS: Folic Acid 1 MG TAB PO SCH (14:56)
[2018-03-07] MEDS: Multivit, Therapeutic 1 TAB PO SCH (14:57)
[2018-03-07] MEDS: Febuxostat 40 MG TAB PO SCH (15:01)
--- NOTE | 2018-03-07 15:22 | PRG ---
DATE OF CONSULTATION: 03/07/2018 SERVICE: Pulmonary Medicine. INTERVAL HISTORY: The patient is doing absolutely wonderful. She is immediately postop from her EGD . She is under the influence of a little sedating medication. That being said, I am able to wake he r up comfortably without any issues. She denies any current fevers or chills. She indicates breathi ng comfortably. She has a little bit of a cough, but not bringing up any sputum. She remains on julissa m air. PHYSICAL EXAMINATION: VITAL SIGNS: Afebrile, pulse 98, blood pressure 116/58, respirations 16, saturation 96% on room air. GENERAL: The patient is awake, alert, no apparent distress. LUNGS: Excellent air entry. There is no prolonged expiratory phase or wheezing. HEART: Normal rate, regular. ABDOMEN: Soft, nontender, nondistended. Bowel sounds are positive. MUSCULOSKELETAL: No cyanosis or clubbing. There is no pitting in the bilateral lower extremities. NEUROLOGIC: Grossly nonfocal. LABORATORY DATA: Hemoglobin 10.7 this morning. Creatinine 2.11, re-approaching baseline. Potassium 3.4. Basic metabolic profile is otherwise unremarkable. Anion gap is normal, bicarbonate 22. ASSESSMENT: 1. Acute blood loss anemia secondary to gastritis. 2. Hiatal hernia. DISCUSSION: We will continue PPI. At this point, the patient has no further requirements for inpati ent Pulmonary or Critical Care opinion, and I will sign off. Hemoglobins will be trended through hortencia archer. If she deteriorates clinically, please give me a phone call.
[2018-03-07] MEDS: Atorvastatin Calcium 20 MG TAB PO SCH (20:35)
[2018-03-07] MEDS: Donepezil HCl 5 MG TAB PO SCH (20:35)
[2018-03-08 05:18] LABS: Anion Gap 12 mmol/L (10-20); BUN (Urea Nitrogen) 19 mg/dL (9.8-20.1); Calc. Creatinine Clearance 30 mL/min (70-130); Calcium 8.1 mg/dL (7.8-10.44); Carbon Dioxide 21 mmol/L (23-31); Chloride 110 mmol/L (98-107); Estimated GFR-MDRD 30; Glucose 92 mg/dL (83-110); Sodium 140 mmol/L (136-145)
[2018-03-08 05:24] LABS: Potassium 2.9 mmol/L (3.5-5.1)
[2018-03-08] MEDS: cefTRIAXone\\ROCEPHIN 1 GM in Sodium Chloride 0.9% 100 ML IVPB SCH (05:26)
[2018-03-08 06:01] LABS: Anisocytosis MODERATE=16-30 cells (100X) (0-5/hpf); Band 4 % (5-11); Hemoglobin 10.2 g/dL (12.0-16.0); Lymphocytes 25 % (21-51); MDiff Complete? YES; Mean Corpuscular Hemoglobin 31.6 pg (27.0-31.0); Mean Corpuscular Volume 95.5 fL (78.0-98.0); Mean Platelet Volume 7.2 fL (7.4-10.4); Monocytes 12 % (0-10); Neutrophil 59 % (42-75); Platelet Count 348 thou/uL (130-400); Polychromasia SLIGHT = 2-3 cells (100X) (0-2/hpf); RBC Distribution Width 19.9 % (11.5-14.5); Red Blood Cell (RBC) Count 3.22 mill/uL (4.20-5.40); White Blood Cell (WBC) Count 9.7 thou/uL (4.8-10.8)
[2018-03-08] MEDS: Mometasone/Formoterol 120 PUFF INHALER INH SCH ×2 (08:00→18:44)
[2018-03-08] MEDS: Furosemide 20 MG TAB PO SCH (08:18)
[2018-03-08] MEDS: Pantoprazole 40 MG VIAL IVP SCH (08:18)
[2018-03-08] MEDS: Potassium Chloride 20 MEQ TAB PO SCH ×3 (08:18→16:24)
[2018-03-08] MEDS: Multivit, Therapeutic 1 TAB PO SCH (08:18)
[2018-03-08] MEDS: Folic Acid 1 MG TAB PO SCH (08:18)
[2018-03-08] MEDS: Febuxostat 40 MG TAB PO SCH (11:29)
[2018-03-08] MEDS: Donepezil HCl 5 MG TAB PO SCH (21:03)
[2018-03-08] MEDS: Atorvastatin Calcium 20 MG TAB PO SCH (21:03)
--- NOTE | 2018-03-09 00:39 | PRG ---
DATE OF SERVICE: 03/08/2018 REASON FOR CONSULTATION: Melena, upper gastrointestinal bleeding. SUBJECTIVE: The patient states that she is doing well today with no acute events or problems overnig ht. She currently denies any nausea, vomiting, fevers, chills, abdominal pain, GI bleeding, dysphagi a, or odynphagia. OBJECTIVE: VITAL SIGNS: Temperature 98.3, pulse 92, blood pressure 124/74, respiratory rate 16, satting 100% on room air. GENERAL: Patient is sitting in front of the television in a chair in no acute distress. She is aler t and oriented x4. HEART: Regular rate and rhythm. RESPIRATORY: Clear to auscultation bilaterally. ABDOMEN: Normoactive bowel sounds, soft, nontender, nondistended. EXTREMITIES: No cyanosis, clubbing, or edema. LABORATORY DATA: CBC with a white blood cell count of 9.7, hemoglobin 10.2, hematocrit 30.7, platele ts 348. Chemistry with a sodium of 140, potassium 2.9, chloride 110, CO2 of 21, BUN 19, creatinine 1 .66, glucose 92. IMAGING DATA: The patient underwent upper endoscopy on 03/07/2018 with the findings of a nonobstruct mic fibrous ring at 33 cm past the incisors that was not intervened upon during this examination due to lack in dysphagia symptoms. Also seen was a 3 cm hiatal hernia; however, diffuse nonspecific sveta ropathy was seen throughout the entire stomach that exhibited mild friability due to the passage of t he gastroscope with the active oozing of blood in certain areas upon passage of the scope. ASSESSMENT AND PLAN: The patient is a 77-year-old female with past medical history of hyperlipidemia ; atrial fibrillation, on anticoagulation; thrombocytopenia; acute on chronic diastolic heart failure ; chronic kidney disease, stage 3; and more recently mild dementia presenting with melena. Melena. The patient was initially admitted to the hospital with complaints of weakness and a near sy ncopal episode while at home. She was ultimately transferred to [facility] for evaluation and not ed to have a decreased H and H concerning for gastrointestinal bleeding along with the appearance of dark black stools. She subsequently underwent an EGD on 03/07/2018, which showed the presence of a n onobstructive fibrous ring in the distal esophagus as well as presbyesophagus. A 3 cm hiatal hernia without the appearance of Corey's erosion/lesions, but did also show a mild nonspecific gastropathy throughout the entire stomach that was friable to the passage of the standard gastroscope. At this time, the most likely reason for her melenic-type stools would have been the increased gastritis/fria bility of the gastric mucosa and subsequent oozing of blood at that time. RECOMMENDATIONS: 1. We would continue to trend H and H and transfuse as necessary to maintain an H and H of 7/21. 2. Continue to monitor clinically for signs of active gastrointestinal bleeding. 3. We would continue pantoprazole 40 mg twice daily until seen in GI clinic. 4. We will follow up on the biopsy results from yesterday's upper endoscopy. 5. We would consider placing the patient back on anticoagulation if needed within the next 24-48 mel rs. We will continue to follow. Please call with any questions.
[2018-03-09 05:38] LABS: Anion Gap 12 mmol/L (10-20); BUN (Urea Nitrogen) 18 mg/dL (9.8-20.1); Calc. Creatinine Clearance 27 mL/min (70-130); Calcium 8.2 mg/dL (7.8-10.44); Carbon Dioxide 20 mmol/L (23-31); Chloride 110 mmol/L (98-107); Estimated GFR-MDRD 27; Glucose 94 mg/dL (83-110); Potassium 3.4 mmol/L (3.5-5.1); Sodium 139 mmol/L (136-145)
[2018-03-09 05:49] LABS: Band 2 % (5-11); Eosinophils 3 % (0-10); Hemoglobin 10.5 g/dL (12.0-16.0); Lymphocytes 18 % (21-51); MDiff Complete? YES; Mean Corpuscular Hemoglobin 31.6 pg (27.0-31.0); Mean Corpuscular Volume 95.9 fL (78.0-98.0); Mean Platelet Volume 7.2 fL (7.4-10.4); Monocytes 7 % (0-10); Neutrophil 69 % (42-75); Platelet Count 342 thou/uL (130-400); RBC Distribution Width 18.8 % (11.5-14.5); Reactive Lymphocytes 1 % (0-10); Red Blood Cell (RBC) Count 3.32 mill/uL (4.20-5.40); White Blood Cell (WBC) Count 10.2 thou/uL (4.8-10.8)
[2018-03-09] MEDS: cefTRIAXone\\ROCEPHIN 1 GM in Sodium Chloride 0.9% 100 ML IVPB SCH (06:15)
[2018-03-09] MEDS: Mometasone/Formoterol 120 PUFF INHALER INH SCH (06:59)
[2018-03-09] MEDS: Potassium Chloride 20 MEQ TAB PO SCH ×2 (09:12→12:42)
[2018-03-09] MEDS: Multivit, Therapeutic 1 TAB PO SCH (09:13)
[2018-03-09] MEDS: Furosemide 20 MG TAB PO SCH (09:13)
[2018-03-09] MEDS: Folic Acid 1 MG TAB PO SCH (09:13)
[2018-03-09] MEDS: Febuxostat 40 MG TAB PO SCH (10:55)
[2018-03-09 11:17] VITALS: BP 127/76; TEMP 97.9
== END 2018-03-09 13:20 | disposition home health service (06) | DRG 378 ==
LOC: ERS 14:57 → IMCU/EMU 18:41 → T4-A 03-06 17:19
PROVIDERS: ADMIT Family Medicine; ATTEND Family Medicine
PROC: 30233N1 Transfusion of Nonautologous Red Blood Cells into Peripheral Vein, Percutaneous Approach (ICD-10-PCS; principal; 2018-03-04)
PROC: 0DB78ZX Excision of Stomach, Pylorus, Via Natural or Artificial Opening Endoscopic, Diagnostic (ICD-10-PCS; 2018-03-07)
DX: K92.1 Melena (principal); N39.0 Urinary tract infection, site not specified; I50.32 Chronic diastolic (congestive) heart failure; N17.9 Acute kidney failure, unspecified; D62 Acute posthemorrhagic anemia; I13.0 Hypertensive heart and chronic kidney disease with heart failure and stage 1 through stage 4 chronic kidney disease, or unspecified chronic kidney disease; I43 Cardiomyopathy in diseases classified elsewhere; I48.91 Unspecified atrial fibrillation; J44.9 Chronic obstructive pulmonary disease, unspecified; F03.90 Unspecified dementia, unspecified severity, without behavioral disturbance, psychotic disturbance, mood disturbance, and anxiety; I25.10 Atherosclerotic heart disease of native coronary artery without angina pectoris; F41.9 Anxiety disorder, unspecified; F32.9 Major depressive disorder, single episode, unspecified; K44.9 Diaphragmatic hernia without obstruction or gangrene; K57.10 Diverticulosis of small intestine without perforation or abscess without bleeding; K31.9 Disease of stomach and duodenum, unspecified; E87.6 Hypokalemia; T50.995A Adverse effect of other drugs, medicaments and biological substances, initial encounter; N18.3 Chronic kidney disease, stage 3 (moderate); Z79.01 Long term (current) use of anticoagulants; Z86.010 Personal history of colon polyps; Z87.891 Personal history of nicotine dependence
CPT/HCPCS: 36415; 36416; 36430; 71045; 80048; 80053; 81003; 81015; 82274; 82550; 82553; 83880; 84484; 85007; 85014; 85018; 85025; 85027; 85610; 85730; 86850; 86900; 86901; 88305; 88312; 90471; 90662; 90670; 93005; 96374; C9113; G0008; G0009; J0696; J1630; J1940; J2704; J3411; J7050; P9016

== ENCOUNTER 2018-04-21 20:23 | Inpatient (IN) | payer MEDICARE, OTHER ==
[2018-04-21 21:00] LABS: #Basophils 0.1 thou/uL (0.0-0.2); #Eosinphils 0.2 thou/uL (0.0-0.7); #Lymphocytes 2.3 thou/uL (1.20-3.40); #Monocytes 0.9 thou/uL (0.11-0.59); #Neutrophils 5.8 thou/uL (1.40-6.50); %Basophils 0.7 % (0.0-1.0); %Lymphocytes 24.9 % (21.0-51.0); %Monocytes 9.3 % (0.0-10.0); %Neutrophils 63.1 % (42.0-75.0); Hemoglobin 12.3 g/dL (12.0-16.0); Mean Corpuscular Hemoglobin 33.4 pg (27.0-31.0); Mean Corpuscular Volume 98.1 fL (78.0-98.0); Mean Platelet Volume 7.2 fL (7.4-10.4); Platelet Count 326 thou/uL (130-400); RBC Distribution Width 15.8 % (11.5-14.5); Red Blood Cell (RBC) Count 3.69 mill/uL (4.20-5.40); White Blood Cell (WBC) Count 9.2 thou/uL (4.8-10.8)
[2018-04-21 21:07] LABS: INR-International Normal Ratio 0.9; PTT 26.3 SEC (22.9-36.1); Prothrombin Time 12.4 SEC (12.0-14.7)
[2018-04-21 21:23] LABS: ALT (SGPT) 10 U/L (8-55); AST (SGOT) 17 U/L (5-34); Albumin 3.4 g/dL (3.4-4.8); Alkaline Phosphatase 139 U/L (40-150); Anion Gap 20 mmol/L (10-20); BUN (Urea Nitrogen) 16 mg/dL (9.8-20.1); Bilirubin, Total 0.4 mg/dL (0.2-1.2); Calc. Creatinine Clearance 0 mL/min (70-130); Carbon Dioxide 19 mmol/L (23-31); Chloride 101 mmol/L (98-107); Estimated GFR-MDRD 22; Globulin 3.9 g/dL (2.4-3.5); Glucose 88 mg/dL (83-110); Potassium 3.7 mmol/L (3.5-5.1); Protein, Total 7.3 g/dL (6.0-8.3); Sodium 136 mmol/L (136-145)
--- NOTE | 2018-04-21 21:40 | RAD ---
PORTABLE UPRIGHT FRONTAL CHEST RADIOGRAPH: 04/21/18 COMPARISON: None. HISTORY: 77-year-old female status post fall. FINDINGS: No pneumothorax, pleural fluid, lobar consolidation, or alveolar edema. Atherosclerotic calcification of the aortic arch noted. Heart and mediastinal contours unremarkable. IMPRESSION: Stable appearance of the chest - no acute findings. POS: [facility]
[2018-04-21] MEDS ORDERED: Fentanyl 100 MCG/2 ML VIAL ONE (22:08)
--- NOTE | 2018-04-21 22:25 | CT ---
CT HEAD WITHOUT CONTRAST: 04/21/18 COMPARISON: 06/11/17. HISTORY: Fall, trauma, pain. TECHNIQUE: Axial CT imaging at 5 mm intervals from vertex through skull base without contrast. FINDINGS: The imaged paranasal sinuses/mastoid air cells appear well aerated. There is no displaced calvarial fracture. There is atherosclerotic calcification of the cavernous car otid arteries. There is mild diffuse cerebral volume loss. There is mild periventricular hypodensity suggesting small vessel disease. There is mild soft tissue swelling involving the scalp in the right supraorbital region. IMPRESSION: No intracranial hemorrhage or displaced calvarial fracture. POS: [facility]
[2018-04-21 22:47] LABS: CK (CPK) 79 U/L (29-168); Lipase 62 U/L (8-78)
[2018-04-21 22:51] LABS: CKMB 3.8 ng/mL (0-6.6); Troponin I Less than 0.010 ng/mL (< 0.028)
[2018-04-21 22:57] LABS: Bilirubin Negative (Negative); Blood, Urine Trace (Negative); Clarity CLOUDY (Clear); Glucose, Urine (Dipstick) Negative (Negative); Leukocyte Large (Negative); Nitrite Negative (Negative); Protein, Urine (Dipstick) Negative (Neg-Trace); Specific Gravity, Urine 1.004 (1.002-1.036); Urobilinogen 0.2 mg/dL (0.2-1.0)
[2018-04-21 22:59] LABS: Bacteria/HPF 1+ HPF (None Seen); Hyaline Casts/LPF 0-3 HYALINE CAST LPF (0-3 Hyaline); Pathc Cast-AUWi Flag 0.29 (0-2.49); RBC/HPF None Seen HPF (0-3); Squamous Epithelial None Seen HPF (0-3)
[2018-04-21] MEDS ORDERED: Dextrose 5% in Water 1,000 ML IV PRN (23:05)
[2018-04-21] MEDS ORDERED: Dextrose 50% Abboject 50 ML SYRINGE SLOW IVP PRN (23:05)
[2018-04-21] MEDS ORDERED: traMADol HCl 50 MG TAB PO PRN (23:07)
[2018-04-21] MEDS ORDERED: Ondansetron PF 4 MG/2 ML Vial IVP PRN (23:07)
[2018-04-21] MEDS ORDERED: Ondansetron ODT 4 MG TAB PO PRN (23:07)
[2018-04-21] MEDS ORDERED: Cyclobenzaprine 10 MG TAB PO PRN (23:12)
--- NOTE | 2018-04-21 23:29 | CT ---
CERVICAL SPINE CT WITHOUT CONTRAST: 04/21/18 COMPARISON: None. HISTORY: Fall, trauma, pain. TECHNIQUE: Axial CT imaging at 2.5 mm intervals from the skull base through the lung apices without contrast. Co alfred and sagittal reformatted imaging obtained. FINDINGS: There is mild degenerative change at the atlantoaxial interspace. Craniocervical junction and cervico thoracic junction appear intact. No significant anterolisthesis or retrolisthesis noted. No prevertebral soft tissue swelling. Mild increased linear density and bilateral lung apices with right upper lobe emphysematous change no abdoulaye. Occipital condyles, dens, and C1-2 articulation appear within normal limits. The bones are deminerali zed. No acute fracture or evidence of dislocation. Disc space narrowing and anterior osteophyte formation at C5-6 and C6-7. IMPRESSION: Degenerative change. No acute osseous abnormality. POS: [facility]
[2018-04-21] MEDS ORDERED: Sulfameth/Trimethoprim DS 800-160mg TAB PO SCH (23:30)
--- NOTE | 2018-04-21 23:53 | CT ---
CT OF THE CHEST CT OF ABDOMEN AND PELVIS CT OF THORACIC AND LUMBAR SPINE 04/21/18 COMPARISON: None. HISTORY: Fall, trauma, pain. TECHNIQUE: Axial CT imaging at 5 mm intervals from thoracic inlet through pubic symphysis without contrast. Cor onal and sagittal reformatted imaging obtained. FINDINGS: The lack of contrast media limits assessment of the viscera, the bowel, the vascular structures and f or lymphadenopathy. There is extensive atherosclerotic calcification of the aortic arch and the coron [place] arteries. There is no pleural, pericardial, or mediastinal fluid. There is no pneumothorax noted on either side. Scattered emphysematous changes are noted in bilateral lung apices, right greater emiliano n left. Linear increased density in lingula suggests scar or volume loss. Nonspecific pulmonary nodule noted in lateral aspect of the left lower lobe measuring approximately 5-6 mm on axial image 29. Extraspinal osseous structures of the chest demonstrate degenerative change at the sternoclavicular j oint bilaterally. Anterior/lateral right 3rd and 4th rib fractures are noted, with sclerosis suggesti ng that these fractures are subacute/chronic in nature. Age indeterminate lateral right 8th, 9th and 10th ribs fractures are noted, nondisplaced. There is an acute left sided 12th rib fracture on image 59. Age indeterminate lateral left 8th and [address] rib fractures noted. CT of the abdomen and pelvis demonstrates no free intraperitoneal air or fluid. The liver, gallbladde r, spleen, pancreas, and adrenal glands demonstrate no acute findings. Left kidney appears grossly unremarkable. Nonspecific gas is seen in the urinary bladder. There is also gas seen within the right ureter and th ere is gas in the right renal collecting system including calyces within the right mid pole, upper po le and lower pole. There is a complex lobulated large stone filling the renal pelvis on the right allison suring 3 cm with numerous intrarenal components measuring up to 8-9 mm in the mid pole region and up to 1.6 cm in lower pole region. There is multifocal descending colonic and sigmoid colonic diverticulosis without evidence for divert iculitis. Scattered left sided diverticula noted. No evidence for diverticulitis, bowel obstruction o r appendicitis. Small sliding type hiatal hernia. Scattered atherosclerotic calcification of abdomin al aorta. Extraspinal osseous structures of the abdomen and pelvis demonstrate no evidence for dislocation of e ither hip. The inferior and the superior pubic rami appear intact bilaterally. No widening of the sac roiliac joints or pubic symphysis. There is subtle increased sclerosis involving the sacral ala on the left laterally which has an appea mina most consistent with ill-defined insufficiency fracture. THORACIC SPINE: There is a superior end plate fracture of T12 with mild irregularity of the posterior margin of the T 12 vertebral body suggesting associated fracture. Loss of vertebral body height involving the T12 valerio tebral body centrally is estimated at approximately 30%. LUMBAR SPINE: There is a superior end plate fracture of L1 vertebral body with approximately 20% loss of vertebral body height anteriorly. Of note, the fracture of L1 appears chronic when compared to 07/09/17 CT of [facility] while the T12 vertebral body fracture appears new. IMPRESSION: 1. Bilateral age indeterminate rib fractures as detailed above. 2. Pulmonary nodule in left lower lobe for which followup CT examination of chest in six months is advised. 3. Prominent renal calculi on right with gas within right kidney, right ureter, and urinary blad heather. This could represent gas introduced from recent instrumentation. If not, this may represent gas forming infection on the basis of emphysematous pyelonephritis and emphysematous pyelitis. This was d iscussed with Dr. Jones at 10 p.m., 04/21/18. 4. New T12 compression fracture. 5. Insufficiency fracture of the sacrum on the left. Code CR POS: [facility]
[2018-04-22] MEDS ORDERED: Acetaminophen 325 MG TAB ONE ×2 (00:38→00:42)
[2018-04-22] MEDS ORDERED: traMADol HCl 50 MG TAB ONE ×2 (03:45→14:01)
[2018-04-22] MEDS ORDERED: Triple Antibiotic Oint 1 GM Packet ONE (03:56)
[2018-04-22 04:00] LABS: #Basophils 0.1 thou/uL (0.0-0.2); #Eosinphils 0.1 thou/uL (0.0-0.7); #Lymphocytes 2.2 thou/uL (1.20-3.40); #Neutrophils 6.1 thou/uL (1.40-6.50); %Basophils 0.6 % (0.0-1.0); %Eosinophils 1.6 % (0.0-10.0); %Lymphocytes 23.4 % (21.0-51.0); %Monocytes 10.2 % (0.0-10.0); %Neutrophils 64.3 % (42.0-75.0); Mean Corpuscular HGB CONC 33.5 g/dL (32.0-36.0); Mean Corpuscular Volume 98.7 fL (78.0-98.0); Mean Platelet Volume 7.3 fL (7.4-10.4); Platelet Count 256 thou/uL (130-400); RBC Distribution Width 15.8 % (11.5-14.5); Red Blood Cell (RBC) Count 3.34 mill/uL (4.20-5.40); White Blood Cell (WBC) Count 9.4 thou/uL (4.8-10.8)
[2018-04-22 04:18] LABS: Anion Gap 14 mmol/L (10-20); BUN (Urea Nitrogen) 15 mg/dL (9.8-20.1); Calc. Creatinine Clearance 0 mL/min (70-130); Calcium 8.3 mg/dL (7.8-10.44); Carbon Dioxide 20 mmol/L (23-31); Chloride 107 mmol/L (98-107); Estimated GFR-MDRD 25; Glucose 94 mg/dL (83-110); Magnesium 1.8 mg/dL (1.6-2.6); Phosphorus 2.6 mg/dL (2.3-4.7); Sodium 137 mmol/L (136-145)
--- NOTE | 2018-04-22 05:41 | CON ---
DATE OF CONSULTATION: 04/21/2018 HISTORY OF PRESENT ILLNESS: The patient is a 77-year-old female with past medical history of AFib, hypertension, and dementia, who presented to the emergency department per EMS after what appears to be a mechanical fall. The patient's son reports the patient had an unwitnessed at home and the patient was found unconscious approximately 5 minutes after he heard a thud. The patient's main complaint is low back pain. She was evaluated with trauma scans, which were notable for multiple rib fractures of varying ages, an old L1 compression deformity and a new T12 compression deformity. There is no significant retropulsion of this new compression deformity. The patient denies any leg weakness, numbness, tingling, or bowel or bladder issues. I am visiting the patient at the bedside, she is awake and alert, no acute distress. She has GCS of 15. She has no focal neurologic deficits. PAST MEDICAL HISTORY: Includes AFib, hypertension, GERD, coronary artery disease, depression, and anxiety. PAST SURGICAL HISTORY: Cardiac ablation in 2011. SOCIAL HISTORY: The patient drinks socially. She is a former smoker. She does not use any drugs. ALLERGIES: SHE HAS NO KNOWN DRUG ALLERGIES. CURRENT MEDICATION LIST: 1. Folic acid. 2. Atorvastatin. 3. Diltiazem. 4. Ferrous gluconate. 5. Donepezil. 6. Vitamin D3. 7. Famotidine. 8. Uloric. 9. Furosemide. 10. Vitamin C. 11. Aspirin 81 mg tab. 12. Pantoprazole. 13. Potassium chloride. 14. Symbicort. REVIEW OF SYSTEMS: Per HPI. PHYSICAL EXAMINATION: VITAL SIGNS: BP is 125/55, pulse 91, respirations 18. The patient is 98% on room air. Temperature is 98.8. CONSTITUTIONAL: Awake, alert. No acute distress. GCS 15. HEENT: Head, there is small abrasion to the forehead with surrounding ecchymosis in the right periorbital region. Eyes, PERRLA. Extraocular movements intact. ENT : Oral mucosa is pink, intact, and moist. She has normal voice. NECK: Nontender to palpation. Active range of motion. No meningismus. No nuchal rigidity. RESPIRATIONS: Symmetric. CHEST: No evidence of respiratory distress. CARDIOVASCULAR: Regular rate and rhythm. MUSCULOSKELETAL: She has free active range of motion of all extremities. No focal motor weakness. No reflex asymmetry. She has abrasions over bilateral knees and the right shoulder. NEURO: A and O x3. GCS 15. No focal neurologic deficits are appreciated. ASSESSMENT AND PLAN: This is a 77-year-old female with recent mechanical fall, who was found to have a new T12 compression deformity. There is no significant retropulsion. She is neurologically intact on my exam. We will plan to treat this compression fracture with a TLSO brace which she should wear for any out of bed activities. We will follow up with the patient in approximately 4 weeks outpatient in the Neurosurgical Clinic with repeat x-rays at that time. I have discussed this plan with the Trauma Service who is admitting the patient for additional injuries as well as pain control and localization. Please reach us Neurosurgery for additional questions or concerns. Job ID: [id number] MTDD
--- NOTE | 2018-04-22 05:53 | HP ---
ADDITIONAL ATTENDING SURGEON: Lizandro Simmons MD TRAUMA ACTIVATION: Not applicable. HISTORY OF PRESENT ILLNESS: Remedios Hernández is a 77-year-old female who presented to [facility] Emergency Room status post unwitnessed fall. The patient has a history of dementia, atrial fibrillation and frequent falls at home. Per the patient's son at bedside, he went outside to put some tools away and came back in finding his mother on the ground. The patient does not remember the fall. She is alert and oriented x2, which is her baseline, per son. From my evaluation, she has a chief complaint of 8/10 back pain, which is constant. The patient was evaluated in the emergency room and was found to have a T12 compression fracture, a single rib fracture and multiple age-indeterminate bilateral rib fractures. Neurosurgery was notified and Trauma Service was asked to admit. Incidentally, the patient's CT scan of the abdomen and pelvis also demonstrated emphysematous right kidney, the patient has a urinalysis that is suspicious for urinary tract infection. ALLERGIES: NONE. HOME MEDICATIONS: Include: 1. Folic acid 1 mg. 2. Atorvastatin 20 mg. 3. Diltiazem 240 mg. 4. Iron 325 mg daily. 5. Aricept 5 mg. 6. Vitamin D3 5000 units. 7. Pepcid 20 mg. 8. Uloric 40 mg. 9. Lasix 20 mg. 10. Vitamin C 500 mg. 11. Aspirin 81 mg. 12. Potassium chloride 20 mEq daily. 13. Symbicort inhaler. PAST MEDICAL HISTORY: Significant for: 1. Dementia. 2. Atrial fibrillation. 3. Multiple falls. 4. CKD. 5. CAD. 6. CHF. 7. COPD. PAST SURGICAL HISTORY: Ablation for atrial fibrillation and PTCA. SOCIAL HISTORY: The patient lives with son. Refuses to use walker and ambulates independently. She drinks one Rum and Coke daily. Denies illicit drug use. She is a former smoker. FAMILY HISTORY: Noncontributory. REVIEW OF SYSTEMS: A 10-point review of systems was performed and negative except as indicated in the HPI. PHYSICAL EXAMINATION: VITAL SIGNS: Temperature 98.8, pulse 94, respirations 18, O2 saturation 98% on room air, and blood pressure 120/64. GENERAL: Elderly-appearing female, in no acute distress, resting in bed. HEENT: Head, normocephalic. There is a contusion/abrasion to the right forehead and periorbital ecchymosis. Eyes, PERRLA. Extraocular movements are intact. NECK: Supple. Trachea is midline. There was no midline tenderness to palpation. CHEST: Nontender to palpation. There are scattered areas of ecchymosis. Normal work of breathing. Symmetric rise. LUNGS: Clear to auscultation bilaterally. CARDIOVASCULAR: Regular rate and rhythm. GI: Abdomen is soft, nontender, and nondistended. Bowel sounds are positive. MUSCULOSKELETAL: There is a 4-cm skin tear of the right shoulder. There is scattered ecchymosis on bilateral upper extremities. There are multiple abrasions and areas of ecchymosis on the bilateral lower extremities. NEUROLOGIC: The patient is alert and oriented x2. GCS is 14, which is her baseline, secondary to confusion. LABORATORY FINDINGS: WBC 9.2, hemoglobin 12.3, hematocrit 36.2, platelet count 326. INR is 0.9. Sodium 136, potassium 3.7, chloride 101, carbon dioxide 19, BUN 16, creatinine 2.18. Glucose 88. AST and ALT within normal limits. Troponin is less than 0.010. BNP 34.7. Urinalysis with large amount of leukocyte esterase greater than 50/too [id number] wbc's, 1+ bacteria and trace hematuria. RADIOGRAPHIC FINDINGS: CT of the C-spine was negative for acute fracture or dislocation. CT of the brain was negative for acute intracranial abnormality. Chest x-ray was negative for acute cardiopulmonary process or traumatic injury. CT of the chest, abdomen and pelvis was significant for bilateral age-indeterminate rib fractures. A left lower lobe pulmonary nodule and acute left 12th rib fracture, a new T12 compression fracture, left sacral insufficiency, and right renal calculi with gas within the right kidney, the right ureter, and the urinary bladder. ASSESSMENT: 1. Status post unwitnessed fall. 2. Possible syncopal event. 3. New T12 compression fracture. 4. Left 12th rib fracture. 5. Multiple contusions and abrasions. 6. Acute traumatic pain. 7. History of dementia, oriented to place and self. 8. Chronic kidney disease. Baseline creatinine approximately 1.8. 9. Emphysematous right kidney with urinalysis suspicious for urinary tract infection. Last instrumentation unknown. 10. History of dementia. 11. History of multiple falls. 12. History of atrial fibrillation, status post ablation. 13. History of congestive heart failure. 14. History of coronary artery disease. 15. History of chronic obstructive pulmonary disease. PLAN: Admit to Trauma Services on telemetry floor for closer monitoring. Urology has been contacted in regard to the patient's CT scan. Double coverage for UTI has been initiated. Robert has been recommended by Urology and will be placed. Careful pain management, avoid NSAIDs given CKD. Local wound care for abrasions and contusions. Neurosurgery has seen and evaluated the patient and recommended TLSO bracing. PT and OT to be initiated. We would recommend inpatient rehabilitation once medically stable for discharge. Plan of care was discussed with the patient's son at bedside and all questions were answered at the time of this dictation. Per my discussion with the patient and her son, the patient is a DO NOT RESUSCITATE. This has been ordered in the chart. Admission was discussed from attending. Job ID: [id number]
[2018-04-22] MEDS ORDERED: Sulfameth/Trimethoprim DS 800-160mg TAB PO SCH (09:00)
[2018-04-22 11:07] VITALS: BMI 26.5
[2018-04-22] MEDS: Acetaminophen 500 MG TAB PO SCH ×5 (13:06→23:57)
--- NOTE | 2018-04-22 13:16 | CON ---
DATE OF CONSULTATION: 04/22/2018 HISTORY OF PRESENT ILLNESS: I was consulted for concern with emphysematous pyelonephritis. At the time of consultation, I was not informed of any stone disease, but was informed that she was hemodynamically stable and with a normal white count. When I saw her, she was still in the ER waiting for a bed to open up in the full hospital. Her son was not with her, but I did speak with him afterwards. She reported she had no current pain at this time and does not remember the fall or what happened. By report, her son stepped away and came back to find her down; so she had an unwitnessed fall. She was brought into the emergency room and noted to have a T12 compression fracture and a rib fracture with possible older rib fractures. Normally, she has a frequency every 3 to 4 hours of nocturia times 0 to 1. She denies any leakage. She denies any hesitancy, weak stream, straining, or incomplete emptying. She reports that she has had urinary tract infections before, but they have not been a significant issue. The son reports that in the last six months, urinary tract infection have been an issue. She denies any gross hematuria. She has never had stones before. PAST MEDICAL HISTORY: Dementia, atrial fibrillation, multiple falls, baseline disorientation x2, renal insufficiency, coronary artery disease, CHF, COPD, gastritis but no known ulcers. PAST SURGICAL HISTORY: Ablation for atrial fibrillation. PAST OBSTETRIC HISTORY: Three vaginal deliveries. She is postmenopausal. She still has her uterus and ovaries. MEDICATIONS: Include, 1. Folic acid. 2. Atorvastatin. 3. Diltiazem. 4. Iron. 5. Aricept. 6. Vitamin D. 7. Pepcid. 8. Uloric. 9. Lasix. 10. Vitamin C. 11. Aspirin 81 mg. 12. Potassium. 13. Symbicort. ALLERGIES: NONE. SOCIAL HISTORY: She has a 20-pack year history or so, quitting 10 years ago. She drinks one rum and coke daily. She denies that it is more than one and sometimes not everyday, but "almost." She has no history of other drug use. She lives at home with her son. She is a . REVIEW OF SYSTEMS: She had endoscopy February 2018, which showed gastritis. This was done because she had a GI bleed. She cannot remember when she had a colonoscopy. Her last mammogram was possibly 3 years ago and normal. Her pap smear was remote and normal. She cannot remember she has had any significant back pain recently, but she does know that she came in with back pain, and it was hurting previously, but now is gone. She has no diarrhea, constipation, fever, chills, nausea, vomiting, shortness of breath, or chest pain. PHYSICAL EXAMINATION: GENERAL: She is lying comfortably in the bed. She has an obvious abrasion on her forehead and bruising with ecchymosis around her right eye. She has multiple different bruises all over with different abrasions from different stages and reports that is from her dog jumping up on her. She was alert and oriented to self and place. Her date was not correctly told and she knew that she was in the hospital, but could not give other details. HEENT: She had no obvious JVD or scleral icterus. VITAL SIGNS: Blood pressure 130/68, heart rate 104, sating 97% on room air. She had 750 out overnight for urine. HEART: Regular rate and borderline tachycardia without any obvious murmurs, gallops, or rubs. LUNGS: Clear to auscultation bilaterally. ABDOMEN: Soft, nondistended, nontender with umbilical hernia noted and no surgical incisions found. She had no costovertebral angle tenderness. She had no lower extremity edema. GENITOURINARY: Urinary catheter had yellow urine, but did show significant debris in the tubing. I ensured that it was safe to elevate her bed, and then had her head raised to 45degrees to help her pulmonary status. I also asked for SCDs to be placed. LABORATORY DATA: Laboratory values reveal a white count of 9.4 with normal neutrophils, H and H of 11 and 33.0, which seemed to be down from hydration of 12.3 to 36.2 when she came in. BUN and creatinine of 15 and 1.98. Creatinine when she came in was 2.18 and it was 2.27 on the 14 April, which all these are around her baseline. Her urinalysis from admission shows too numerous to count wbc's, no rbc's, 1+ bacteria, and no squamous cells. Cultures pending. Urinalysis from 03/04/2018 showed too numerous to count wbc's, 7 to 10 rbc's, 3+ bacteria, and 4 to 6 squamous, but there was no culture. Urine and culture from January showed E. Coli and obvious infection. Urine from July showed infection with VRE and 10 to 25 yeast. Urine from June showed significant inflammation in blood, but no bacteria, probably since she was being treated recently from an infection from May that did not have a culture either, but showed obvious infection. CT scan from 04/21/2018 reviewed personally, revealed a 2.6 x 4.2 x 4.7cm right renal staghorn that starts to fill the proximal portion of the ureter as well. There was air behind the stone in the collecting system. There was no significant hydronephrosis or parenchymal edema, nor parenchymal air, nor perinephric stranding. There were no left stones and the bladder appeared normal. I spoke with the patient and then called her son and reviewed all of this with him as well. ASSESSMENT: We have a 77-year-old female admitted after a fall with a compression fracture and rib fracture, which the workup also revealed right staghorn calculus with air behind the stone in the collecting system with a urinary tract infection. I reviewed how this may or may not be related to her falling and clinically appears to be an incidental finding at this time. However, this could become a significant problem both with not being able to clear her urine from infection and ultimately with a possibility for progressing to a systemic infection where the only treatment would be nephrectomy. I reviewed with the patient and her son how nephrectomy would be major operation for her and she may or may not survive such a procedure, but certainly would have significant deconditioning postoperatively. At this time, I see no clinical indication for that procedure. I asked the son to discuss this with the patient and with other family members so that if and when systemic infection arises, they all know whether or not they want to proceed with surgery or not. For now, I recommend double coverage until we know what the culture returns and would treat her with at least 4 to 6 weeks of antibiotics. While she is in house and while there is still significant debris from her inflammatory process, I would keep the Robert draining and push for hydration--although I know this will be tampered based on her CHF. If the fall was possibly related to syncopal episode, then it may be appropriate to consult Cardiology. [facility] ID: [id number] [facility]
[2018-04-22] MEDS: traMADol HCl 50 MG TAB PO SCH ×5 (13:59→23:57)
[2018-04-22] MEDS ORDERED: Acetaminophen 500 MG TAB ONE (14:01)
[2018-04-22] MEDS: Cefepime 1 GM in Sodium Chloride 0.9% 100 ML IVPB SCH ×3 (14:02→18:25)
[2018-04-22] MEDS ORDERED: Cefepime 1 GM VIAL ONE (14:41)
[2018-04-22 18:27] LABS: Bilirubin Negative (Negative); Blood, Urine Small (Negative); Clarity TURBID (Clear); Glucose, Urine (Dipstick) Negative (Negative); Leukocyte Large (Negative); Nitrite Negative (Negative); Protein, Urine (Dipstick) 30 mg/dL (Neg-Trace); Specific Gravity, Urine 1.015 (1.002-1.036); Urobilinogen 0.2 mg/dL (0.2-1.0)
[2018-04-22 18:30] LABS: Bacteria/HPF None Seen HPF (None Seen); Hyaline Casts/LPF 0-3 HYALINE CAST LPF (0-3 Hyaline); Pathc Cast-AUWi Flag 0.72 (0-2.49); Squamous Epithelial None Seen HPF (0-3)
[2018-04-22 18:33] LABS: Yeast-AUWi Flag 37.5 (0-25.0)
[2018-04-22 18:51] LABS: Yeast-All Forms None Seen HPF (None Seen)
[2018-04-23] MEDS: Cefepime 1 GM in Sodium Chloride 0.9% 100 ML IVPB SCH ×2 (03:04→17:54)
[2018-04-23] MEDS: Acetaminophen 500 MG TAB PO SCH ×4 (05:56→23:27)
[2018-04-23] MEDS: traMADol HCl 50 MG TAB PO SCH ×4 (05:56→23:27)
[2018-04-23] MEDS ORDERED: Ondansetron ODT 4 MG TAB PO PRN (09:12)
--- NOTE | 2018-04-23 10:31 | PRG ---
DATE OF SERVICE: 04/23/2018 SUBJECTIVE: The patient has done well overnight. Has no complaints. Has no pain. She is not sure if she is gotten up, but there is a brace by the bedside. OBJECTIVE: VITAL SIGNS: Stable with T-max 98.5, current 97.5, heart rate in the 90s to around 100, blood pressure somewhat elevated previously and now 152/69, and saturating 97% on room air with 400 listed as output in Robert. GENERAL: She has still has the bracing from the falls. She looks comfortable in the bed. She is alert and appropriate. ABDOMEN: Soft, nondistended, and nontender. She has no CVA tenderness. The catheter still has debris-filled urine coming out, but is overall yellow without hematuria. LABORATORY DATA: No new labs for today, but the urine culture has come back as E coli with preliminary sensitive to everything. We reviewed how she is clinically doing well from my standpoint, but would need at least 4 weeks of antibiotics and based on the fact that the tubing is still significantly cloudy, I would want to switch this over to a 3-way and establish irrigation to help with the debris in the bladder. The goal would be to get the catheter out before discharge though. While she is in-house, I would continue IV antibiotics and I will taper this to just cefepime, and discontinue the Cipro. ASSESSMENT: We have a 77-year-old female, status post fall with resulting injuries and seemingly incidental large staghorn with air behind the stone in the collecting system and a significant urinary tract infection, with persistent debris noted in the urine tubing. Change to 22- Thai 3-way and began bladder irrigation. Stop Cipro, but continue cefepime. Ambulation, PT and disposition per the Trauma Team. Job ID: [id number] [facility]
--- NOTE | 2018-04-23 11:09 | PRG ---
DATE OF SERVICE: 04/22/2018 ADDENDUM: I have personally reviewed all radiographic images on this admission including an unremarkable brain CT scan. CT scan of the cervical spine revealed no fractures or dislocation. CT scan of the chest is only remarkable for T12 compression fracture, but no acute intrathoracic pathology noted. CT scan of the abdomen and pelvis revealed no acute traumatic injuries. There is an incident on the patient of right nephrolithiasis and gas around the renal pelvis. LABORATORY DATA: Laboratory findings also include CBC with 9400 white blood cells, hemoglobin and hematocrit of 11.0 and 33.0 respectively, and platelet count 256,000. Metabolic profile; sodium 137, potassium 4.0, chloride is 107, bicarb is 20, BUN 15, creatinine is 1.98, glucose 94, magnesium 1.8, and phosphorus 2.6. Urine analysis obtained on this admission is remarkable for greater than 100,000 E. coli. IMPRESSION: 1. Status post ground level fall. 2. T12 compression fracture. 3. Escherichia coli urinary tract infection with emphysematous right pyelonephritis. PLAN: 1. Appropriate antibiotics therapy for the E. coli urinary tract infection. 2. Urology consultation regarding the right nephrolithiasis and emphysematous right kidney. 3. The patient has been customized to a TLSO brace. 4. We will initiate physical and occupational therapy with the brace in place. 5. We will initiate chemical VTE prophylaxis. 6. We will obtain 2D echocardiogram to rule out cardiac etiology of the near syncopal fall. Job ID: [id number]
--- NOTE | 2018-04-23 12:09 | PRG ---
DATE OF SERVICE: 04/23/2018 SUBJECTIVE: This is a 77-year-old female admitted after unwitnessed fall, who suffered a T12 compression fracture, being treated with TLSO brace as well as a left 12th rib fracture and she was also found to have an emphysematous kidney secondary to staghorn calculi. Urology has been consulted and is seeing the patient. The patient reports feeling well this morning with good rest overnight and good pain control. The patient had no complaints at this time. Family was at bedside. OBJECTIVE: VITAL SIGNS: Blood pressure 134/75, pulse 97, respirations 15, O2 of 96% on room air, temperature 97.8. GENERAL: No acute distress. Alert and awake. HEENT: Normocephalic. EOMI. NECK: Supple. Trachea midline. LUNGS: Clear to auscultation bilaterally. CARDIOVASCULAR: Regular rate and rhythm. ABDOMEN: Soft, nontender. Normal bowel sounds. NEUROLOGIC: No acute neurological deficit. LABORATORY FINDINGS: No new laboratory findings today. IMPRESSION: 1. Status post unwitnessed fall. 2. Possible syncopal event. 3. T12 compression fracture. 4. Left rib fracture. 5. Multiple contusions and abrasions. 6. History of dementia. 7. Emphysematous kidney secondary to staghorn calculi with pyelonephritis. 8. History of atrial fibrillation status post ablation. 9. History of congestive heart failure. 10. History of coronary artery disease. 11. History of chronic obstructive pulmonary disease. PLAN: We will continue double coverage for pyelonephritis secondary to staghorn calculi per Urology recommendations. We will also follow up on further recommendations per Urology. Continue use of physical therapy and occupational therapy. Continue use of TLSO brace. We will get echocardiography for evaluation of possible syncopal episode. This patient was seen and evaluated by Dr. Diehl on morning rounds. The patient and family, daughter, verbalized understanding and agreement with plan. Job ID: [id number]
--- NOTE | 2018-04-23 16:48 | CON ---
DATE OF CONSULTATION: SUBJECTIVE: The patient was seen and examined. I agree with Yana Orellana's evaluation. The patient is a 77-year-old woman with syncope, who had a fall and sustained multiple rib fractures and a T12 compression fracture. She does have back and thoracic pain, but has no neurologic deficit. Her CT scan reveals an L1 compression fracture, which apparently is old because it was present on a scan in June. She has a new T12 compression fracture presumably related to this accident. IMPRESSION AND PLAN: We will treat with TLSO brace, immobilization for a period of 6 to 8 weeks. She can be mobilized in a brace and I will arrange follow up in 4 weeks. Job ID: [id number]
[2018-04-24] MEDS: Cefepime 1 GM in Sodium Chloride 0.9% 100 ML IVPB SCH ×2 (02:41→14:28)
[2018-04-24] MEDS: Acetaminophen 500 MG TAB PO SCH ×3 (05:03→14:27)
[2018-04-24] MEDS: traMADol HCl 50 MG TAB PO SCH ×2 (05:03→12:25)
[2018-04-24] MEDS ORDERED: Milk Of Magnesia 30 ML UDCUP PO ONE (13:45)
[2018-04-24 16:09] VITALS: BP 126/65; TEMP 98.2
--- NOTE | 2018-04-24 16:36 | PRG ---
DATE OF SERVICE: 04/24/2018 SUBJECTIVE: The patient has done well overnight. She has no complaints. Catheter was draining fine and has cleared. She did not get up and ambulate yet. OBJECTIVE: VITAL SIGNS: Her vitals have been stable. Her T-max is 98.5, last checked 97.5. She has had some hypertension. Her last blood pressure was 146/ 65, heart rate in the 90s, sating 97% on room air. Urine output difficult to measure with CBI. ABDOMEN: Her abdomen is soft. She has no CVA tenderness and her catheter is rinsed through to be clear without any significant debris. ASSESSMENT: We have a 77-year-old female with what seems to be an incidental finding of air in the collecting system with staghorn without any parenchymal involvement for infection, but significant urinary tract infection. Her bladder debris has now cleared. I would remove the catheter. I would continue IV antibiotics while she is in-house, and then send her out on 4 weeks of antibiotics to follow up in the office. I reviewed this with her 2 daughters today as well. I saw her again in the afternoon after the catheter has been removed, and she was voiding fine, and had no complaints and sitting in the chair with her brace. I reviewed the case with Dr. Guerra who is home restoration service cleaner over the weekend. I am okay with her being discharged with the outpatient antibiotics for long-term treatment, but we discussed how she clinically does become concerned for worsening infection or flank pain, then a percutaneous nephrostomy tube would be in order. For now, if she clinically remains asymptomatic from this urinary tract infection and stone, then she is safe to discharge with followup with me in the office. Job ID: [id number] [facility]
--- NOTE | 2018-04-24 16:58 | PRG ---
DATE OF SERVICE: 04/24/2018 SUBJECTIVE: The patient remains on 2-North. She states that she is not having any pain currently. She had her Robert discontinued today with reported recommendations from Urology for her to stay on p.o. antibiotics. The patient has her TLSO brace that she must wear when out of bed. Yesterday, she was unable to work with Physical Therapy due to her Robert irrigation and some other issues that impeded their session, but there is planned work today with Physical and Occupational Therapy. PHYSICAL EXAMINATION: VITAL SIGNS: Temperature is 98.3, heart rate 99, blood pressure 163/79, respirations 15, and oxygen saturation is 96% on room air. GENERAL: The patient is resting comfortably in bed. She is awake, alert, and conversant. HEENT: Unremarkable. LUNGS: Clear to auscultation with good inspiratory and expiratory effort. HEART: Regular rate and rhythm. ABDOMEN: Soft, flat, and nontender with active bowel sounds. EXTREMITIES: Neurovascularly intact x4. DIAGNOSTIC STUDIES: There are no labs or radiographs to view this morning. The patient did have echocardiogram done yesterday that shows an ejection fraction of 50% to 55%, her known atrial fibrillation, and some valvular regurgitation. ASSESSMENT: 1. Status post fall. 2. T12 compression fracture, being treated with a TLSO brace. 3. Left rib fracture. 4. Multiple contusions and abrasions. 5. Staghorn calculi with pyelonephritis, under treatment. PLAN: Plan will be to continue supportive care, Physical and Occupational Therapy, pain control, ambulation, and await final placement decision. The patient is adamant that she would like to go home, though would entertain the idea of an inpatient rehab or swing bed, but she will have this discussion with her son when he comes in today. We have let the patient and her nurse know that when the son arrives to ensure that case management talks with him on her placement. The evaluation and examination will be discussed with Dr. Iraheta after this dictation. Job ID: [id number]
== END 2018-04-24 18:45 | disposition home or self-care (01) | DRG 552 ==
LOC: ERS 20:23 → ERHOLD 22:00 → 2NO 04-22 15:39
PROVIDERS: ADMIT Surgery; ATTEND Surgery
DX: S22.080A Wedge compression fracture of T11-T12 vertebra, initial encounter for closed fracture (principal); S22.32XA Fracture of one rib, left side, initial encounter for closed fracture; N10 Acute pyelonephritis; B96.20 Unspecified Escherichia coli [E. coli] as the cause of diseases classified elsewhere; F03.90 Unspecified dementia, unspecified severity, without behavioral disturbance, psychotic disturbance, mood disturbance, and anxiety; I48.91 Unspecified atrial fibrillation; I25.10 Atherosclerotic heart disease of native coronary artery without angina pectoris; Z91.81 History of falling; I50.9 Heart failure, unspecified; J44.9 Chronic obstructive pulmonary disease, unspecified; N20.0 Calculus of kidney; W18.30XA Fall on same level, unspecified, initial encounter; Z79.899 Other long term (current) drug therapy; Z79.82 Long term (current) use of aspirin; Z87.891 Personal history of nicotine dependence; N18.9 Chronic kidney disease, unspecified; R55 Syncope and collapse; Z66 Do not resuscitate
CPT/HCPCS: 36415; 36416; 51701; 70450; 71045; 71250; 72125; 74177; 80048; 80053; 81001; 81003; 81015; 82553; 83690; 83735; 83880; 84100; 84484; 85025; 85610; 85730; 87077; 87086; 87186; 93005; 93306; 96365; 96366; 96368; G8978-GP-CM; G8979-GP-CK; G8987-GO-CL; G8988-GO-CJ; J0692; J0744; J1956; J3010; J7050; Q0162

== ENCOUNTER 2018-05-02 15:00 | Emergency (ER) | payer MEDICARE, OTHER ==
[2018-05-02 15:44] LABS: #Eosinphils 0.1 thou/uL (0.0-0.7); #Lymphocytes 2.7 thou/uL (1.20-3.40); #Monocytes 0.9 thou/uL (0.11-0.59); #Neutrophils 7.4 thou/uL (1.40-6.50); %Basophils 0.2 % (0.0-1.0); %Eosinophils 0.8 % (0.0-10.0); %Lymphocytes 24.1 % (21.0-51.0); %Monocytes 7.9 % (0.0-10.0); Hemoglobin 11.7 g/dL (12.0-16.0); Mean Corpuscular Hemoglobin 32.8 pg (27.0-31.0); Mean Corpuscular Volume 99.5 fL (78.0-98.0); Mean Platelet Volume 7.4 fL (7.4-10.4); Platelet Count 288 thou/uL (130-400); RBC Distribution Width 15.3 % (11.5-14.5); Red Blood Cell (RBC) Count 3.56 mill/uL (4.20-5.40)
[2018-05-02 15:48] LABS: Bilirubin Negative (Negative); Blood, Urine Negative (Negative); Clarity CLOUDY (Clear); Glucose, Urine (Dipstick) Negative (Negative); Leukocyte Large (Negative); Nitrite Negative (Negative); Protein, Urine (Dipstick) Negative (Neg-Trace); Specific Gravity, Urine 1.004 (1.002-1.036); Urobilinogen 0.2 mg/dL (0.2-1.0); pH, Urine 6.5 (5.0-9.0)
[2018-05-02 15:50] LABS: Bacteria/HPF None Seen HPF (None Seen); Hyaline Casts/LPF 0-3 HYALINE CAST LPF (0-3 Hyaline); Pathc Cast-AUWi Flag 0.14 (0-2.49); WBC/HPF 21-50 HPF (0-3)
[2018-05-02 15:58] LABS: Transitional Epithelial NONE SEEN HPF (0-3); Yeast-All Forms 1+ HPF (None Seen)
[2018-05-02 16:02] LABS: ALT (SGPT) 9 U/L (8-55); AST (SGOT) 17 U/L (5-34); Albumin 3.2 g/dL (3.4-4.8); Alkaline Phosphatase 121 U/L (40-150); Anion Gap 19 mmol/L (10-20); BUN (Urea Nitrogen) 21 mg/dL (9.8-20.1); Bilirubin, Total 0.3 mg/dL (0.2-1.2); CK (CPK) 31 U/L (29-168); Calc. Creatinine Clearance 0 mL/min (70-130); Carbon Dioxide 18 mmol/L (23-31); Chloride 101 mmol/L (98-107); Estimated GFR-MDRD 23; Globulin 3.6 g/dL (2.4-3.5); Glucose 94 mg/dL (83-110); Potassium 3.5 mmol/L (3.5-5.1); Protein, Total 6.8 g/dL (6.0-8.3); Sodium 134 mmol/L (136-145)
--- NOTE | 2018-05-02 16:16 | CT ---
NONCONTRAST CT HEAD: 05/02/18 HISTORY: Trauma. Patient is post fall with abrasions. COMPARISON: 04/21/18. FINDINGS: Again are chronic small vessel ischemic changes and cerebral as well as cerebellar volume loss. Ventr icular system is normal in size, shape and position for the degree of sulcal atrophy. No acute corti ang infarction, hemorrhage, mass effect or midline shift is identified. Again, no calvarial fracture is seen. There has been no interval change from the prior exam. IMPRESSION: 1. No acute intracranial abnormality demonstrated. 2. Stable chronic small vessel ischemic changes and cerebral volume loss. POS: [facility]
--- NOTE | 2018-05-06 14:43 | EKG ---
Test Reason : SYNCOPE Blood Pressure : / mmHG Vent. Rate : 095 BPM Atrial Rate : 095 BPM P-R Int : 142 ms QRS Dur : 086 ms QT Int : 390 ms P-R-T Axes : 025 -26 041 degrees QTc Int : 490 ms Normal sinus rhythm Left ventricular hypertrophy with repolarization abnormality Prolonged QT - Borderline Left axis deviation Left ventricular hypertrophy Abnormal ECG Confirmed by LAITH AZUL, SEBASTIAN Arita ([id number]), editorial manager DOREEN MONTEZ ([id number]) on 05/06/2018 2:42:29 PM Referred By: Confirmed By:SEBASTIAN OZUNA MD
== END 2018-05-02 17:47 | disposition home or self-care (01) ==
LOC: ERS 15:00
DX: R55 Syncope and collapse (principal); I10 Essential (primary) hypertension; I48.91 Unspecified atrial fibrillation; I47.1 Supraventricular tachycardia; Z79.82 Long term (current) use of aspirin; Z79.899 Other long term (current) drug therapy; Z87.891 Personal history of nicotine dependence
CPT/HCPCS: 36415; 70450; 80053; 81003; 81015; 82550; 84484; 85025; 93005

== ENCOUNTER 2018-05-05 13:18 | Outpatient (CLI) | payer MEDICARE, OTHER ==
[2018-05-05 14:49] LABS: Mean Corpuscular HGB CONC 33.4 g/dL (32.0-36.0); Mean Corpuscular Hemoglobin 33.2 pg (27.0-31.0); Mean Corpuscular Volume 99.3 fL (78.0-98.0); Mean Platelet Volume 7.2 fL (7.4-10.4); Platelet Count 357 thou/uL (130-400); RBC Distribution Width 15.4 % (11.5-14.5); Red Blood Cell (RBC) Count 3.63 mill/uL (4.20-5.40); White Blood Cell (WBC) Count 12.4 thou/uL (4.8-10.8)
[2018-05-05 14:56] LABS: PTT 26.1 SEC (22.9-36.1); Prothrombin Time 13.4 SEC (12.0-14.7)
[2018-05-05 15:17] LABS: Anion Gap 12 mmol/L (10-20); BUN (Urea Nitrogen) 24 mg/dL (9.8-20.1); Calc. Creatinine Clearance 0 mL/min (70-130); Carbon Dioxide 24 mmol/L (23-31); Chloride 104 mmol/L (98-107); Estimated GFR-MDRD 25; Glucose 90 mg/dL (83-110); Potassium 3.8 mmol/L (3.5-5.1); Sodium 136 mmol/L (136-145)
== END 2018-05-05 13:19 | disposition home or self-care (01) ==
LOC: LABBT 13:18
PROVIDERS: ATTEND Urology
DX: Z01.812 Encounter for preprocedural laboratory examination (principal)
CPT/HCPCS: 80048; 81001; 85027; 85610; 85730; 86850; 86900; 86901; 87086

== ENCOUNTER 2018-05-05 14:00 | Inpatient (IN) | payer MEDICARE, OTHER ==
[2018-05-12] MEDS ORDERED: cefTRIAXone\\ROCEPHIN 2 GM in Sodium Chloride 0.9% 100 ML IVPB SCH (06:30)
[2018-05-12] MEDS ORDERED: Fentanyl 250 MCG/5 ML VIAL ONE (06:48)
[2018-05-12] MEDS ORDERED: Ioversol 68 % 50 ML VIAL ONE (07:03)
[2018-05-12] MEDS ORDERED: Bupivacaine HCl 0.5%/Epinephrine 1:200,000/PF 30 ml Vial ONE (07:03)
[2018-05-12] MEDS ORDERED: Lidocaine 2% PF 5 ML VIAL ONE (07:03)
[2018-05-12] MEDS ORDERED: SUGAMMADEX SODIUM 500 MG/5 ML VIAL ONE (10:17)
[2018-05-12] MEDS ORDERED: SUGAMMADEX SODIUM 200 MG/2 ML VIAL ONE (10:17)
[2018-05-12] MEDS ORDERED: Morphine Sulfate 2 MG/ML SYRINGE SLOW IVP PRN (10:34)
[2018-05-12] MEDS ORDERED: Ondansetron HCl/PF 4 MG/2 ML Vial IVP PRN (10:34)
[2018-05-12] MEDS ORDERED: Fentanyl 100 MCG/2 ML VIAL ONE ×2 (10:57→11:30)
[2018-05-12] MEDS ORDERED: diphenhydrAMINE 50 MG in Sodium Chloride 0.9% 50 ML IVPB PRN (11:03)
[2018-05-12] MEDS ORDERED: Ondansetron PF 4 MG/2 ML Vial IVP PRN (11:03)
[2018-05-12] MEDS ORDERED: Morphine 4 MG/ML VIAL SLOW IVP PRN (11:03)
[2018-05-12] MEDS ORDERED: Morphine 4 MG/ML VIAL ONE (11:47)
[2018-05-12] MEDS ORDERED: Morphine 2 MG/ML SYRINGE ONE ×3 (12:09→13:03)
[2018-05-12] MEDS ORDERED: Morphine 2 MG/ML SYRINGE SLOW IVP PRN (12:41)
[2018-05-12 13:46] VITALS: BMI 24.1
[2018-05-12] MEDS: Acetaminophen 500 MG TAB PO SCH ×3 (14:02→23:20)
[2018-05-12] MEDS: Lactated Ringer's 1,000 ML IV SCH ×2 (14:02→16:33)
[2018-05-12 14:30] LABS: Potassium 3.6 mmol/L (3.5-5.1)
[2018-05-12] MEDS: Budesonide 0.5 MG/2 ML NEB INH SCH (18:50)
[2018-05-12] MEDS: Heparin 5,000 UNITS/ML VIAL SC SCH (20:07)
[2018-05-12] MEDS: Docusate 100 MG CAP PO SCH (20:08)
[2018-05-12] MEDS: Donepezil HCl 5 MG TAB PO SCH (20:08)
--- NOTE | 2018-05-12 21:20 | OP ---
DATE OF PROCEDURE: 05/12/2018 PREOPERATIVE DIAGNOSES: Right renal staghorn with infection and gross hematuria. POSTOPERATIVE DIAGNOSES: Right renal staghorn with infection and gross hematuria. PROCEDURES PERFORMED: Right hand-assisted laparoscopic nephrectomy and flexible cystoscopy. ANESTHESIA: General with ET tube. FINDINGS: Adequate removal of right kidney. COMPLICATIONS: None. DRAIN REMAINING: Robert catheter. ESTIMATED BLOOD LOSS: 50 mL. URINE OUTPUT: 100 mL. INPUT: Crystalloid 1500. INDICATIONS FOR PROCEDURE: The patient is a 77-year-old female who was seen in the hospital after a fall and being admitted by the Trauma Service and noted to have significant staghorn with air behind the collecting system. She seems to be relatively asymptomatic from this and this was an incidental finding; however, due to now her symptoms and complaints, she has had chronic right-sided pain and persistent urinary tract infections for the past six months, we discussed all the possible options for intervention in detail and planned to proceed with nephrectomy. DESCRIPTION OF PROCEDURE: The patient was brought into the room by Anesthesia and left on table in supine position. After achieving general anesthetic, she was frog-legged and prepped, so that flexible cystoscopy could be performed. With the patient frog-legged, flexible cystoscope was used to inspect the bladder. There was just significant debris, but no lesions noted and then the debris was extracted. The scope was removed in its entirety and then, a 16-Nepalese Robert catheter was placed to gravity under sterile conditions. Then, she was repositioned on modified lateral with all position points padded and taped securely to the table, and prepped and draped in a sterile fashion. A hand-port incision was made in the right lower quadrant and taken down to the fascia and then into the abdomen itself. A HandPort was placed on this and then the abdomen insufflated. Then, two 12 mm ports were placed in the midline superior to the umbilicus, one just above it and then another about 4 cm above that, and then, the HandPort was used as a hand port in order to palpate that the ports had been placed without difficulty and then, a 5 mm port was placed in the right upper quadrant for the liver retractor. Then, the colon was mobilized by taking down the line of Toldt and the attachments at the liver, abdominal wall, and gallbladder. The colon was finally pushed out of the way and attention was turned to the duodenum , where it was significantly floppy and puffy for lack of a more technical term, but carefully dissected off the IVC, so it was kocherized and out of the way, and attention was turned to the inferior portion of the kidney, where it was bluntly dissected to the psoas muscle and then dissection occurred medially until the ureter was identified and then ligated with 10 mm clips and the Harmonic was used to go across it fully. Then, dissection occurred toward the medial inferior portion of the kidney up toward the hilum. The renal vein had been identified at this point coming from the IVC as was the gonadal, so care was taken to not disturb these areas and then the extra fat lymph and tissue was carefully dissected to isolate the inferior portion of the hilum and then care was taken with a flat tip or smooth tip suction to dissect the inferior portion of the renal vein, and then I was able to get my hand securely around all of the hilum. Once this was done, the vascular stapler was used to go across it for both the renal vein and artery, and this showed a small amount of oozing at the bed, but not specifically at the staple line, so pressure was held that the seal was made and then this was re-examined, there was no obvious bleeding, so dissection continued on the superior portion of the kidney, where blunt dissection was used for the superior and lateral portions, and any fascia still remaining was drawn across with Harmonic, and then the vascular stapler was used to go across the medial superior portion in case there were any crossing adrenal vessels. The adrenal remained with the patient. At this point, the kidney was free. A bag was placed through the 15 mm port that was placed into the HandPort and then, the kidney was placed into the bag and then removed by removing the top portion of the HandPort. There was significant amount of fat surrounding the kidneys, so I could not actually dissect out to palpate the stone further and I did not want to further dissect through the fat at this point, so then it was sent off for specimen and then returned back to the abdomen, where hemostasis was ensured and FloSeal was used at both the staple line and the base of the renal bed superiorly towards the adrenal. At this point, the laps and ports were removed and watched carefully. No bleeding was noted. I then still with the HandPort in and the hand helping to close the fascia for the 12 mm port at the midline using 2-0 Vicryl. The 5 mm fascial port was not closed. Then, the fascia for the abdominal wall was closed at the HandPort using 0 PDS in a running fashion both from the ends and meeting in the middle. Monocryl was used to reapproximate the Anh's. At this point, 30mL marcaine was placed divinding htat up among the incision. Copious amounts of irrigation and powder was used to minimize concern for infection postoperatively , and then the skin was reapproximated with 4-0 Monocryl in a running fashion and Dermabond. The patient tolerated the procedure well and by the end, she was returned to supine position. She had color in all limbs and dorsalis pedis pulses bilaterally. Job ID: [id number] [facility]
[2018-05-12] MEDS ORDERED: PROPOFOL 200 MG/20 ML VIAL ONE (21:41)
[2018-05-12] MEDS ORDERED: Lidocaine 1% PF 5 ML VIAL ONE (21:41)
[2018-05-13] MEDS: Lactated Ringer's 1,000 ML IV SCH ×2 (04:52→08:22)
[2018-05-13] MEDS: Acetaminophen 500 MG TAB PO SCH ×4 (05:13→22:56)
[2018-05-13] MEDS: cefTRIAXone\\ROCEPHIN 2 GM in Sodium Chloride 0.9% 100 ML IVPB SCH (05:14)
[2018-05-13 05:49] LABS: #Lymphocytes 1.3 thou/uL (1.20-3.40); #Monocytes 0.7 thou/uL (0.11-0.59); #Neutrophils 7.3 thou/uL (1.40-6.50); %Basophils 0.1 % (0.0-1.0); %Eosinophils 0.5 % (0.0-10.0); %Lymphocytes 13.9 % (21.0-51.0); %Monocytes 7.5 % (0.0-10.0); Hemoglobin 9.6 g/dL (12.0-16.0); Mean Corpuscular HGB CONC 32.2 g/dL (32.0-36.0); Mean Corpuscular Hemoglobin 32.6 pg (27.0-31.0); Mean Platelet Volume 7.3 fL (7.4-10.4); Platelet Count 231 thou/uL (130-400); RBC Distribution Width 15.2 % (11.5-14.5); Red Blood Cell (RBC) Count 2.93 mill/uL (4.20-5.40); White Blood Cell (WBC) Count 9.3 thou/uL (4.8-10.8)
[2018-05-13 06:00] LABS: Anion Gap 9 mmol/L (10-20); BUN (Urea Nitrogen) 17 mg/dL (9.8-20.1); Calc. Creatinine Clearance 26 mL/min (70-130); Calcium 8.4 mg/dL (7.8-10.44); Carbon Dioxide 27 mmol/L (23-31); Chloride 105 mmol/L (98-107); Estimated GFR-MDRD 25; Glucose 91 mg/dL (83-110); Potassium 3.9 mmol/L (3.5-5.1); Sodium 137 mmol/L (136-145)
[2018-05-13] MEDS: Budesonide 0.5 MG/2 ML NEB INH SCH ×2 (07:23→21:18)
[2018-05-13] MEDS: Heparin 5,000 UNITS/ML VIAL SC SCH ×2 (08:14→19:45)
[2018-05-13] MEDS: Famotidine/PF 20 mg/2ml Vial SLOW IVP SCH (08:14)
[2018-05-13] MEDS: Docusate 100 MG CAP PO SCH ×2 (08:15→19:46)
[2018-05-13] MEDS: Furosemide 20 MG TAB PO SCH (08:17)
--- NOTE | 2018-05-13 10:00 | PRG ---
DATE OF SERVICE: 05/13/2018 SUBJECTIVE: The patient did well overnight, has no complaints. She actually has passed gas already. She is not nauseous. She is not burping. Her pain is controlled. She is thirsty. She has not gotten out of bed yet. PHYSICAL EXAMINATION: VITAL SIGNS: Stable with T-max 99.1, current 98.4; saturating 93% to 94% on room air; heart rate now down to the 86; and blood pressure 122/70. GENERAL: She is comfortable in the bed, unable to scoot herself upward. HEART: Regular rate and rhythm. No murmurs, gallops, or rubs. LUNGS: Clear to auscultation bilaterally. ABDOMEN: Softly distended with some bowel sounds. Incisions clean, dry, and intact with bruising appropriate to recent procedure. EXTREMITIES: No lower extremity edema. LABORATORY VALUES: Reveal a hemoglobin and hematocrit that is most likely diluted at 9.6 and 29.7 given the minimal blood loss from the procedure and the adequate hydration during that, and her BUN and creatinine are 17 and 1.93, which are also both lower than her prior. ASSESSMENT: In assessment, we have a 77-year-old female, postop day #1 from a right hand-assisted laparoscopic nephrectomy, doing well, with a lower hemoglobin and hematocrit, which is likely related to dilution. I would restart her daily Lasix that she was already on prior to admission, get out of her Robert, have physical therapy to get her up and moving around and do pulmonary toilet and monitor. Job ID: [id number]
[2018-05-13] MEDS ORDERED: Morphine 4 MG/ML VIAL ONE (13:20)
[2018-05-13] MEDS: D5 1/2 NS w/10 mEq KCl 1,000 ML/1,000 ML BAG IV SCH (17:00)
[2018-05-13] MEDS: Donepezil HCl 5 MG TAB PO SCH (19:46)
[2018-05-14] MEDS: D5 1/2 NS w/10 mEq KCl 1,000 ML/1,000 ML BAG IV SCH (01:38)
[2018-05-14] MEDS: Acetaminophen 500 MG TAB PO SCH (05:30)
[2018-05-14] MEDS: Budesonide 0.5 MG/2 ML NEB INH SCH ×2 (07:28→18:40)
[2018-05-14 08:12] LABS: #Eosinphils 0.1 thou/uL (0.0-0.7); #Lymphocytes 1.3 thou/uL (1.20-3.40); #Monocytes 0.5 thou/uL (0.11-0.59); %Basophils 0.1 % (0.0-1.0); %Eosinophils 0.5 % (0.0-10.0); %Lymphocytes 11.8 % (21.0-51.0); %Monocytes 4.7 % (0.0-10.0); %Neutrophils 82.9 % (42.0-75.0); Hemoglobin 9.7 g/dL (12.0-16.0); Mean Corpuscular HGB CONC 32.5 g/dL (32.0-36.0); Mean Corpuscular Hemoglobin 32.8 pg (27.0-31.0); Mean Platelet Volume 7.5 fL (7.4-10.4); Platelet Count 228 thou/uL (130-400); RBC Distribution Width 15.3 % (11.5-14.5); Red Blood Cell (RBC) Count 2.97 mill/uL (4.20-5.40); White Blood Cell (WBC) Count 10.8 thou/uL (4.8-10.8)
[2018-05-14 08:25] LABS: Anion Gap 13 mmol/L (10-20); BUN (Urea Nitrogen) 17 mg/dL (9.8-20.1); Calc. Creatinine Clearance 24 mL/min (70-130); Carbon Dioxide 25 mmol/L (23-31); Chloride 102 mmol/L (98-107); Estimated GFR-MDRD 23; Glucose 75 mg/dL (83-110); Potassium 3.2 mmol/L (3.5-5.1); Sodium 137 mmol/L (136-145)
[2018-05-14] MEDS: Famotidine/PF 20 mg/2ml Vial SLOW IVP SCH (08:56)
[2018-05-14] MEDS: Heparin 5,000 UNITS/ML VIAL SC SCH ×2 (08:56→23:04)
[2018-05-14] MEDS: Docusate 100 MG CAP PO SCH ×2 (08:56→23:04)
[2018-05-14] MEDS: Furosemide 20 MG TAB PO SCH (08:56)
[2018-05-14] MEDS: cefTRIAXone\\ROCEPHIN 2 GM in Sodium Chloride 0.9% 100 ML IVPB SCH (09:47)
[2018-05-14] MEDS ORDERED: Potassium Chloride 20 MEQ TAB PO SCH (10:00)
[2018-05-14] MEDS ORDERED: Acetaminophen/Codeine 30-300mg Tablet PO PRN (10:23)
[2018-05-14] MEDS: Acetaminophen/Codeine 30-300mg Tablet PO PRN ×2 (10:47→16:55)
[2018-05-14] MEDS: Donepezil HCl 5 MG TAB PO SCH (23:04)
[2018-05-15] MEDS: cefTRIAXone\\ROCEPHIN 2 GM in Sodium Chloride 0.9% 100 ML IVPB SCH (07:06)
[2018-05-15] MEDS: Budesonide 0.5 MG/2 ML NEB INH SCH ×2 (07:18→19:17)
[2018-05-15] MEDS ORDERED: Furosemide 20 MG TAB PO SCH (08:45)
[2018-05-15] MEDS: D5 1/2 NS w/10 mEq KCl 1,000 ML/1,000 ML BAG IV SCH (09:54)
[2018-05-15] MEDS: Docusate 100 MG CAP PO SCH ×2 (09:54→20:21)
[2018-05-15] MEDS: Famotidine/PF 20 mg/2ml Vial SLOW IVP SCH (09:55)
[2018-05-15] MEDS: Heparin 5,000 UNITS/ML VIAL SC SCH ×2 (09:55→20:21)
--- NOTE | 2018-05-15 10:16 | PRG ---
DATE OF SERVICE: 05/14/2018 SUBJECTIVE: The patient has no complaints. She has been passing gas. She has been ambulating. She denies any dyspepsia nor nausea. She is hungry. OBJECTIVE: VITAL SIGNS: Vitals have been stable. T-max 98.3, current 97.9; blood pressure ranging from 1302-140s systolic; heart rate ranging from 80s to 100, even; saturating 95% on room air. LUNGS: On exam, her lungs are clear to auscultation bilaterally. HEART: Regular rate and borderline tachycardia. ABDOMEN: Softly distended with significant bowel sounds. EXTREMITIES: She had no lower extremity edema. LABORATORY DATA: Her labs are good with a stable H and H, and a creatinine of 2.08. Appreciate Physical Therapy input regarding the brace. The patient cannot remember whether this is discussed with her previously, but reportedly will not wear it anyway. I did encourage her to use a cane and/or walker, but she said she would not use it at home anyway. ASSESSMENT: We have a 77-year-old female, postop day 2, right hand-assisted laparoscopic nephrectomy with the pathology showing emphysematous pyelonephritic changes. She is doing well. We will continue clears only since I am concerned about her distension being slightly increased from the day prior, but I will go ahead and change her over to oral medicines and monitor. Job ID: [id number] [facility]
--- NOTE | 2018-05-15 16:14 | PRG ---
DATE OF SERVICE: 05/15/2018 SUBJECTIVE: The patient did well overnight. She denies any nausea or vomiting. She still reports passing gas in the morning, but I saw her in the afternoon and she had not passed anymore since overnight, and she has not been walking much in the morning, but in the afternoon she did get up more as I had a significant talk with her and called her son to try to help with this as well, so by the afternoon she had walked with Physical Therapy as well. OBJECTIVE: VITAL SIGNS: Vitals have been stable. 98.3 is T-max, blood pressure 130s/70s, heart rate ranging from 67 to 103, and saturating 94% to 96% on room air. She put out approximately 1200. HEART: Regular rate and rhythm on exam. LUNGS: Clear to auscultation bilaterally. ABDOMEN: Softly distended, more so than yesterday, as well as with less bowel sounds. Incision clean, dry, intact without tenderness, does have mild tenderness at the superior epigastric incision, but no induration, no erythema, no peritoneal signs and positive tympany upon percussion. EXTREMITIES: No lower extremity edema and she can flex and point her toes without pain in the calf area. LABORATORY DATA: No labs were obtained today. ASSESSMENT: A 77-year-old female, postop day #3, status post right hand-assisted laparoscopic nephrectomy for emphysematous pyelonephritis, subclinical presentation and now has an ileus. I have held her clear liquid diet and added fluids again. We will check labs in the morning and hopefully wait out this ileus. Job ID: [id number]
[2018-05-15] MEDS: Donepezil HCl 5 MG TAB PO SCH (20:21)
[2018-05-16] MEDS: D5 1/2 NS w/10 mEq KCl 1,000 ML/1,000 ML BAG IV SCH (04:08)
[2018-05-16] MEDS: cefTRIAXone\\ROCEPHIN 2 GM in Sodium Chloride 0.9% 100 ML IVPB SCH (05:31)
[2018-05-16 07:22] LABS: #Eosinphils 0.1 thou/uL (0.0-0.7); #Lymphocytes 1.5 thou/uL (1.20-3.40); #Monocytes 0.6 thou/uL (0.11-0.59); #Neutrophils 4.6 thou/uL (1.40-6.50); %Basophils 0.2 % (0.0-1.0); %Eosinophils 0.8 % (0.0-10.0); %Lymphocytes 21.6 % (21.0-51.0); %Monocytes 9.3 % (0.0-10.0); %Neutrophils 68.1 % (42.0-75.0); Hemoglobin 10.7 g/dL (12.0-16.0); Mean Corpuscular HGB CONC 32.1 g/dL (32.0-36.0); Mean Corpuscular Hemoglobin 32.8 pg (27.0-31.0); Mean Platelet Volume 6.9 fL (7.4-10.4); Platelet Count 211 thou/uL (130-400); RBC Distribution Width 15.2 % (11.5-14.5); Red Blood Cell (RBC) Count 3.25 mill/uL (4.20-5.40); White Blood Cell (WBC) Count 6.7 thou/uL (4.8-10.8)
[2018-05-16 07:43] LABS: Anion Gap 14 mmol/L (10-20); BUN (Urea Nitrogen) 18 mg/dL (9.8-20.1); Calc. Creatinine Clearance 23 mL/min (70-130); Calcium 8.4 mg/dL (7.8-10.44); Carbon Dioxide 27 mmol/L (23-31); Chloride 104 mmol/L (98-107); Estimated GFR-MDRD 21; Glucose 92 mg/dL (83-110); Magnesium 1.7 mg/dL (1.6-2.6); Phosphorus 3.3 mg/dL (2.3-4.7); Potassium 3.6 mmol/L (3.5-5.1); Sodium 141 mmol/L (136-145)
[2018-05-16] MEDS: Budesonide 0.5 MG/2 ML NEB INH SCH (08:21)
[2018-05-16] MEDS: Famotidine/PF 20 mg/2ml Vial SLOW IVP SCH (09:01)
[2018-05-16] MEDS: Heparin 5,000 UNITS/ML VIAL SC SCH (09:02)
[2018-05-16] MEDS: Docusate 100 MG CAP PO SCH (09:02)
--- NOTE | 2018-05-16 11:40 | PRG ---
DATE OF SERVICE: 05/16/2018 SUBJECTIVE: The patient is tired after having a sponge bath and getting moved to the bed, but otherwise has no complaints. However, she said she does not want to move around because of the pain or discomfort, but she has not taken pain medicine since yesterday at 4 p.m., so we reviewed this. She reports a small amount of burping, but less burping and more passing gas, and her daughter confirms this. She seems to be having some own episodes. OBJECTIVE: VITAL SIGNS: She has been afebrile with vital signs stable. T-max 98, systolic blood pressure in the 140s, heart rate in the 90s, saturating 93% on room air with approximately 800 out urine. GENERAL: On exam, she is lying in the bed. ABDOMEN: Definitely decreased in distention from the day prior with good bowel sounds and softly distended with appropriate tenderness at incision sites. LABORATORY DATA: Laboratory values reveal a white count comedown to 6.7, H and H that are up to 10.7 and 33.3. Creatinine that is up to 2.24, however, a previous one has been as high as 2.37, and her BUN is stable at 18 with a potassium at 3.6. ASSESSMENT AND PLAN: We have a 77-year-old female, status post right hand- assisted laparoscopic nephrectomy for emphysematous pyelonephritis with staghorn, who had postop ileus, now improving. She can have a cracker only with her pills, and we will advance her to clears, and if she does well with that, then I anticipate that she would be ready for discharge as there would be nothing else that would be supplying for her that she could not get at home--fabienne familiar surroundings. Job ID: [id number] [facility]
[2018-05-16 12:24] VITALS: BP 139/79; TEMP 97.9
== END 2018-05-16 14:57 | disposition home or self-care (01) | DRG 660 ==
LOC: SURG A 05-12 06:02
PROVIDERS: ADMIT Urology; ATTEND Urology
PROC: 0TT04ZZ Resection of Right Kidney, Percutaneous Endoscopic Approach (ICD-10-PCS; principal; 2018-05-12)
PROC: 0TCB8ZZ Extirpation of Matter from Bladder, Via Natural or Artificial Opening Endoscopic (ICD-10-PCS; 2018-05-12)
DX: N12 Tubulo-interstitial nephritis, not specified as acute or chronic (principal); K56.7 Ileus, unspecified; N20.0 Calculus of kidney; R31.0 Gross hematuria; E78.00 Pure hypercholesterolemia, unspecified; I12.9 Hypertensive chronic kidney disease with stage 1 through stage 4 chronic kidney disease, or unspecified chronic kidney disease; N18.9 Chronic kidney disease, unspecified; N39.0 Urinary tract infection, site not specified; Z87.891 Personal history of nicotine dependence
CPT/HCPCS: 36415; 80048; 83735; 84100; 84132; 85025; 88307; 94640; G8978-GP-CK; G8979-GP-CI; J0670; J0696; J1644; J2001; J2270; J2704; J3010; J7050; J7626; Q9967; S0028

== ENCOUNTER 2018-05-28 21:16 | Observation (INO) | payer MEDICARE, OTHER ==
[2018-05-28 21:57] LABS: #Basophils 0.1 thou/uL (0.0-0.2); #Eosinphils 0.5 thou/uL (0.0-0.7); #Lymphocytes 3.2 thou/uL (1.20-3.40); #Monocytes 1.2 thou/uL (0.11-0.59); #Neutrophils 7.9 thou/uL (1.40-6.50); %Basophils 0.7 % (0.0-1.0); %Eosinophils 3.5 % (0.0-10.0); %Neutrophils 61.8 % (42.0-75.0); Hemoglobin 10.8 g/dL (12.0-16.0); Mean Corpuscular HGB CONC 34.2 g/dL (32.0-36.0); Mean Corpuscular Hemoglobin 33.9 pg (27.0-31.0); Mean Corpuscular Volume 99.1 fL (78.0-98.0); Mean Platelet Volume 7.2 fL (7.4-10.4); Platelet Count 509 thou/uL (130-400); RBC Distribution Width 14.4 % (11.5-14.5); Red Blood Cell (RBC) Count 3.17 mill/uL (4.20-5.40); White Blood Cell (WBC) Count 12.8 thou/uL (4.8-10.8)
[2018-05-28 22:38] LABS: ALT (SGPT) 9 U/L (8-55); AST (SGOT) 17 U/L (5-34); Alkaline Phosphatase 108 U/L (40-150); Anion Gap 19 mmol/L (10-20); BUN (Urea Nitrogen) 25 mg/dL (9.8-20.1); Bilirubin, Total 0.3 mg/dL (0.2-1.2); Calc. Creatinine Clearance 0 mL/min (70-130); Calcium 8.4 mg/dL (7.8-10.44); Carbon Dioxide 22 mmol/L (23-31); Chloride 99 mmol/L (98-107); Estimated GFR-MDRD 15; Globulin 3.7 g/dL (2.4-3.5); Glucose 83 mg/dL (83-110); Potassium 3.9 mmol/L (3.5-5.1); Protein, Total 6.7 g/dL (6.0-8.3); Sodium 136 mmol/L (136-145)
--- NOTE | 2018-05-28 23:10 | RAD ---
UPRIGHT PORTABLE CHEST ONE VIEW: 05/28/18 HISTORY: 77-year-old female with history of syncope. COMPARISON: 04/21/18. Linear and interstitial parenchymal changes are noted bilaterally. Heart size is within normal limits . No confluent pneumonia, overt edema or pleural effusion. IMPRESSION: Overall stable bilateral linear and interstitial chronic lung changes. No cardiomegaly, confluent pne umonia, or other acute process. Atherosclerosis of the aorta with ectasia. Stable from prior study. POS: [facility]
[2018-05-28 23:42] LABS: Bilirubin Negative (Negative); Blood, Urine Negative (Negative); Clarity CLEAR (Clear); Glucose, Urine (Dipstick) Negative (Negative); Leukocyte Negative (Negative); Nitrite Negative (Negative); Protein, Urine (Dipstick) Negative (Neg-Trace); Specific Gravity, Urine 1.004 (1.002-1.036); Urobilinogen 0.2 mg/dL (0.2-1.0); pH, Urine 6.5 (5.0-9.0)
[2018-05-29 01:06] VITALS: BMI 24.5
[2018-05-29 01:07] LABS: Troponin I Less than 0.010 ng/mL (< 0.028)
[2018-05-29 04:28] LABS: Anion Gap 16 mmol/L (10-20); BUN (Urea Nitrogen) 24 mg/dL (9.8-20.1); Calc. Creatinine Clearance 19 mL/min (70-130); Calcium 7.8 mg/dL (7.8-10.44); Carbon Dioxide 23 mmol/L (23-31); Chloride 104 mmol/L (98-107); Estimated GFR-MDRD 17; Glucose 91 mg/dL (83-110); Sodium 139 mmol/L (136-145)
[2018-05-29 04:34] LABS: Troponin I Less than 0.010 ng/mL (< 0.028)
[2018-05-29] MEDS: Sodium Chloride 0.45% 1,000 ML IV SCH (09:08)
[2018-05-29 09:09] LABS: Iron 33 ug/dL (50-170); Iron Binding Capacity, Total 174 mcg/dL (265-497)
--- NOTE | 2018-05-29 10:39 | CT ---
HEAD CT WITHOUT CONTRAST: Date: 05/29/18 COMPARISON: 05/02/18. HISTORY: Syncope. FINDINGS: No parenchymal hemorrhage. No extra-axial hematoma. No midline shift. Basilar cisterns are patent. Ag e-appropriate atrophy. Cortical wang-white matter differentiation preserved. There are chronic small vessel ischemic changes of the white matter. There is sinus disease involving the sphenoid sinuses with air fluid levels. Adequate mastoid air sandeep l aeration. Intact calvarium. IMPRESSION: 1. Sphenoid sinus disease. 2. No acute intracranial process. 3. Stable atrophy and chronic small vessel ischemic changes of the white matter. POS: [facility]
--- NOTE | 2018-05-29 12:07 | HP ---
CHIEF COMPLAINT: Syncope. HISTORY OF PRESENT ILLNESS: The patient is a 77-year-old female in her usual state of health when walking to the bathroom. On the day coming to the hospital, she suddenly passed out in front of her son. She did not strike her head. She was brought to the emergency room for further evaluation. There in the ER, findings were fairly unremarkable including a normal chest x-ray. EKG, no acute findings. Her renal functions were somewhat elevated with a BUN of 25, creatinine 2.96 with a GFR of about 15. This is worse than her baseline. CBC has a slight elevation at 12.8 as well, platelets 509. The patient is put in observation for further evaluation. PAST MEDICAL HISTORY: Significant for hypertension, dementia, atrial fibrillation, multiple falls, chronic kidney disease, coronary artery disease, CHF, and COPD. PAST SURGICAL HISTORY: Includes ablation for atrial fibrillation and PTCA. ALLERGIES: SHE HAS NO KNOWN DRUG ALLERGIES. MEDICATIONS: Her medications on admission include; 1. Folic acid 1 mg daily. 2. Atorvastatin 20 mg at bedtime. 3. Diltiazem 240 mg daily. 4. Ferrous gluconate 324 mg daily. 5. Donepezil 5 mg daily. 6. Vitamin D3 of 5000 units daily. 7. Pepcid 20 mg daily. 8. Uloric 40 mg daily. 9. Furosemide 20 mg daily. 10. Vitamin C. 11. Aspirin 81 mg daily. 12. Pantoprazole 40 mg daily. 13. Symbicort 160/4.5 two puffs b.i.d. REVIEW OF SYSTEMS: GENERAL: The patient has not had any fever, chills, or evidence of fatigue. HEENT: No sores or lesions in eyes, nose, or pharynx. No drainage noted. CHEST: No complaints of dyspnea or cough. CARDIOVASCULAR: No chest pain or palpitations mentioned. Gastrointestinal: No nausea, vomiting, or diarrhea. GENITOURINARY: No dysuria. No blood in urine or stool. MUSCULOSKELETAL: No significant complaints in any joints or muscles. SKIN: No new rashes or lesions. NEUROLOGICAL: Significant for the aforementioned syncope as reason for coming to the emergency room, but denies any headaches, paresthesias, anesthesias. HEMOLYTIC/LYMPH: No areas of new bruising, ecchymosis, or edema. PHYSICAL EXAMINATION: VITAL SIGNS: Blood pressure 108/55, pulse 101, respirations 20, temperature 98, pain scale 0, and O2 saturation 97% on room air. GENERAL: This is an elderly female, alert. She is completely disoriented to time except to herself. HEENT: Normocephalic, atraumatic. Pupils are equal, round, and reactive to light at 2 mm each. Arcus senilis bilaterally. TMs, nares, and pharynx are clear. NECK: Supple. Trachea midline. Nontender, range of motion. CHEST: Clear to auscultation. HEART: Regular rate and rhythm. BREASTS: Deferred. ABDOMEN: Soft, nontender without hepatosplenomegaly. GENITOURINARY: Deferred. EXTREMITIES: Without clubbing, cyanosis, or edema. Normal range of motion demonstrated. SKIN: Without acute rashes or lesions. NEUROLOGICALLY: Cranial nerves are intact. Unable to test gait and cerebellar function at this time. Sensory exam is grossly intact. Mental status is abnormal with baseline dementia. IMAGING DATA: The chest x-ray returned unremarkable. LABORATORY WORK: Sodium 136, potassium 3.9, chloride 99, CO2 of 22, BUN 25, creatinine 2.96 with a GFR 15, and calcium 8.4. Liver functions normal. Troponin is negative. Albumin is low. Urinalysis is completely normal. WBCs 12.8, hemoglobin 10.8, hematocrit 31.5 with platelets at 509. ASSESSMENT: 1. Syncope, probably vasovagal, combined with anemia. 2. Anemia of undetermined etiology. 3. Dementia. 4. Renal insufficiency, improving slowly with hydration. 5. History of atrial fibrillation. PLAN: CT of the head with and without contrast. I guess we will not have to hold the contrast if her renal functions are out of whack. We will Hemoccult her stools. We will do iron studies on her lab. Get a swallow evaluation and serially re-evaluate her. We will also do orthostatic vital signs every shift. Job ID: [id number]
[2018-05-30 05:27] LABS: Lactic Acid 0.8 mmol/L (0.5-2.2)
[2018-05-30 05:29] LABS: Anion Gap 11 mmol/L (10-20); BUN (Urea Nitrogen) 23 mg/dL (9.8-20.1); Calc. Creatinine Clearance 20 mL/min (70-130); Calcium 8.2 mg/dL (7.8-10.44); Carbon Dioxide 25 mmol/L (23-31); Cardiac Risk 2.6 (Less than 4.5); Chloride 108 mmol/L (98-107); Cholesterol 111 mg/dl (< 200 Desired); Estimated GFR-MDRD 18; Glucose 89 mg/dL (83-110); HDL Cholesterol 43 mg/dL (>60 Neg Risk); LDL Cholesterol, Calculated 50 mg/dL; Potassium 3.5 mmol/L (3.5-5.1); Sodium 140 mmol/L (136-145); Triglycerides 92 mg/dL (Less than 150)
[2018-05-30] MEDS: Sodium Chloride 0.45% 1,000 ML IV SCH (05:53)
[2018-05-30] MEDS: Cefdinir 300 MG CAP PO SCH ×2 (08:24→20:53)
[2018-05-30] MEDS: Mometasone/Formoterol 120 PUFF INHALER INH SCH (19:03)
[2018-05-30] MEDS ORDERED: Atorvastatin Calcium 20 MG TAB PO SCH (21:00)
[2018-05-31] MEDS: Sodium Chloride 0.45% 1,000 ML IV SCH (02:24)
[2018-05-31 06:52] LABS: #Eosinphils 0.4 thou/uL (0.0-0.7); #Lymphocytes 2.7 thou/uL (1.20-3.40); #Monocytes 0.8 thou/uL (0.11-0.59); #Neutrophils 3.9 thou/uL (1.40-6.50); %Basophils 0.5 % (0.0-1.0); %Eosinophils 5.5 % (0.0-10.0); %Monocytes 10.5 % (0.0-10.0); %Neutrophils 49.5 % (42.0-75.0); Hemoglobin 9.7 g/dL (12.0-16.0); Mean Corpuscular HGB CONC 33.4 g/dL (32.0-36.0); Mean Corpuscular Hemoglobin 33.2 pg (27.0-31.0); Mean Corpuscular Volume 99.5 fL (78.0-98.0); Mean Platelet Volume 7.3 fL (7.4-10.4); Platelet Count 402 thou/uL (130-400); RBC Distribution Width 14.1 % (11.5-14.5); Red Blood Cell (RBC) Count 2.93 mill/uL (4.20-5.40); White Blood Cell (WBC) Count 7.8 thou/uL (4.8-10.8)
[2018-05-31 07:11] LABS: Anion Gap 12 mmol/L (10-20); BUN (Urea Nitrogen) 21 mg/dL (9.8-20.1); Calc. Creatinine Clearance 20 mL/min (70-130); Calcium 8.2 mg/dL (7.8-10.44); Carbon Dioxide 22 mmol/L (23-31); Chloride 109 mmol/L (98-107); Estimated GFR-MDRD 18; Glucose 85 mg/dL (83-110); Potassium 3.6 mmol/L (3.5-5.1); Sodium 139 mmol/L (136-145)
[2018-05-31] MEDS: Mometasone/Formoterol 120 PUFF INHALER INH SCH (08:21)
[2018-05-31] MEDS ORDERED: Multivit, Therapeutic 1 TAB PO SCH (09:00)
[2018-05-31] MEDS ORDERED: Aspirin 81 mg Enteric Coated Tablet PO SCH (09:00)
[2018-05-31] MEDS: Cefdinir 300 MG CAP PO SCH (09:07)
[2018-05-31 12:22] VITALS: BP 136/63; TEMP 97.6
== END 2018-05-31 12:14 | disposition home or self-care (01) ==
LOC: ERS 21:16 → 2SW 23:00
PROVIDERS: ADMIT Specialist; ATTEND Specialist
DX: R55 Syncope and collapse (principal); I13.0 Hypertensive heart and chronic kidney disease with heart failure and stage 1 through stage 4 chronic kidney disease, or unspecified chronic kidney disease; N18.9 Chronic kidney disease, unspecified; I50.9 Heart failure, unspecified; I48.91 Unspecified atrial fibrillation; I25.10 Atherosclerotic heart disease of native coronary artery without angina pectoris; J44.9 Chronic obstructive pulmonary disease, unspecified; F03.90 Unspecified dementia, unspecified severity, without behavioral disturbance, psychotic disturbance, mood disturbance, and anxiety; D64.9 Anemia, unspecified; Z95.5 Presence of coronary angioplasty implant and graft; Z79.82 Long term (current) use of aspirin; Z79.2 Long term (current) use of antibiotics; Z79.899 Other long term (current) drug therapy; Z98.890 Other specified postprocedural states
CPT/HCPCS: 70450; 71045; 80048 ×3; 80053; 80061; 81003; 82274; 82607; 82728; 83540; 83550; 83605; 83880; 84484 ×3; 85025 ×2; 93005; 94640 ×2; 96360; 96361 ×3; 99285; G0378 ×2; 36415

== ENCOUNTER 2018-07-09 19:48 | Observation (INO) | payer MEDICARE, OTHER ==
[2018-07-09 20:58] LABS: #Eosinphils 0.1 thou/uL (0.0-0.7); #Lymphocytes 1.5 thou/uL (1.20-3.40); #Monocytes 1.5 thou/uL (0.11-0.59); #Neutrophils 15.2 thou/uL (1.40-6.50); %Basophils 0.2 % (0.0-1.0); %Eosinophils 0.3 % (0.0-10.0); %Lymphocytes 8.3 % (21.0-51.0); %Monocytes 8.1 % (0.0-10.0); Hemoglobin 9.5 g/dL (12.0-16.0); Mean Corpuscular HGB CONC 32.7 g/dL (32.0-36.0); Mean Corpuscular Hemoglobin 33.2 pg (27.0-31.0); Platelet Count 331 thou/uL (130-400); RBC Distribution Width 13.4 % (11.5-14.5); Red Blood Cell (RBC) Count 2.85 mill/uL (4.20-5.40); White Blood Cell (WBC) Count 18.3 thou/uL (4.8-10.8)
[2018-07-09 21:05] LABS: ALT (SGPT) Less than 7 U/L (8-55); AST (SGOT) 11 U/L (5-34); Albumin 3.3 g/dL (3.4-4.8); Alkaline Phosphatase 179 U/L (40-150); Anion Gap 18 mmol/L (10-20); BUN (Urea Nitrogen) 23 mg/dL (9.8-20.1); Bilirubin, Total 0.5 mg/dL (0.2-1.2); CK (CPK) 23 U/L (29-168); Calc. Creatinine Clearance 0 mL/min (70-130); Calcium 8.9 mg/dL (7.8-10.44); Carbon Dioxide 18 mmol/L (23-31); Chloride 94 mmol/L (98-107); Estimated GFR-MDRD 20; Globulin 3.7 g/dL (2.4-3.5); Glucose 112 mg/dL (83-110); Sodium 126 mmol/L (136-145)
--- NOTE | 2018-07-09 22:41 | RAD ---
PORTABLE CHEST: Date: 07/09/18 COMPARISON: 05/28/18 study. HISTORY: Difficulty breathing. FINDINGS: Heart size is within normal limits for portable technique. There are atherosclerotic changes of the a vicente. The lungs are clear of infiltrates. IMPRESSION: No active intrathoracic disease. POS: [facility]
--- NOTE | 2018-07-09 23:03 | CT ---
CT OF ABDOMEN AND PELVIS PERFORMED WITHOUT CONTRAST ENHANCEMENT: Date: 07/09/18 HISTORY: Abdominal pain. Recent removal of right kidney. COMPARISON: 04/21/18. FINDINGS: The lung bases are clear of any infiltrative process. Small hiatal hernia is present. The liver, spleen, pancreas, and gallbladder regions appear unremarkable. Right and left adrenal glands are normal. Right kidney has been removed. Left kidney is normal in siz e. There is no evidence of obstruction. No renal calculi seen. No significant periaortic or mesenteric adenopathy. Some minimal colonic diverticulosis incidentally seen. The appendix is normal. CT of pelvis was performed without contrast enhancement. Minimal diverticulosis of the sigmoid colon is seen. No adenopathy, mass, or free fluid. Some edema change within the subcutaneous fat along the right anterior abdominal wall. This is probably on the basis of some type of injection. IMPRESSION: 1. Post right nephrectomy change. 2. Colonic diverticulosis. POS: [facility]
[2018-07-09 23:18] LABS: Bilirubin Negative (Negative); Blood, Urine Negative (Negative); Clarity CLOUDY (Clear); Glucose, Urine (Dipstick) Negative (Negative); Leukocyte Moderate (Negative); Nitrite Negative (Negative); Protein, Urine (Dipstick) Negative (Neg-Trace); Specific Gravity, Urine 1.009 (1.002-1.036); Urobilinogen 0.2 mg/dL (0.2-1.0); pH, Urine 5.5 (5.0-9.0)
[2018-07-09 23:19] LABS: Bacteria/HPF 1+ HPF (None Seen); Hyaline Casts/LPF 4-6 HYALINE CAST LPF (0-3 Hyaline); Pathc Cast-AUWi Flag 1.16 (0-2.49); RBC/HPF 0-3 HPF (0-3)
[2018-07-09 23:25] LABS: Yeast-All Forms None Seen HPF (None Seen)
[2018-07-09 23:26] LABS: Crystals/HPF None Seen HPF (Negative)
[2018-07-09] MEDS ORDERED: cefTRIAXone\\ROCEPHIN 1 GM VIAL ONE (23:54)
[2018-07-10 00:26] LABS: Lactic Acid 0.9 mmol/L (0.5-2.2)
[2018-07-10] MEDS ORDERED: Acetaminophen 325 MG TAB PO PRN (01:29)
[2018-07-10] MEDS ORDERED: Ondansetron ODT 4 MG TAB SL PRN (01:29)
[2018-07-10] MEDS ORDERED: Ondansetron PF 4 MG/2 ML Vial IVP PRN (01:29)
[2018-07-10 01:39] VITALS: BMI 25.4
[2018-07-10] MEDS ORDERED: Sodium Chloride 0.9% 1,000 ML IV SCH (03:00)
[2018-07-10] MEDS ORDERED: Lorazepam 1 MG TAB PO PRN (08:14)
[2018-07-10] MEDS: Folic Acid 1 MG TAB PO SCH (10:05)
[2018-07-10] MEDS: Multivit, Therapeutic 1 TAB PO SCH (10:05)
[2018-07-10] MEDS: Thiamine HCl 200 MG/2 ML VIAL IM SCH (11:00)
[2018-07-10] MEDS: chlordiazePOXIDE HCl 25 MG CAP PO SCH ×4 (12:18→21:10)
--- NOTE | 2018-07-10 15:21 | HP ---
CHIEF COMPLAINT: On admission, was dyspnea. HISTORY OF PRESENT ILLNESS: The patient is a 77-year-old female who was brought to the emergency room for shortness of breath. She had been seen in Dr. Mary' office just 2-3 days earlier without any signs of illness, anxiety, or problems, but the daughter states that she has been tired and weak and short of breath now, needing oxygen for several days and when she was unable to breathe, they called the ambulance. She has a history of atrial fibrillation. Daughter also says she has been having leg and back pain for 3 weeks and could barely walk, but she made in and out of Dr. Mary' office without any difficulty. She has been taking a new cholesterol medication and it was told to her at her appointment that that may be causing some muscle aches and pains. She regularly drinks rum and coke in excess on a daily basis. Daughter states she has been having swelling in her ankles. In April of 2018, she had a right kidney removed. The patient was evaluated in the emergency room, found to have low sodium and an elevated white count, possibly related to a urinary tract infection. For those reasons, she was put in the hospital for further evaluation. PAST MEDICAL HISTORY: Significant for the aforementioned alcoholism, hypertension, early dementia, atrial fibrillation, chronic kidney disease, coronary artery disease, CHF, and COPD. She has also had a problem with GERD and hyperuricemia and dyslipidemia. PAST SURGICAL HISTORY: Includes ablation for atrial fibrillation, PTCA, and right nephrectomy. PSYCHIATRIC HISTORY: Significant for advancing dementia, history of anxiety, and history of depression. ALLERGIES: SHE HAS NO KNOWN DRUG ALLERGIES. SOCIAL HISTORY: Regular rum and coke daily. She brings that is one but it is a very big one. She is a former tobacco smoker and reports quitting back in the year 1989. MEDICATIONS: On admission include: 1. Folic acid 1 mg daily. 2. Atorvastatin 20 mg at bedtime. 3. Diltiazem 240 mg daily. 4. Ferrous gluconate 324 mg daily. 5. Donepezil 5 mg daily. 6. Vitamin D 5000 units a day. 7. Pepcid 20 mg a day. 8. Uloric 40 mg a day. 9. Lasix 20 mg a day. 10. Aspirin 81 mg a day. 11. Protonix 40 mg a day. 12. Potassium 20 mEq once a day. 13. Symbicort 160/4.5 two puffs b.i.d. REVIEW OF SYSTEMS: CONSTITUTIONAL: Denies fever, chills, or malaise. EYES: No drainage or pain or blurred vision. ENT: No sores, drainage, or pain. CARDIOVASCULAR: Denies palpitations or chest pain. RESPIRATORY: Reports shortness of breath, but denies cough. GI: Denies nausea, vomiting, or diarrhea. : Denies dysuria or blood in the urine. EXTREMITIES: She is reporting arthralgias in her low back and in her joints of the lower extremity with general muscle pain as well. SKIN: No new rashes or lesions. HEMOLYTIC/LYMPH: No new areas of edema, bruising, or swelling. PHYSICAL EXAMINATION: At the time of admission, VITAL SIGNS: Blood pressure 145/62, pulse 105, respirations 22, temperature 98.3 with a pain scale of 0/10, O2 saturation 94% on room air. GENERAL: This is a well-developed, well-nourished, female, alert, oriented, and cooperative. HEENT: Normocephalic, atraumatic. Pupils are equal, round, and reactive to light. Extraocular muscles are intact. Arcus senilis bilaterally. TMs, nares, and pharynx are clear. NECK: Supple. Trachea midline. CHEST: With diminished breath sounds throughout. BREASTS: Deferred. HEART: Regular rate and rhythm without murmur. ABDOMEN: Soft, nontender without hepatosplenomegaly. : Deferred. EXTREMITIES: Without clubbing, cyanosis, or edema. There is muscular wasting in all extremities. SKIN: Loose with poor turgor, but no acute rashes or lesions. NEUROLOGIC: Obvious deficits in short-term memory. Sensory exam is intact. Gait and cerebral function are intact. LABORATORY WORK: On admission showed WBCs 18.3, hemoglobin 9.5, hematocrit 29.0 , platelets are 331. Sodium 126, potassium 4.0, chloride 94, CO2 of 18, BUN 23, creatinine 2.35. The sugar was probably in 112. The UA showed 11-20 WBCs, 11- [address] of the pelvis unremarkable. CT of the chest unremarkable except for COPD. ASSESSMENT: 1. Hyponatremia. 2. Leukocytosis secondary to bladder infection 3. UTI 4. dementia, 5. mild anemia, 6. renal insufficiency-old. PLAN: IV antibiotics, hydration, serial re-evaluation and discharge on oral medication once we regain a downtrending leukocyte count. Job ID: [id number] [facility]
[2018-07-10] MEDS ORDERED: cefTRIAXone\\ROCEPHIN 2 GM in Sodium Chloride 0.9% 100 ML IVPB SCH (21:00)
[2018-07-11 04:35] LABS: #Basophils 0.1 thou/uL (0.0-0.2); #Eosinphils 0.1 thou/uL (0.0-0.7); #Monocytes 0.9 thou/uL (0.11-0.59); #Neutrophils 7.8 thou/uL (1.40-6.50); %Basophils 0.5 % (0.0-1.0); %Eosinophils 0.8 % (0.0-10.0); %Lymphocytes 18.6 % (21.0-51.0); %Monocytes 8.5 % (0.0-10.0); %Neutrophils 71.6 % (42.0-75.0); Mean Corpuscular HGB CONC 32.2 g/dL (32.0-36.0); Mean Corpuscular Hemoglobin 33.1 pg (27.0-31.0); Mean Platelet Volume 6.7 fL (7.4-10.4); Platelet Count 339 thou/uL (130-400); RBC Distribution Width 13.5 % (11.5-14.5); Red Blood Cell (RBC) Count 2.73 mill/uL (4.20-5.40); White Blood Cell (WBC) Count 10.8 thou/uL (4.8-10.8)
[2018-07-11 05:00] LABS: Anion Gap 14 mmol/L (10-20); BUN (Urea Nitrogen) 20 mg/dL (9.8-20.1); Calc. Creatinine Clearance 25 mL/min (70-130); Calcium 8.6 mg/dL (7.8-10.44); Carbon Dioxide 22 mmol/L (23-31); Cardiac Risk 2.7 (Less than 4.5); Chloride 104 mmol/L (98-107); Cholesterol 159 mg/dl (< 200 Desired); Estimated GFR-MDRD 25; Glucose 92 mg/dL (83-110); HDL Cholesterol 58 mg/dL (>60 Neg Risk); LDL Cholesterol, Calculated 83 mg/dL; Potassium 3.4 mmol/L (3.5-5.1); Sodium 137 mmol/L (136-145); Triglycerides 90 mg/dL (Less than 150)
[2018-07-11] MEDS: Thiamine HCl 200 MG/2 ML VIAL IM SCH (10:52)
[2018-07-11] MEDS: Multivit, Therapeutic 1 TAB PO SCH (10:52)
[2018-07-11] MEDS: Folic Acid 1 MG TAB PO SCH (10:52)
[2018-07-11] MEDS: chlordiazePOXIDE HCl 25 MG CAP PO SCH ×2 (11:32→11:52)
[2018-07-11 13:30] VITALS: BP 112/56; TEMP 97.4
== END 2018-07-11 15:15 | disposition home health service (06) ==
LOC: ERS 19:48 → ONC 07-10
PROVIDERS: ADMIT Specialist; ATTEND Specialist
DX: E87.1 Hypo-osmolality and hyponatremia (principal); N39.0 Urinary tract infection, site not specified; I48.91 Unspecified atrial fibrillation; I13.0 Hypertensive heart and chronic kidney disease with heart failure and stage 1 through stage 4 chronic kidney disease, or unspecified chronic kidney disease; N18.9 Chronic kidney disease, unspecified; I50.9 Heart failure, unspecified; I25.10 Atherosclerotic heart disease of native coronary artery without angina pectoris; F03.90 Unspecified dementia, unspecified severity, without behavioral disturbance, psychotic disturbance, mood disturbance, and anxiety; F41.9 Anxiety disorder, unspecified; F32.9 Major depressive disorder, single episode, unspecified; D64.9 Anemia, unspecified; E78.5 Hyperlipidemia, unspecified; J44.9 Chronic obstructive pulmonary disease, unspecified; K21.9 Gastro-esophageal reflux disease without esophagitis; Z90.5 Acquired absence of kidney; Z95.5 Presence of coronary angioplasty implant and graft; Z87.891 Personal history of nicotine dependence; Z79.82 Long term (current) use of aspirin; Z79.2 Long term (current) use of antibiotics; Z79.52 Long term (current) use of systemic steroids; Z79.899 Other long term (current) drug therapy
CPT/HCPCS: 71045; 74176; 80048; 80053; 80061; 81001; 82550; 83605; 83880; 84443; 84484; 85025 ×2; 87086; 90662; 93005; 96365; 96366; 96372; 97110; 97116; 97139; 97530; 99285; G0008; G0378 ×2; 36415; 90471; J0696; J3411; J7050

== ENCOUNTER 2018-07-19 19:47 | Inpatient (IN) | payer MEDICARE, OTHER ==
[2018-07-19] MEDS ORDERED: Adacel (T-DAP) 0.5 ML SYRINGE ONE (20:30)
[2018-07-19] MEDS ORDERED: Morphine 4 MG/ML VIAL ONE ×2 (20:30→22:35)
--- NOTE | 2018-07-19 21:12 | RAD ---
RIGHT HUMERUS TWO VIEWS: History: Fall, pain. FINDINGS: No fracture. No cortical irregularity of periosteal reaction. IMPRESSION: No fracture. POS: [facility]
[2018-07-19 21:14] LABS: #Eosinphils 0.2 thou/uL (0.0-0.7); #Lymphocytes 1.4 thou/uL (1.20-3.40); #Monocytes 0.8 thou/uL (0.11-0.59); #Neutrophils 10.9 thou/uL (1.40-6.50); %Basophils 0.3 % (0.0-1.0); %Eosinophils 1.2 % (0.0-10.0); %Lymphocytes 10.5 % (21.0-51.0); %Monocytes 5.8 % (0.0-10.0); %Neutrophils 82.2 % (42.0-75.0); Hemoglobin 8.4 g/dL (12.0-16.0); Mean Corpuscular HGB CONC 33.2 g/dL (32.0-36.0); Mean Corpuscular Hemoglobin 33.4 pg (27.0-31.0); Mean Platelet Volume 6.3 fL (7.4-10.4); Platelet Count 267 thou/uL (130-400); RBC Distribution Width 13.6 % (11.5-14.5); Red Blood Cell (RBC) Count 2.51 mill/uL (4.20-5.40); White Blood Cell (WBC) Count 13.2 thou/uL (4.8-10.8)
[2018-07-19 21:20] LABS: INR-International Normal Ratio 1.1; PTT 31.3 SEC (22.9-36.1); Prothrombin Time 14.2 SEC (12.0-14.7)
--- NOTE | 2018-07-19 21:30 | CT ---
CT BRAIN WITHOUT CONTRAST: History: Fall. Comparison: CT brain, 05-29-17 FINDINGS: Moderate atrophy. Moderate microvascular ischemic changes. No acute hemorrhage or infarct. No midline shift of mass effect. Calvarium is intact. Paranasal sinuses and mastoids are clear. IMPRESSION: No acute post-traumatic intracranial sequellae. POS: [facility]
[2018-07-19 21:38] LABS: ALT (SGPT) 10 U/L (8-55); AST (SGOT) 12 U/L (5-34); Albumin 2.9 g/dL (3.4-4.8); Alkaline Phosphatase 127 U/L (40-150); Anion Gap 17 mmol/L (10-20); BUN (Urea Nitrogen) 22 mg/dL (9.8-20.1); Bilirubin, Total 0.4 mg/dL (0.2-1.2); Calc. Creatinine Clearance 0 mL/min (70-130); Calcium 8.1 mg/dL (7.8-10.44); Carbon Dioxide 20 mmol/L (23-31); Chloride 94 mmol/L (98-107); Estimated GFR-MDRD 14; Globulin 3.1 g/dL (2.4-3.5); Glucose 97 mg/dL (83-110); Potassium 4.1 mmol/L (3.5-5.1); Sodium 127 mmol/L (136-145)
--- NOTE | 2018-07-19 21:42 | CT ---
CT CERVICAL SPINE WITHOUT CONTRAST: History: Fall. Comparison: None. FINDINGS: Occipital condyles are intact. The odontoid process is intact. No facet joint widening. Moderate degenerative disease at C5-6 and C6-7. No prevertebral hematoma. No transverse process fracture. There is scarring within the lung apices. Visualized ribs are unremarkable. IMPRESSION: No acute fracture or malalignment of the cervical spine. POS: [facility]
--- NOTE | 2018-07-19 21:45 | CT ---
CT ABDOMEN WITHOUT CONTRAST CT PELVIS WITHOUT CONTRAST LIMITED CT LUMBOSACRAL SPINE WITHOUT CONTRAST: History: Fall, trauma. Comparison: 07-09-18 FINDINGS: Lung bases are clear. No pericardial effusion. Small sliding hiatal hernia. Liver, spleen, and pancreas unremarkable. Prior right nephrectomy. No hydronephrosis. No free intraperitoneal gas or fluid. No dilated loops of large or small bowel. No mesenteric hematom a. Scar over the right anterior abdominal wall likely from nephrectomy. There is a mid cervical right femoral neck fracture with foreshortening and varus angulation. Proxima l left humerus intact. Obturator rings are intact. No SI joint widening. T12 compression fracture appears similar to the comparison examination, therefo re likely not acute. No lumbar spine transverse process fracture. Multiple healing bilateral rib fractures. Aortic contour is non-aneurysmal. No retroperitoneal adenopathy. IMPRESSION: 1. Right midcervical femoral neck fracture with foreshortening and varus angulation. 2. Old T12 compression fracture. 3. Healing bilateral subacute to early chronic rib fractures. 4. No solid organ injury within the abdomen or pelvis. POS: [facility]
--- NOTE | 2018-07-19 21:46 | RAD ---
CHEST ONE VIEW: History: Injury. Fall. Hip fracture. Comparison: 07-09-18 FINDINGS: Atherosclerosis of the aorta. Normal cardiac silhouette. The pulmonary vessels and hilum are normal. Chronic changes in the left lung base. No pneumothorax or osseous abnormalities. IMPRESSION: 1. No acute cardiopulmonary process. 2. Chronic changes left lung base. 3. Atherosclerosis. POS: [facility]
--- NOTE | 2018-07-19 21:48 | RAD ---
TWO VIEWS RIGHT HIP: History: Fall, injury. Comparison: None. FINDINGS: Angulated fracture involving the right hip at the level of the femoral neck. Possible fracture involv ing the right superior pubic ramus and inferior pubic ramus near the symphysis pubis. IMPRESSION: 1. Angulated femoral neck fracture. 2. Possible right obturator ring fracture. POS: [facility]
--- NOTE | 2018-07-19 23:26 | HP ---
CONSULTATIONS: Orthopedics, Dr. Awan. HISTORY OF PRESENT ILLNESS: The patient is a 78-year-old woman, who was found on the floor in her house by her family. The patient is unsure if she had loss of consciousness or why exactly she fell. The family members believe that she had gotten up and attempted to ambulate without her walker and fell on the carpeted floor. She was brought to the emergency department, where she underwent evaluation and examination and was noted to have a right hip fracture, at which time we were asked to evaluate the patient for admission and obtain Orthopedic consultation. ALLERGIES: NONE. CURRENT MEDICATIONS: 1. Folic acid. 2. Atorvastatin. 3. Diltiazem. 4. Iron. 5. Donepezil. 6. Vitamin D. 7. Amantadine. 8. Uloric. 9. Furosemide. 10. Vitamin C. 11. Aspirin. 12. Pantoprazole. 13. Potassium. 14. Symbicort. PAST MEDICAL HISTORY: Gout, hypertension, anemia, chronic kidney disease, atrial fibrillation, SVT, COPD, and anxiety. PAST SURGICAL HISTORY: Right nephrectomy, and cardiac ablation. SOCIAL HISTORY: The patient reports having 1 rum and coke a day. Smoked cigarettes greater than 20 years ago. Denies drug use. Currently resides with her son. REVIEW OF SYSTEMS: A 10-point review of systems is negative as otherwise stated. PHYSICAL EXAMINATION: VITAL SIGNS: Blood pressure 146/80, heart rate 108, respirations 18, oxygen saturation 97% on room air, and temperature is 98.1. GENERAL: The patient is resting comfortably in bed. She is alert, and oriented x2. [place] Coma Scale is 14, -1 for eye opening. HEENT. Head is normocephalic, and atraumatic. Eyes, extraocular motions intact. PERRLA bilaterally. Ears are atraumatic without discharge. Nose, atraumatic without discharge. Oropharynx is clear. NECK: Nontender. Trachea is midline. No JVD. CHEST: Has scant subtle bilateral wheezing. HEART: Regular rate and rhythm. ABDOMEN: Soft, flat, and nontender. PELVIS: Stable with tenderness to palpation to the right groin and hip area consistent with her fracture. EXTREMITIES: Neurovascularly intact x4. Lower extremities have 1+ pitting edema. An abrasion noted on the right knee. BACK: By report is atraumatic and nontender. LABORATORY FINDINGS: White blood cell count 13.2, hemoglobin 8.4, hematocrit 25.2, platelets 267. Sodium 127, potassium 4.1, chloride 94, CO2 20, BUN 22, creatinine 3.18, glucose 97. LFTs are unremarkable. PT 14, INR 1.1, PTT 31. RADIOGRAPHIC REPORTS: AP chest x-ray shows no acute cardiopulmonary process. CT of the brain without contrast shows no acute posttraumatic intracranial sequela. CT of the C-spine without contrast shows no acute fracture or malalignment of the cervical spine. CT of the abdomen and pelvis without contrast shows a right mid cervical femoral neck fracture with foreshortening and varus angulation and old T12 compression fracture, healing bilateral subacute to early chronic right rib fractures. There is no solid organ injury within the abdomen or pelvis. Radiographs of the right hip show an angulated femoral neck fracture and possible right obturator ring fracture. Radiographs of the right humerus show no fracture. ASSESSMENT: 1. Status post ground level fall. 2. Probable concussion. 3. Right femoral neck fracture. 4. Acute on chronic kidney injury. 5. Hyponatremia. 6. Acute pain secondary to trauma. 7. History of hypertension. 8. History of atrial fibrillation, status post ablation. PLAN: Plan will be to admit the patient to the surgical floor, fluid hydration. We will give her 1 unit of packed red blood cells tonight and recheck her labs in the morning. Pain control, pulmonary toilet, gastritis, mechanical VTE prophylaxis. Currently the plan per Dr. Awan will be to take the patient to the operating room tomorrow afternoon. The evaluation, examination, laboratory, and radiographic findings will be discussed with Dr. Dunn after this dictation. Job ID: [id number]
[2018-07-19] MEDS ORDERED: Ondansetron PF 4 MG/2 ML Vial IVP PRN (23:33)
[2018-07-19] MEDS ORDERED: Dextrose 50% Abboject 50 ML SYRINGE SLOW IVP PRN (23:33)
[2018-07-19] MEDS ORDERED: Ondansetron ODT 4 MG TAB PO PRN (23:33)
[2018-07-19] MEDS ORDERED: hydrALAZINE 20 MG/ML VIAL SLOW IVP PRN (23:33)
[2018-07-19] MEDS ORDERED: Dextrose 5% in Water 1,000 ML IV PRN (23:33)
[2018-07-19] MEDS ORDERED: Cyclobenzaprine 10 MG TAB PO PRN (23:45)
[2018-07-20 00:01] VITALS: BMI 24.6
[2018-07-20] MEDS: Acetaminophen 1,000 MG in Premix Bag 1 BAG IVPB SCH ×5 (00:19→22:49)
[2018-07-20] MEDS: Sodium Chloride 0.9% 1,000 ML IV SCH ×3 (00:19→19:49)
[2018-07-20 04:38] LABS: Bilirubin Negative (Negative); Blood, Urine Negative (Negative); Clarity CLEAR (Clear); Glucose, Urine (Dipstick) Negative (Negative); Leukocyte Negative (Negative); Nitrite Negative (Negative); Protein, Urine (Dipstick) Negative (Neg-Trace); Specific Gravity, Urine 1.009 (1.002-1.036); Urobilinogen 0.2 mg/dL (0.2-1.0)
[2018-07-20 04:41] LABS: Bacteria/HPF None Seen HPF (None Seen); Hyaline Casts/LPF 0-3 HYALINE CAST LPF (0-3 Hyaline); RBC/HPF 0-3 HPF (0-3); Squamous Epithelial 0-3 HPF (0-3); WBC/HPF None Seen HPF (0-3)
[2018-07-20] MEDS: Morphine 4 MG/ML VIAL SLOW IVP PRN ×3 (05:08→11:30)
[2018-07-20 07:49] LABS: #Eosinphils 0.3 thou/uL (0.0-0.7); #Lymphocytes 2.4 thou/uL (1.20-3.40); #Monocytes 0.8 thou/uL (0.11-0.59); #Neutrophils 7.4 thou/uL (1.40-6.50); %Basophils 0.2 % (0.0-1.0); %Eosinophils 2.4 % (0.0-10.0); %Lymphocytes 22.2 % (21.0-51.0); %Monocytes 7.7 % (0.0-10.0); %Neutrophils 67.6 % (42.0-75.0); Hemoglobin 10.6 g/dL (12.0-16.0); Mean Corpuscular HGB CONC 32.9 g/dL (32.0-36.0); Mean Corpuscular Hemoglobin 32.8 pg (27.0-31.0); Mean Corpuscular Volume 99.8 fL (78.0-98.0); Mean Platelet Volume 6.5 fL (7.4-10.4); Platelet Count 254 thou/uL (130-400); RBC Distribution Width 13.6 % (11.5-14.5); Red Blood Cell (RBC) Count 3.23 mill/uL (4.20-5.40); White Blood Cell (WBC) Count 10.9 thou/uL (4.8-10.8)
[2018-07-20 08:14] LABS: Anion Gap 15 mmol/L (10-20); BUN (Urea Nitrogen) 23 mg/dL (9.8-20.1); Calc. Creatinine Clearance 17 mL/min (70-130); Calcium 8.4 mg/dL (7.8-10.44); Carbon Dioxide 20 mmol/L (23-31); Chloride 98 mmol/L (98-107); Estimated GFR-MDRD 16; Glucose 75 mg/dL (83-110); Potassium 4.7 mmol/L (3.5-5.1); Sodium 128 mmol/L (136-145)
[2018-07-20] MEDS ORDERED: Furosemide 20 MG TAB PO SCH (09:00)
[2018-07-20] MEDS ORDERED: Famotidine 20 MG TAB PO SCH (09:00)
[2018-07-20] MEDS ORDERED: Aspirin Chewable 81 MG TAB PO SCH (09:00)
[2018-07-20] MEDS ORDERED: BUDESONIDE FORMOTEROL PO SCH (09:00)
[2018-07-20] MEDS ORDERED: Sodium Chloride 0.9% 1,000 ML IV SCH (10:23)
[2018-07-20] MEDS ORDERED: Rocuronium Bromide 10 MG/ML (10ML VIAL) ONE (11:57)
[2018-07-20] MEDS ORDERED: Ondansetron PF 4 MG/2 ML Vial ONE (11:57)
[2018-07-20] MEDS ORDERED: ePHEDrine 50 MG/ML VIAL ONE (11:57)
[2018-07-20] MEDS ORDERED: Glycopyrrolate 0.2 MG/ML 5 ML SYRINGE ONE (11:57)
[2018-07-20] MEDS ORDERED: Lidocaine 1% PF 5 ML VIAL ONE (11:57)
[2018-07-20] MEDS ORDERED: Dexamethasone 20 MG/5 ML VIAL ONE (11:57)
[2018-07-20] MEDS ORDERED: PROPOFOL 200 MG/20 ML VIAL ONE (11:57)
[2018-07-20] MEDS ORDERED: Fentanyl 100 MCG/2 ML VIAL ONE (12:41)
[2018-07-20] MEDS ORDERED: Neomycin-Polymyxin 1 ML AMP ONE (12:41)
--- NOTE | 2018-07-20 13:22 | PRG ---
DATE OF SERVICE: 07/20/2018 SUBJECTIVE: The patient is hospital day 2, status post ground-level fall, in which she sustained a right femoral neck fracture and a probable concussion. The patient also was admitted with hyponatremia and anemia, acute on chronic kidney disease, and is currently n.p.o. with plan for surgical intervention by Orthopedics this afternoon. The patient had no issues overnight. OBJECTIVE: VITAL SIGNS: Temperature is 97.4, heart rate 85, blood pressure 132/79, respirations 16, and oxygen saturation 97% on room air. GENERAL: The patient is resting comfortably in bed. She is awake and appropriate. HEENT: Unremarkable. LUNGS: Clear to auscultation with good inspiratory and expiratory effort. HEART: Regular rate and rhythm. ABDOMEN: Soft, flat, and nontender with hyperactive bowel sounds. EXTREMITIES: Neurovascularly intact x4. LABORATORY FINDINGS: White blood cell count 10.9, hemoglobin 10.6, hematocrit 32.2, and platelets 254. Sodium 128, potassium 4.7, chloride 98, CO2 of 20, BUN 23, creatinine 2.93, and glucose 75. IMAGING STUDIES: There are no radiographs to review this morning. ASSESSMENT AND PLAN: 1. Status post ground-level fall. 2. Probable concussion, improved. 3. Right femoral neck fracture, awaiting orthopedic surgery. 4. Acute on chronic kidney injury, improved slightly. 5. Hyponatremia, improved minimally. 6. Acute pain secondary to trauma, improved. Plan will be to continue n.p.o. status and pain control. Postoperatively, we will have Physical and Occupational Therapy, restrict her free water to 1500 mL per 24 hours. We will hydrate with normal saline and the patient may have Gatorade. Postoperatively, we will also discuss placement for the patient. The evaluation and examination were done this morning with Dr. Valle on rounds. Job ID: [id number]
[2018-07-20] MEDS ORDERED: Promethazine HCl 25 MG/ML VIAL IM PRN (13:46)
[2018-07-20] MEDS ORDERED: Ondansetron HCl/PF 4 MG/2 ML Vial IVP PRN (13:46)
[2018-07-20] MEDS ORDERED: Promethazine HCl 25 MG/ML VIAL SLOW IVP PRN (13:46)
[2018-07-20] MEDS ORDERED: Bupivacaine HCl 0.5%/Epinephrine 1:200,000/PF 30 ml Vial ONE (13:57)
[2018-07-20] MEDS ORDERED: HYDROcodone/Acetaminophen 10/325 mg Tablet PO PRN ×2 (14:17)
[2018-07-20] MEDS ORDERED: Fentanyl 100 MCG/2 ML VIAL SLOW IVP PRN (14:17)
--- NOTE | 2018-07-20 15:11 | RAD ---
2 VIEWS RIGHT HIP: Date: 07/20/18 INDICATION: History of bipolar prosthesis placement. FINDINGS: Since the comparison examination, there has been interval placement of a bipolar endoprosthesis. Pros thetic component projects in the expected position. No definite complication is grossly evident. IMPRESSION: Postoperative right hip. POS: ANALILIA
--- NOTE | 2018-07-20 17:09 | OP ---
DATE OF PROCEDURE: 07/20/2018 PREOPERATIVE DIAGNOSIS: Comminuted neck fracture of the proximal femur of the right hip. POSTOPERATIVE DIAGNOSIS: Comminuted neck fracture of the proximal femur of the right hip. PROCEDURE PERFORMED: Proximal femoral replacement utilizing bipolar prosthesis of the right hip. ANESTHESIA: General. DESCRIPTION OF PROCEDURE: The patient was given preoperative IV antibiotics, taken to the operating room, placed in supine position. Satisfactory general anesthesia was performed. The patient was then placed in the left lateral decubitus position. All bony prominences were well padded. The right hip and lower extremity was sterilely prepped and draped in usual fashion. A longitudinal incision was made centered over the greater trochanter approximately 6 inches in length, and the anterior lateral approach was made to the hip joint. Anterior capsule was excised. The femur was removed. It was measured as a size 45 articular cartilage still look good over the femur and the acetabulum. There was fragments of bone from the fracture that was still in the acetabulum, which were removed. The acetabulum was copiously irrigated with antibiotic solution using the high-speed marketing professor. The fracture was brought down using the oscillating saw and the proximal femur was prepared for the prosthesis initially using a box osteotome, then a hand Charnley reamer. It was then reamed up to size 6 and then sequentially rasped up to a size 6. The calcar reamer was inserted. Different trials were placed and the +5 neck with a 28 mm head and 45 mm bipolar cup restored leg length and had good stability with good range of motion. The prosthesis was removed and the hip joint again was copiously irrigated with the high-speed marketing professor using antibiotic irrigation. It was thoroughly dried and then and the basic press-fit size 6, 150 mm [place] from [employer] femoral stem was inserted, the +5 neck with a 28 mm head and then the 45 mm bipolar head, again, it was reduced, placed through range of motion, very stable. The wound was then closed using #2 Vicryl for the anterior muscle of the abductors, #2 Vicryl for the iliotibial band, 0 Vicryl for the fat and subcutaneous tissue, and the skin was closed with skin oumar. Sterile dressing was applied. The patient was then placed back in the supine position. She was awakened, extubated, and transferred to recovery room in stable condition. ESTIMATED BLOOD LOSS: 200 mL. COMPLICATION: None. Job ID: [id number]
--- NOTE | 2018-07-20 17:47 | CON ---
DATE OF CONSULTATION: 07/20/2018 HISTORY OF PRESENT ILLNESS: Ms. Hernández is a 78-year-old female, who was found on the floor in her house after a fall. The patient is unsure exactly the details. She had immediate pain in the right hip and shortening of the right lower extremity and inability to ambulate after the fall. The patient was brought to the emergency room, where x-rays revealed displaced femoral neck fracture of the right hip. PAST MEDICAL HISTORY: Chronic kidney disease, history of atrial fibrillation, supraventricular tachycardia, COPD, anxiety, anemia, hypertension, and gout. ALLERGIES: NONE. PAST SURGICAL HISTORY: Right nephrectomy and cardiac ablation. SOCIAL HISTORY: The patient states she has one rum and Coke a day. She has smoked cigarettes greater than 20 years. PHYSICAL EXAMINATION: GENERAL: The patient is a pleasant female, alert, and oriented x3, cooperative with the examination. VITAL SIGNS: Stable. The patient is afebrile. Blood pressure 136/78, respiratory rate 16, heart rate 104. HEENT: Unremarkable for age. Cranial nerves 2 through 12 are grossly intact. NECK: Good range of motion without pain. Thoracic and lumbar spine are nontender to palpation. LUNGS: Clear bilaterally. HEART: Regular rate and rhythm. ABDOMEN: Soft and nontender. Bowel sounds positive. : Not done. EXTREMITIES: The patient is able move her upper extremity and left lower extremity without pain. The right lower extremity is shortened and externally rotated. Any attempted movement of the right hip causes pain. Right lower extremity is neurovascularly intact. DIAGNOSTIC DATA: X-ray of the right hip shows a displaced femoral neck fracture of the right hip with no significant arthritic changes in the hip joint. IMPRESSION: Displaced comminuted fracture of the neck of the right proximal femur. PLAN: The patient will require a proximal femoral replacement using the bipolar prosthesis. Potential risks with the condition of surgery include, but are not limited to infection, bleeding, pain, damage to blood vessels or nerves, loosening or instability of the prosthesis. The patient may require additional surgery, DVT, and PE formation. The patient's and her family's questions were answered and agreed to the procedure. Job ID: [id number]
[2018-07-20] MEDS: Potassium Chloride 20 MEQ TAB PO SCH (18:00)
[2018-07-20] MEDS: Febuxostat 40 MG TAB PO SCH (18:01)
[2018-07-20] MEDS: Estradiol 0.01% Vaginal Cream 42.5 gm Tube VAG SCH (18:01)
[2018-07-20] MEDS: Folic Acid 1 MG TAB PO SCH ×2 (18:01→20:36)
[2018-07-20] MEDS: Ferrous Gluconate 324 MG TAB PO SCH (18:02)
[2018-07-20] MEDS ORDERED: HYDROcodone/Acetaminophen 5/325 mg Tablet PO PRN (18:26)
[2018-07-20] MEDS ORDERED: Albuterol Sulfate 2.5 mg/3 ml Neb NEB PRN (18:26)
[2018-07-20] MEDS ORDERED: Zoledronic Acid/Mannitol&Water 5 MG in Premix Bag 1 BAG IVPB SCH (18:30)
[2018-07-20] MEDS ORDERED: Budesonide 0.5 MG/2 ML NEB NEB SCH (18:30)
[2018-07-20] MEDS ORDERED: Mometasone/Formoterol 120 PUFF INHALER INH SCH (18:30)
[2018-07-20] MEDS: Atorvastatin Calcium 20 MG TAB PO SCH (20:36)
[2018-07-20] MEDS: Donepezil HCl 10 MG TAB PO SCH (20:36)
[2018-07-20] MEDS: Thiamine HCl 200 MG/2 ML VIAL IM SCH (20:37)
[2018-07-20 20:53] LABS: Hemoglobin 9.4 g/dL (12.0-16.0)
[2018-07-20] MEDS: CEFAZOLIN 2 GM in Premix Bag 1 BAG IVPB SCH (22:49)
--- NOTE | 2018-07-21 01:27 | CON ---
DATE OF CONSULTATION: 07/20/2018 CHIEF COMPLAINT: Fracture of her right femoral neck. HISTORY OF PRESENT ILLNESS: The patient is a 78-year-old female who had gotten up at her home while her son had gone outside to do some yard work. When he came back in, she had fallen on the floor and complained of right hip pain. He called EMS and they came to retrieve the patient, took her to the emergency room. The patient cannot recall any details about her fall. It was unwitnessed. She has significant dementia and has felt that due to her compressed vertebra of multiple rib fractures and other issues that this is probably an osteoporotic fracture and that she stood up and the femoral neck simply broke. The family has noticed that she has been more tremulous than usual, but she regularly consumes a significant amount of rum and Coke daily and the tremors could be from some mild withdrawal. PAST MEDICAL HISTORY: Includes atrial fibrillation, COPD, hypertension, chronic anemia. She also has dyslipidemia, significant senile dementia, history of vitamin D deficiency, history of gout with hyperuricemia, history of GERD, and history of low potassium. She also has chronic kidney disease at the previous hospitalization with hydration at the time her kidneys almost completely normalized indicating that she stays in a state of mild dehydration. PAST SURGICAL HISTORY: Includes right nephrectomy done in April of this last year and cardiac ablation for atrial fibrillation. She is not a candidate for anticoagulation. PSYCHIATRIC HISTORY: Significant for anxiety, depression, and now senile dementia. SOCIAL HISTORY: She drinks one rum and Coke a day. The problem is the amount of rum is probably almost a pint, smokes cigarettes greater than 20 years. Resides with her son and [id number]. There is no significant illegal drug use. REVIEW OF SYSTEMS: Unobtainable from the patient, but from her caregivers, there has been no recent fever, weakness, or weight loss or chills. HEENT: No drainage from her eyes, pain with vision, blurred vision, or drainage from the ears, nose, or throat. CARDIOVASCULAR: There has been no complaints of chest pain or palpitations. RESPIRATORY: There has been no complaints of cough or dyspnea or wheezing. GI: No nausea, vomiting, or diarrhea. : No painful urination, frequency, blood in urine or stool. MUSCULOSKELETAL: She has chronic low back pain and now of course pain in her right hip. SKIN: There is diffuse bruising noted all over her habitus, probably from multiple falls. NEUROLOGIC: She denies headaches, trouble with mentation, garbled speech. HEMOLYTIC/LYMPH: There is no significant areas of edema, swelling, or erythema, but there is diffuse bruising as mentioned above in the skin exam. PSYCHIATRIC: Significant for anxiety and concern that she get her daily rum and coke. ALLERGIES: NONE. MEDICATIONS ON ADMISSION: Include, 1. Folic acid 1 mg daily. 2. Atorvastatin 20 mg at bedtime. 3. Diltiazem 180 mg extended release daily. 4. Iron b.i.d. 5. Donepezil 5 mg daily. 6. Vitamin D daily. 7. Uloric 40 mg daily. 8. Lasix 20 mg p.r.n. edema. 9. Aspirin 81 mg daily. 10. Pantoprazole 40 mg b.i.d. 11. Potassium 20 mEq daily. 12. Symbicort 160/4.5 two puffs b.i.d. PHYSICAL EXAMINATION: At the time of admission, VITAL SIGNS: Blood pressure 146/80, heart rate 108, respirations 18, O2 saturation 97% on room air with a temperature 98.1. GENERAL: This is a well developed, well nourished, elderly, alert, and cooperative female. HEENT: Normocephalic, atraumatic. Pupils with diminished reactivity to light bilaterally with arcus senilis bilaterally. TMs, nares, and pharynx are clear. NECK: Supple. Trachea midline. CHEST: Clear to auscultation with diminished breath sounds in all lobes. No wheezing. No rhonchi. BREAST: Deferred. HEART: Regular rate and rhythm without murmur. ABDOMEN: Soft without organomegaly. : Deferred. EXTREMITIES: Neurovascular intact. The right lower extremity is postop. The left lower extremity and upper extremities are without clubbing, cyanosis, or edema. LABORATORY DATA: A CT of the brain obtained at admission showed no acute findings. Lab work was generally unremarkable except for a sodium of 127, which has been a recurrent problem. Her BUN is slightly elevated and her creatinine is very elevated greater than 3 and this has chronically been a recurring problem on admission in the past, usually correcting with hydration. ASSESSMENT: At the time of admission, 1. Right femoral neck fracture. 2. Acute on chronic renal injury. 3. Hyponatremia. 4. Hypertension. 5. Dementia. 6. Chronic anemia. PLAN: Plan will be to correct electrolyte imbalances. Plan will be to maintain blood pressure control, supplement her iron to prevent DTs. Continue her on her regular medicines, hydrate her to improve her renal functions, and ultimately she will probably need alf transfer at discharge. Job ID: [id number]
[2018-07-21] MEDS: CEFAZOLIN 2 GM in Premix Bag 1 BAG IVPB SCH (05:40)
[2018-07-21 07:00] LABS: #Lymphocytes 0.8 thou/uL (1.20-3.40); #Monocytes 0.3 thou/uL (0.11-0.59); #Neutrophils 9.9 thou/uL (1.40-6.50); %Eosinophils 0.3 % (0.0-10.0); %Lymphocytes 7.3 % (21.0-51.0); %Monocytes 2.4 % (0.0-10.0); Mean Corpuscular HGB CONC 32.8 g/dL (32.0-36.0); Mean Platelet Volume 6.5 fL (7.4-10.4); Platelet Count 224 thou/uL (130-400); RBC Distribution Width 13.8 % (11.5-14.5); Red Blood Cell (RBC) Count 2.42 mill/uL (4.20-5.40)
[2018-07-21 07:09] LABS: Anion Gap 14 mmol/L (10-20); BUN (Urea Nitrogen) 25 mg/dL (9.8-20.1); Calc. Creatinine Clearance 18 mL/min (70-130); Calcium 7.8 mg/dL (7.8-10.44); Carbon Dioxide 19 mmol/L (23-31); Chloride 101 mmol/L (98-107); Estimated GFR-MDRD 16; Glucose 117 mg/dL (83-110); Magnesium 1.6 mg/dL (1.6-2.6); Phosphorus 5.7 mg/dL (2.3-4.7); Potassium 4.6 mmol/L (3.5-5.1); Sodium 129 mmol/L (136-145)
[2018-07-21] MEDS ORDERED: Magnesium Sulfate 2 GM in Sodium Chloride 0.9% 250 ML 250 ML IVPB SCH (07:30)
[2018-07-21] MEDS: Budesonide 0.5 MG/2 ML NEB NEB SCH ×2 (07:35→18:49)
[2018-07-21] MEDS ORDERED: Magnesium 2 GM/50 ML 2 GM in Premix Bag 1 BAG IVPB SCH (07:45)
[2018-07-21] MEDS: Febuxostat 40 MG TAB PO SCH (09:08)
[2018-07-21] MEDS: Ferrous Gluconate 324 MG TAB PO SCH (09:08)
[2018-07-21] MEDS: Folic Acid 1 MG TAB PO SCH ×2 (09:08→20:12)
[2018-07-21] MEDS: Acetaminophen 325 MG TAB PO PRN ×2 (09:08→18:20)
[2018-07-21] MEDS: Potassium Chloride 20 MEQ TAB PO SCH (09:08)
[2018-07-21] MEDS: traMADol HCl 50 MG TAB PO PRN ×2 (09:08→21:07)
[2018-07-21] MEDS: Aspirin Chewable 81 MG TAB PO SCH ×2 (09:09→20:12)
[2018-07-21] MEDS: Estradiol 0.01% Vaginal Cream 42.5 gm Tube VAG SCH (13:17)
--- NOTE | 2018-07-21 17:09 | PRG ---
DATE OF SERVICE: 07/21/2018 SUBJECTIVE: This is a 78-year-old female, status post ground level fall where she sustained a right femoral neck fracture and a probable concussion. The patient is postop day #1 for her right hip. The patient received proximal femoral replacement utilizing bipolar prosthesis of the right hip. The patient had no overnight events. The patient continues to be on a free water restriction due to her hyponatremia. The patient reports that her pain is well controlled. The patient voices no complaints at this time. The patient was able to walk 5 feet with physical therapy today. OBJECTIVE: VITAL SIGNS: Temperature 97.9, pulse 96, respirations 14, SpO2 of 100% on room air, and blood pressure 124/76. GENERAL: The patient is resting comfortably in bed. She is awake, alert, and in no distress. HEENT: Unremarkable. LUNGS: With good inspiratory and expiratory effort. No respiratory distress. HEART: Regular rate and rhythm. ABDOMEN: Soft, flat, nontender, and nondistended. EXTREMITIES: Neurovascularly intact x4. LABORATORY DATA: WBC 11.0, RBC 2.42, hemoglobin 8.0, hematocrit 24.4, MCV 101, platelet count 224. Sodium 129, potassium 4.6, chloride 101, CO2 of 19, anion gap 14, BUN 25, creatinine 2.89, estimated GFR 16, glucose 117, calcium 7.8, phosphorus 5.7, and mag 1.6. DIAGNOSTIC DATA: There are no diagnostics to review today. ASSESSMENT: 1. Right femoral neck fracture postop day #1. 2. Acute on chronic renal failure. 3. Hyponatremia. 4. Hypertension. 5. Dementia. 6. Chronic anemia. PLAN: We will continue to correct electrolytes. We will continue free water restriction to 1500. [address] will [address] the patient on Serax. She is a daily drinker and was reported that she had tremors. The patient is pending retirement facility placement, although the patient insists that she wants to go home. We will continue physical therapy and occupational therapy to ensure the patient is safe to go home, but we will encourage the patient that she does need more physical therapy and she would benefit from retirement facility. The patient was examined with Dr. Valle this morning. Job ID: [id number]
[2018-07-21] MEDS: Sodium Chloride 0.9% 1,000 ML IV SCH ×2 (18:20→22:08)
[2018-07-21] MEDS: Atorvastatin Calcium 20 MG TAB PO SCH (20:12)
[2018-07-21] MEDS: Oxazepam 10 MG CAP PO SCH (20:12)
[2018-07-21] MEDS: Donepezil HCl 10 MG TAB PO SCH (20:12)
[2018-07-21] MEDS: Thiamine HCl 200 MG/2 ML VIAL IM SCH (20:31)
[2018-07-22 04:57] LABS: #Eosinphils 0.1 thou/uL (0.0-0.7); #Lymphocytes 1.2 thou/uL (1.20-3.40); #Monocytes 0.6 thou/uL (0.11-0.59); #Neutrophils 10.7 thou/uL (1.40-6.50); %Basophils 0.1 % (0.0-1.0); %Eosinophils 0.7 % (0.0-10.0); %Lymphocytes 9.7 % (21.0-51.0); %Monocytes 4.7 % (0.0-10.0); %Neutrophils 84.8 % (42.0-75.0); Mean Corpuscular HGB CONC 32.6 g/dL (32.0-36.0); Mean Corpuscular Hemoglobin 33.4 pg (27.0-31.0); Mean Platelet Volume 6.6 fL (7.4-10.4); Platelet Count 192 thou/uL (130-400); RBC Distribution Width 14.1 % (11.5-14.5); White Blood Cell (WBC) Count 12.6 thou/uL (4.8-10.8)
[2018-07-22 05:14] LABS: Anion Gap 11 mmol/L (10-20); BUN (Urea Nitrogen) 31 mg/dL (9.8-20.1); Calc. Creatinine Clearance 19 mL/min (70-130); Calcium 7.5 mg/dL (7.8-10.44); Carbon Dioxide 20 mmol/L (23-31); Chloride 107 mmol/L (98-107); Estimated GFR-MDRD 17; Glucose 90 mg/dL (83-110); Potassium 4.7 mmol/L (3.5-5.1); Sodium 133 mmol/L (136-145)
[2018-07-22] MEDS: Budesonide 0.5 MG/2 ML NEB NEB SCH ×2 (08:11→18:35)
[2018-07-22] MEDS: Oxazepam 10 MG CAP PO SCH ×2 (09:15→21:15)
[2018-07-22] MEDS: Potassium Chloride 20 MEQ TAB PO SCH (09:15)
[2018-07-22] MEDS: Aspirin Chewable 81 MG TAB PO SCH ×2 (09:16→21:15)
[2018-07-22] MEDS: Ferrous Gluconate 324 MG TAB PO SCH (09:17)
[2018-07-22] MEDS: Folic Acid 1 MG TAB PO SCH ×2 (09:17→21:14)
[2018-07-22] MEDS: Sodium Chloride 0.9% 1,000 ML IV SCH (09:17)
[2018-07-22] MEDS: Estradiol 0.01% Vaginal Cream 42.5 gm Tube VAG SCH (09:18)
[2018-07-22] MEDS: Febuxostat 40 MG TAB PO SCH (09:22)
[2018-07-22 13:03] LABS: Iron 79 ug/dL (50-170); Iron Binding Capacity, Total 155 mcg/dL (265-497)
--- NOTE | 2018-07-22 18:03 | PRG ---
DATE OF SERVICE: 07/22/2018 SUBJECTIVE: This is a 78-year-old female, status post ground level fall, where she sustained a right femoral neck fracture with a probable concussion. The patient is postop day #2 with right hip repair. The patient received a proximal femoral replacement utilizing bipolar prosthesis of the right hip. The patient had no overnight events. The patient reports that her pain is well controlled. She continues to participate with physical therapy. The patient voices no complaints at this time. OBJECTIVE: VITAL SIGNS: Temperature 97.3, pulse 88, respirations 14, SpO2 of 95% on room air, and blood pressure 129/69. GENERAL: The patient is resting comfortably in bed. The patient is awake and alert, in no distress. HEENT: Unremarkable. LUNGS: With good inspiratory and expiratory effort. No respiratory distress. CARDIAC: Regular rate and rhythm. No pedal edema. ABDOMEN: Soft, nontender, and nondistended. EXTREMITIES: Neurovascularly intact x4. LABORATORY DATA: WBC 12.6, RBC 2.10, hemoglobin 7.0, hematocrit 21.5, MCV 103. Sodium 133, potassium 4.7, chloride 107, carbon dioxide 20, BUN 31, creatinine 2.73, estimated GFR 17, glucose 90, calcium 7.5. ASSESSMENT: 1. Right femoral neck fracture postop day #2. 2. Acute on chronic renal failure. 3. Hyponatremia, resolving. 4. Hypertension history. 5. History of dementia. 6. Chronic anemia. PLAN: We will continue to correct the patient's electrolytes. We will transfuse 1 unit of blood today. We will continue to trend her hemoglobin and hematocrit. Continue free water restriction to 1500. We will continue the patient's pain regimen. The patient is pending longterm facility. The patient was examined with Dr. Valle this morning. Job ID: [id number]
[2018-07-22] MEDS: Acetaminophen 325 MG TAB PO PRN (18:35)
[2018-07-22] MEDS: Atorvastatin Calcium 20 MG TAB PO SCH (21:14)
[2018-07-22] MEDS: Donepezil HCl 10 MG TAB PO SCH (21:15)
[2018-07-22] MEDS: Thiamine HCl 200 MG/2 ML VIAL IM SCH (21:33)
[2018-07-23] MEDS: Sodium Chloride 0.9% 1,000 ML IV SCH (02:11)
--- NOTE | 2018-07-23 04:28 | TCOM ---
DATE OF STUDY: 07/22/2018 HISTORY OF PRESENT ILLNESS: Ms. Hernández is 2 days status post bipolar prosthesis for proximal femoral neck fracture of the right hip. The patient is making slow progress with physical therapy and the patient just received a unit of blood for hemoglobin of 7 this morning and she has water restriction because of hyponatremia. The patient only did exercises in bed with physical therapy. PHYSICAL EXAMINATION: VITAL SIGNS: The patient is afebrile, respiratory rate 16, blood pressure 112/57, pulse 88, O2 saturation 95% on room air. LABORATORY DATA: CBC shows white count 12.6, hemoglobin 7, hematocrit 21.5, and this was before the 1 unit of packed red blood cells was given. Chemistry show improved sodium of 133, it was 128 two days ago. Her creatinine 2.73, which is also improvement, and BUN is 31. The right lower extremity is neurovascularly intact. PLAN: As stated above, the patient has received 1 unit of packed red blood cells. She will continue to work with physical therapy to improve her gait, balance, etc. Recommend to the patient and her son that she go to detention facility for continued improvement in strength and balance and gait. The medical doctors will continue to work with the patient on improving her chemistry values. Job ID: [id number]
[2018-07-23 06:26] LABS: #Eosinphils 0.3 thou/uL (0.0-0.7); #Lymphocytes 1.8 thou/uL (1.20-3.40); #Monocytes 0.8 thou/uL (0.11-0.59); #Neutrophils 7.9 thou/uL (1.40-6.50); %Basophils 0.1 % (0.0-1.0); %Eosinophils 2.7 % (0.0-10.0); %Lymphocytes 16.3 % (21.0-51.0); %Monocytes 7.4 % (0.0-10.0); %Neutrophils 73.6 % (42.0-75.0); Hemoglobin 8.6 g/dL (12.0-16.0); Mean Corpuscular HGB CONC 32.7 g/dL (32.0-36.0); Mean Corpuscular Hemoglobin 32.9 pg (27.0-31.0); Mean Platelet Volume 6.5 fL (7.4-10.4); Platelet Count 182 thou/uL (130-400); RBC Distribution Width 15.2 % (11.5-14.5); White Blood Cell (WBC) Count 10.7 thou/uL (4.8-10.8)
[2018-07-23 06:49] LABS: Anion Gap 10 mmol/L (10-20); BUN (Urea Nitrogen) 32 mg/dL (9.8-20.1); Calc. Creatinine Clearance 21 mL/min (70-130); Calcium 7.4 mg/dL (7.8-10.44); Carbon Dioxide 18 mmol/L (23-31); Chloride 113 mmol/L (98-107); Estimated GFR-MDRD 20; Glucose 80 mg/dL (83-110); Magnesium 1.9 mg/dL (1.6-2.6); Phosphorus 2.9 mg/dL (2.3-4.7); Potassium 4.6 mmol/L (3.5-5.1); Sodium 136 mmol/L (136-145)
[2018-07-23] MEDS: Budesonide 0.5 MG/2 ML NEB NEB SCH ×2 (07:54→18:39)
[2018-07-23] MEDS: Ferrous Gluconate 324 MG TAB PO SCH (08:32)
[2018-07-23] MEDS: Aspirin Chewable 81 MG TAB PO SCH ×2 (08:33→21:13)
[2018-07-23] MEDS: Febuxostat 40 MG TAB PO SCH (08:34)
[2018-07-23] MEDS: Potassium Chloride 20 MEQ TAB PO SCH (08:34)
[2018-07-23] MEDS: Oxazepam 10 MG CAP PO SCH ×2 (08:34→21:28)
[2018-07-23] MEDS: Folic Acid 1 MG TAB PO SCH ×2 (08:34→21:14)
[2018-07-23] MEDS: Acetaminophen 325 MG TAB PO PRN ×3 (08:36→21:15)
[2018-07-23] MEDS: Estradiol 0.01% Vaginal Cream 42.5 gm Tube VAG SCH (09:42)
[2018-07-23] MEDS ORDERED: Zoledronic Acid 4 MG in Sodium Chloride 0.9% 100 ML IVPB SCH (09:45)
--- NOTE | 2018-07-23 18:30 | PRG ---
DATE OF SERVICE: 07/23/2018 SUBJECTIVE: This is a 78-year-old female, status post ground level fall, where she sustained a right femoral neck fracture with a probable concussion. The patient is postop day #3 with right hip repair. The patient had no overnight events. Continues to have good pain control. The patient continues to participate with physical therapy. The patient with good appetite. The patient did receive 1 unit of packed red blood cells yesterday, in which her hemoglobin did improve today. The patient voices no complaints at this time. OBJECTIVE: VITAL SIGNS: Temperature 97.8, pulse 95, respirations 16, SpO2 of 97% on room air, and blood pressure 119/65. GENERAL: The patient is awake, alert, in no distress. LUNGS: Good inspiratory and expiratory effort. No respiratory distress. ABDOMEN: Soft, nontender, and nondistended. EXTREMITIES: Neurovascularly intact x4. LABORATORY DATA: WBC 10.7, RBC 2.60, hemoglobin 8.6, hematocrit 26.2, MCV 101, and platelets 182. Sodium 136, potassium 4.6, chloride 113, carbon dioxide 18, BUN 32, creatinine 2.39, estimated GFR 20, glucose 80, calcium 7.4, phosphorus 2.9, and magnesium 1.9. DIAGNOSTIC DATA: There are no diagnostics to review today. IMPRESSION: 1. Right femoral neck fracture, postop day #3. 2. Proximal femoral replacement utilizing bipolar prosthesis of the right hip. 3. Acute on chronic renal failure. 4. Hyponatremia, resolving. 5. Hypertension history. 6. Dementia history. 7. Chronic anemia. PLAN: We will stop the patient's maintenance IV fluids. We will continue to replace electrolytes as needed. We will continue free water restriction to 1500 daily. We will continue the patient's pain regimen. The patient continues to await placement to [facility] facility. The patient was examined with Dr. Valle during morning rounds. Job ID: [id number]
[2018-07-23] MEDS: Atorvastatin Calcium 20 MG TAB PO SCH (21:14)
[2018-07-23] MEDS: Donepezil HCl 10 MG TAB PO SCH (21:14)
[2018-07-24] MEDS: Budesonide 0.5 MG/2 ML NEB NEB SCH ×2 (08:42→18:42)
[2018-07-24] MEDS: Magnesium Oxide 250 MG TAB PO SCH (08:46)
[2018-07-24] MEDS: traMADol HCl 50 MG TAB PO PRN ×2 (08:46→16:12)
[2018-07-24] MEDS: Oxazepam 10 MG CAP PO SCH ×2 (08:47→21:12)
[2018-07-24] MEDS: Febuxostat 40 MG TAB PO SCH (08:47)
[2018-07-24] MEDS: Folic Acid 1 MG TAB PO SCH ×2 (08:47→21:12)
[2018-07-24] MEDS: Ferrous Gluconate 324 MG TAB PO SCH (08:47)
[2018-07-24] MEDS: Potassium Chloride 20 MEQ TAB PO SCH (08:48)
[2018-07-24] MEDS: Aspirin Chewable 81 MG TAB PO SCH ×2 (08:48→21:12)
[2018-07-24] MEDS: Acetaminophen 325 MG TAB PO PRN ×2 (08:50→16:13)
[2018-07-24 09:43] LABS: #Basophils 0.1 thou/uL (0.0-0.2); #Eosinphils 0.2 thou/uL (0.0-0.7); #Monocytes 0.8 thou/uL (0.11-0.59); #Neutrophils 8.2 thou/uL (1.40-6.50); %Basophils 0.5 % (0.0-1.0); %Eosinophils 1.8 % (0.0-10.0); %Lymphocytes 17.4 % (21.0-51.0); %Monocytes 7.5 % (0.0-10.0); %Neutrophils 72.7 % (42.0-75.0); Hemoglobin 9.1 g/dL (12.0-16.0); Mean Corpuscular HGB CONC 32.1 g/dL (32.0-36.0); Mean Corpuscular Hemoglobin 32.7 pg (27.0-31.0); Mean Platelet Volume 6.3 fL (7.4-10.4); Platelet Count 204 thou/uL (130-400); RBC Distribution Width 15.1 % (11.5-14.5); Red Blood Cell (RBC) Count 2.76 mill/uL (4.20-5.40); White Blood Cell (WBC) Count 11.2 thou/uL (4.8-10.8)
[2018-07-24 09:59] LABS: Anion Gap 11 mmol/L (10-20); BUN (Urea Nitrogen) 28 mg/dL (9.8-20.1); Calc. Creatinine Clearance 25 mL/min (70-130); Carbon Dioxide 20 mmol/L (23-31); Chloride 114 mmol/L (98-107); Estimated GFR-MDRD 24; Glucose 82 mg/dL (83-110); Magnesium 1.5 mg/dL (1.6-2.6); Phosphorus 2.8 mg/dL (2.3-4.7); Potassium 4.6 mmol/L (3.5-5.1); Sodium 140 mmol/L (136-145)
--- NOTE | 2018-07-24 12:11 | PDOC.PN ---
- Subjective Encounter Start Date: 07/24/18 Encounter Start Time: 08:15 -: old records requested/rev Patient seen and examined. No new complaints. No overnight events - Objective MAR Reviewed: Yes Vital Signs & Weight: Vital Signs (12 hours) Temp Pulse Resp BP Pulse Ox 07/24/18 08:42 104 H 20 07/24/18 07:10 97.7 F 99 17 138/80 95 Weight Weight 148 lb I&O: 07/23/18 07/24/18 07/25/18 06:59 06:59 06:59 Intake Total 3090 775 360 Output Total 200 Balance 3090 775 160 Result Diagrams: 07/24/18 09:32 07/24/18 09:32 Phys Exam - Physical Examination Constitutional: NAD HEENT: PERRLA, moist MMs, sclera anicteric Neck: no JVD, supple Respiratory: no wheezing, no rales, no rhonchi Cardiovascular: RRR, no significant murmur, no rub Gastrointestinal: soft, non-tender, no distention Musculoskeletal: no edema, pulses present Neurological: non-focal, normal sensation Lymphatic: no nodes Psychiatric: normal affect, A&O x 3 Skin: no rash, normal turgor Dx/Plan (1) Anemia of renal disease Code(s): N18.9 - CHRONIC KIDNEY DISEASE, UNSPECIFIED; D63.1 - ANEMIA IN CHRONIC KIDNEY DISEASE Status: Chronic (2) Atrial fibrillation Code(s): I48.91 - UNSPECIFIED ATRIAL FIBRILLATION Status: Chronic Comment: (3) CKD (chronic kidney disease) stage 4, GFR 15-29 ml/min Code(s): N18.4 - CHRONIC KIDNEY DISEASE, STAGE 4 (SEVERE) Status: Chronic (4) Dementia Code(s): F03.90 - UNSPECIFIED DEMENTIA WITHOUT BEHAVIORAL DISTURBANCE Status: Chronic (5) Dyslipidemia Code(s): E78.5 - HYPERLIPIDEMIA, UNSPECIFIED Status: Chronic (6) Physical deconditioning Code(s): R53.81 - OTHER MALAISE Status: Chronic (7) Femoral neck fracture Code(s): S72.009A - FRACTURE OF UNSP PART OF NECK OF UNSP FEMUR, INIT Status: Acute Comment: s/p surgical repair - Plan cont current plan of care, PT/OT, adoption social worker * medication reviewed as below * symptomatic treatment * pain controlled * medically stable * discharge per primary team when arranged. Review of Systems - Review of Systems ENT: negative: Ear Pain, Ear Discharge, Nose Pain, Nose Discharge, Nose Congestion, Mouth Pain, Mouth Swelling, Throat Pain, Throat Swelling, Other Respiratory: negative: Cough, Dry, Shortness of Breath, Hemoptysis, SOB with Excertion, Pleuritic Pain, Sputum, Wheezing Cardiovascular: negative: chest pain, palpitations, orthopnea, paroxysmal nocturnal dyspnea, edema, light headedness, other Gastrointestinal: negative: Nausea, Vomiting, Abdominal Pain, Diarrhea, Constipation, Melena, Hematochezia, Other Genitourinary: negative: Dysuria, Frequency, Incontinence, Hematuria, Retention , Other Musculoskeletal: negative: Neck Pain, Shoulder Pain, Arm Pain, Back Pain, Hand Pain, Leg Pain, Foot Pain, Other - Medications/Allergies Allergies/Adverse Reactions: Allergies Allergy/AdvReac Type Severity Reaction Status Date / Time No Known Allergies Allergy Verified 05/29/18 01:03 Medications: Current Medications Acetaminophen (Tylenol) 650 mg PO Q4H PRN PRN Reason: NATHAN/T > 101F/Mild Pain (1-3) Last Admin: 07/24/18 08:50 Dose: 650 mg Albuterol Sulfate (Ventolin) 2.5 mg NEB Q4H PRN PRN Reason: Dyspnea Albuterol/Ipratropium (Duoneb) 3 ml NEB Q4H PRN PRN Reason: Wheezing Last Admin: 07/23/18 18:38 Dose: 3 ml Aspirin (Aspirin Chewable) 81 mg PO BID [facility] Last Admin: 07/24/18 08:48 Dose: 81 mg Atorvastatin Calcium (Lipitor) 20 mg PO HS [facility] Last Admin: 07/23/18 21:14 Dose: 20 mg Budesonide (Pulmicort Neb Solution) 0.5 mg NEB BID-RT [facility] Last Admin: 07/24/18 08:42 Dose: 0.5 mg Cyclobenzaprine HCl (Flexeril) 10 mg PO 0900,1500,2100 PRN PRN Reason: Muscle Spasm Dextrose/Water (Dextrose 50%) 25 gm SLOW IVP PRN PRN PRN Reason: Hypoglycemia Diltiazem HCl (Cardizem Cd) 240 mg PO DAILY [facility] Last Admin: 07/24/18 08:46 Dose: 240 mg Donepezil HCl (Aricept) 10 mg PO [facility] Last Admin: 07/23/18 21:14 Dose: 10 mg Estradiol (Estrace 0.01% Vaginal Cream) 0.5 gm VAG DAILY [facility] Last Admin: 07/23/18 09:42 Dose: 0.5 gm Febuxostat (Uloric) 40 mg PO DAILY [facility] Last Admin: 07/24/18 08:47 Dose: 40 mg Ferrous Gluconate (Fergon) 324 mg PO QAM-WM [facility] Last Admin: 07/24/18 08:47 Dose: 324 mg Folic Acid (Folvite) 1 mg PO BID [facility] Last Admin: 07/24/18 08:47 Dose: 1 mg Glucagon (Glucagon) 1 mg IM PRN PRN PRN Reason: Hypoglycemia Hydralazine HCl (Apresoline) 10 mg SLOW IVP Q4H PRN PRN Reason: SBP > 170 or DBP > 100 Dextrose/Water (D5w) 1,000 mls @ 0 mls/hr IV .Q0M PRN PRN Reason: Hypoglycemia Magnesium Oxide (Magnesium Oxide) 250 mg PO DAILY [facility] Last Admin: 07/24/18 08:46 Dose: 250 mg Miscellaneous Medication (Phos-Nak) 1 pkt PO BID [facility] Last Admin: 07/24/18 08:46 Dose: 1 pkt Ondansetron HCl (Zofran Odt) 4 mg PO Q6H PRN PRN Reason: Nausea/Vomiting Ondansetron HCl (Zofran) 4 mg IVP Q6H PRN PRN Reason: Nausea Oxazepam (Serax) 10 mg PO BID [facility] Last Admin: 07/24/18 08:47 Dose: 10 mg Pantoprazole Sodium (Protonix) 40 mg PO BID [facility] Last Admin: 07/24/18 08:47 Dose: 40 mg Potassium Chloride (K-Dur) 20 meq PO DAILY [facility] Last Admin: 07/24/18 08:48 Dose: 20 meq Sodium Chloride (Flush - Normal Saline) 10 ml IVF PRN PRN PRN Reason: Saline Flush Sodium Chloride (Flush - Normal Saline) 10 ml IVF PRN PRN PRN Reason: Saline Flush Tramadol HCl (Ultram) 100 mg PO Q6H PRN PRN Reason: Moderate Pain (4-6) Last Admin: 07/24/18 08:46 Dose: 100 mg
[2018-07-24] MEDS ORDERED: Magnesium 2 GM/50 ML 2 GM in Premix Bag 1 BAG IVPB SCH (13:30)
--- NOTE | 2018-07-24 13:41 | PRG ---
DATE OF SERVICE: 07/24/2018 SUBJECTIVE: Ms. Hernández is status post fall at home with a right femoral neck fracture, status post fixation on the . She had no acute overnight events. She was seen this morning lying in bed and preparing to work with Physical Therapy. She has not been able to ambulate as of yet. PT reported that she was able to sit up at the edge of the bed in pivot, but had not yet been able to ambulate. Family yesterday was requesting patient be discharged home; however, did speak today with the patient again, who agreed that rehab would be more appropriate. Rn Bone Mar[facility] Trans[facility] to work with family to find appropriate placement at rehab. The patient is tolerating a diet, pain is well controlled, voiding without difficulty, had a bowel movement as well. No other complaints. OBJECTIVE: VITAL SIGNS: Temperature 97.7, pulse 99, respirations 17, oxygen saturation 95% on room air, blood pressure 138/80. GENERAL: Elderly female, lying in bed, with no signs of acute distress. PULMONARY: Equal breath sounds bilaterally. Equal chest rise and fall. No signs of acute distress. CARDIAC: Regular rate and rhythm. No murmurs, gallops, or rubs. ABDOMEN: Soft, nontender, nondistended. EXTREMITIES: Neurovascularly intact in all 4 extremities. Slight tenderness to right anterior thigh. Moves all extremities spontaneously. 2+ pulses in all extremities present. LABORATORY FINDINGS: White count 11.2, hemoglobin 9.1, hematocrit 28.2, platelets 204. Sodium 104, potassium 4.6, chloride 114, carbon dioxide 20, BUN 28, creatinine 2.03, phos 2.8, magnesium 1.5. DIAGNOSTIC FINDINGS: There are no diagnostic findings to report. IMPRESSION: 1. Status post ground level fall. 2. Right femoral neck fracture. 3. Concussion. 4. Ayiuc-si-[id number] kidney injury. 5. Hypomagnesemia. 6. History of gout, chronic anemia, chronic kidney disease, hypertension, atrial fibrillation, supraventricular tachycardia, chronic obstructive pulmonary disease, and anxiety. PLAN: We will continue current pain regimen and diet as previously prescribed. The patient to continue to work with Physical and Occupational Therapy. We will replace magnesium today. Rn Bone Marrow Transplant to discuss placement at a rehab facility with family and patient. We will continue all home medications as previous. The patient is ready for discharge at this time. The patient was discussed with Dr. Valle this morning after rounds. Job ID: [id number]
[2018-07-24] MEDS: Estradiol 0.01% Vaginal Cream 42.5 gm Tube VAG SCH (16:13)
[2018-07-24] MEDS: Donepezil HCl 10 MG TAB PO SCH (21:12)
[2018-07-24] MEDS: Atorvastatin Calcium 20 MG TAB PO SCH (21:12)
[2018-07-25] MEDS: Aspirin Chewable 81 MG TAB PO SCH (08:40)
[2018-07-25] MEDS: Folic Acid 1 MG TAB PO SCH (08:41)
[2018-07-25] MEDS: Ferrous Gluconate 324 MG TAB PO SCH (08:41)
[2018-07-25] MEDS: Potassium Chloride 20 MEQ TAB PO SCH (08:41)
[2018-07-25] MEDS: Magnesium Oxide 250 MG TAB PO SCH (08:41)
[2018-07-25] MEDS: Febuxostat 40 MG TAB PO SCH (08:41)
[2018-07-25] MEDS: Oxazepam 10 MG CAP PO SCH (08:41)
[2018-07-25] MEDS: Estradiol 0.01% Vaginal Cream 42.5 gm Tube VAG SCH (08:42)
--- NOTE | 2018-07-25 09:44 | PDOC.PN ---
- Subjective Encounter Start Date: 07/25/18 Encounter Start Time: 08:00 Patient seen and examined. No new complaints. No overnight events - Objective MAR Reviewed: Yes Vital Signs & Weight: Vital Signs (12 hours) Temp Pulse Resp BP Pulse Ox 07/25/18 07:10 97.6 F 95 16 147/74 H 95 07/25/18 04:22 97.4 F L 96 20 136/69 96 07/25/18 00:44 97.9 F 96 20 126/65 97 Weight Weight 148 lb I&O: 07/24/18 07/25/18 07/26/18 06:59 06:59 06:59 Intake Total 775 1080 Output Total 200 Balance 775 880 Result Diagrams: 07/24/18 09:32 07/24/18 09:32 Phys Exam - Physical Examination Constitutional: NAD HEENT: PERRLA, moist MMs, sclera anicteric Neck: no JVD, supple Respiratory: no wheezing, no rales, no rhonchi Cardiovascular: RRR, no significant murmur, no rub Gastrointestinal: soft, non-tender, no distention, positive bowel sounds Musculoskeletal: no edema, pulses present Neurological: non-focal, normal sensation Dx/Plan (1) Anemia of renal disease Code(s): N18.9 - CHRONIC KIDNEY DISEASE, UNSPECIFIED; D63.1 - ANEMIA IN CHRONIC KIDNEY DISEASE Status: Chronic (2) Atrial fibrillation Code(s): I48.91 - UNSPECIFIED ATRIAL FIBRILLATION Status: Chronic Comment: (3) CKD (chronic kidney disease) stage 4, GFR 15-29 ml/min Code(s): N18.4 - CHRONIC KIDNEY DISEASE, STAGE 4 (SEVERE) Status: Chronic (4) Dementia Code(s): F03.90 - UNSPECIFIED DEMENTIA WITHOUT BEHAVIORAL DISTURBANCE Status: Chronic (5) Dyslipidemia Code(s): E78.5 - HYPERLIPIDEMIA, UNSPECIFIED Status: Chronic (6) Physical deconditioning Code(s): R53.81 - OTHER MALAISE Status: Chronic - Plan cont current plan of care, PT/OT, criminal justice social worker * medication reviewed as below * symptomatic treatment * stable for discharge * see discharge summery. Review of Systems - Review of Systems ENT: negative: Ear Pain, Ear Discharge, Nose Pain, Nose Discharge, Nose Congestion, Mouth Pain, Mouth Swelling, Throat Pain, Throat Swelling, Other Respiratory: negative: Cough, Dry, Shortness of Breath, Hemoptysis, SOB with Excertion, Pleuritic Pain, Sputum, Wheezing Cardiovascular: negative: chest pain, palpitations, orthopnea, paroxysmal nocturnal dyspnea, edema, light headedness, other Gastrointestinal: negative: Nausea, Vomiting, Abdominal Pain, Diarrhea, Constipation, Melena, Hematochezia, Other Genitourinary: negative: Dysuria, Frequency, Incontinence, Hematuria, Retention , Other Musculoskeletal: negative: Neck Pain, Shoulder Pain, Arm Pain, Back Pain, Hand Pain, Leg Pain, Foot Pain, Other - Medications/Allergies Allergies/Adverse Reactions: Allergies Allergy/AdvReac Type Severity Reaction Status Date / Time No Known Allergies Allergy Verified 05/29/18 01:03 Medications: Current Medications Acetaminophen (Tylenol) 650 mg PO Q4H PRN PRN Reason: NATHAN/T > 101F/Mild Pain (1-3) Last Admin: 07/24/18 16:13 Dose: 650 mg Albuterol Sulfate (Ventolin) 2.5 mg NEB Q4H PRN PRN Reason: Dyspnea Albuterol/Ipratropium (Duoneb) 3 ml NEB Q4H PRN PRN Reason: Wheezing Last Admin: 07/24/18 18:41 Dose: 3 ml Aspirin (Aspirin Chewable) 81 mg PO BID [facility] Last Admin: 07/25/18 08:40 Dose: 81 mg Atorvastatin Calcium (Lipitor) 20 mg PO HS [facility] Last Admin: 07/24/18 21:12 Dose: 20 mg Budesonide (Pulmicort Neb Solution) 0.5 mg NEB BID-RT [facility] Last Admin: 07/24/18 18:42 Dose: 0.5 mg Cyclobenzaprine HCl (Flexeril) 10 mg PO 0900,1500,2100 PRN PRN Reason: Muscle Spasm Dextrose/Water (Dextrose 50%) 25 gm SLOW IVP PRN PRN PRN Reason: Hypoglycemia Diltiazem HCl (Cardizem Cd) 240 mg PO DAILY [facility] Last Admin: 07/25/18 08:41 Dose: 240 mg Donepezil HCl (Aricept) 10 mg PO HS [facility] Last Admin: 07/24/18 21:12 Dose: 10 mg Estradiol (Estrace 0.01% Vaginal Cream) 0.5 gm VAG DAILY [facility] Last Admin: 07/25/18 08:42 Dose: Not Given Febuxostat (Uloric) 40 mg PO DAILY [facility] Last Admin: 07/25/18 08:41 Dose: 40 mg Ferrous Gluconate (Fergon) 324 mg PO QAM-WM [facility] Last Admin: 07/25/18 08:41 Dose: 324 mg Folic Acid (Folvite) 1 mg PO BID [facility] Last Admin: 07/25/18 08:41 Dose: 1 mg Glucagon (Glucagon) 1 mg IM PRN PRN PRN Reason: Hypoglycemia Hydralazine HCl (Apresoline) 10 mg SLOW IVP Q4H PRN PRN Reason: SBP > 170 or DBP > 100 Dextrose/Water (D5w) 1,000 mls @ 0 mls/hr IV .Q0M PRN PRN Reason: Hypoglycemia Magnesium Oxide (Magnesium Oxide) 250 mg PO DAILY [facility] Last Admin: 07/25/18 08:41 Dose: 250 mg Miscellaneous Medication (Phos-Nak) 1 pkt PO BID [facility] Last Admin: 07/25/18 08:40 Dose: 1 pkt Ondansetron HCl (Zofran Odt) 4 mg PO Q6H PRN PRN Reason: Nausea/Vomiting Ondansetron HCl (Zofran) 4 mg IVP Q6H PRN PRN Reason: Nausea Oxazepam (Serax) 10 mg PO BID [facility] Last Admin: 07/25/18 08:41 Dose: 10 mg Pantoprazole Sodium (Protonix) 40 mg PO BID [facility] Last Admin: 07/25/18 08:41 Dose: 40 mg Potassium Chloride (K-Dur) 20 meq PO DAILY [facility] Last Admin: 07/25/18 08:41 Dose: 20 meq Sodium Chloride (Flush - Normal Saline) 10 ml IVF PRN PRN PRN Reason: Saline Flush Sodium Chloride (Flush - Normal Saline) 10 ml IVF PRN PRN PRN Reason: Saline Flush Tramadol HCl (Ultram) 100 mg PO Q6H PRN PRN Reason: Moderate Pain (4-6) Last Admin: 07/24/18 16:12 Dose: 100 mg
--- NOTE | 2018-07-25 10:02 | DIS ---
DATE OF ADMISSION: 07/19/2018 DATE OF DISCHARGE: 07/25/2018 PRIMARY CARE PHYSICIAN: Lizandro Mary MD DISCHARGE DISPOSITION: [facility] Unit. PRIMARY DISCHARGE DIAGNOSIS: Femoral neck fracture status post surgical repair. SECONDARY DISCHARGE DIAGNOSES: Physical deconditioning, dyslipidemia, dementia, chronic kidney disease stage 4, atrial fibrillation, and anemia of renal disease. PRIMARY PROCEDURE/OPERATION: Surgical repair for femoral neck fracture. RADIOLOGICAL INVESTIGATION: CT brain, hip x-ray, humerus x-ray, and abdomen and pelvis CT scan. SIGNIFICANT LABORATORY DATA: Hemoglobin 9.1. INR 1.1. Creatinine 2.03. DISCHARGE MEDICATIONS: 1. Aspirin 81 mg p.o. daily. 2. Symbicort 2 puff inhalation b.i.d. 3. Cardizem CD 180 mg daily. 4. Estrace vaginal cream as directed. 5. Uloric 40 mg p.o. daily. 6. Protonix 40 mg p.o. daily. 7. Potassium chloride 20 mEq p.o. daily. 8. Ventolin nebulization q.4 hourly p.r.n. 9. Lipitor 20 mg p.o. at bedtime. 10. Pulmicort nebulization b.i.d. 11. Flexeril 10 mg p.o. daily. 12. Aricept 10 mg p.o. at bedtime. 13. Ferrous gluconate 1 tablet daily. 14. Folic acid 1 mg p.o. b.i.d. 15. Lasix 20 mg daily. 16. Oxazepam 10 mg p.o. b.i.d. 17. Tramadol 50 mg q.6 hourly p.r.n. CONTRAINDICATION: None. CODE STATUS: Full code. INPATIENT CONSULTANTS: Dr. Awan was primary while in hospital. [facility]ks[facility]r Team was consulted for medical management. Initially, Dr. Mary was following, but Dr. Mary was on vacation and that is why Aleksandr Team was following. HOSPITAL COURSE: A 78-year-old female, who was admitted for left femoral neck fracture, which was repaired by Dr. Awan. After surgery, Medical Team was following. Initially, Dr. Mary was following and subsequently Aleksandr was taken over. This patient was planned for discharge to rehab. The patient is doing very well. The patient is seen and examined at bedside today. REVIEW OF SYSTEMS: All review of system reviewed with her and negative. PHYSICAL EXAMINATION: VITAL SIGNS: Today vital signs; temperature 97.6, pulse 95, respiratory rate 16, saturation 95% on room air, and blood pressure 147/74. Weight 148 pounds. GENERAL: The patient is currently alert and oriented x3. No obvious acute distress. HEENT: Head, normocephalic and atraumatic. Eyes; pupils are round and reactive to light. Extraocular muscle intact. ENT, oropharynx within normal limits. Moist mucous membranes. No oral lesion. No pharyngeal erythema. No exudate. NECK: Supple. No JVD. No thyromegaly. No carotid bruit. No jugular venous distention. LUNGS: Clear without any rhonchi or rales. CARDIAC: S1 and S2. Regular without any murmur. ABDOMEN: Soft and benign. EXTREMITIES: No edema. NEUROLOGIC: Nonfocal examination. SKIN: Surgical site at right hip is within normal limit. We will sign off. Job ID: [id number]
[2018-07-25] MEDS: Budesonide 0.5 MG/2 ML NEB NEB SCH (10:19)
[2018-07-25 12:32] VITALS: TEMP 98.1
--- NOTE | 2018-07-25 12:36 | PRG ---
DATE OF SERVICE: 07/25/2018 SUBJECTIVE: The patient was seen this morning sitting up in bed. Reported she slept well overnight and pain was well controlled. She has been working with physical therapy and she has no complaints at this time. She denies nausea, vomiting, and diarrhea. She is set to be discharged to her rehab facility this afternoon. OBJECTIVE: VITAL SIGNS: Temperature 97.6, pulse 95, respirations 16, oxygen saturation 95% on room air, and blood pressure 147/74. GENERAL: Well-appearing elderly female, sitting up in bed with no signs of acute distress. PULMONARY: Equal breath sounds bilaterally. Equal chest rise and fall. No signs of acute distress. CARDIAC: Regular rate and rhythm. No murmurs, gallops, or rubs. ABDOMEN: Soft, nontender, nondistended. EXTREMITIES: Neurologically intact in all 4 extremities. Slightly tender to right anterior thigh. Moves all extremities spontaneously. 2+ pulses in all extremities. LABORATORY FINDINGS: There are no laboratory findings to discuss. DIAGNOSTIC FINDINGS: There are no diagnostic findings to report. IMPRESSION: 1. Status post ground level fall. 2. Right femoral neck fracture. 3. Concussion. 4. Acute on chronic kidney injury, resolved. 5. History of gout, chronic anemia, chronic kidney disease, hypertension, atrial fibrillation, supraventricular tachycardia, chronic obstructive pulmonary disease and anxiety. PLAN: We will continue to provide supportive care today. The patient will be discharged to acute rehab, where she will continue her physical and occupational therapy. She will also follow up with Dr. Awan at that time. The patient is ready for discharge at this time. The patient was discussed with Dr. Valle this morning after rounds. Job ID: [id number]
[2018-07-25 15:50] VITALS: BP 144/74
== END 2018-07-25 17:43 | DRG 470 ==
LOC: ERS 19:47 → SURG B 23:13
PROVIDERS: ADMIT Orthopaedic Surgery; ATTEND Orthopaedic Surgery
PROC: 0SRR0JA Replacement of Right Hip Joint, Femoral Surface with Synthetic Substitute, Uncemented, Open Approach (ICD-10-PCS; principal; 2018-07-20)
PROC: 30233N1 Transfusion of Nonautologous Red Blood Cells into Peripheral Vein, Percutaneous Approach (ICD-10-PCS; 2018-07-20)
PROC: 30233N1 Transfusion of Nonautologous Red Blood Cells into Peripheral Vein, Percutaneous Approach (ICD-10-PCS; 2018-07-22)
DX: S72.031A Displaced midcervical fracture of right femur, initial encounter for closed fracture (principal); S06.0X9A Concussion with loss of consciousness of unspecified duration, initial encounter; N17.9 Acute kidney failure, unspecified; N18.4 Chronic kidney disease, stage 4 (severe); I47.1 Supraventricular tachycardia; E87.1 Hypo-osmolality and hyponatremia; W18.30XA Fall on same level, unspecified, initial encounter; I12.9 Hypertensive chronic kidney disease with stage 1 through stage 4 chronic kidney disease, or unspecified chronic kidney disease; D63.1 Anemia in chronic kidney disease; Z23 Encounter for immunization; I48.2 Chronic atrial fibrillation; J44.9 Chronic obstructive pulmonary disease, unspecified; E83.42 Hypomagnesemia; F41.9 Anxiety disorder, unspecified; E55.9 Vitamin D deficiency, unspecified; K21.9 Gastro-esophageal reflux disease without esophagitis; F32.9 Major depressive disorder, single episode, unspecified; F03.90 Unspecified dementia, unspecified severity, without behavioral disturbance, psychotic disturbance, mood disturbance, and anxiety; M10.9 Gout, unspecified; Z90.5 Acquired absence of kidney; Z79.82 Long term (current) use of aspirin; Z79.899 Other long term (current) drug therapy; Z87.891 Personal history of nicotine dependence
CPT/HCPCS: 36415; 36416; 36430; 70450; 71045; 72125; 74176; 80048; 80053; 81001; 83540; 83550; 83735; 84100; 85025; 85610; 85730; 86850; 86900; 86901; 87086; 90471; 90715; 93005; 94640; 96361; 96374; 96376; G0390; J0131; J0670; J1100; J2001; J2270; J2405; J2704; J3010; J3411; J3475; J3489; J3490; J7050; J7620; J7626; P9016

== ENCOUNTER 2018-09-18 10:48 | Outpatient (CLI) | payer MEDICARE, OTHER ==
--- NOTE | 2018-09-18 11:32 | RAD ---
RIGHT FOOT 3 VIEWS: DATE: 09/18/2018. HISTORY: Direct infection to foot and ankle. FINDINGS: The bones are demineralized. There is prominent dorsal and plantar soft tissue swelling overlying th e mid foot. There is enthesophyte formation at the origin of the plantar aponeurosis and insertion o f the Achilles tendon. There is vascular calcification at the level of the ankle anteriorly and post eriorly. No displaced fracture or dislocation. No radiopaque foreign body or subcutaneous gas. IMPRESSION: Prominent soft tissue swelling with no displaced fracture or evidence of dislocation. No obvious bon e destruction. If there is high clinical concern for underling osteomyelitis, an MRI is suggested. POS: ANALILIA
== END 2018-09-18 10:49 | disposition home or self-care (01) ==
LOC: BICRAD 10:48
PROVIDERS: ATTEND Specialist
DX: M01.X71 Direct infection of right ankle and foot in infectious and parasitic diseases classified elsewhere (principal); M79.89 Other specified soft tissue disorders; N17.9 Acute kidney failure, unspecified; I12.9 Hypertensive chronic kidney disease with stage 1 through stage 4 chronic kidney disease, or unspecified chronic kidney disease; N18.9 Chronic kidney disease, unspecified; D63.1 Anemia in chronic kidney disease; J44.9 Chronic obstructive pulmonary disease, unspecified; I48.91 Unspecified atrial fibrillation; E87.8 Other disorders of electrolyte and fluid balance, not elsewhere classified; N93.9 Abnormal uterine and vaginal bleeding, unspecified

== ENCOUNTER 2018-09-21 13:28 | Inpatient (IN) | payer MEDICARE, OTHER ==
--- NOTE | 2018-09-21 14:25 | RAD ---
XR Chest 1 View Portable History: [Syncope] Comparison: Radiograph July 19, 2018 Findings: Chronic blunting left lateral costophrenic sulcus. No confluent airspace consolidation or p neumothorax. Dense calcifications of the aorta. No acute osseous abnormality Impression: Chronic findings. No acute intrathoracic abnormality.
[2018-09-21 14:38] LABS: Hemoglobin 9.2 g/dL (12.0-16.0); Mean Corpuscular HGB CONC 30.5 g/dL (32.0-36.0); Mean Corpuscular Hemoglobin 30.4 pg (27.0-31.0); Mean Corpuscular Volume 99.9 fL (78.0-98.0); Mean Platelet Volume 7.2 fL (7.4-10.4); Platelet Count 424 thou/uL (130-400); RBC Distribution Width 14.7 % (11.5-14.5); Red Blood Cell (RBC) Count 3.03 mill/uL (4.20-5.40)
[2018-09-21 14:46] LABS: ALT (SGPT) 7 U/L (8-55); AST (SGOT) 11 U/L (5-34); Albumin 3.1 g/dL (3.4-4.8); Alkaline Phosphatase 90 U/L (40-150); Anion Gap 18 mmol/L (10-20); BUN (Urea Nitrogen) 39 mg/dL (9.8-20.1); Bilirubin, Total 0.4 mg/dL (0.2-1.2); Calc. Creatinine Clearance 0 mL/min (70-130); Calcium 9.6 mg/dL (7.8-10.44); Carbon Dioxide 20 mmol/L (23-31); Chloride 99 mmol/L (98-107); Estimated GFR-MDRD 21; Globulin 4.5 g/dL (2.4-3.5); Glucose 111 mg/dL (83-110); Potassium 4.4 mmol/L (3.5-5.1); Protein, Total 7.6 g/dL (6.0-8.3); Sodium 133 mmol/L (136-145)
[2018-09-21 15:10] LABS: Anisocytosis SLIGHT = 6-15 cells (100X) (0-5/hpf); Band 38 % (5-11); Hypochromia SLIGHT = 6-15 cells (100X) (0-5/hpf); Lymphocytes 7 % (21-51); MDiff Complete? YES; Monocytes 3 % (0-10); Neutrophil 52 % (42-75); Toxic Granulation SLIGHT
[2018-09-21] MEDS ORDERED: Lidocaine 1% w/Epinephrine 1:100K 20 ML VIAL ONE (17:05)
[2018-09-21 17:27] LABS: Bilirubin Negative (Negative); Blood, Urine Negative (Negative); Clarity CLEAR (Clear); Glucose, Urine (Dipstick) Negative (Negative); Leukocyte Negative (Negative); Nitrite Negative (Negative); Protein, Urine (Dipstick) Negative (Neg-Trace); Specific Gravity, Urine 1.008 (1.002-1.036); Urobilinogen 0.2 mg/dL (0.2-1.0)
[2018-09-21 18:11] LABS: Lactic Acid 2.4 mmol/L (0.5-2.2)
--- NOTE | 2018-09-21 18:26 | CT ---
CT abdomen noncontrast CT pelvis noncontrast: (Urolithiasis protocol) DATE: 09/21/2018 HISTORY: 78-year-old female with abscess in the buttock. COMPARISON: 07/19/2018 TECHNIQUE: IV injection of iodinated contrast media: None Oral contrast media: None FINDINGS: Other than for urolithiasis, the lack of IV and oral contrast limits the evaluation. The previously demonstrated right femoral neck fracture has been treated with right hip replacement a rthroplasty, with metallic hardware causing streak artifact, partially obscuring part of the intrapelvic contents. No abscess is visible within the pelvic cavity or abdominal cavity. No abscess is visualized in the subcutaneous fat of the left buttock. Lateral portion of right buttock is outside of the field of view. There is a collection of fluid and gas in the left para anal and the le ft pararectal region, close to the perineum. The lower portion measures approximately 5 x 3.5 cm. The craniocaudal dimension is difficult to obtain because the lower portion of this abscess was exclu ded from the [id number] on the coronal reconstructions, although the entire abscess was covered on the axial images. Craniocaudal dimension is greater than 6.5 cm. Right kidney is absent. The appendix is normal. Small, approximately 0.7 cm focal round hypodensity i n the right lobe of the liver is unchanged compared to a CT angiogram of the chest of 06/30/2017. No abdominal aortic aneurysm. Left kidney is unremarkable. Within the limitations of a noncontrast scan, no gross abnormality identified involving pancreas, spleen, and adrenals. No small bowel dilation. No colonic diverticulitis. No abnormality of the urinary bladder identified. IMPRESSION: 1. Left paraanal, pararectal abscess. 2. Right total hip replacement arthroplasty. 3. Status post right nephrectomy.
[2018-09-21] MEDS ORDERED: Piperacillin/Tazobactam 4.5 GM VIAL ONE ×2 (19:00→19:09)
[2018-09-21] MEDS ORDERED: Sodium Chloride 0.9% 1,000 ML IV SCH (22:00)
[2018-09-22] MEDS ORDERED: Vancomycin HCl 250 MG in Sodium Chloride 0.9% 100 ML IVPB SCH (08:30)
[2018-09-22] MEDS ORDERED: Vancomycin Sliding Scale 1 EACH FS SCH (08:30)
[2018-09-22] MEDS ORDERED: Vancomycin HCl 750 MG in Sodium Chloride 0.9% 250 ML 250 ML IVPB SCH (08:30)
[2018-09-22] MEDS ORDERED: Vancomycin HCl 500 MG in Sodium Chloride 0.9% 100 ML IVPB SCH (08:30)
[2018-09-22] MEDS ORDERED: Vancomycin HCl 1 GM in Premix Bag 1 BAG IVPB SCH (08:30)
[2018-09-22] MEDS ORDERED: HOLD VANCOMYCIN FOR LEVEL >20 FS SCH (08:30)
[2018-09-22] MEDS: Ferrous Sulfate 325 MG TAB PO SCH (10:00)
[2018-09-22] MEDS: Dextrose 5 % And 0.9 % NaCl 1,000 ML IV SCH ×2 (10:33→17:47)
[2018-09-22] MEDS: Thiamine HCl 200 MG/2 ML VIAL IM SCH (10:45)
[2018-09-22] MEDS: Aspirin Chewable 81 MG TAB PO SCH (10:46)
[2018-09-22] MEDS: Folic Acid 1 MG TAB PO SCH (10:46)
[2018-09-22] MEDS: Multivit, Therapeutic 1 TAB PO SCH (10:46)
[2018-09-22] MEDS: Piperacillin/Tazobactam 4.5 GM in Sodium Chloride 0.9% 100 ML IVPB SCH ×3 (12:24→22:02)
--- NOTE | 2018-09-22 15:04 | HP ---
CHIEF COMPLAINT ON ADMISSION: Left buttock abscess with sepsis and syncopal episodes. HISTORY OF PRESENT ILLNESS: The patient is a 78-year-old female. Her son, the historian, has been stating she has fallen several times over the last several weeks. He brings her into the office at my office initially last week on 2018 stating that she had left foot pain. The foot was swollen and tender. The remainder of her exam was unremarkable except for bruising, and x-rays of the foot failed to show any abnormality. She continued to have falls and syncopal episodes over the next several days; such that, we took her to outpatient [facility]. There at the urgent care, they did a chest x-ray, which again failed to show any significant disease and she was dismissed home. Finally, he brings her to the [facility] ER for syncopal episodes and there she was noted to have a very large 12 cm x 12 cm left buttock perineal abscess as well as a white count that is over 20,000. Her lactate is elevated as well. She is also somewhat dry. At this point, she was brought in because the family states that her confusion was worse than usual, even though she has a very dense dementia. Dr. Mary was contacted about admission at this point. PAST MEDICAL HISTORY: Significant for gout, hypertension, anemia, chronic kidney disease, atrial fibrillation, supraventricular tachycardia, COPD, anxiety, medical noncompliance, and alcoholism. PAST SURGICAL HISTORY: Significant for right nephrectomy and cardiac ablation. SOCIAL HISTORY: Reports having rum and Coke every day. Smokes cigarettes, greater than 20 years. Denies illicit drug use. Resides with her son. ALLERGIES: NO KNOWN DRUG ALLERGIES. CURRENT MEDICATIONS: On admission: 1. Folic acid 1 mg p.o. daily. 2. Diltiazem 240 mg daily. 3. Ferrous gluconate 324 mg daily. 4. Aspirin 81 mg daily. 5. Albuterol neb 2.5 mg q.4 p.r.n. 6. Symbicort 160 mg two puffs b.i.d. for maintenance. 7. Mirtazepine 30 mg one p.o. at bedtime for appetite, depression, and insomnia. 8. Estrace vaginal 0.1% for irritation at bedtime. REVIEW OF SYSTEMS: At the time of history and physical are unobtainable due the patient's dense dementia and no family members are present at that time. PHYSICAL EXAMINATION: VITAL SIGNS: At the time of admission; blood pressure 123/59, temperature 97.8, pulse 61, respirations 19, and O2 saturation 100% on room air, weight 136 pounds and 8 ounces. GENERAL: This is an elderly female, who is arousable and alert, but very confused, does not recognize the examiner who she saw in his office just 5 days earlier. HEENT: Normocephalic and atraumatic. Pupils with reactivity of 1 to 2 mm. Arcus senilis bilaterally. TMs, nares, pharynx are clear. NECK: Supple. CHEST: Clear to auscultation. BREAST: Deferred. HEART: Regular rate and rhythm. No murmur. ABDOMEN: Soft and nontender. : Deferred. ER history of large left buttock abscess without necrotic tissue. EXTREMITIES: With diffuse bruising. No clubbing, cyanosis, or edema. SKIN: Diffuse bruising noted in upper and lower extremities with evidence of multiple falls and the aforementioned abscess per ER evaluation. NEURO: Cranial nerves are grossly intact. Sensory is grossly intact. Unable to test gait and cerebral function at this time. Mental status significant for deep dementia with confusion and recent and long-term memory loss. LABORATORY DATA: On admission showed WBCs 23,000, hemoglobin 9.2, hematocrit 30.3 with platelets of 424. Sodium 133, potassium 4.4, chloride 99, CO2 of 20, BUN 39, creatinine 2.26 with a GFR of 21, and glucose 111. Lactic acid elevated at 2.8 with a repeat one hour later down to 2.4. Liver functions are unremarkable. Troponin I is unremarkable. Urinalysis unremarkable. IMAGING STUDIES: Chest x-ray from 09/21/2018; chronic findings noted, nothing acute. An x-ray of her left foot, no findings. ASSESSMENT: 1. Left buttock abscess with sepsis. 2. Multiple syncopal episodes. 3. Alcoholism with dementia. 4. Renal insufficiency with mild dehydration. PLAN: Plan is to prevent DTs. Continue vancomycin. Consult Wound Care and serially re-evaluate the patient. Job ID: [id number] [facility]
[2018-09-22 16:51] LABS: INR-International Normal Ratio 1.2; PTT 30.6 SEC (22.9-36.1); Prothrombin Time 15.1 SEC (12.0-14.7)
[2018-09-22] MEDS: Mometasone/Formoterol 120 PUFF INHALER INH SCH (18:28)
[2018-09-22 20:21] LABS: Vancomycin, Trough 12.3 ug/mL
[2018-09-23] MEDS: Lorazepam 2 MG/ML VIAL SLOW IVP PRN (00:25)
[2018-09-23] MEDS: Dextrose 5 % And 0.9 % NaCl 1,000 ML IV SCH ×3 (03:17→18:07)
[2018-09-23] MEDS: Piperacillin/Tazobactam 4.5 GM in Sodium Chloride 0.9% 100 ML IVPB SCH ×4 (04:59→21:29)
[2018-09-23] MEDS: Aspirin Chewable 81 MG TAB PO SCH (08:27)
[2018-09-23] MEDS: Folic Acid 1 MG TAB PO SCH (08:28)
[2018-09-23] MEDS: Multivit, Therapeutic 1 TAB PO SCH (08:28)
[2018-09-23] MEDS: Ferrous Sulfate 325 MG TAB PO SCH (08:28)
[2018-09-23] MEDS: Thiamine HCl 200 MG/2 ML VIAL IM SCH (08:47)
[2018-09-23 09:07] LABS: Hemoglobin 7.6 g/dL (12.0-16.0); Mean Corpuscular HGB CONC 32.1 g/dL (32.0-36.0); Mean Corpuscular Hemoglobin 32.4 pg (27.0-31.0); RBC Distribution Width 14.8 % (11.5-14.5); Red Blood Cell (RBC) Count 2.36 mill/uL (4.20-5.40); White Blood Cell (WBC) Count 19.9 thou/uL (4.8-10.8)
[2018-09-23 09:23] LABS: Anion Gap 13 mmol/L (10-20); BUN (Urea Nitrogen) 26 mg/dL (9.8-20.1); Calc. Creatinine Clearance 24 mL/min (70-130); Calcium 8.5 mg/dL (7.8-10.44); Carbon Dioxide 20 mmol/L (23-31); Chloride 112 mmol/L (98-107); Estimated GFR-MDRD 25; Glucose 122 mg/dL (83-110); Potassium 3.8 mmol/L (3.5-5.1); Sodium 141 mmol/L (136-145)
[2018-09-23 09:50] LABS: Band 10 % (5-11); Eosinophils 1 % (0-10); Lymphocytes 10 % (21-51); MDiff Complete? YES; Macrocytosis SLIGHT = 6-15 cells (100X) (0-5/hpf); Mean Platelet Volume 7.4 fL (7.4-10.4); Monocytes 8 % (0-10); Neutrophil 71 % (42-75); Platelet Count 353 thou/uL (130-400); Platelet Morphology Comment Appears Adequate; Polychromasia SLIGHT = 2-3 cells (100X) (0-2/hpf)
[2018-09-23] MEDS ORDERED: Fentanyl 100 MCG/2 ML VIAL ONE (10:04)
[2018-09-23] MEDS ORDERED: Lidocaine 2% Jelly 5 ML TUBE ONE (10:04)
[2018-09-23] MEDS ORDERED: Promethazine HCl 25 MG/ML VIAL SLOW IVP PRN (11:55)
[2018-09-23] MEDS ORDERED: Ondansetron HCl/PF 4 MG/2 ML Vial IVP PRN (11:55)
[2018-09-23] MEDS ORDERED: Promethazine HCl 25 MG/ML VIAL IM PRN (11:55)
--- NOTE | 2018-09-23 12:55 | OP ---
DATE OF PROCEDURE: 09/23/2018 PREOPERATIVE DIAGNOSIS: Large left perirectal abscess. POSTOPERATIVE DIAGNOSIS: Bilateral left greater than Right perirectal abscesses. PROCEDURE PERFORMED: Incision and drainage of bilateral perirectal abscesses, left greater than right. ANESTHESIA: General endotracheal. ESTIMATED BLOOD LOSS: Less than 10 mL. COUNTS: Sponge and instrument counts were verified as correct x2. COMPLICATIONS: None apparent at the time of operation. INDICATIONS FOR OPERATION: A 78-year-old woman, who was admitted to the hospital since 09/21/2018. CT scan of the pelvis was remarkable for large left perirectal abscess. The patient was brought to the operating room today for incision and drainage. Findings are consistent with large bilateral left greater than right perirectal abscesses. DESCRIPTION OF PROCEDURE: Informed consent was obtained from the patient, who was brought to the operating room and placed in supine position. Following general anesthesia, the patient was placed in a prone position, se-knife. Bilateral gluteal areas were widely, sterilely prepped and draped in usual fashion. The large left perirectal abscess was palpated. Crucifix incision was made in the dome of the abscess, evacuating a large amount of foul-smelling purulent pus. The cavity was entered and irrigated clear of debris. There was also punctate opening in the left perirectal area in the medial gluteal fold. Small crucifix incision was made here, evacuating purulent pus as well. Both abscess cavities were copiously irrigated, cleared with saline. The left large perirectal abscess cavity was packed using sterile saline saturated Kerlix gauze. The small right abscess cavity is loosely packed with one piece of 6 x 6 inch sterile gauze. ABD pad and mesh pants were then applied. The patient tolerated the procedure without any apparent complication and was returned to recovery room in satisfactory condition. Job ID: [id number] [facility]
[2018-09-23] MEDS ORDERED: Ondansetron PF 4 MG/2 ML Vial ONE (13:04)
[2018-09-23] MEDS ORDERED: Glycopyrrolate 0.2 MG/ML 5 ML SYRINGE ONE (13:04)
[2018-09-23] MEDS ORDERED: PROPOFOL 200 MG/20 ML VIAL ONE (13:04)
[2018-09-23] MEDS ORDERED: Rocuronium Bromide 10 MG/ML (10ML VIAL) ONE (13:04)
[2018-09-23] MEDS ORDERED: Lidocaine 1% PF 5 ML VIAL ONE (13:04)
[2018-09-23] MEDS ORDERED: Acetaminophen 500 MG TAB PO PRN (15:00)
[2018-09-23] MEDS ORDERED: traMADol HCl 50 MG TAB PO PRN (15:00)
[2018-09-23] MEDS: Vancomycin HCl 750 MG in Sodium Chloride 0.9% 250 ML 250 ML IVPB SCH (18:08)
[2018-09-23] MEDS: traMADol HCl 50 MG TAB PO SCH ×2 (18:08→21:29)
[2018-09-23] MEDS: Budesonide 0.5 MG/2 ML NEB NEB SCH (18:38)
[2018-09-24] MEDS: Dextrose 5 % And 0.9 % NaCl 1,000 ML IV SCH ×3 (03:30→20:37)
[2018-09-24] MEDS: traMADol HCl 50 MG TAB PO SCH ×4 (04:53→20:37)
[2018-09-24] MEDS: Piperacillin/Tazobactam 4.5 GM in Sodium Chloride 0.9% 100 ML IVPB SCH ×3 (04:54→17:31)
[2018-09-24 06:11] LABS: Anion Gap 13 mmol/L (10-20); BUN (Urea Nitrogen) 19 mg/dL (9.8-20.1); Calc. Creatinine Clearance 27 mL/min (70-130); Calcium 8.5 mg/dL (7.8-10.44); Carbon Dioxide 19 mmol/L (23-31); Chloride 113 mmol/L (98-107); Estimated GFR-MDRD 28; Glucose 110 mg/dL (83-110); Potassium 3.8 mmol/L (3.5-5.1); Sodium 141 mmol/L (136-145)
[2018-09-24] MEDS: Budesonide 0.5 MG/2 ML NEB NEB SCH ×2 (06:34→18:29)
[2018-09-24 06:36] LABS: Band 7 % (5-11); Eosinophils 4 % (0-10); Hemoglobin 7.1 g/dL (12.0-16.0); Lymphocytes 16 % (21-51); MDiff Complete? YES; Mean Corpuscular HGB CONC 32.6 g/dL (32.0-36.0); Mean Corpuscular Hemoglobin 32.5 pg (27.0-31.0); Mean Corpuscular Volume 99.7 fL (78.0-98.0); Mean Platelet Volume 6.9 fL (7.4-10.4); Monocytes 7 % (0-10); Myelocyte 3 % (0-0); Neutrophil 63 % (42-75); Platelet Count 314 thou/uL (130-400); RBC Distribution Width 14.7 % (11.5-14.5); Red Blood Cell (RBC) Count 2.19 mill/uL (4.20-5.40); White Blood Cell (WBC) Count 14.2 thou/uL (4.8-10.8)
[2018-09-24] MEDS: Mometasone/Formoterol 120 PUFF INHALER INH SCH (06:53)
[2018-09-24] MEDS ORDERED: Enoxaparin Sodium 40 MG/0.4 ML SYRINGE SC SCH (09:00)
[2018-09-24] MEDS: Multivit, Therapeutic 1 TAB PO SCH (10:13)
[2018-09-24] MEDS: Aspirin Chewable 81 MG TAB PO SCH (10:13)
[2018-09-24] MEDS: Folic Acid 1 MG TAB PO SCH (10:13)
[2018-09-24] MEDS: Ferrous Sulfate 325 MG TAB PO SCH (10:13)
[2018-09-24] MEDS: Thiamine HCl 200 MG/2 ML VIAL IM SCH (10:15)
--- NOTE | 2018-09-24 13:47 | PRG ---
DATE OF SERVICE: 09/24/2018 SUBJECTIVE: Ms. Hernández is a 78-year-old woman, who is postoperative day #1 status post incision and drainage of bilateral, left greater than right perirectal abscesses. She is sleepy this morning, but easily awakens to voice and answers questions appropriately. Pain seems adequately controlled. OBJECTIVE: VITAL SIGNS: This morning include blood pressure 149/76, pulse 94, respiratory rate 20, temperature 98.2 degrees Fahrenheit, oxygen saturation 98% on room air. HEART: Reveals regular rate and rhythm. LUNGS: Clear to auscultation bilaterally. Breathing, regular and nonlabored. ABDOMEN: Soft, nontender, and nondistended. Dressing will be changed today by Wound Care and will continue with daily dressing changes consisting of wet-to-dry gauze. Wound cultures from yesterday are consistent with nonhemolytic Streptococcus. The patient is currently on Zosyn, which is appropriate. No further surgical indication at this time. Job ID: [id number]
[2018-09-24] MEDS: Vancomycin HCl 750 MG in Sodium Chloride 0.9% 250 ML 250 ML IVPB SCH (14:52)
--- NOTE | 2018-09-24 15:06 | PQF ---
DATE: 09-24-18 ATTN: DR. TEO LUCAS Please exercise your independent, professional judgment in responding to the clarification form. Clinical indicators are provided on the bottom of this form for your review Please check appropriate box(s): [ ] Acute Renal Failure (ARF) / Acute Kidney Injury (SIMON) [ x ] Acute on Chronic Renal Failure please specify Stage of CKD ___IV (see below) [ ] CKD without ARF/SIMON please specify Stage of CKD [ ] Other diagnosis [ ] Unable to determine In addition, please specify: Present on Admission (POA): [ ] Yes [ ] No [ ] Unable to determine National Kidney Foundation Guidelines for CKD Staging Stage I Kidney damage with normal or increased GFR GFR > 90 Stage II Kidney damage with mildly decreased GFR GFR 60-89 Stage III Kidney damage with moderately decreased GFR GFR 30-59 Stage IV Kidney damage with severely decreased GFR GFR 16-29 Stage V Kidney failure GFR<15 ESRD End Stage Renal Disease On dialysis Acute Renal Failure/Acute Kidney Failure defined as: Increases in SCr by (>) 0.3 mg/dl within 48 hours OR- Increases in SCr by (>) 1.5 times baseline, known or presumed to have occurred within the prior 7 days OR- Urine volume < 0.5 ml/kg/hour for 6 hours (KDIGO supplement 2012 for RIFLE/VALERIA criteria) For continuity of documentation, please document condition throughout progress notes and discharge summary. Thank You. CLINICAL INDICATORS - SIGNS / SYMPTOMS / LABS: ER: HX OF A FIB, COPD, SVT, HTN, RIGHT NEPHRECTOMY ER DX: SYNCOPE, DEHYDRATION, L BUTTOCK ABSCESS, LEUKOCYTOSIS H&P 09-22-18: HX OF CKD, HTN, SVT, MEDICAL NONCOMPLIANCE, GOUT, A FIB H&P: 09-22-18: RENAL INSUFFICIENCY WITH MILD DEHYDRATION RISK FACTORS: H&P: 09-22-18: RENAL INSUFFICIENCY WITH MILD DEHYDRATION H&P 09-22-18: HX OF CKD, HTN, SVT, MEDICAL NONCOMPLIANCE, GOUT, A FIB TREATMENTS: ER: IVF NS MAR: 09-22-18: D5 NS IVF (This form is maintained as a part of the permanent medical record) 2014 [employer]. All Rights Reserved [email or web address] Office: [phone] [facility]
--- NOTE | 2018-09-24 15:23 | PQF ---
DATE: 09-24-18 ATTN: DR. TEO LUCAS Please exercise your independent, professional judgment in responding to the clarification form. Clinical indicators are provided on the bottom of this form for your review Please check appropriate box(s): [ ] Encephalopathy: Type: [ ] Acute [ ] Subacute [ ] Chronic Etiology: [ ] Metabolic [ ] Toxic [ ] Septic [ ] Other (please specify) [ ] Transient Alteration of Awareness [ x ] Other diagnosis Dementia [ ] Unable to determine In addition, please specify: Present on Admission (POA): [ x ] Yes [ ] No [ ] Unable to determine For continuity of documentation, please document condition throughout progress notes and discharge summary. Thank You. CLINICAL INDICATORS - SIGNS / SYMPTOMS / LABS: ER: HAS HAD SEVERAL EPISODES WHERE SHE IS UNRESPONSIVE H&P: 09-23-18: LEFT BUTTOCK ABSCESS WITH SEPSIS H&P 09-23-18: AT THIS POINT, SHE WAS BROUGHT IN BECAUSE THE FAMILY STATES THAT HER CONFUSION WAS WORSE THAN USUAL, EVEN THOUGH SHE HAS A VERY DENSE DEMENTIA, WHO IS AROUSEABLE AND ALERT, BUT VERY CONFUSED, DOES NOT RECOGNIZE THE EXAMINER WHO SHE SAW IN HIS OFFICE JUST 5 DAYS EARLIER. RISK FACTORS: H&P: 09-23-18: LEFT BUTTOCK ABSCESS WITH SEPSIS TREATMENTS: ER: VANCOMYCIN IV, ZOSYN IV, NS IV (This form is maintained as a part of the permanent medical record) 2014 [employer] All Rights Reserved [email or web address] Office: [phone] [facility]
[2018-09-25] MEDS: Piperacillin/Tazobactam 4.5 GM in Sodium Chloride 0.9% 100 ML IVPB SCH ×3 (00:54→16:35)
[2018-09-25] MEDS: traMADol HCl 50 MG TAB PO SCH ×4 (03:30→23:31)
[2018-09-25] MEDS: Dextrose 5 % And 0.9 % NaCl 1,000 ML IV SCH ×2 (05:11→23:35)
[2018-09-25] MEDS: Budesonide 0.5 MG/2 ML NEB NEB SCH ×2 (06:34→18:27)
[2018-09-25 07:12] LABS: Hemoglobin 7.3 g/dL (12.0-16.0); Mean Corpuscular HGB CONC 31.9 g/dL (32.0-36.0); Mean Corpuscular Hemoglobin 32.2 pg (27.0-31.0); Mean Platelet Volume 6.7 fL (7.4-10.4); Platelet Count 278 thou/uL (130-400); RBC Distribution Width 14.8 % (11.5-14.5); Red Blood Cell (RBC) Count 2.27 mill/uL (4.20-5.40); White Blood Cell (WBC) Count 13.4 thou/uL (4.8-10.8)
[2018-09-25 07:41] LABS: Anion Gap 15 mmol/L (10-20); BUN (Urea Nitrogen) 19 mg/dL (9.8-20.1); Calc. Creatinine Clearance 23 mL/min (70-130); Calcium 8.5 mg/dL (7.8-10.44); Carbon Dioxide 16 mmol/L (23-31); Chloride 115 mmol/L (98-107); Estimated GFR-MDRD 24; Glucose 87 mg/dL (83-110); Potassium 4.1 mmol/L (3.5-5.1); Sodium 142 mmol/L (136-145)
[2018-09-25 08:01] LABS: Band 9 % (5-11); Eosinophils 3 % (0-10); Lymphocytes 13 % (21-51); MDiff Complete? YES; Metamyelocyte 2 % (0-0); Monocytes 5 % (0-10); Myelocyte 11 % (0-0); Neutrophil 57 % (42-75); Platelet Morphology Comment Appears Adequate; Polychromasia SLIGHT = 2-3 cells (100X) (0-2/hpf)
[2018-09-25] MEDS ORDERED: Enoxaparin Sodium 30 MG/0.3 ML SYRINGE SC SCH (09:00)
[2018-09-25] MEDS: Ferrous Sulfate 325 MG TAB PO SCH (10:08)
[2018-09-25] MEDS: Folic Acid 1 MG TAB PO SCH (10:08)
[2018-09-25] MEDS: Aspirin Chewable 81 MG TAB PO SCH (10:09)
[2018-09-25] MEDS: Multivit, Therapeutic 1 TAB PO SCH (10:09)
[2018-09-25 13:15] LABS: Hemoglobin 7.2 g/dL (12.0-16.0); Mean Corpuscular HGB CONC 31.8 g/dL (32.0-36.0); Platelet Count 321 thou/uL (130-400); RBC Distribution Width 14.9 % (11.5-14.5); Red Blood Cell (RBC) Count 2.26 mill/uL (4.20-5.40); White Blood Cell (WBC) Count 17.8 thou/uL (4.8-10.8)
[2018-09-25 13:18] LABS: INR-International Normal Ratio 1.1; Prothrombin Time 14.6 SEC (12.0-14.7)
[2018-09-25 13:25] LABS: Vancomycin, Trough 21.4 ug/mL
[2018-09-25 13:28] LABS: ALT (SGPT) 8 U/L (8-55); AST (SGOT) 11 U/L (5-34); Albumin 2.6 g/dL (3.4-4.8); Alkaline Phosphatase 57 U/L (40-150); Bilirubin, Direct 0.1 mg/dL (0.1-0.3); Bilirubin, Total 0.2 mg/dL (0.2-1.2); Protein, Total 6.2 g/dL (6.0-8.3)
[2018-09-25 13:56] LABS: Anisocytosis SLIGHT = 6-15 cells (100X) (0-5/hpf); Band 11 % (5-11); Dohle Bodies SLIGHT; Eosinophils 1 % (0-10); Lymphocytes 9 % (21-51); MDiff Complete? YES; Metamyelocyte 5 % (0-0); Monocytes 7 % (0-10); Myelocyte 5 % (0-0); Neutrophil 59 % (42-75); Platelet Morphology Comment Appears Adequate; Polychromasia SLIGHT = 2-3 cells (100X) (0-2/hpf); Promyelocytes 2 % (0-0); Toxic Granulation SLIGHT
[2018-09-25] MEDS ORDERED: Vancomycin HCl 500 MG in Sodium Chloride 0.9% 100 ML IVPB SCH (15:00)
[2018-09-25] MEDS: Vancomycin HCl 750 MG in Sodium Chloride 0.9% 250 ML 250 ML IVPB SCH (16:54)
[2018-09-25] MEDS ORDERED: MEROPENEM 1 GM/50 ML 1 GM in Premix Bag 1 BAG IVPB SCH ×2 (21:00→22:30)
[2018-09-25] MEDS: Vancomycin HCl 25 MG/ML Oral PO SCH (23:34)
[2018-09-26] MEDS: Vancomycin HCl 500 MG in Sodium Chloride 0.9% 100 ML IVPB SCH ×2 (00:55→23:02)
[2018-09-26] MEDS: traMADol HCl 50 MG TAB PO SCH ×4 (02:10→20:06)
[2018-09-26] MEDS: metroNIDAZOLE 250 MG in Admixture Fee 1 EACH IVPB SCH ×3 (06:25→22:59)
[2018-09-26] MEDS: Vancomycin HCl 25 MG/ML Oral PO SCH ×4 (06:25→23:02)
[2018-09-26] MEDS: Dextrose 5 % And 0.9 % NaCl 1,000 ML IV SCH ×3 (06:27→23:00)
[2018-09-26] MEDS: Multivit, Therapeutic 1 TAB PO SCH (09:23)
[2018-09-26] MEDS: Ferrous Sulfate 325 MG TAB PO SCH (09:23)
[2018-09-26] MEDS: Folic Acid 1 MG TAB PO SCH (09:23)
[2018-09-26] MEDS: MEROPENEM 1 GM/50 ML 1 GM in Premix Bag 1 BAG IVPB SCH ×2 (09:27→20:07)
[2018-09-26] MEDS: Budesonide 0.5 MG/2 ML NEB NEB SCH ×2 (10:40→18:24)
[2018-09-26] MEDS ORDERED: HYDROcodone/Acetaminophen 5/325 mg Tablet PO SCH (15:15)
--- NOTE | 2018-09-26 16:39 | RAD ---
KUB: 09/26/2018 HISTORY: Evaluate Dobbhoff tube placement FINDINGS: Supine imaging of abdomen demonstrates a Dobbhoff tube within the upper abdomen, distal tip in the region of the distal stomach or proximal duodenum. Evaluation for bowel obstruction and free intraperitoneal air is limited on portable supine imaging. IMPRESSION: Dobbhoff tube as above.
--- NOTE | 2018-09-26 17:08 | PRG ---
DATE OF SERVICE: 09/26/2018 SUBJECTIVE: Ms. Hernández is more alert today. She is not eating much. She is going to get a Dobbhoff tube to help her take the medications and take more nutritional input. Still has those diffuse area of ecchymoses, but the bleeding seems to have stopped. No respiratory symptoms or abdominal pain. She has a Robert catheter in place. OBJECTIVE: VITAL SIGNS: With a T-max 98.2, blood pressure 140/75, pulse is 96, respirations 20, and O2 sat 98%. EXTREMITIES: There are multiple areas of bruising and superficial hematomas and she has this area of laceration in the left arm and the gluteal abscesses, which are packed at this time, but no active bleeding. She is able to move extremities with some limitations. LABORATORY DATA: White cell count is at 17.8 from yesterday; hemoglobin 7.2, which is stable. Differential was normal except for increased metamyelocytes and myelocytes. Chemistry with a creatinine at 2.0, sodium 142. Liver profile normal. Microbiology with negative blood cultures. Positive C difficile test and now we have anaerobic organisms in the gluteal abscess including 3 different anaerobes including Clostridium perfringens. ASSESSMENT AND DISCUSSION: 1. 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 She has had caught cardiac ablation and has been on Eliquis, now presents with perirectal abscesses, which have been I and D'd by Dr. Valle with a typical polymicrobial veda retrieved. 2. Apparent bleeding diaphysis in multiple sites, mostly surgical sites, areas of laceration of the skin. Zosyn has been discontinued since it may affect platelet function. Aspirin and Lovenox discontinued. She is on meropenem and seems to have improved from that standpoint. Eventually, the plan is to switch her to oral treatment for the perirectal abscesses and there are still quite a few days to go to stabilize her clinical situation. Job ID: [id number]
[2018-09-27] MEDS: traMADol HCl 50 MG TAB PO SCH ×3 (03:10→15:45)
[2018-09-27] MEDS ORDERED: HYDROcodone/Acetaminophen 5/325 mg Tablet PO SCH (06:00)
[2018-09-27] MEDS: Vancomycin HCl 25 MG/ML Oral PO SCH ×3 (06:08→17:04)
[2018-09-27] MEDS: metroNIDAZOLE 250 MG in Admixture Fee 1 EACH IVPB SCH ×3 (06:09→23:53)
[2018-09-27 06:18] LABS: #Eosinphils 0.2 thou/uL (0.0-0.7); #Lymphocytes 3.4 thou/uL (1.20-3.40); #Neutrophils 8.6 thou/uL (1.40-6.50); %Basophils 0.4 % (0.0-1.0); %Eosinophils 1.4 % (0.0-10.0); %Lymphocytes 25.9 % (21.0-51.0); %Monocytes 7.6 % (0.0-10.0); %Neutrophils 64.7 % (42.0-75.0); Hemoglobin 6.1 g/dL (12.0-16.0); Mean Corpuscular HGB CONC 33.4 g/dL (32.0-36.0); Mean Corpuscular Volume 98.8 fL (78.0-98.0); Mean Platelet Volume 7.2 fL (7.4-10.4); Platelet Count 280 thou/uL (130-400); RBC Distribution Width 14.9 % (11.5-14.5); Red Blood Cell (RBC) Count 1.84 mill/uL (4.20-5.40); White Blood Cell (WBC) Count 13.3 thou/uL (4.8-10.8)
[2018-09-27 06:23] LABS: Anion Gap 15 mmol/L (10-20); BUN (Urea Nitrogen) 16 mg/dL (9.8-20.1); Calc. Creatinine Clearance 30 mL/min (70-130); Calcium 8.3 mg/dL (7.8-10.44); Carbon Dioxide 17 mmol/L (23-31); Chloride 114 mmol/L (98-107); Estimated GFR-MDRD 32; Glucose 81 mg/dL (83-110); Potassium 3.7 mmol/L (3.5-5.1); Sodium 142 mmol/L (136-145)
[2018-09-27 06:32] LABS: Lactic Acid 1.8 mmol/L (0.5-2.2)
[2018-09-27] MEDS: Budesonide 0.5 MG/2 ML NEB NEB SCH ×2 (07:44→19:35)
[2018-09-27] MEDS: Multivit, Therapeutic 1 TAB PO SCH (08:27)
[2018-09-27] MEDS: Folic Acid 1 MG TAB PO SCH (08:27)
[2018-09-27] MEDS: Ferrous Sulfate 325 MG TAB PO SCH (08:27)
[2018-09-27] MEDS: MEROPENEM 1 GM/50 ML 1 GM in Premix Bag 1 BAG IVPB SCH (08:28)
[2018-09-27] MEDS: Dextrose 5 % And 0.9 % NaCl 1,000 ML IV SCH ×2 (12:53→12:55)
[2018-09-27] MEDS ORDERED: Lorazepam 1 MG TAB PO SCH (17:00)
[2018-09-27] MEDS: Acetaminophen 325 MG TAB PO SCH ×2 (17:04→22:15)
--- NOTE | 2018-09-27 18:16 | CON ---
DATE OF CONSULTATION: REASON FOR CONSULTATION: Hemorrhagic areas, perirectal abscess. HISTORY OF PRESENT ILLNESS: A 78-year-old, who has a history of gout, hypertension, renal insufficiency, and chronic atrial fibrillation, SVT, COPD, and alcoholism, who lives alone, I believe, in [place] and presented to Dr. Mary' office with left foot pain with the foot appeared swollen and tender. She did have a lot of bruising in the skin of upper and lower extremities. The x-ray of the foot did not show any fracture. After that, she went home and continued to have intermittent fall episodes associated with near-syncopal events and syncopal events. She was taken to urgent care and a chest x-ray did not show any infiltrates. She was again dismissed, and finally, she was brought to [facility] ER for recurrent syncopal events. She did have a large gluteal perineal inflammatory process with neutrophilia of 20,[address] Valle did a surgical debridement on 09/23, the operative report was reviewed, and both abscess cavities were approached and irrigated, and after debridement, one was larger, and was packed. Cultures have yielded polymicrobial veda with E. faecium and anaerobes. She has been started on antimicrobials including Zosyn. We were asked to see the patient because of worsening hemorrhagic manifestations, particularly bleeding at the operative site and what appears to be bleeding in the areas of bruising in the extremities. The patient herself is drowsy, appears acutely and chronically ill. She does not have headaches. No respiratory symptoms. No chest pain. No abdominal pain. She has pain in the area of the surgical debridement. MEDICAL HISTORY: Includes; 1. Gout. 2. Hypertension. 3. Anemia. 4. Chronic renal insufficiency. 5. AFib. 6. SVT. 7. COPD. 8. Anxiety. 9. Alcoholism. SOCIAL HISTORY: Lives by herself, I believe, in [place]. Drinks daily. Smokes daily. Looks like she has her son helps her out. ALLERGIES: NONE. MEDICATIONS: At home; 1. Folic acid. 2. Diltiazem. 3. Iron. 4. Aspirin. 5. Albuterol. 6. Symbicort. 7. Mirtazapine. In the hospital; in addition, she was on Zosyn. FAMILY HISTORY: Noncontributory. PHYSICAL EXAMINATION: VITAL SIGNS: T-max 99.5, blood pressure 140/60, pulse 113, respirations 20, and O2 saturation 97. SKIN: Multiple areas of bruising, superficial skin dermal hemorrhage, covered by a thin layer of skin and she has those areas of perirectal abscess, which are packed and have a thin continuous steady bleeding, emanating from them. She has a peripheral IV access and indwelling Robert catheter. GENERAL: She is somewhat drowsy, has a hard time in interacting with the examiner, a bit disoriented. HEENT: Ocular movements conjugate. Oral cavity with numerous missing teeth, remainder ones with marked decay. NECK: Supple. No jugular vein distention. LUNGS: Symmetric air entry. HEART: S1 and S2. Regular rate. ABDOMEN: Soft, not distended or tender. No ascites. No bladder distention. 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 Pulses 1+ in dorsalis pedis. Onychodystrophy noted. NEUROLOGIC: No focal neurological findings. She is awake, a little bit confused, has a hard time following commands in replying to questions. LABORATORY DATA: White cell count was 23, down to 13.4; hemoglobin 7.3; platelets 278 with a normal differential except for lymphocytopenia. INR was 1.2 and aPTT 30.6. Sodium 141 and 142, creatinine is up to 2.0. Urinalysis was normal. Vancomycin trough 12.3. Microbiology has been discussed. Two sets of blood cultures, no growth thus far. C diff was positive for antigen and toxin was not detected by PCR. Abdominal x-ray with Dobhoff tube. ASSESSMENT: 1. Alcoholism. 2. Perirectal abscess status post surgical debridement with usual polymicrobial veda. 3. Hemorrhagic manifestations with skin bruising and superficial dermal hemorrhage in various parts of her appendicular skin and chest. 4. Clostridium difficile antigen positivity. DISCUSSION: The patient's increased rates of bleeding may be related to platelet dysfunction. The dose of Zosyn is higher than the recommended in view of her renal dysfunction, and at this point, we will discontinue Zosyn and switch her to dose-adjusted meropenem. We will start oral vancomycin for the C diff until a second sample submitted. The 1st sample did not have a toxin PCR submitted. If the toxin PCR is negative and if she does not have diarrhea, then I would interpret the results as reflecting colonization without actual colitis. Job ID: [id number]
--- NOTE | 2018-09-27 20:25 | MRI ---
MRI OF THE RIGHT MIDFOOT AND FOREFOOT: Date: 09-27-18 Provided Clinical History: Foot infection. FINDINGS: The examination is extremely limited on the basis of patient motion. There is no gross abnormality ev ident to suggest osteomyelitis. Evaluation for focal fluid collection within the soft tissues is not possible on the basis of this study. No gross evidence for regional joint effusion. Alignment appears grossly anatomic. Joint spaces appear grossly preserved. Nonspecific signal alteration involving the subcutaneous adipose at the dorsum of the foot, regarding integrity of the tendons of the foot is no t possible. IMPRESSION: Extremely limited study. No gross evidence for osteomyelitis. If there is persistent clinical concern , repeat examination when the patient is able to tolerated such is recommended. POS: JANET
--- NOTE | 2018-09-27 23:28 | RAD ---
KUB: 09/27/2018 COMPARISON: 09/26/2018 HISTORY: Evaluate Dobbhoff tube placement FINDINGS: The Dobbhoff tube has been retracted since the prior exam. The distal tip now overlies the region of the proximal gastric body to the left of midline. The bowel gas pattern appears nonobstructed. The distal tip of the Dobbhoff tube previously overlaid the distal stomach/proximal du odenum to the right of midline. IMPRESSION: Dobbhoff tube as above.
[2018-09-27 23:48] LABS: Vancomycin, Trough 20.3 ug/mL
[2018-09-28] MEDS: MEROPENEM 1 GM/50 ML 1 GM in Premix Bag 1 BAG IVPB SCH ×3 (00:08→22:49)
[2018-09-28] MEDS: Vancomycin HCl 500 MG in Sodium Chloride 0.9% 100 ML IVPB SCH ×2 (01:01→23:35)
[2018-09-28] MEDS: Vancomycin HCl 25 MG/ML Oral PO SCH ×5 (01:02→23:35)
[2018-09-28] MEDS: Dextrose 5 % And 0.9 % NaCl 1,000 ML IV SCH ×4 (01:04→23:36)
[2018-09-28] MEDS: metroNIDAZOLE 250 MG in Admixture Fee 1 EACH IVPB SCH ×3 (06:41→23:01)
[2018-09-28 07:09] LABS: #Eosinphils 0.5 thou/uL (0.0-0.7); #Lymphocytes 1.7 thou/uL (1.20-3.40); #Monocytes 0.7 thou/uL (0.11-0.59); #Neutrophils 5.2 thou/uL (1.40-6.50); %Basophils 0.6 % (0.0-1.0); %Eosinophils 5.6 % (0.0-10.0); %Lymphocytes 20.8 % (21.0-51.0); %Monocytes 8.6 % (0.0-10.0); %Neutrophils 64.4 % (42.0-75.0); Hemoglobin 6.2 g/dL (12.0-16.0); Mean Corpuscular HGB CONC 34.2 g/dL (32.0-36.0); Mean Corpuscular Hemoglobin 33.7 pg (27.0-31.0); Mean Corpuscular Volume 98.4 fL (78.0-98.0); Mean Platelet Volume 7.6 fL (7.4-10.4); Platelet Count 172 thou/uL (130-400); RBC Distribution Width 15.3 % (11.5-14.5); Red Blood Cell (RBC) Count 1.83 mill/uL (4.20-5.40); White Blood Cell (WBC) Count 8.1 thou/uL (4.8-10.8)
[2018-09-28] MEDS: Budesonide 0.5 MG/2 ML NEB NEB SCH ×2 (07:16→19:54)
--- NOTE | 2018-09-28 07:18 | RAD ---
Single view of the abdomen INDICATION: Dobbhoff tube placement Comparison prior exam dated September 27, 2018 FINDINGS: The Dobbhoff feeding tube tip is now in the region of the fundus. The remainder of the exam ination is unchanged. IMPRESSION: Dobbhoff feeding tube tip in the region of the gastric fundus.
[2018-09-28 07:23] LABS: Anion Gap 12 mmol/L (10-20); BUN (Urea Nitrogen) 16 mg/dL (9.8-20.1); Calc. Creatinine Clearance 31 mL/min (70-130); Calcium 7.5 mg/dL (7.8-10.44); Carbon Dioxide 17 mmol/L (23-31); Chloride 115 mmol/L (98-107); Estimated GFR-MDRD 33; Glucose 90 mg/dL (83-110); Sodium 140 mmol/L (136-145)
--- NOTE | 2018-09-28 07:31 | CON ---
DATE OF CONSULTATION: 09/25/2018 REASON FOR CONSULTATION: Gluteal abscesses, perirectal abscesses, and coagulopathy. 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 On March 04, 2018, she was admitted with symptomatic anemia and GI bleed. The Eliquis has been restarted and this was held. She had an EGD which showed significant gastropathy, probably the source of the bleeding. She was continued on Protonix and was told to resume her Eliquis. In July 19, 2018, she was admitted with a femoral neck fracture, left side, which underwent repair by Dr. Awan. Finally, on May 28, 2018, she had syncopal event. It was felt that it was partially related to the patient having had her usual alcoholic beverage which she drinks daily. She was given Omnicef for 10 days and now she is admitted because of another episode of "syncopal event and fall." Apparently, she was having several episodes of syncopal events with unresponsiveness. On arrival, she did not appear to be in distress or did not have any tachypnea. She can be very specific about the history of the current illness. She did deny fevers or chills. Denied any respiratory symptoms. No sore throat and no vomiting. No bleeding. The exam showed a BP 127/66, pulse 122, temperature 97.7, pulse 106, O2 saturation 96%. The exam showed normal respiratory and cardiovascular examination. The abdomen was nontender. There is a large abscess in the left gluteal region and perineal area. No evidence of necrosis or crepitus. Initial labs with white cell count 23,000, hemoglobin 9.2, platelets 424 with 38% bands. INR was 1.2. PTT was 30.6. The sodium 133, creatinine 2.26 with a baseline of 1.22 earlier this year. Lactic acid was 2.8, calcium 7.6. Liver profile normal. Albumin 3.1. Urinalysis was normal. Initial imaging studies included an abdomen and pelvis CT, which demonstrated a left perianal and perirectal abscess, right total hip replacement, arthroplasty, right nephrectomy. The patient underwent surgical intervention by Dr. Valle. The operative report was reviewed and the abscesses were accessed and irrigated. The cavities were packed with Kerlix gauze. Currently, Ms. Hernández is lying on her right lateral decubitus. She is having the dressing changes by the staff. She is awake and does follow some commands, but she cannot give a full history. She was disoriented. She knew she was in the hospital, but she did not know exactly which hospital and got the name of the city wrong as well, did not know the date. She denies any headaches. No respiratory symptoms. No abdominal pain. The nursing staff had noticed increasing bleeding from the areas of abscess debridement and they also noticed areas of bruising in the skin of the extremities, shoulders, and areas of previous laceration in the extremities. PAST MEDICAL HISTORY: Includes coronary artery disease; atrial fibrillation with cardiac ablation; ischemic cardiomyopathy; previous respiratory failure and intubation; gastritis; GI bleed; hysterectomy; dementia; lumpectomy; history of alcohol abuse, likely some element of alcohol dependency; chronic smoking history as well up to 1998. FAMILY HISTORY: Coronary artery disease. ALLERGIES: NONE. CURRENT MEDICATIONS: 1. Tylenol. 2. Pulmicort. 3. Cardizem. 4. Feosol. 5. Folvite. 6. Ativan. 7. Zosyn. 8. Theragran. 9. Vancomycin. PHYSICAL EXAMINATION: VITAL SIGNS: T-max 98.6 to 99, blood pressure 140/65, pulse 100, respirations 18, O2 saturation 94%. SKIN: Shows the areas of perirectal inflammatory change, which have been I and D'd by Dr. Valle, now has a slit-like openings with packing, one bigger opening in the left side of the perirectal region. In addition to that, the patient has multiple areas of bruising, some areas of laceration of the skin. This is quite extensive structures. She has a peripheral IV access and has an indwelling Robert catheter. No lymphadenopathy. HEENT: Ocular movements are conjugate. Sclerae white. Pupils are 2 mm and reactive. Conjunctivae somewhat pale. Nasal passages patent. Oral cavity; numerous missing teeth, remaining ones with quite a bit of decay. Oral mucosa is somewhat dry. NECK: Supple. No jugular venous distention or carotid bruits. No thyromegaly. LUNGS: Symmetric, clear breath sounds. HEART: S1 and S2, regular rate with a soft aortic murmur. No S3 or S4. ABDOMEN: Soft, not distended or tender. No ascites. No distention. MUSCULOSKELETAL: No joint inflammatory activity. She is able to move extremities, which is diffusely weak. Pulses are 1+ in dorsalis pedis. Plantar response are flexure. NEUROLOGIC: She is awake, but confused, appears chronically ill. LABORATORY DATA: White cell count now is 17.8, hemoglobin 7.2, platelets of 321, 59% neutrophils, 11% bands, which is down from admission, 9% lymphocytes. She still has 5% metamyelocytes and 1% monocytes and 2% promyelocytes. The creatinine has improved to 1.74. Urinalysis is normal. Microbiology from the abscess showed Enterococcus faecium. The susceptibility showed resistance to beta-lactam, susceptibility to doxycycline, vancomycin, and linezolid. The Gram stain demonstrated polymicrobial veda with positive cocci . Two sets of blood culture had no growth at 48 hours. The Clostridium difficile test was done in stool, it was mostly mucus. For some reason, the PCR was not performed, but the antigen was positive. ASSESSMENT: 1. Dementia. 2. Coronary artery disease. 3. Atrial fibrillation, previously on Eliquis. 4. Recurrent episodes of fall associated with presumed syncopal events of uncertain etiology with the most recent one which led to the current admission. 5. Sepsis with perirectal abscess x2, status post surgical debridement with polymicrobial veda. 6. Coagulopathy with increased bleeding after admission. DISCUSSION: The reason for the syncopal event appears to be multifactorial. This time, it appears to be related to her infectious process which was only disclosed once she was brought to the emergency room for full exam. She also has this positive test for Clostridium difficile and likely diarrheal stools, needs to be treated for that with oral vancomycin ideally if she is able to maintain oral intake. The coagulopathy may be exacerbated by the continuation of aspirin as well as Lovenox and those need to be discontinued for the time being. I would also advise adjustment of the dose of Zosyn, which is switching over to a different antimicrobial such as Zosyn will cause platelet dysfunction. GFR is down in the mid 20s and she is receiving excessive amount of Zosyn for the level of GFR. We will basically add vancomycin oral and IV Flagyl until the oral intake of vancomycin established and then switch her to the meropenem. Job ID: [id number]
[2018-09-28] MEDS: Acetaminophen 325 MG TAB PO SCH ×4 (10:11→22:49)
[2018-09-28] MEDS: Multivit, Therapeutic 1 TAB PO SCH (10:11)
[2018-09-28] MEDS: Folic Acid 1 MG TAB PO SCH (10:12)
[2018-09-28] MEDS: Ferrous Sulfate 325 MG TAB PO SCH (10:12)
--- NOTE | 2018-09-29 00:10 | HP ---
PROGRESS NOTE: SUBJECTIVE: Ms. cuevas has a Dobbhoff tube. She looks better. Still looks chronically ill. Has been afebrile. Ocular movements conjugate. No more bleeding. Perirectal abscesses look clean except for some stool in one of the wounds. She has a soft stool in the rectal vault. After washing, the wounds appear clean base. OBJECTIVE: HEART: S1 and S2, regular rate. ABDOMEN: Soft and nondistended. LABORATORY DATA: White cell count is down to 8.1, hemoglobin 6.2, platelets 172 , and differential has normalized. Sodium 140, creatinine 1.53, glucose 90. Liver profile normal. ASSESSMENT AND DISCUSSION: Alcoholism with perirectal abscess, status post surgical debridement with usual polymicrobial veda. Hemorrhagic manifestations with skin bruising, probably secondary to excessive dosing. Clostridium difficile antigen positivity. The patient is improving steadily and will continue with nutritional support and wound care. She had a MRI of the foot, which did not show any evidence of osteomyelitis. Job ID: [id number] [facility]
[2018-09-29] MEDS: Vancomycin HCl 25 MG/ML Oral PO SCH ×3 (05:03→18:01)
[2018-09-29] MEDS: metroNIDAZOLE 250 MG in Admixture Fee 1 EACH IVPB SCH ×3 (05:03→20:51)
[2018-09-29] MEDS: Budesonide 0.5 MG/2 ML NEB NEB SCH ×2 (06:40→19:05)
[2018-09-29] MEDS ORDERED: Pancrelipase DR 12000 1 CAP PER TUBE PRN (08:07)
[2018-09-29] MEDS ORDERED: Sodium Bicarbonate Tab 325 MG TAB PER TUBE PRN (08:08)
[2018-09-29 09:11] LABS: #Eosinphils 0.7 thou/uL (0.0-0.7); #Lymphocytes 2.2 thou/uL (1.20-3.40); #Monocytes 1.2 thou/uL (0.11-0.59); #Neutrophils 7.8 thou/uL (1.40-6.50); %Basophils 0.3 % (0.0-1.0); %Eosinophils 5.6 % (0.0-10.0); %Lymphocytes 18.1 % (21.0-51.0); %Monocytes 10.3 % (0.0-10.0); %Neutrophils 65.7 % (42.0-75.0); Hemoglobin 8.9 g/dL (12.0-16.0); Mean Corpuscular HGB CONC 33.4 g/dL (32.0-36.0); Mean Corpuscular Hemoglobin 31.8 pg (27.0-31.0); Mean Corpuscular Volume 95.4 fL (78.0-98.0); Mean Platelet Volume 7.4 fL (7.4-10.4); Platelet Count 266 thou/uL (130-400); RBC Distribution Width 15.8 % (11.5-14.5); Red Blood Cell (RBC) Count 2.79 mill/uL (4.20-5.40); White Blood Cell (WBC) Count 11.9 thou/uL (4.8-10.8)
[2018-09-29 09:31] LABS: Anion Gap 12 mmol/L (10-20); BUN (Urea Nitrogen) 21 mg/dL (9.8-20.1); Calc. Creatinine Clearance 29 mL/min (70-130); Calcium 7.9 mg/dL (7.8-10.44); Carbon Dioxide 19 mmol/L (23-31); Chloride 111 mmol/L (98-107); Estimated GFR-MDRD 31; Glucose 104 mg/dL (83-110); Potassium 3.9 mmol/L (3.5-5.1); Sodium 138 mmol/L (136-145)
[2018-09-29] MEDS: Acetaminophen 325 MG TAB PO SCH ×4 (10:53→20:50)
[2018-09-29] MEDS: Dextrose 5 % And 0.9 % NaCl 1,000 ML IV SCH ×2 (10:53→18:01)
[2018-09-29] MEDS: MEROPENEM 1 GM/50 ML 1 GM in Premix Bag 1 BAG IVPB SCH ×2 (10:54→20:51)
[2018-09-29] MEDS: Folic Acid 1 MG TAB PO SCH (10:54)
[2018-09-29] MEDS: Ferrous Sulfate 325 MG TAB PO SCH (10:54)
[2018-09-29] MEDS: Multivit, Therapeutic 1 TAB PO SCH (10:54)
[2018-09-29] MEDS: Lorazepam 2 MG/ML VIAL SLOW IVP PRN (20:52)
[2018-09-29 22:02] LABS: Band 4 % (5-11); Eosinophils 5 % (0-10); Hemoglobin 8.9 g/dL (12.0-16.0); Hypochromia SLIGHT = 6-15 cells (100X) (0-5/hpf); Lymphocytes 14 % (21-51); MDiff Complete? YES; Mean Corpuscular HGB CONC 33.4 g/dL (32.0-36.0); Mean Corpuscular Hemoglobin 31.9 pg (27.0-31.0); Mean Corpuscular Volume 95.5 fL (78.0-98.0); Mean Platelet Volume 7.7 fL (7.4-10.4); Monocytes 10 % (0-10); Neutrophil 67 % (42-75); Platelet Count 172 thou/uL (130-400); Platelet Morphology Comment Appears Adequate; RBC Distribution Width 15.5 % (11.5-14.5); Red Blood Cell (RBC) Count 2.78 mill/uL (4.20-5.40); Toxic Granulation SLIGHT; White Blood Cell (WBC) Count 9.1 thou/uL (4.8-10.8)
[2018-09-29 22:09] LABS: Anion Gap 13 mmol/L (10-20); BUN (Urea Nitrogen) 19 mg/dL (9.8-20.1); Calc. Creatinine Clearance 29 mL/min (70-130); Calcium 7.5 mg/dL (7.8-10.44); Carbon Dioxide 18 mmol/L (23-31); Chloride 113 mmol/L (98-107); Estimated GFR-MDRD 31; Glucose 93 mg/dL (83-110); Potassium 4.7 mmol/L (3.5-5.1); Sodium 139 mmol/L (136-145)
[2018-09-30 00:07] LABS: Vancomycin, Trough 21.2 ug/mL
[2018-09-30] MEDS: Vancomycin HCl 500 MG in Sodium Chloride 0.9% 100 ML IVPB SCH (00:45)
[2018-09-30] MEDS: Vancomycin HCl 25 MG/ML Oral PO SCH ×4 (00:45→17:47)
[2018-09-30] MEDS: Dextrose 5 % And 0.9 % NaCl 1,000 ML IV SCH ×3 (00:46→17:44)
[2018-09-30 05:34] LABS: #Eosinphils 0.6 thou/uL (0.0-0.7); #Lymphocytes 1.9 thou/uL (1.20-3.40); #Neutrophils 7.6 thou/uL (1.40-6.50); %Basophils 0.4 % (0.0-1.0); %Eosinophils 5.6 % (0.0-10.0); %Lymphocytes 17.2 % (21.0-51.0); %Monocytes 8.5 % (0.0-10.0); %Neutrophils 68.3 % (42.0-75.0); Hemoglobin 8.7 g/dL (12.0-16.0); Mean Corpuscular HGB CONC 32.9 g/dL (32.0-36.0); Mean Corpuscular Hemoglobin 31.7 pg (27.0-31.0); Mean Corpuscular Volume 96.2 fL (78.0-98.0); Platelet Count 254 thou/uL (130-400); RBC Distribution Width 15.7 % (11.5-14.5); Red Blood Cell (RBC) Count 2.75 mill/uL (4.20-5.40); White Blood Cell (WBC) Count 11.1 thou/uL (4.8-10.8)
[2018-09-30] MEDS: metroNIDAZOLE 250 MG in Admixture Fee 1 EACH IVPB SCH ×3 (05:47→21:18)
[2018-09-30 05:52] LABS: Anion Gap 11 mmol/L (10-20); BUN (Urea Nitrogen) 19 mg/dL (9.8-20.1); Calc. Creatinine Clearance 36 mL/min (70-130); Calcium 7.8 mg/dL (7.8-10.44); Carbon Dioxide 19 mmol/L (23-31); Chloride 114 mmol/L (98-107); Estimated GFR-MDRD 32; Glucose 105 mg/dL (83-110); Potassium 3.7 mmol/L (3.5-5.1); Sodium 140 mmol/L (136-145)
[2018-09-30] MEDS: Budesonide 0.5 MG/2 ML NEB NEB SCH ×2 (06:56→18:16)
[2018-09-30] MEDS: Acetaminophen 325 MG TAB PO SCH ×4 (08:50→21:18)
[2018-09-30] MEDS: Multivit, Therapeutic 1 TAB PO SCH (08:50)
[2018-09-30] MEDS: Ferrous Sulfate 325 MG TAB PO SCH (08:50)
[2018-09-30] MEDS: Folic Acid 1 MG TAB PO SCH (08:51)
[2018-09-30] MEDS: MEROPENEM 1 GM/50 ML 1 GM in Premix Bag 1 BAG IVPB SCH ×2 (08:51→21:18)
--- NOTE | 2018-09-30 14:43 | SPC ---
Sonographic guided left upper extremity PICC HISTORY: Abscess. Need for long-term antibiotics. FINDINGS: After explaining the procedure and answering all questions, the left upper extremity was pr epped and draped in usual sterile fashion. Sterile technique, buffered local anesthesia, sonographic guidance, and a 22-gauge needle were used to carefully access the left cephalic vein. A m easurement guidewire was easily passed to the superior vena cava. Catheter was performed. The catheter persistently held up at the junction of the cephalic vein with the subclavian vein. Small am ount of contrast was injected to confirm patency. A 0.018 Glidewire was also passed through the second lumen of the catheter. Catheter was eventually manipulated so that the tip lies at the level o f the superior vena cava. Patient tolerated the procedure well and was returned in unchanged condition. Fluoroscopy time 2.2 minutes. IMPRESSION: Technically successful left upper extremity PICC placement. Catheter is now ready for use .
[2018-09-30] MEDS ORDERED: Heparin 1,000 UNITS/ML VIAL ONE (21:26)
--- NOTE | 2018-09-30 21:43 | RAD ---
XR Chest 1 View Portable History: [Respiratory distress] Comparison: Radiograph September 21, 2018 Findings: A catheter projects over the midline hemithorax. Central venous catheter tip sits at the in ferior SVC. Mild scarring lung bases. No pneumothorax. No effusion. Impression: Chronic findings. No acute intrathoracic abnormality.
[2018-10-01] MEDS: Vancomycin HCl 500 MG in Sodium Chloride 0.9% 100 ML IVPB SCH (01:05)
[2018-10-01] MEDS: Vancomycin HCl 25 MG/ML Oral PO SCH ×4 (01:05→17:11)
[2018-10-01] MEDS: Dextrose 5 % And 0.9 % NaCl 1,000 ML IV SCH ×3 (05:44→22:28)
[2018-10-01] MEDS: metroNIDAZOLE 250 MG in Admixture Fee 1 EACH IVPB SCH ×3 (05:44→23:26)
[2018-10-01] MEDS: Budesonide 0.5 MG/2 ML NEB NEB SCH ×2 (07:15→18:30)
[2018-10-01] MEDS: Folic Acid 1 MG TAB PO SCH (09:35)
[2018-10-01] MEDS: Ferrous Sulfate 325 MG TAB PO SCH (09:35)
[2018-10-01] MEDS: Multivit, Therapeutic 1 TAB PO SCH (09:35)
[2018-10-01] MEDS: Acetaminophen 325 MG TAB PO SCH ×4 (09:35→21:39)
[2018-10-01] MEDS: MEROPENEM 1 GM/50 ML 1 GM in Premix Bag 1 BAG IVPB SCH ×2 (09:36→21:40)
--- NOTE | 2018-10-01 10:43 | PQF ---
Date: 10-01-18 ATTN: DR. TEO LUCAS Please exercise your independent, professional judgment in responding to the clarification form. Clinical indicators are provided on the bottom of this form for your review Please check appropriate box(s): [ x ] Protein Calorie Malnutrition: [ ] Mild [ x ] Moderate [ ] Severe [ ] Cachexia [ ] Other diagnosis [ ] Unable to determine In addition, please specify: Present on Admission (POA): [ ] Yes [ ] No [ ] Unable to determine CLINICAL INDICATORS - SIGNS / SYMPTOMS / LABS: PN DR. TEO LUCAS 09-26-18: ANOREXIA WITH PROTEIN MALNUTRITION, PLACE DOBBHOFF PN DR. TEO LUCAS 09-27-18: ANOREXIA NUTRITION ASSESSMENT 09-23-18: 07/20. NUTRITION WORKER evaluated swallow function yesterday , recommended mechanical soft textures with extra sauce and thin liquids. Patient exhibiting weakness and lethargy over the weekend, refused PO intake on Friday so had a Dobbhoff placed. She has pulled out her Dobbhoff x2, RN has replaced. MD ordered Suplena TF at goal rate of 35 mL/hr , Edema: 3+ non-pitting to L arm, 2+ non-pitting to R arm RISK FACTORS: NUTRITION ASSESSMENT 09-23-18: gout, HTN, anemia, CKD, afib, SVT, COPD, anxiety, medical noncompliance, alcoholism; WCT discharged non-pressure ulcer to R foot; abscess to L buttock also noted by nursing TREATMENT: NUTRITION ASSESMENT 09-23-18: refused PO intake on Friday so had a dobhoff placed. NUTRITION ASSESMENT 09-30-18: Continue Suplena TF and advancing as tolerated to goal rate of 40 mL/hr with ProStat once daily Moderate Malnutrition (in acute illness) Energy Intake: <75% of estimated energy requirement for > 7 days Weight Loss: 1-2%/1 week; 5%/ 1 month; 7.5%/3 months Other: mild body fat loss; mild muscle mass loss; mild fluid accumulation; Severe Malnutrition (in acute illness) Energy Intake: < 50% of estimated energy requirement for > 5 days Weight Loss: >1-2%/1 week; >5%/1 month; >7.5%/3 months Other: moderate body fat loss; moderate muscle mass loss; moderate- severe fluid accumulation; measurably reduced rn outpatient surgery strength Moderate Malnutrition (in chronic illness) Energy Intake: <75% of estimated energy requirement for >1 month Weight Loss: 5%/1 month; 7.5%/3 months; 10%/6 months; 20%/1 year Other: mild body fat loss; mild muscle mass loss; mild fluid accumulation Severe Malnutrition (in chronic illness) Energy Intake: <75% of estimated energy requirement for >1 month Weight Loss: >5%/1 month; >7.5%/3 months; >10%/6 months; >20%/1 year Other: severe body fat loss; severe muscle mass loss; severe fluid accumulation ; measurably reduced rn outpatient surgery strength (This form is maintained as a part of the permanent medical record) 2015 [employer]. All Rights Reserved MAIRA [email or web address] Office: [phone] MTDD
[2018-10-01] MEDS: Sodium Chloride 0.9% 1,000 ML IV SCH (21:41)
[2018-10-02] MEDS: Vancomycin HCl 500 MG in Sodium Chloride 0.9% 100 ML IVPB SCH (00:58)
[2018-10-02] MEDS: Vancomycin HCl 25 MG/ML Oral PO SCH ×5 (00:58→23:28)
[2018-10-02] MEDS: metroNIDAZOLE 250 MG in Admixture Fee 1 EACH IVPB SCH (05:05)
[2018-10-02 06:22] LABS: #Lymphocytes 1.2 thou/uL (1.20-3.40); #Monocytes 0.8 thou/uL (0.11-0.59); #Neutrophils 6.1 thou/uL (1.40-6.50); %Basophils 0.3 % (0.0-1.0); %Eosinophils 10.8 % (0.0-10.0); %Monocytes 8.5 % (0.0-10.0); %Neutrophils 67.3 % (42.0-75.0); Hemoglobin 8.6 g/dL (12.0-16.0); Mean Corpuscular Hemoglobin 32.2 pg (27.0-31.0); Mean Platelet Volume 7.4 fL (7.4-10.4); Platelet Count 226 thou/uL (130-400); Red Blood Cell (RBC) Count 2.68 mill/uL (4.20-5.40); White Blood Cell (WBC) Count 9.1 thou/uL (4.8-10.8)
[2018-10-02 06:39] LABS: Anion Gap 11 mmol/L (10-20); BUN (Urea Nitrogen) 19 mg/dL (9.8-20.1); Calc. Creatinine Clearance 36 mL/min (70-130); Calcium 7.7 mg/dL (7.8-10.44); Carbon Dioxide 18 mmol/L (23-31); Chloride 114 mmol/L (98-107); Estimated GFR-MDRD 33; Glucose 91 mg/dL (83-110); Potassium 3.6 mmol/L (3.5-5.1); Sodium 139 mmol/L (136-145)
[2018-10-02] MEDS: Budesonide 0.5 MG/2 ML NEB NEB SCH ×2 (09:00→19:04)
[2018-10-02] MEDS: Acetaminophen 325 MG TAB PO SCH ×4 (09:35→20:53)
[2018-10-02] MEDS: Ferrous Sulfate 325 MG TAB PO SCH (09:36)
[2018-10-02] MEDS: Multivit, Therapeutic 1 TAB PO SCH (09:36)
[2018-10-02] MEDS: Folic Acid 1 MG TAB PO SCH (09:36)
[2018-10-02] MEDS: MEROPENEM 1 GM/50 ML 1 GM in Premix Bag 1 BAG IVPB SCH ×2 (09:37→20:53)
[2018-10-02] MEDS ORDERED: Lorazepam 2 MG/ML VIAL SLOW IVP PRN (10:00)
[2018-10-02 23:32] LABS: Vancomycin, Trough 22.4 ug/mL
[2018-10-03 05:08] LABS: #Basophils 0.1 thou/uL (0.0-0.2); #Eosinphils 0.9 thou/uL (0.0-0.7); #Monocytes 0.5 thou/uL (0.11-0.59); #Neutrophils 4.9 thou/uL (1.40-6.50); %Basophils 0.8 % (0.0-1.0); %Eosinophils 12.7 % (0.0-10.0); %Monocytes 7.1 % (0.0-10.0); %Neutrophils 65.5 % (42.0-75.0); Hemoglobin 8.7 g/dL (12.0-16.0); Mean Corpuscular HGB CONC 33.3 g/dL (32.0-36.0); Mean Corpuscular Hemoglobin 32.6 pg (27.0-31.0); Mean Corpuscular Volume 97.9 fL (78.0-98.0); Mean Platelet Volume 7.7 fL (7.4-10.4); Platelet Count 193 thou/uL (130-400); RBC Distribution Width 16.9 % (11.5-14.5); Red Blood Cell (RBC) Count 2.65 mill/uL (4.20-5.40); White Blood Cell (WBC) Count 7.4 thou/uL (4.8-10.8)
[2018-10-03 05:26] LABS: Anion Gap 12 mmol/L (10-20); BUN (Urea Nitrogen) 21 mg/dL (9.8-20.1); Calc. Creatinine Clearance 40 mL/min (70-130); Calcium 7.9 mg/dL (7.8-10.44); Carbon Dioxide 16 mmol/L (23-31); Chloride 114 mmol/L (98-107); Estimated GFR-MDRD 37; Glucose 76 mg/dL (83-110); Potassium 4.1 mmol/L (3.5-5.1); Sodium 138 mmol/L (136-145)
[2018-10-03] MEDS: Vancomycin HCl 25 MG/ML Oral PO SCH ×3 (05:43→17:57)
--- NOTE | 2018-10-03 07:54 | RAD ---
KUB: Date: 10/03/18 INDICATION: Dobbhoff feeding tube. COMPARISON: Prior exam dated 09/28/18. IMPRESSION: Dobbhoff feeding tube tip now resides in the region of the gastric body. There are small left pleural effusions. Bowel gas pattern is nonspecific. POS: BH
[2018-10-03] MEDS: Budesonide 0.5 MG/2 ML NEB NEB SCH ×2 (09:29→18:48)
[2018-10-03] MEDS: MEROPENEM 1 GM/50 ML 1 GM in Premix Bag 1 BAG IVPB SCH ×2 (10:09→21:40)
[2018-10-03] MEDS: Folic Acid 1 MG TAB PO SCH (10:10)
[2018-10-03] MEDS: Acetaminophen 325 MG TAB PO SCH ×4 (10:10→21:40)
[2018-10-03] MEDS: Multivit, Therapeutic 1 TAB PO SCH (10:10)
[2018-10-03] MEDS: Ferrous Sulfate 325 MG TAB PO SCH (10:10)
[2018-10-04] MEDS: Vancomycin HCl 25 MG/ML Oral PO SCH ×4 (00:06→18:26)
[2018-10-04] MEDS: Sodium Chloride 0.9% 1,000 ML IV SCH (02:14)
[2018-10-04 05:39] LABS: #Basophils 0.1 thou/uL (0.0-0.2); #Eosinphils 0.9 thou/uL (0.0-0.7); #Lymphocytes 1.4 thou/uL (1.20-3.40); #Monocytes 0.6 thou/uL (0.11-0.59); #Neutrophils 3.4 thou/uL (1.40-6.50); %Eosinophils 14.2 % (0.0-10.0); %Lymphocytes 21.6 % (21.0-51.0); %Monocytes 9.4 % (0.0-10.0); %Neutrophils 53.9 % (42.0-75.0); Hemoglobin 8.5 g/dL (12.0-16.0); Mean Corpuscular HGB CONC 32.4 g/dL (32.0-36.0); Mean Corpuscular Hemoglobin 31.9 pg (27.0-31.0); Mean Corpuscular Volume 98.5 fL (78.0-98.0); Mean Platelet Volume 7.5 fL (7.4-10.4); Platelet Count 216 thou/uL (130-400); RBC Distribution Width 16.6 % (11.5-14.5); Red Blood Cell (RBC) Count 2.66 mill/uL (4.20-5.40); White Blood Cell (WBC) Count 6.3 thou/uL (4.8-10.8)
[2018-10-04 05:59] LABS: Anion Gap 10 mmol/L (10-20); BUN (Urea Nitrogen) 20 mg/dL (9.8-20.1); Calc. Creatinine Clearance 34 mL/min (70-130); Calcium 7.6 mg/dL (7.8-10.44); Carbon Dioxide 19 mmol/L (23-31); Chloride 111 mmol/L (98-107); Estimated GFR-MDRD 31; Glucose 79 mg/dL (83-110); Potassium 3.5 mmol/L (3.5-5.1); Sodium 136 mmol/L (136-145)
[2018-10-04] MEDS: Acetaminophen 325 MG TAB PO SCH ×5 (09:13→21:14)
[2018-10-04] MEDS: MEROPENEM 1 GM/50 ML 1 GM in Premix Bag 1 BAG IVPB SCH ×2 (09:13→21:14)
[2018-10-04] MEDS: Folic Acid 1 MG TAB PO SCH (09:13)
[2018-10-04] MEDS: Ferrous Sulfate 325 MG TAB PO SCH (09:14)
[2018-10-04] MEDS: Multivit, Therapeutic 1 TAB PO SCH (09:14)
[2018-10-04] MEDS: Budesonide 0.5 MG/2 ML NEB NEB SCH ×2 (09:41→18:38)
[2018-10-05] MEDS: Vancomycin HCl 25 MG/ML Oral PO SCH ×4 (00:40→17:31)
[2018-10-05 06:20] LABS: Anion Gap 11 mmol/L (10-20); BUN (Urea Nitrogen) 21 mg/dL (9.8-20.1); Calc. Creatinine Clearance 31 mL/min (70-130); Calcium 7.7 mg/dL (7.8-10.44); Carbon Dioxide 21 mmol/L (23-31); Chloride 111 mmol/L (98-107); Estimated GFR-MDRD 27; Glucose 81 mg/dL (83-110); Potassium 3.6 mmol/L (3.5-5.1); Sodium 139 mmol/L (136-145)
[2018-10-05 06:32] LABS: Band 9 % (5-11); Eosinophils 12 % (0-10); Hemoglobin 8.6 g/dL (12.0-16.0); Lymphocytes 17 % (21-51); MDiff Complete? YES; Mean Corpuscular HGB CONC 33.2 g/dL (32.0-36.0); Mean Corpuscular Hemoglobin 31.8 pg (27.0-31.0); Mean Corpuscular Volume 95.8 fL (78.0-98.0); Mean Platelet Volume 7.4 fL (7.4-10.4); Monocytes 9 % (0-10); Myelocyte 2 % (0-0); Neutrophil 51 % (42-75); Platelet Count 215 thou/uL (130-400); RBC Distribution Width 16.7 % (11.5-14.5); Red Blood Cell (RBC) Count 2.72 mill/uL (4.20-5.40); White Blood Cell (WBC) Count 6.5 thou/uL (4.8-10.8)
[2018-10-05] MEDS: Budesonide 0.5 MG/2 ML NEB NEB SCH ×2 (07:33→19:16)
[2018-10-05] MEDS: Acetaminophen 325 MG TAB PO SCH ×4 (08:12→21:35)
[2018-10-05] MEDS: MEROPENEM 1 GM/50 ML 1 GM in Premix Bag 1 BAG IVPB SCH (08:12)
[2018-10-05] MEDS: Ferrous Sulfate 325 MG TAB PO SCH (08:13)
[2018-10-05] MEDS: Folic Acid 1 MG TAB PO SCH (08:13)
[2018-10-05] MEDS: Multivit, Therapeutic 1 TAB PO SCH (08:13)
[2018-10-05 12:59] VITALS: BMI 27.2
--- NOTE | 2018-10-05 18:32 | PRG ---
DATE OF SERVICE: 10/05/2018 SUBJECTIVE: Ms. Hernández more alert. She is able to eat and has a good appetite, still chronically ill appearing, oriented, having quite a bit of diarrhea. She has a rectal tube in place and a Roebrt catheter. OBJECTIVE: VITAL SIGNS: T-max 100.4 yesterday. She is now 99.1 max today. GENERAL: Chronically ill-appearing. SKIN: Numerous areas of skin bruising. HEENT: Ocular movements conjugate. HEART: S1 and S2, regular rate. ABDOMEN: Soft. Not distended. The perianal ulcers are clean and have a clean base, but still there is a stool contamination of the ulcers. She has a Robert catheter in place. LABORATORY DATA: White cell count 6.5, hemoglobin 8.6, platelets 215. Sodium 139, creatinine 1.81. She had a C. diff test, which was antigen positive, toxin negative. She is currently on oral vancomycin. She is also on meropenem. ASSESSMENT AND DISCUSSION: Alcoholism, perirectal abscess, status post surgical debridement with usual polymicrobial veda. Hemorrhagic manifestations with skin bruising and antigen positivity. In view of diarrhea, we will discontinue meropenem, switch her to oral Flagyl. Continue treating for perirectal abscess which mostly consists of anaerobic veda. Eventual voiding trial. Hopefully, she will become continent of stool to decrease the amount of contamination of the areas of the perirectal abscess. Job ID: [id number]
[2018-10-05] MEDS ORDERED: metroNIDAZOLE 500 MG TAB PO SCH (21:00)
[2018-10-05] MEDS: metroNIDAZOLE 500 MG TAB PO SCH (21:35)
[2018-10-06] MEDS: Vancomycin HCl 25 MG/ML Oral PO SCH ×2 (00:52→05:38)
[2018-10-06 05:44] LABS: #Basophils 0.1 thou/uL (0.0-0.2); #Eosinphils 0.8 thou/uL (0.0-0.7); #Lymphocytes 1.7 thou/uL (1.20-3.40); #Monocytes 0.7 thou/uL (0.11-0.59); #Neutrophils 2.7 thou/uL (1.40-6.50); %Basophils 1.2 % (0.0-1.0); %Lymphocytes 29.3 % (21.0-51.0); %Monocytes 10.9 % (0.0-10.0); %Neutrophils 45.6 % (42.0-75.0); Hemoglobin 8.8 g/dL (12.0-16.0); Mean Corpuscular Hemoglobin 32.3 pg (27.0-31.0); Mean Corpuscular Volume 97.8 fL (78.0-98.0); Mean Platelet Volume 7.1 fL (7.4-10.4); Platelet Count 231 thou/uL (130-400); RBC Distribution Width 16.4 % (11.5-14.5); Red Blood Cell (RBC) Count 2.73 mill/uL (4.20-5.40); White Blood Cell (WBC) Count 5.9 thou/uL (4.8-10.8)
[2018-10-06 06:09] LABS: Anion Gap 12 mmol/L (10-20); BUN (Urea Nitrogen) 23 mg/dL (9.8-20.1); Calc. Creatinine Clearance 34 mL/min (70-130); Calcium 8.1 mg/dL (7.8-10.44); Carbon Dioxide 23 mmol/L (23-31); Chloride 110 mmol/L (98-107); Estimated GFR-MDRD 30; Glucose 80 mg/dL (83-110); Potassium 3.8 mmol/L (3.5-5.1); Sodium 141 mmol/L (136-145)
[2018-10-06] MEDS: Budesonide 0.5 MG/2 ML NEB NEB SCH (06:50)
[2018-10-06] MEDS ORDERED: cloNIDine 0.1 MG TAB PO SCH (09:00)
[2018-10-06] MEDS: metroNIDAZOLE 500 MG TAB PO SCH (10:02)
[2018-10-06] MEDS: Acetaminophen 325 MG TAB PO SCH ×2 (10:02→12:34)
[2018-10-06] MEDS: Folic Acid 1 MG TAB PO SCH (10:03)
[2018-10-06] MEDS: Multivit, Therapeutic 1 TAB PO SCH (10:03)
[2018-10-06] MEDS: Ferrous Sulfate 325 MG TAB PO SCH (10:04)
[2018-10-06 12:36] VITALS: BP 167/92; TEMP 97.7
--- NOTE | 2018-10-07 10:02 | DIS ---
DATE OF ADMISSION: 09/22/2018 DATE OF DISCHARGE: 10/06/2018 History and physical had previously been dictated. I will resume from there with hospital course. The patient was placed in a surgical bed, where she was begun on IV antibiotics. Surgical consultation was obtained with Dr. Valle concerning her perirectal abscesses. We prevented DTs, consulted Wound Care and continued her vancomycin. Over the next 24 hours, she remained stable, was pleasantly confused, oriented x1. Her sepsis began responding to the antibiotics very quickly. Her dehydration improved significantly. Her dementia remained stable. The patient went to the OR, where Dr. Valle did an incision and drainage of bilateral perirectal abscesses, left greater than right under general endotracheal anesthesia. The patient tolerated the procedure well and by 09/24, postoperative day #1, she seemed to have tolerated it well. She was alert and confused, which is her baseline. SCDs were put in place to prevent PEs. Her dehydration had resolved. By 09/25/2018, alert, fully demented, but pleasant. Her hemoglobin and hematocrit are stabilized and she had been afebrile. By 09/26/2018, her white count elevated somewhat, hemoglobin was 7.2 and hematocrit 22.7. She underwent a swallow test and it was felt that she needed to have a Dobhoff placed for nutrition. It was noted with her stools that she has C diff colitis, so a Dobhoff was placed that day. Antibiotics were continued. The family was counseled. By 09/27, the patient remained confused, pulling out her PEG. She removed it many times because of her dementia. Her white count had come down to 13,300. Because her hemoglobin and hematocrit had decreased, she needed to be transfused. This is postoperative day #4. A central line was also placed and restraints were necessary to keep the patient from pulling her lines. By 09/28/2018, she aroused easily and then had a Dobhoff again. Her dementia persisted. By 09/29, alert, confused, but was sleeping well. MRI of her foot showed no osteomyelitis. By 09/30/2018, we were waiting for placement. Labs did not show any significant change, where profuse liquid stools from the C diff required placement of a rectal tube. By 10/01, awake, confused, afebrile, lungs clear. We tried to get her up to the chair. Physical therapy was consulted. A PICC line was placed for long-term antibiotics. By 10/02, she aroused easily, no complaints. Her diarrhea was finally coming back, was remitting. Hemoglobin after transfusion was 8.6 and hematocrit 26.9. Her weight was 163 pounds on this day. The C diff PCR confirmed her C diff colitis. The code status was discussed with the family and her son clarified that he did not want any attempt at resuscitation. By 10/03, afebrile, vital signs stable. She had occasional bits of SVT, but otherwise was doing well and awaiting for placement. We were able to finally discontinue her restraints and begin feeding the patient, who was very hungry. By 10/04/2018, alert, eating well. Diarrhea persisting somewhat postoperative day #11. At this point, we were able to discontinue the Dobhoff, discontinue the restraints, converted to Hep-Lock. By 10/05/2018, awake, alert, sleeping well, lungs clear, waiting placement. Perirectal abscess I and D's postoperative day #12. Dementia persisting. We increased her water. By 10/06, she was able to be discharged to the [facility]. DIAGNOSES AT THE TIME OF DISCHARGE: 1. Bilateral perirectal abscess. 2. Protein poor malnutrition. 3. Clostridium difficile colitis. 4. Dementia. 5. Dehydration, resolved. 6. Chronic kidney disease. 7. Anorexia, resolved. 8. Anemia - chronic. 9. Sepsis, resolved. The time required to review the chart, examine the patient, appliance counselor the family, then prepare for discharge including reconciliation of all her medication and dictation came to 40 minutes. She was transferred in stable condition. She will be continued on Flagyl 500 mg q.i.d. for 10 days. We will follow up from the residential facility. Job ID: [id number]
--- NOTE | 2018-10-13 08:26 | PQF ---
MONIKA ISRAEL MICHAEL E MD [id number] CLINICAL DOCUMENTATION CLARIFICATION FORM: POST DISCHARGE DATE: 10/13/2018 ATTN: Dr. Mary Please exercise your independent, professional judgment in responding to the clarification form. Clinical indicators are provided on the bottom of this form for your review Please check appropriate box(s) to clarify if the following diagnosis has been ruled in or ruled out: Disseminated intravascular coagulation [ ] Ruled in diagnosis [ ] Continue to treat [ ] Resolved [ x ] Ruled out diagnosis [ ] Cannot rule out diagnosis [ ] Other diagnosis (please specify) [ ] Unable to determine In addition, please specify: Present on Admission (POA): [ x ] Yes [ ] No [ ] Unable to determine For continuity of documentation, please document condition throughout progress notes and discharge summary. Thank You. CLINICAL INDICATORS - SIGNS / SYMPTOMS / LABS Per 09/26 handwritten PN: "Sepsis with mild DIC". Per 09/29 H&P/PN (Quintin): "Hemorrhagic manifestations with skin bruising, probably secondary to excessive dosing." Per 10/05 PN (Quintin): "Hemorrhagic manifestations with skin bruising and antigen positivity." Per 09/26 PN (Quintin): "There are multiple areas of bruising and superficial hematomas in the area of laceration in the left arm and gluteal abscesses. Apparent bleeding diaphysis in multiple sites, mostly surgical sites, areal of laceraiton of the skin. Zosyn has been discontinued since it may affect platelet function. Aspirin and Lovenox discontinued". Per 09/25 consult (Quintin): "Coagulopathy with increased bleeding after admission. The coagulopathy may be exacerbated by the continuation of Aspirin as well as Lovenox". Per 09/27 consult (Quintin): "Hemorrhagic areas. Worsening hemorrhagic manifestations, particularly bleeding at the operative site and what appears to be bleeding in the areas of bruising in the extremities. Hemorrhagic manifestations with skin bruising and superficial dermal hemorrhage in various parts of her appendicular skin and chest. The patient's increased rates of bleeding may be related to platelet dysfunction. The dose of Zosyn is higher than the recommended." RISK FACTORS Per 5/4 PN (Quintin): "Zosyn has been discontinued since it may affect platelet function. Aspirin and Lovenox discontinued." TREATMENTS Per 5/4 PN (Quintin): Discontinuation of Zosyn, Aspirin and Lovenox. (This form is maintained as a part of the permanent medical record) 2015 [employer]. All Rights Reserved Lauren [email or web address] [phone] MTDD
== END 2018-10-06 13:32 | DRG 854 ==
LOC: ERS 13:28 → ERHOLD 17:53 → 2NO 21:13 → OBSVTOIN 09-22 14:00
PROVIDERS: ADMIT Internal Medicine; ATTEND Internal Medicine
PROC: 0D9P0ZZ Drainage of Rectum, Open Approach (ICD-10-PCS; principal; 2018-09-23)
PROC: 0DH67UZ Insertion of Feeding Device into Stomach, Via Natural or Artificial Opening (ICD-10-PCS; 2018-09-26)
PROC: 30233N1 Transfusion of Nonautologous Red Blood Cells into Peripheral Vein, Percutaneous Approach (ICD-10-PCS; 2018-09-28)
PROC: 02HV33Z Insertion of Infusion Device into Superior Vena Cava, Percutaneous Approach (ICD-10-PCS; 2018-09-30)
DX: A41.9 Sepsis, unspecified organism (principal); K61.1 Rectal abscess; A04.72 Enterocolitis due to Clostridium difficile, not specified as recurrent; E44.0 Moderate protein-calorie malnutrition; N18.4 Chronic kidney disease, stage 4 (severe); N17.9 Acute kidney failure, unspecified; E86.0 Dehydration; F10.20 Alcohol dependence, uncomplicated; F03.90 Unspecified dementia, unspecified severity, without behavioral disturbance, psychotic disturbance, mood disturbance, and anxiety; I12.9 Hypertensive chronic kidney disease with stage 1 through stage 4 chronic kidney disease, or unspecified chronic kidney disease; J44.9 Chronic obstructive pulmonary disease, unspecified; F41.9 Anxiety disorder, unspecified; F17.210 Nicotine dependence, cigarettes, uncomplicated; I48.2 Chronic atrial fibrillation; I25.10 Atherosclerotic heart disease of native coronary artery without angina pectoris; R58 Hemorrhage, not elsewhere classified; T36.0X5A Adverse effect of penicillins, initial encounter; B95.4 Other streptococcus as the cause of diseases classified elsewhere; Z68.27 Body mass index [BMI] 27.0-27.9, adult; B95.2 Enterococcus as the cause of diseases classified elsewhere; Z79.82 Long term (current) use of aspirin; Z79.899 Other long term (current) drug therapy; Z90.5 Acquired absence of kidney; Z96.641 Presence of right artificial hip joint; Z78.1 Physical restraint status; Y92.230 Patient room in hospital as the place of occurrence of the external cause
CPT/HCPCS: 36415; 36416; 36430; 36569; 51701; 71045; 74018; 74176; 80048; 80053; 80076; 80202; 81003; 82274; 83605; 84484; 85025; 85610; 85730; 86850; 86900; 86901; 87040; 87070; 87076; 87077; 87186; 87205; 87324; 87449; 87493; 93005; 94640; 96361; 96365; 96367; A4353; C1751; C1769; J1644; J1650; J2001; J2060; J2185; J2405; J2543; J2704; J3010; J3370; J3411; J3490; J7050; J7626; P9016

== ENCOUNTER 2018-12-11 12:10 | Outpatient (CLI) | payer MEDICARE, OTHER ==
--- NOTE | 2018-12-11 14:50 | CT ---
CT OF THE ABDOMEN AND PELVIS WITHOUT IV CONTRAST: INDICATION: History of gluteal abscesses. COMPARISON: Prior CT of the abdomen and pelvis dated 09/21/2018. FINDINGS: Previously seen large gluteal abscesses extending into the left ischiorectal fossa has significantly decreased in size. Small curvilinear radiopaque density is seen in the bed of the previously seen le ft gluteal abscess. No large residual drainable fluid collection is seen within the left ischiorecta l fossa. Mild suspected scarring is seen within this location. There is a moderate amount of retained stool within the rectal vault. No intrapelvic collection is e vident. The bladder is decompressed with a Robert catheter. There is severe vascular calcification o f the abdominopelvic vasculature. The right kidney is surgically absent. The punctate nonobstructin g renal calculi involving the left kidney are stable. A small cyst is again seen involving the right hepatic lobe. The unopacified pancreas and spleen are unremarkable-appearing. The adrenal glands are normal-appearing. Small superior end plate compression abnormalities of T12 and L1 are stable. There is diffuse osteop enia. There is a right hip endoprosthesis again demonstrated. IMPRESSION: 1. Significant reduction in size of the previously seen left gluteal abscesses. No definite large r esidual drainable fluid collection is evident. Mild suspected scarring is seen in the left ischiorec maria guadalupe fossa. 2. Moderate amount of retained stool within the colon. 3. Robert catheter. 4. Other chronic findings as above. POS: TPC
== END 2018-12-11 12:11 | disposition home or self-care (01) ==
LOC: CT 12:10
PROVIDERS: ATTEND Family Medicine
DX: T81.89XD Other complications of procedures, not elsewhere classified, subsequent encounter (principal); L02.31 Cutaneous abscess of buttock; K59.00 Constipation, unspecified; N20.0 Calculus of kidney; K76.89 Other specified diseases of liver; M85.80 Other specified disorders of bone density and structure, unspecified site; I70.90 Unspecified atherosclerosis; Z90.5 Acquired absence of kidney; Z96.641 Presence of right artificial hip joint; Z96.0 Presence of urogenital implants
CPT/HCPCS: 74176; 82565

== ENCOUNTER 2018-12-31 11:46 | Emergency (ER) | payer MEDICARE, OTHER ==
[2018-12-31 13:04] LABS: Hemoglobin 9.6 g/dL (12.0-16.0); Mean Corpuscular HGB CONC 33.1 g/dL (32.0-36.0); Mean Corpuscular Hemoglobin 35.2 pg (27.0-31.0); Mean Platelet Volume 6.7 fL (7.4-10.4); Platelet Count 375 thou/uL (130-400); Red Blood Cell (RBC) Count 2.73 mill/uL (4.20-5.40); White Blood Cell (WBC) Count 12.3 thou/uL (4.8-10.8)
[2018-12-31 13:20] LABS: ALT (SGPT) 7 U/L (8-55); AST (SGOT) 15 U/L (5-34); Albumin 3.4 g/dL (3.4-4.8); Alkaline Phosphatase 64 U/L (40-150); Anion Gap 15 mmol/L (10-20); BUN (Urea Nitrogen) 59 mg/dL (9.8-20.1); Bilirubin, Total 0.2 mg/dL (0.2-1.2); Calc. Creatinine Clearance 0 mL/min (70-130); Calcium 9.5 mg/dL (7.8-10.44); Carbon Dioxide 23 mmol/L (23-31); Chloride 107 mmol/L (98-107); Estimated GFR-MDRD 19; Globulin 3.6 g/dL (2.4-3.5); Glucose 81 mg/dL (83-110); Potassium 4.7 mmol/L (3.5-5.1); Sodium 140 mmol/L (136-145)
[2018-12-31 13:23] LABS: Band 7 % (5-11); Eosinophils 1 % (0-10); Lymphocytes 20 % (21-51); MDiff Complete? YES; Macrocytosis SLIGHT = 6-15 cells (100X) (0-5/hpf); Metamyelocyte 2 % (0-0); Monocytes 9 % (0-10); Myelocyte 2 % (0-0); Neutrophil 59 % (42-75); Platelet Morphology Comment Appears Adequate; Polychromasia SLIGHT = 2-3 cells (100X) (0-2/hpf)
--- NOTE | 2018-12-31 13:55 | RAD ---
XR Chest 1 View Portable History: Sepsis Comparison: Radiograph September 30, 2018 Findings: Lungs are hypoinflated. No focal confluent airspace consolidation, pneumothorax, or effusio n. Moderate tracheobronchial tree calcifications. Cardiac size is similar. Mild flattening of the left humeral head. Impression: No acute intrathoracic abnormality.
[2018-12-31 14:54] LABS: Bacteria/HPF 4+ HPF (None Seen); Bilirubin Negative (Negative); Blood, Urine Negative (Negative); Clarity Turbid (Clear); Glucose, Urine (Dipstick) Normal (Negative); Leukocyte 500 Leu/uL (Negative); Nitrite 2+ (Negative); Protein, Urine (Dipstick) 10 mg/dL (Neg-Trace); Squamous Epithelial None Seen HPF (0-3); Urobilinogen Normal mg/dL (Less than 2); WBC/HPF Greater than 50 HPF (0-3)
[2018-12-31] MEDS ORDERED: Iopamidol 370 76% 50 ML VIAL FS ONE (15:32)
--- NOTE | 2018-12-31 15:34 | CT ---
CT PELVIS WITHOUT IV CONTRAST: Rectal contrast was administered. INDICATION: Followup gluteal abscess. Complains of rectal pain. COMPARISON: Comparison is made to recent CT pelvis 12/11/2018. FINDINGS: Rectal contrast was administered. The contrast was confined to the rectum with no extravasation. There is soft tissue density at the site of the previously noted gluteal abscess. This may represent residual scarring. There is no evidence of recurrent fluid density or abscess collection. Pelvic structures unremarkable. Diverticulosis of the visualized colon. The visualized small bowel loops are normal caliber. No free fluid or mass in the pelvis. Right hip prosthesis produces artifa ct obscuring detail. IMPRESSION: Increased density at the left buttock along the skin surface at the site of previously noted abscess probably represents some residual induration or scarring. No recurrent fluid or abscess collection. POS: TPC
[2018-12-31] MEDS ORDERED: cefTRIAXone\\ROCEPHIN 1 GM VIAL ONE (15:51)
== END 2018-12-31 18:26 ==
LOC: ERS 11:46
DX: N39.0 Urinary tract infection, site not specified (principal); L98.419 Non-pressure chronic ulcer of buttock with unspecified severity; I10 Essential (primary) hypertension; I48.91 Unspecified atrial fibrillation; J44.9 Chronic obstructive pulmonary disease, unspecified; D64.9 Anemia, unspecified; F41.9 Anxiety disorder, unspecified; F32.9 Major depressive disorder, single episode, unspecified; Z87.891 Personal history of nicotine dependence; Z79.899 Other long term (current) drug therapy; Z79.82 Long term (current) use of aspirin
CPT/HCPCS: 71045; 72192; 80053; 81003; 81015; 83605; 85025; 87040; 87077; 87086; 87149; 87186; 96365; J0696; Q9967

== ENCOUNTER 2019-01-06 15:40 | Outpatient (CLI) | payer MEDICARE, OTHER ==
[~2019-01-06 15:40] MED LIST changes: -ISOVUE-370 76%-LOCM 1 ML ONE; +Sodium Chloride 0.9% 15 ML NEB ONE
--- NOTE | 2019-01-06 23:35 | HP ---
HISTORY OF PRESENT ILLNESS: Ms. Remedios Hernández is a very pleasant 78-year-old, accompanied by her son, who [facility] of multiple wounds of the perianal region. The patient underwent I and D of a perirectal abscess on 09/23/[address] Valle. The patient's son states that the patient has been placed on multiple antibiotics without healing of the wounds. PAST MEDICAL HISTORY: 1. Atrial fibrillation. 2. Hypertension. 3. Chronic kidney disease. 4. Coronary artery disease. 5. Chronic obstructive pulmonary disease. 6. Chronic asthma. 7. Congestive heart failure. 8. Protein-calorie malnutrition. 9. Dementia. 10. Anemia. 11. History of GI bleeding. 12. Gastroesophageal reflux disease. 13. Nephrolithiasis. 13. Gout. PAST SURGICAL HISTORY: 1. Left breast lumpectomy for benign disease. 2. JULIA-BSO. 3. I and D of bilateral perirectal abscesses, left greater than right, 2018, by Dr. Valle. 4. Nephrectomy. 5. Surgery for right hip fracture. MEDICATIONS: 1. Tylenol. 2. Aricept. 3. Aspirin 81 mg. 4. Buspirone. 5. Diltiazem. 6. Iron. 7. Folic acid. 8. Lasix. 9. Multivitamin. 10. Protonix. 11. Remeron. 12. Estradiol cream. 13. Megace. 14. Symbicort. ALLERGIES: NO KNOWN DIAGNOSED ALLERGIES. SOCIAL HISTORY: Social history is significant for tobacco use of 1/2 pack of cigarettes per day for 20 years, the patient apparently stopped smoking 25 years ago. Social history is significant for the occasional consumption of alcohol in the past. FAMILY HISTORY: Family history is significant for coronary artery disease. The patient's father was diagnosed with coronary artery disease. Family history is negative for diabetes mellitus. PHYSICAL EXAMINATION: VITAL SIGNS: Temperature 97.8, pulse 100, respirations 22, blood pressure 125/ 70. GENERAL: This is a 78-year-old female, lying on stretcher in examination room, in no acute distress. HEENT: Normocephalic, atraumatic. NECK: No nuchal rigidity. CHEST: Clear to auscultation. CV: Regular rate and rhythm. ABDOMEN: Soft. EXTREMITIES: No clubbing or cyanosis. PERINEUM: Three openings of the perirectal region are present. These wounds all measure approximately 0.1 x 0.2 cm. Rust-colored drainage is associated with each wound. ASSESSMENT AND PLAN: 1. Multiple lesions of perirectal region as described above. The patient underwent incision and drainage of bilateral perirectal abscesses on 09/23/[address] Jay Valle. I have discussed the treatment plan with Dr. Valle and the patient will be referred to Gastroenterology. I will see Ms. Hernández again after evaluation by Gastroenterology is complete. The patient and her son understand and are in agreement with the preceding treatment plan. 2. Atrial fibrillation. 3. Hypertension. 4. Chronic kidney disease. 5. Coronary artery disease. 6. Chronic obstructive pulmonary disease. 7. Chronic asthma. 8. Congestive heart failure. 9. Protein-calorie malnutrition. 10. Dementia. 11. Anemia. 12. History of gastrointestinal bleeding. 13. Gastroesophageal reflux disease. 14. Nephrolithiasis. Job ID: [id number] [facility]
== END 2019-01-06 15:41 | disposition home or self-care (01) ==
LOC: WCC 15:40
PROVIDERS: ATTEND Family Medicine
DX: K61.1 Rectal abscess (principal)
CPT/HCPCS: A4218

== ENCOUNTER 2019-01-27 11:00 | Emergency (ER) | payer MEDICARE, OTHER ==
[2019-01-27 11:42] LABS: #Basophils 0.1 thou/uL (0.0-0.2); #Eosinphils 0.3 thou/uL (0.0-0.7); #Lymphocytes 2.2 thou/uL (1.20-3.40); #Monocytes 0.9 thou/uL (0.11-0.59); #Neutrophils 8.6 thou/uL (1.40-6.50); %Basophils 0.5 % (0.0-1.0); %Eosinophils 2.6 % (0.0-10.0); %Lymphocytes 18.4 % (21.0-51.0); %Monocytes 7.5 % (0.0-10.0); Hemoglobin 9.4 g/dL (12.0-16.0); Mean Corpuscular Hemoglobin 35.1 pg (27.0-31.0); Mean Platelet Volume 7.1 fL (7.4-10.4); Platelet Count 342 thou/uL (130-400); RBC Distribution Width 12.6 % (11.5-14.5); Red Blood Cell (RBC) Count 2.68 mill/uL (4.20-5.40); White Blood Cell (WBC) Count 12.2 thou/uL (4.8-10.8)
--- NOTE | 2019-01-27 11:44 | RAD ---
EXAM: Single view of the chest HISTORY: Dyspnea COMPARISON: 12/31/2018 FINDINGS: Single view of the chest shows a normal sized cardiomediastinal silhouette. There is no angelito dence of consolidation, mass, or pleural effusion. The bones are unremarkable. IMPRESSION: No evidence of acute cardiopulmonary disease
[2019-01-27 12:08] LABS: ALT (SGPT) 10 U/L (8-55); AST (SGOT) 12 U/L (5-34); Albumin 3.3 g/dL (3.4-4.8); Alkaline Phosphatase 99 U/L (40-150); Anion Gap 13 mmol/L (10-20); BUN (Urea Nitrogen) 36 mg/dL (9.8-20.1); Bilirubin, Total 0.3 mg/dL (0.2-1.2); Calc. Creatinine Clearance 0 mL/min (70-130); Calcium 8.9 mg/dL (7.8-10.44); Carbon Dioxide 30 mmol/L (23-31); Chloride 102 mmol/L (98-107); Estimated GFR-MDRD 25; Glucose 82 mg/dL (83-110); Potassium 4.2 mmol/L (3.5-5.1); Protein, Total 6.3 g/dL (6.0-8.3); Sodium 141 mmol/L (136-145)
--- NOTE | 2019-01-31 01:03 | EKG ---
Test Reason : ER Blood Pressure : / mmHG Vent. Rate : 097 BPM Atrial Rate : 097 BPM P-R Int : 150 ms QRS Dur : 072 ms QT Int : 314 ms P-R-T Axes : 038 -28 000 degrees QTc Int : 398 ms Normal sinus rhythm Moderate voltage criteria for LVH, may be normal variant Nonspecific ST and T wave abnormality Abnormal ECG Confirmed by RAMA DIAZ ([id number]), international editorial producer DOREEN MONTEZ ([id number] on 01/31/2019 1:02:13 AM Referred By: Confirmed By:RAMA DIAZ
== END 2019-01-27 15:20 | disposition home or self-care (01) ==
LOC: ERS 11:00
DX: J44.9 Chronic obstructive pulmonary disease, unspecified (principal); I10 Essential (primary) hypertension; I49.9 Cardiac arrhythmia, unspecified; I48.91 Unspecified atrial fibrillation; D64.9 Anemia, unspecified; F32.9 Major depressive disorder, single episode, unspecified; F41.9 Anxiety disorder, unspecified; Z87.891 Personal history of nicotine dependence; Z79.899 Other long term (current) drug therapy; Z79.82 Long term (current) use of aspirin
CPT/HCPCS: 36415; 71045; 80053; 83880; 84484; 85025; 93005; 94640; 96360; 96361; J7620